=== PATIENT | female | born 1955 | race Caucasian/White ===

== ENCOUNTER → 2016-05-28 | Outpatient (CLI) | payer OTHER ==
--- NOTE | 2016-05-30 11:07 | MM ---
Reason for exam: screening (asymptomatic). Last mammogram was performed 7 years and 7 months ago. History: Patient is postmenopausal. Took hormonal contraceptives for 5 years. Took estrogen for 1 year beginning at age 42. Physical Findings: A clinical breast exam by your physician is recommended on an annual basis and results should be correlated with mammographic findings. MG Screening Mammo w CAD Bilateral CC and MLO view(s) were taken. Prior study comparison: May 20, 2011, mammogram, performed at [facility]. October 10, 2008, bilateral diagnostic digital mammog. There are scattered fibroglandular densities. Finding: There are typically benign round calcifications. There is no discrete abnormality. No significant changes in finding since May 20, 2011 and October 10, 2008. ASSESSMENT: Benign, BI-RAD 2 RECOMMENDATION: Routine screening mammogram of both breasts in 1 year.
== END | disposition home or self-care (01) ==
LOC: RADMAMWWP 13:00
PROVIDERS: ATTEND Internal Medicine
DX: Z12.31 Encounter for screening mammogram for malignant neoplasm of breast (principal)

== ENCOUNTER 2017-07-28 20:37 | Emergency (ER) | payer OTHER ==
[2017-07-28] MEDS ORDERED: ONDANSETRON 4 MG/2 ML VIAL IVP STA (22:43)
[2017-07-28] MEDS ORDERED: SODIUM CHLORIDE 0.9% 1,000 ML IV STA ×2 (22:43)
[2017-07-28] MEDS ORDERED: RX INFO: IV CONTRAST WAS GIVEN 1 EACH MISC MISCELLANE PRN (22:43)
[2017-07-28] MEDS ORDERED: MORPHINE SULFATE 4 MG/ML SYRINGE IVP STA (22:43)
[2017-07-28 23:14] LABS: Basophils % (A) 0 %; Eosinophils # (A) 0.2 k/uL (0-0.7); Eosinophils % (A) 2 %; HCT 36.7 % (34.0-46.0); HGB 12.1 gm/dL (11.4-16.0); Lymphocytes # (A) 2.2 k/uL (1.0-4.8); Lymphocytes % (A) 25 %; MCH 25.5 pg (25.0-35.0); MCHC 32.9 g/dL (31.0-37.0); MCV 77.7 fL (80.0-100.0); Mean Platelet Volume 7.6; Monocytes # (A) 0.4 k/uL (0-1.0); Monocytes % (A) 5 %; Neutrophils % (A) 67 %; Platelet Count 228 k/uL (150-450); RBC 4.73 m/uL (3.80-5.40); RDW 13.9 % (11.5-15.5); WBC 8.9 k/uL (3.8-10.6)
[2017-07-28 23:28] LABS: ALT 25 U/L (9-52); AST 17 U/L (14-36); Alkaline Phosphatase 139 U/L (38-126); Amylase 44 U/L (30-110); Anion Gap 13 mmol/L; Blood Urea Nitrogen 14 mg/dL (7-17); Calcium 10.6 mg/dL (8.4-10.2); Carbon Dioxide 29 mmol/L (22-30); Chloride 99 mmol/L (98-107); Glucose 289 mg/dL (74-99); Lipase 110 U/L (23-300); Potassium 4.2 mmol/L (3.5-5.1); Sodium 141 mmol/L (137-145); Total Bilirubin 0.3 mg/dL (0.2-1.3); Total Protein 6.6 g/dL (6.3-8.2)
[2017-07-28 23:46] VITALS: PULSE 99
[2017-07-29] LABS: Appearance,Urine Clear (Clear); Bilirubin,Urine Negative (Negative); Blood,Urine Negative (Negative); Color,Urine Light Yellow; Glucose,Urine (UA) 4+ (Negative); Ketones,Urine Negative (Negative); Leukocyte Esterase,Urine Negative (Negative); Nitrite,Urine Negative (Negative); PH, Urine 5.5 (5.0-8.0); Protein,Urine Negative (Negative); Specific Gravity,Urine 1.017 (1.001-1.035); Urobilinogen,Urine <2.0 mg/dL (<2.0)
[2017-07-29] MEDS ORDERED: INSULIN REGULAR 100 UNIT/ML VIAL SQ ONE (00:16)
--- NOTE | 2017-07-29 00:18 | ED ---
Abdominal Pain HPI - General Chief Complaint: Abdominal Pain Stated Complaint: hernia Time Seen by Provider: 07/28/17 22:26 Source: patient Mode of arrival: ambulatory Limitations: no limitations - History of Present Illness Initial Comments: 61 years old female has a history of hernia according to her minutes lower abdomen in the midline and she said it has been home uncomfortable when she touches the pain fall and she lays down she denies any nausea and vomiting in particular but she said she has been throwing up once a day for the last several weeks him a she said she hasn't moved her bowels for the last 2 days. - Related Data Home Medications Medication Instructions Recorded Confirmed RX: Aspirin [Adult Low Dose 81 mg PO DAILY 01/26/15 07/28/17 Aspirin EC] RX: Meclizine HCl 25 mg PO TID 01/26/15 07/28/17 RX: Nitroglycerin Sl Tabs 0.4 mg SUBLINGUAL Q5M PRN 01/26/15 07/28/17 [Nitrostat] RX: Atorvastatin [Lipitor] 80 mg PO HS 09/14/15 07/28/17 RX: glipiZIDE [Glucotrol] 10 mg PO TID 09/14/15 07/28/17 RX: metFORMIN HCL 1,000 mg PO BID 09/14/15 07/28/17 Amitriptyline HCl [Elavil] 100 mg PO HS 07/28/17 07/28/17 Ergocalciferol (Vitamin D2) 50,000 unit PO Q7D 07/28/17 07/28/17 [Vitamin D2] HYDROcodone/APAP 7.5-325MG [Varney 1 tab PO BID PRN 07/28/17 07/28/17 7.5-325] Insulin Glargine,Hum.rec.anlog 30 unit SQ BID 07/28/17 07/28/17 [Basaglar Kwikpen U-100] Latanoprost [Xalatan 0.005%] 1 drop BOTH EYES HS 07/28/17 07/28/17 Levothyroxine Sodium [Synthroid] 137 mcg PO DAILY 07/28/17 07/28/17 Mometasone/Formoterol [Dulera 200 2 puff INHALATION BID 07/28/17 07/28/17 Mcg/5 Mcg Inhaler] Montelukast [Singulair] 10 mg PO HS 07/28/17 07/28/17 Pantoprazole Sodium [Protonix] 40 mg PO DAILY 07/28/17 07/28/17 RX: ALPRAZolam [Xanax] 0.25 mg PO BID PRN 07/28/17 07/28/17 Previous Rx's Medication Instructions Recorded RX: Lisinopril [Zestril] 10 mg PO DAILY #30 tab 11/28/15 Allergies Allergy/AdvReac Type Severity Reaction Status Date / Time No Known Allergies Allergy Verified 07/28/17 22:29 Review of Systems ROS Statement: Those systems with pertinent positive or pertinent negative responses have been documented in the HPI. ROS Other: All systems not noted in ROS Statement are negative. Past Medical History Past Medical History: Chest Pain / Angina, COPD, CVA/TIA, Diabetes Mellitus, Eye Disorder, GERD/Reflux, Hyperlipidemia, Hypertension, Myocardial Infarction ( MS), Osteoarthritis (OA), Thyroid Disorder Additional Past Medical History / Comment(s): vertigo, CVA-x2- 2010, glaucoma, varicose veins, peptic ulcer, Last Myocardial Infarction Date:: 2008 History of Any Multi-Drug Resistant Organisms: None Reported Past Surgical History: Bladder Surgery, Cholecystectomy, Hernia Repair, Hysterectomy, Tonsillectomy Additional Past Surgical History / Comment(s): thyroidectomy, left foot ORIF- hardware later removed, rt oopherectomy, bladder suspension, laser eye surgery, Past Anesthesia/Blood Transfusion Reactions: No Reported Reaction Past Psychological History: Anxiety, Depression Smoking Status: Current every day smoker Past Alcohol Use History: None Reported Past Drug Use History: None Reported - Past Family History Father Family Medical History: Cancer Additional Family Medical History / Comment(s): prostate General Exam Limitations: no limitations Course Vital Signs 07/28/17 07/28/17 07/28/17 20:47 22:52 23:40 Temperature 98.2 F Pulse Rate 118 H 104 H 99 Respiratory 18 20 19 Rate Blood Pressure 148/86 138/89 139/87 O2 Sat by Pulse 97 99 97 Oximetry On reassessment noticed CBC, compressive metabolic panel, urinalysis, CT abdomen were unremarkable noticed Hemangioma glucose is bit high and is no ketoacidosis 20 for discussed with the patient and patient was advised to follow-up with the Dr. Pinedo she has appointment with the Dr. Sahu she was advised to continue that Medical Decision Making - Lab Data Result diagrams: 07/28/17 23:00 07/28/17 23:00 Lab Results 07/28/17 07/28/17 07/28/17 Range/Units 23:00 23:00 23:39 WBC 8.9 (3.8-10.6) k/uL RBC 4.73 (3.80-5.40) m/uL Hgb 12.1 (11.4-16.0) gm/dL Hct 36.7 (34.0-46.0) % MCV 77.7 L (80.0-100.0) fL MCH 25.5 (25.0-35.0) pg MCHC 32.9 (31.0-37.0) g/dL RDW 13.9 (11.5-15.5) % Plt Count 228 (150-450) k/uL Neutrophils % 67 % Lymphocytes % 25 % Monocytes % 5 % Eosinophils % 2 % Basophils % 0 % Neutrophils # 6.0 (1.3-7.7) k/uL Lymphocytes # 2.2 (1.0-4.8) k/uL Monocytes # 0.4 (0-1.0) k/uL Eosinophils # 0.2 (0-0.7) k/uL Basophils # 0.0 (0-0.2) k/uL Sodium 141 (137-145) mmol/L Potassium 4.2 (3.5-5.1) mmol/L Chloride 99 (98-107) mmol/L Carbon Dioxide 29 (22-30) mmol/L Anion Gap 13 mmol/L BUN 14 (7-17) mg/dL Creatinine 0.76 (0.52-1.04) mg/dL Est GFR (CKD-EPI)AfAm >90 (>60 ml/min/1.73 sqM) Est GFR (CKD-EPI)NonAf 85 (>60 ml/min/1.73 sqM) Glucose 289 H (74-99) mg/dL POC Glucose (mg/dL) (75-99) mg/dL POC Glu Wrapper Layer And Examiner Soft Work ID Calcium 10.6 H (8.4-10.2) mg/dL Total Bilirubin 0.3 (0.2-1.3) mg/dL AST 17 (14-36) U/L ALT 25 (9-52) U/L Alkaline Phosphatase 139 H (38-126) U/L Total Protein 6.6 (6.3-8.2) g/dL Albumin 4.0 (3.5-5.0) g/dL Amylase 44 (30-110) U/L Lipase 110 (23-300) U/L Urine Color Light Yellow Urine Appearance Clear (Clear) Urine pH 5.5 (5.0-8.0) Ur Specific [place] 1.017 (1.001-1.035) Urine Protein Negative (Negative) Urine Glucose (UA) 4+ H (Negative) Urine Ketones Negative (Negative) Urine Blood Negative (Negative) Urine Nitrite Negative (Negative) Urine Bilirubin Negative (Negative) Urine Urobilinogen <2.0 (<2.0) mg/dL Ur Leukocyte Esterase Negative (Negative) 07/29/17 Range/Units 00:25 WBC (3.8-10.6) k/uL RBC (3.80-5.40) m/uL Hgb (11.4-16.0) gm/dL Hct (34.0-46.0) % MCV (80.0-100.0) fL MCH (25.0-35.0) pg MCHC (31.0-37.0) g/dL RDW (11.5-15.5) % Plt Count (150-450) k/uL Neutrophils % % Lymphocytes % % Monocytes % % Eosinophils % % Basophils % % Neutrophils # (1.3-7.7) k/uL Lymphocytes # (1.0-4.8) k/uL Monocytes # (0-1.0) k/uL Eosinophils # (0-0.7) k/uL Basophils # (0-0.2) k/uL Sodium (137-145) mmol/L Potassium (3.5-5.1) mmol/L Chloride (98-107) mmol/L Carbon Dioxide (22-30) mmol/L Anion Gap mmol/L BUN (7-17) mg/dL Creatinine (0.52-1.04) mg/dL Est GFR (CKD-EPI)AfAm (>60 ml/min/1.73 sqM) Est GFR (CKD-EPI)NonAf (>60 ml/min/1.73 sqM) Glucose (74-99) mg/dL POC Glucose (mg/dL) 236 H (75-99) mg/dL POC Glu Wrapper Layer [employer] Examiner Soft Work ID Ruben Flores Calcium (8.4-10.2) mg/dL Total Bilirubin (0.2-1.3) mg/dL AST (14-36) U/L ALT (9-52) U/L Alkaline Phosphatase (38-126) U/L Total Protein (6.3-8.2) g/dL Albumin (3.5-5.0) g/dL Amylase (30-110) U/L Lipase (23-300) U/L Urine Color Urine Appearance (Clear) Urine pH (5.0-8.0) Ur Specific [place] (1.001-1.035) Urine Protein (Negative) Urine Glucose (UA) (Negative) Urine Ketones (Negative) Urine Blood (Negative) Urine Nitrite (Negative) Urine Bilirubin (Negative) Urine Urobilinogen (<2.0) mg/dL Ur Leukocyte Esterase (Negative) Disposition Clinical Impression: Abdominal pain Disposition: HOME SELF-CARE Condition: Good Instructions: Abdominal Pain (ED) Additional Instructions: Tylenol 1 g by mouth every 8 hours when necessary Is patient prescribed a controlled substance at d/c from ED?: No If prescribed controlled substance>3 days was MAPS reviewed?: No When asked, does pt state using other controlled substances?: No Referrals: Vicky Pinedo MD [Primary Care Provider] - 1-2 days
--- NOTE | 2017-07-29 00:24 | CT ---
EXAMINATION TYPE: CT abdomen pelvis w con DATE OF EXAM: 07/29/2017 COMPARISON: 08/19/2015 HISTORY: Abd pain CT DLP: 1705.60 mGycm Automated exposure control for dose reduction was used. TECHNIQUE: Helical acquisition of images was performed from the lung bases through the pelvis. CONTRAST: Performed without Oral Contrast and with IV Contrast, patient injected with 100 mL of Isovue 300. FINDINGS: The lung bases are clear. There is no pleural effusion. Heart size is normal. There is a 3.3 cm rounded enhancing mass in the posterior right lobe of the liver consistent with hem angioma. The bile ducts are not dilated. The remainder of the liver appears normal. Spleen and pancre as appear normal. There are clips from cholecystectomy. There is no adrenal mass. Kidneys show satisfactory contrast opacification. There is no hydronephrosi s. There is no retroperitoneal adenopathy. Abdominal aorta is atheromatous. I see no intestinal wall thickening. There are no dilated loops. There is no sign of free air. There is no evidence of a pelvi c mass. The bony structures appear intact. IMPRESSION: HEMANGIOMA IN THE RIGHT LOBE OF THE LIVER IS STABLE COMPARED TO OLD EXAM. MILD ATHEROSCLEROTIC VASCUL AR DISEASE. NO SIGN OF ACUTE ABDOMEN AND PELVIS. NO SIGN OF APPENDICITIS. APPENDIX IS MOSTLY FILLED W ITH AIR AND MEASURES UP TO 8 MM.
[2017-07-29 00:26] LABS: Glucose,Whole Blood 236 mg/dL (75-99)
[2017-07-29 02:35] VITALS: BP 117/68; RESP 16; TEMP 98.4
== END 2017-07-29 02:37 | disposition home or self-care (01) ==
LOC: EC 20:37
DX: R10.9 Unspecified abdominal pain (principal); J44.9 Chronic obstructive pulmonary disease, unspecified; E11.9 Type 2 diabetes mellitus without complications; K21.9 Gastro-esophageal reflux disease without esophagitis; E78.5 Hyperlipidemia, unspecified; I10 Essential (primary) hypertension; I25.2 Old myocardial infarction; E07.9 Disorder of thyroid, unspecified; F32.9 Major depressive disorder, single episode, unspecified; F41.9 Anxiety disorder, unspecified; F17.200 Nicotine dependence, unspecified, uncomplicated; Z79.4 Long term (current) use of insulin; Z79.51 Long term (current) use of inhaled steroids; Z79.82 Long term (current) use of aspirin; Z79.899 Other long term (current) drug therapy
CPT/HCPCS: 36415 ×2; 80053; 82150; 83690; 85025; 81003; 74177; 99284; 96374; 96375; 96361 ×3; J2270; J2405; Q9967

== ENCOUNTER → 2017-08-28 | Outpatient (CLI) | payer OTHER ==
--- NOTE | 2017-08-29 09:11 | MM ---
Reason for exam: screening (asymptomatic). Last mammogram was performed 1 year and 3 months ago. History: Patient is postmenopausal. Took hormonal contraceptives for 5 years. Took estrogen for 1 year beginning at age 42. Physical Findings: A clinical breast exam by your physician is recommended on an annual basis and results should be correlated with mammographic findings. MG Screening Mammo w CAD Bilateral CC and MLO view(s) were taken. Prior study comparison: May 28, 2016, bilateral MG screening mammo w CAD. May 20, 2011, mammogram, performed at [facility]. The breast tissue is heterogeneously dense. This may lower the sensitivity of mammography. Finding: There are typically benign round, diffuse/scattered and grouped calcifications in both breasts. There is a chronic nodularity bilaterally. There is no discrete abnormality. ASSESSMENT: Benign, BI-RAD 2 RECOMMENDATION: Routine screening mammogram of both breasts in 1 year.
== END | disposition home or self-care (01) ==
LOC: RADMAMWWP 14:48
PROVIDERS: ATTEND Internal Medicine
DX: Z12.31 Encounter for screening mammogram for malignant neoplasm of breast (principal)
CPT/HCPCS: 77067

== ENCOUNTER 2017-10-29 07:11 | Day surgery (SDC) | payer OTHER ==
[2017-10-23 11:00] VITALS: BMI 34.9
[~2017-10-29 07:11] MED LIST: LACTATED RINGERS 1,000 ML IV SCH; LIDOCAINE 1% 20 ML VIAL (10MG/ML) FOR IV START INTRADERMA PRN
[2017-10-29 07:56] LABS: Glucose,Whole Blood 206 mg/dL (75-99)
[2017-10-29 08:02] VITALS: TEMP 99.5
[2017-10-29] MEDS ORDERED: PROPOFOL 10 MG/ML 20 ML VIAL IV ONE (08:56)
--- NOTE | 2017-10-29 09:06 | P.PCN ---
Date of Procedure: 10/29/17 Procedure(s) Performed: Preoperative Dx: GI bleed Postoperative Dx: Gastritis, small hiatal hernia Procedure: EGD with Bx Anesthesia: Sedation Endoscopist: Dr. Sahu Specimens: Antrum Endoscopic Procedure: The patient was on the endoscopy table in the left decubitus position. The Olympus gastroscope was inserted into the oropharynx and passed under direct visualization to the region of the third portion of the duodenum. From that point the scope was slowly withdrawn inspecting all surfaces carefully. There were no neoplastic inflammatory or polypoid lesions throughout the duodenum. The pylorus was widely patent. The stomach was carefully inspected. There was gastritis present. A biopsy of the antrum took place to rule out H. pylori. Retroflexion revealed a small sliding hiatal hernia. The esophagus was then carefully examined. There were no neoplastic inflammatory or polypoid lesions throughout the visualized esophagus. The patient was then taken to the recovery room in stable condition per anesthesia guidelines. Recommendations: Await biopsy results. Continue antiacids.
[2017-10-29 09:15] VITALS: RESP 16
[2017-10-29 09:29] VITALS: PULSE 88
[2017-10-29 09:36] VITALS: BP 134/91
--- NOTE | 2017-10-31 11:23 | CDI ---
Outpatient Documentation Clarification Form Date: 10/31/17 CDS/Cigar Making Machine Operator Name: Sharon Crawford Phone: If any questions, call [place] Bridges Supervisor at [phone] Patient Name: Jennifer Rodriguez Admit Date: 10/29/17 Discharge Date: 10/29/17 ATTENTION: The [facility] Coding Staff appreciate your assistance in clarifying documentation. Please respond to the clarification below the line at the bottom and electronically sign. The [facility] Coding staff will review the response and follow-up if needed. Please note: Queries are made part of the Legal Health Record. If you have any questions, please contact the Bridges Supervisor. Dear Dr. Sahu, What is the source of the GI bleed? Multiple coding resources, that we are required to follow, state that the physician should identify a source and the packing room supervisor may not assume. ICD-9-CM [facility], Second 2006, Page 13: Question: In the 2004 issue of [facility]oding [facility], it was advised that "the combination codes describing hemorrhage should not be assigned unless the physician identifies a causal relationship." This information superseded previous advice provided in 1991. If, however, a patient presents with GI bleeding where only one possible source is found, can the packing room supervisor assume a causal relationship between the GI bleeding and the single finding (ulcer, gastritis, diverticulitis, etc.) or must the physician explicitly state that the GI bleeding is due to the single finding? Answer: The packing room supervisor should not assume a causal relationship between gastrointestinal bleeding and a single finding such as a gastric ulcer, gastritis, diverticulitis , etc. The physician must identify the source of the bleeding and link the clinical findings from the colonoscopy or upper endoscopy, since these findings may be unrelated to the bleeding. ICD-9-CM, 2004, Page: 17-18: Question: A patient presents with GI bleeding and undergoes both an EGD with biopsy and colonoscopy. Results reveal multiple findings including gastritis, duodenitis, esophagitis, diverticulosis (of colon), and colon polyp. The physician does not link the GI bleeding with these conditions nor does the physician state that the GI bleeding is not due to these conditions. What is the correct code assignment for these conditions? Answer: Query the physician to determine whether the GI bleeding was caused by any of the endoscopic findings (e.g., gastritis, duodentitis, esophagitis, diverticulosis, and/or polyp). Assign code 578.9, Hemorrhage of gastrointestinal tract, unspecified, as the principal diagnosis, if the physician does not establish a causal relationship between the gastrointestinal bleeding and the multiple findings. Codes 535.50, Unspecified gastritis and gastroduodenitis, without hemorrhage, 535.60, Duodenitis, without hemorrhage, 530.10, Esophagitis, unspecified, 562.10, Diverticulosis of colon (without mention of hemorrhage), and 211.3, Benign neoplasm of other parts of digestive system, Colon, should be assigned as additional diagnoses. The combination codes describing hemorrhage should not be assigned unless the physician identifies a causal relationship. If the documentation provides more specific information and the bleeding is linked to a specific condition, assign the appropriate combination code with bleeding. Assign code 45.16, Esophagogastroduodenoscopy [EGD] with closed biopsy, and code 45.23, Colonoscopy , for the procedures performed. This current information supersedes advice previously published in [facility], Second Quarter 1991, pages 8-9. Thank you for your kind consideration. patient's preoperative diagnosis with GI bleeding given the history of melanotic stools. No active bleeding was identified to explain the patient's GI source of bleeding. In the absence of visible bleeding it is impossible to state with certainty where the bleeding is coming from. [facility]
== END 2017-10-29 09:52 | disposition home or self-care (01) ==
LOC: ORWHC2ENDO 07:11
PROVIDERS: ATTEND Surgery
DX: K92.2 Gastrointestinal hemorrhage, unspecified (principal); K29.50 Unspecified chronic gastritis without bleeding; K44.9 Diaphragmatic hernia without obstruction or gangrene; E11.9 Type 2 diabetes mellitus without complications; E07.9 Disorder of thyroid, unspecified; K21.9 Gastro-esophageal reflux disease without esophagitis; I10 Essential (primary) hypertension; I25.2 Old myocardial infarction; I25.10 Atherosclerotic heart disease of native coronary artery without angina pectoris; F17.210 Nicotine dependence, cigarettes, uncomplicated; Z79.82 Long term (current) use of aspirin; Z79.890 Hormone replacement therapy; Z79.4 Long term (current) use of insulin; Z79.891 Long term (current) use of opiate analgesic; Z79.899 Other long term (current) drug therapy
CPT/HCPCS: 88305; 43239; J2704

== ENCOUNTER 2017-11-30 14:47 | Emergency (ER) | payer MEDICARE, OTHER ==
[2017-11-30 15:09] VITALS: RESP 18
--- NOTE | 2017-11-30 15:24 | ED ---
General Adult HPI - General Chief complaint: ENT Stated complaint: Ear pain Time Seen by Provider: 11/30/17 15:00 Source: patient Mode of arrival: ambulatory Limitations: no limitations - History of Present Illness Initial comments: Patient is a 61-year-old female presenting for abdominal pain and right ear pain. She states that the right ear pain is been present for one week and it is swollen. There is clear discharge and she admits to subjective fevers and chills. She states that she has been putting Q-tips as well as her fingertip in the ear to try to get some clear drainage out. Additionally, she admits to having green stools and she thinks that that is her body's way of releasing the poison. She states that she has epigastric discomfort and this feels similar to her GERD. This pain is been present for several weeks and she is no longer taking her antacid medicines. She denies any chest pain, shortness breath, urinary complaints - Related Data Home Medications Medication Instructions Recorded Confirmed Aspirin [Adult Low Dose Aspirin EC] 81 mg PO DAILY 01/26/15 10/29/17 Meclizine HCl 25 mg PO TID 01/26/15 10/29/17 Nitroglycerin Sl Tabs [Nitrostat] 0.4 mg SUBLINGUAL Q5M PRN 01/26/15 10/29/17 Atorvastatin [Lipitor] 80 mg PO HS 09/14/15 10/29/17 glipiZIDE [Glucotrol] 10 mg PO TID 09/14/15 10/29/17 metFORMIN HCL 1,000 mg PO BID 09/14/15 10/29/17 ALPRAZolam [Xanax] 0.25 mg PO BID PRN 07/28/17 10/29/17 Amitriptyline HCl [Elavil] 100 mg PO HS 07/28/17 10/29/17 Ergocalciferol (Vitamin D2) 50,000 unit PO SA 07/28/17 10/29/17 [Vitamin D2] HYDROcodone/APAP 7.5-325MG [[place] 1 tab PO BID PRN 07/28/17 10/29/17 7.5-325] Insulin Glargine,Hum.rec.anlog 40 unit SQ QAM 07/28/17 10/29/17 [Basaglar Kwikpen U-100] Latanoprost [Xalatan 0.005%] 1 drop BOTH EYES HS 07/28/17 10/29/17 Levothyroxine Sodium [Synthroid] 137 mcg PO DAILY 07/28/17 10/29/17 Mometasone/Formoterol [Dulera 200 2 puff INHALATION BID 07/28/17 10/29/17 Mcg/5 Mcg Inhaler] Montelukast [Singulair] 10 mg PO HS 07/28/17 10/29/17 Pantoprazole Sodium [Protonix] 40 mg PO DAILY 07/28/17 10/29/17 Acid Cider Vinegar 1 tab PO DAILY 10/23/17 10/29/17 Escitalopram [Lexapro] 20 mg PO DAILY 10/23/17 10/29/17 Insulin Glargine,Hum.rec.anlog 30 unit SQ AC-SUPPER 10/23/17 10/29/17 [Basaglar Kwikpen U-100] Previous Rx's Medication Instructions Recorded Lisinopril [Zestril] 10 mg PO DAILY #30 tab 11/28/15 Famotidine [Pepcid] 20 mg PO DAILY #30 tablet 11/30/17 Ofloxacin [Ofloxacin 0.3% Otic 10 drops RIGHT EAR DAILY 7 Days #1 11/30/17 Soln] bottle Allergies Allergy/AdvReac Type Severity Reaction Status Date / Time No Known Allergies Allergy Verified 10/29/17 07:32 Review of Systems ROS Statement: Those systems with pertinent positive or pertinent negative responses have been documented in the HPI. Constitutional: Negative for chills, fatigue and fever. HENT: Negative for congestion. Positive for right ear pain and discharge Respiratory: Negative for chest tightness, shortness of breath and wheezing. Negative for cough Cardiovascular: Negative for chest pain and palpitations. Gastrointestinal: Positive for abdominal pain and nausea. Negative for abdominal distention, diarrhea, and vomiting. Genitourinary: Negative for dysuria. Musculoskeletal: Negative for back pain, neck pain and neck stiffness. Skin: Negative for color change. Neurological: Negative for dizziness, speech difficulty, weakness and light- headedness. Psychiatric/Behavioral: Negative for agitation and confusion. Negative for anxiety ROS Other: All systems not noted in ROS Statement are negative. Past Medical History Past Medical History: Chest Pain / Angina, COPD, CVA/TIA, Diabetes Mellitus, Eye Disorder, GERD/Reflux, Hyperlipidemia, Hypertension, Myocardial Infarction ( [place]), Osteoarthritis (OA), Thyroid Disorder Additional Past Medical History / Comment(s): HAVING BLOOD STOOLS, vertigo, CVA- x2- 2010, glaucoma, varicose veins, peptic ulcer, HX POLYP Last Myocardial Infarction Date:: 2008 History of Any Multi-Drug Resistant Organisms: None Reported Past Surgical History: Bladder Surgery, Cholecystectomy, Hernia Repair, Hysterectomy, Tonsillectomy Additional Past Surgical History / Comment(s): thyroidectomy, left foot ORIF- hardware later removed, rt oopherectomy, bladder suspension, laser eye surgery, Past Anesthesia/Blood Transfusion Reactions: No Reported Reaction Past Psychological History: Anxiety, Depression Smoking Status: Current every day smoker Past Alcohol Use History: None Reported Past Drug Use History: None Reported - Past Family History Father Family Medical History: Cancer Additional Family Medical History / Comment(s): prostate General Exam - General Exam Comments Initial Comments: Constitutional: Pt is oriented to person, place, and time. Pt appears well- developed and well-nourished. No distress. HENT: Head: Normocephalic and atraumatic. Eyes: EOM are normal. Ears: Right external ear canal erythema with no purulent discharge. No mastoid tenderness Neck: Normal range of motion. Neck supple. Cardiovascular: Normal rate, regular rhythm, S1 normal, S2 normal and normal heart sounds. Exam reveals no gallop and no friction rub. No murmur heard. Pulmonary/Chest: Effort normal and breath sounds normal. No tachypnea and no bradypnea. No respiratory distress. No wheezes or rales noted. Abdominal: Soft. Bowel sounds are normal. Pt exhibits no shifting dullness, no distension, no pulsatile liver, no fluid wave, no abdominal bruit and no ascites. There is no tenderness. There is no rigidity, no rebound, no guarding, no tenderness at McBurney's point and negative Chacon's sign. Musculoskeletal: Normal range of motion. Neurological: Pt is alert and oriented to person, place, and time. No cranial nerve deficit. Skin: Skin is warm and dry. No rash noted. Pt is not diaphoretic. No erythema. No pallor. Psychiatric: Pt has a normal mood and affect. Pt behavior is normal. Thought content normal. Limitations: no limitations Course Vital Signs 11/30/17 11/30/17 11/30/17 14:54 15:08 16:17 Temperature 98.3 F Pulse Rate 97 93 83 Respiratory 16 18 18 Rate Blood Pressure 89/61 95/53 97/60 O2 Sat by Pulse 96 97 94 L Oximetry 11/30/17 16:42 Temperature 98.0 F Pulse Rate 85 Respiratory 18 Rate Blood Pressure 99/59 O2 Sat by Pulse 96 Oximetry EKG Findings - EKG Comments: EKG Findings:: EKG shows normal sinus rhythm a rate of 86 bpm, MI interval 150, QRS duration 84, QTC 423. There are no significant ST depressions or elevations. Medical Decision Making - Medical Decision Making Lavatory satiated there is no significant leukocytosis and renal function was preserved. Lipase is mildly elevated at 373. However, his on the patient's HPI , it is strongly felt that the patient's symptoms are secondary to GERD and/or peptic ulcer disease. Therefore she was given a prescription for Pepcid. Additionally, it appears that she has external otitis of the right ear for which she was given ofloxacin drops. There is no evidence of mastoid tenderness.Explained all labs and diagnostic test results and that we will discharge the patient home and patient is to follow up with PCP in 1-2 days and return to the ED if symptoms worsen. Pt is agreeable to plan. - Lab Data Result diagrams: 11/30/17 15:54 11/30/17 15:54 Lab Results 11/30/17 11/30/17 11/30/17 Range/Units 15:54 15:54 15:54 WBC 9.1 (3.8-10.6) k/uL RBC 4.57 (3.80-5.40) m/uL Hgb 11.9 (11.4-16.0) gm/dL Hct 36.8 (34.0-46.0) % MCV 80.5 (80.0-100.0) fL MCH 26.1 (25.0-35.0) pg MCHC 32.4 (31.0-37.0) g/dL RDW 14.2 (11.5-15.5) % Plt Count 265 (150-450) k/uL Neutrophils % 62 % Lymphocytes % 29 % Monocytes % 4 % Eosinophils % 3 % Basophils % 1 % Neutrophils # 5.7 (1.3-7.7) k/uL Lymphocytes # 2.6 (1.0-4.8) k/uL Monocytes # 0.4 (0-1.0) k/uL Eosinophils # 0.3 (0-0.7) k/uL Basophils # 0.1 (0-0.2) k/uL Hypochromasia Slight Sodium 137 (137-145) mmol/L Potassium 4.4 (3.5-5.1) mmol/L Chloride 101 (98-107) mmol/L Carbon Dioxide 26 (22-30) mmol/L Anion Gap 10 mmol/L BUN 14 (7-17) mg/dL Creatinine 0.81 (0.52-1.04) mg/dL Est GFR (CKD-EPI)AfAm >90 (>60 ml/min/1.73 sqM) Est GFR (CKD-EPI)NonAf 79 (>60 ml/min/1.73 sqM) Glucose 197 H (74-99) mg/dL Calcium 10.4 H (8.4-10.2) mg/dL Total Bilirubin 0.4 (0.2-1.3) mg/dL AST 25 (14-36) U/L ALT 26 (9-52) U/L Alkaline Phosphatase 111 (38-126) U/L Troponin I <0.012 (0.000-0.034) ng/mL Total Protein 7.1 (6.3-8.2) g/dL Albumin 3.9 (3.5-5.0) g/dL Lipase 373 H (23-300) U/L Disposition Clinical Impression: Otitis externa, Epigastric pain, GERD (gastroesophageal reflux disease), Elevated lipase Disposition: HOME SELF-CARE Condition: Good Instructions: Earache (ED), Abdominal Pain (ED) Prescriptions: Famotidine [Pepcid] 20 mg PO DAILY #30 tablet Ofloxacin [Ofloxacin 0.3% Otic Soln] 10 drops RIGHT EAR DAILY 7 Days #1 bottle Is patient prescribed a controlled substance at d/c from ED?: No Referrals: Vicky Pinedo MD [Primary Care Provider] - 1-2 days Time of Disposition: 16:31
[2017-11-30 16:00] LABS: Basophils # (A) 0.1 k/uL (0-0.2); Basophils % (A) 1 %; Eosinophils # (A) 0.3 k/uL (0-0.7); Eosinophils % (A) 3 %; HCT 36.8 % (34.0-46.0); HGB 11.9 gm/dL (11.4-16.0); Hypochromasia Slight; Lymphocytes # (A) 2.6 k/uL (1.0-4.8); Lymphocytes % (A) 29 %; MCH 26.1 pg (25.0-35.0); MCHC 32.4 g/dL (31.0-37.0); MCV 80.5 fL (80.0-100.0); Mean Platelet Volume 6.7; Monocytes # (A) 0.4 k/uL (0-1.0); Monocytes % (A) 4 %; Neutrophils # (A) 5.7 k/uL (1.3-7.7); Neutrophils % (A) 62 %; Platelet Count 265 k/uL (150-450); RBC 4.57 m/uL (3.80-5.40); RDW 14.2 % (11.5-15.5); WBC 9.1 k/uL (3.8-10.6)
[2017-11-30 16:13] LABS: ALT 26 U/L (9-52); AST 25 U/L (14-36); Albumin 3.9 g/dL (3.5-5.0); Alkaline Phosphatase 111 U/L (38-126); Anion Gap 10 mmol/L; Blood Urea Nitrogen 14 mg/dL (7-17); Calcium 10.4 mg/dL (8.4-10.2); Carbon Dioxide 26 mmol/L (22-30); Chloride 101 mmol/L (98-107); Glucose 197 mg/dL (74-99); Lipase 373 U/L (23-300); Sodium 137 mmol/L (137-145); Total Bilirubin 0.4 mg/dL (0.2-1.3); Total Protein 7.1 g/dL (6.3-8.2)
[2017-11-30 16:16] LABS: Potassium 4.4 mmol/L (3.5-5.1)
[2017-11-30 16:43] VITALS: BP 99/59; PULSE 85; TEMP 98
== END 2017-11-30 16:42 | disposition home or self-care (01) ==
LOC: EC 14:47
DX: H60.91 Unspecified otitis externa, right ear (principal); K21.9 Gastro-esophageal reflux disease without esophagitis; R74.8 Abnormal levels of other serum enzymes; J44.9 Chronic obstructive pulmonary disease, unspecified; I20.9 Angina pectoris, unspecified; E11.9 Type 2 diabetes mellitus without complications; E78.5 Hyperlipidemia, unspecified; I10 Essential (primary) hypertension; I25.2 Old myocardial infarction; E07.9 Disorder of thyroid, unspecified; F32.9 Major depressive disorder, single episode, unspecified; F41.9 Anxiety disorder, unspecified; F17.200 Nicotine dependence, unspecified, uncomplicated; Z87.11 Personal history of peptic ulcer disease; Z86.73 Personal history of transient ischemic attack (TIA), and cerebral infarction without residual deficits; Z86.010 Personal history of colon polyps; Z90.49 Acquired absence of other specified parts of digestive tract; Z90.710 Acquired absence of both cervix and uterus; Z90.721 Acquired absence of ovaries, unilateral; Z98.890 Other specified postprocedural states; Z79.4 Long term (current) use of insulin; Z79.51 Long term (current) use of inhaled steroids; Z79.82 Long term (current) use of aspirin; Z79.899 Other long term (current) drug therapy
CPT/HCPCS: 36415; 80053; 83690; 84484; 85025; 93005; 99283

== ENCOUNTER 2017-12-16 11:53 | Observation (INO) | payer MEDICARE, OTHER ==
--- NOTE | 2017-12-16 12:23 | ED ---
Chest Pain HPI - General Chief Complaint: Chest Pain Stated Complaint: CHEST PAIN, JULIANE Time Seen by Provider: 12/16/17 12:03 Source: patient, RN notes reviewed Mode of arrival: wheelchair Limitations: no limitations - History of Present Illness Initial Comments: Is a 60-year-old female who does have a History of heart disease who states she had chest pain today which required nitroglycerin. She states she uses it once or twice a month normally day she had midsternal chest pain was greater than 10/10 dull in nature she states that she took one nitro when away within a came back she'll take another nitroglycerin and came back currently she is pain-free she currently denies any fevers chills nausea vomiting sweats or other symptoms she is in process of being worked up for vocal cord issues. MD Complaint: chest pain - Related Data Home Medications Medication Instructions Recorded Confirmed Aspirin [Adult Low Dose Aspirin EC] 81 mg PO DAILY 01/26/15 12/16/17 Meclizine HCl 25 mg PO TID 01/26/15 12/16/17 Nitroglycerin Sl Tabs [Nitrostat] 0.4 mg SUBLINGUAL Q5M PRN 01/26/15 12/16/17 Atorvastatin [Lipitor] 80 mg PO HS 09/14/15 12/16/17 glipiZIDE [Glucotrol] 10 mg PO TID 09/14/15 12/16/17 metFORMIN HCL 1,000 mg PO BID 09/14/15 12/16/17 ALPRAZolam [Xanax] 0.25 mg PO BID PRN 07/28/17 12/16/17 Amitriptyline HCl [Elavil] 100 mg PO HS 07/28/17 12/16/17 Ergocalciferol (Vitamin D2) 50,000 unit PO SA 07/28/17 12/16/17 [Vitamin D2] HYDROcodone/APAP 7.5-325MG [[place] 1 tab PO BID PRN 07/28/17 12/16/17 7.5-325] Insulin Glargine,Hum.rec.anlog 40 unit SQ QAM 07/28/17 12/16/17 [Basaglar Kwikpen U-100] Latanoprost [Xalatan 0.005%] 1 drop BOTH EYES HS 07/28/17 12/16/17 Levothyroxine Sodium [Synthroid] 137 mcg PO DAILY 07/28/17 12/16/17 Montelukast [Singulair] 10 mg PO HS 07/28/17 12/16/17 Pantoprazole Sodium [Protonix] 40 mg PO DAILY 07/28/17 12/16/17 Escitalopram [Lexapro] 20 mg PO DAILY 10/23/17 12/16/17 Insulin Glargine,Hum.rec.anlog 30 unit SQ AC-SUPPER 10/23/17 12/16/17 [Basaglar Kwikpen U-100] Budesonide-Formot 160-4.5 Mcg 2 puff INHALATION RT-BID 12/16/17 12/16/17 [Symbicort 160-4.5 Mcg Inhaler] buPROPion HCL [Wellbutrin SR] 150 mg PO DAILY 12/16/17 12/16/17 Previous Rx's Medication Instructions Recorded Lisinopril [Zestril] 10 mg PO DAILY #30 tab 11/28/15 Allergies Allergy/AdvReac Type Severity Reaction Status Date / Time No Known Allergies Allergy Verified 12/16/17 12:28 Review of Systems ROS Statement: Those systems with pertinent positive or pertinent negative responses have been documented in the HPI. ROS Other: All systems not noted in ROS Statement are negative. EKG Findings - EKG Results: EKG: interpreted by ANAND, sinus rhythm (Sinus tachycardia rate of 11. We'll 142 QRS duration 88 QT since QTC 340/[address]-T wave changes) Past Medical History Past Medical History: Chest Pain / Angina, COPD, CVA/TIA, Diabetes Mellitus, Eye Disorder, GERD/Reflux, Hyperlipidemia, Hypertension, Myocardial Infarction ( [place]), Osteoarthritis (OA), Thyroid Disorder Additional Past Medical History / Comment(s): HAVING BLOOD STOOLS, vertigo, CVA- x2- 2010, glaucoma, varicose veins, peptic ulcer, HX POLYP Last Myocardial Infarction Date:: 2008 History of Any Multi-Drug Resistant Organisms: None Reported Past Surgical History: Bladder Surgery, Cholecystectomy, Hernia Repair, Hysterectomy, Tonsillectomy Additional Past Surgical History / Comment(s): thyroidectomy, left foot ORIF- hardware later removed, rt oopherectomy, bladder suspension, laser eye surgery, Past Anesthesia/Blood Transfusion Reactions: No Reported Reaction Past Psychological History: Anxiety, Depression Smoking Status: Current every day smoker Past Alcohol Use History: None Reported Past Drug Use History: None Reported - Past Family History Father Family Medical History: Cancer Additional Family Medical History / Comment(s): prostate General Exam - General Exam Comments Initial Comments: This is a well-developed well-nourished awake alert oriented 3 female Limitations: no limitations General appearance: alert, in no apparent distress Head exam: Present: atraumatic, normocephalic, normal inspection Eye exam: Present: normal appearance, PERRL, EOMI. Absent: scleral icterus, conjunctival injection, periorbital swelling ENT exam: Present: normal exam, mucous membranes moist Neck exam: Present: normal inspection. Absent: tenderness, meningismus, lymphadenopathy Respiratory exam: Present: normal lung sounds bilaterally. Absent: respiratory distress, wheezes, rales, rhonchi, stridor Cardiovascular Exam: Present: normal rhythm, tachycardia, normal heart sounds. Absent: systolic murmur, diastolic murmur, rubs, gallop, clicks GI/Abdominal exam: Present: soft, normal bowel sounds. Absent: distended, tenderness, guarding, rebound, rigid Extremities exam: Present: normal inspection, full ROM, normal capillary refill. Absent: tenderness, pedal edema, joint swelling, calf tenderness Back exam: Present: normal inspection Neurological exam: Present: alert, oriented X3, CN II-XII intact Psychiatric exam: Present: normal affect, normal mood Skin exam: Present: warm, dry, intact, normal color. Absent: rash Course Vital Signs 12/16/17 12/16/17 12/16/17 12:09 13:45 14:38 Temperature 98.1 F Pulse Rate 105 H 87 93 Respiratory 18 20 18 Rate Blood Pressure 159/80 158/88 139/80 O2 Sat by Pulse 98 95 97 Oximetry Chest Pain MDM - MDM I did review the imaging and report no acute findings. I did discuss findings with the patient and with Dr. Pinedo. Patient will be admitted with consultation by cardiology Critical Care Time Critical Care Time: Yes Critical Care Time: 31 minutes of critical care time which includes initial presentation with history physical labs x-rays reevaluation patient. Discussed with the main physician admission orders and documentation of the above. Disposition Clinical Impression: Unstable angina, Chest pain Disposition: ADMITTED IP TO THIS HOSP Condition: Stable Referrals: Vicky Pinedo MD [Primary Care Provider] - 1-2 days
[2017-12-16 12:39] LABS: Basophils # (A) 0.1 k/uL (0-0.2); Basophils % (A) 1 %; Eosinophils # (A) 0.1 k/uL (0-0.7); Eosinophils % (A) 2 %; HCT 35.8 % (34.0-46.0); HGB 11.7 gm/dL (11.4-16.0); Lymphocytes # (A) 2.3 k/uL (1.0-4.8); Lymphocytes % (A) 26 %; MCH 26.1 pg (25.0-35.0); MCHC 32.7 g/dL (31.0-37.0); MCV 79.8 fL (80.0-100.0); Monocytes # (A) 0.4 k/uL (0-1.0); Monocytes % (A) 4 %; Neutrophils # (A) 6.2 k/uL (1.3-7.7); Neutrophils % (A) 68 %; Platelet Count 254 k/uL (150-450); RBC 4.49 m/uL (3.80-5.40); RDW 14.4 % (11.5-15.5); WBC 9.2 k/uL (3.8-10.6)
[2017-12-16 12:47] LABS: ALT 24 U/L (9-52); AST 28 U/L (14-36); Albumin 4.2 g/dL (3.5-5.0); Alkaline Phosphatase 145 U/L (38-126); Anion Gap 10 mmol/L; Blood Urea Nitrogen 9 mg/dL (7-17); Calcium 10.2 mg/dL (8.4-10.2); Carbon Dioxide 26 mmol/L (22-30); Chloride 98 mmol/L (98-107); Glucose 231 mg/dL (74-99); Magnesium 1.4 mg/dL (1.6-2.3); Partial Thromboplastin Time 22.1 sec (22.0-30.0); Potassium 4.6 mmol/L (3.5-5.1); Prothrombin Time 9.9 sec (9.0-12.0); Sodium 134 mmol/L (137-145); Total Bilirubin 0.4 mg/dL (0.2-1.3); Total Protein 7.4 g/dL (6.3-8.2)
[2017-12-16 13:00] LABS: Creatine Kinase 81 U/L (30-135)
[2017-12-16 13:13] LABS: Creatine Kinase MB 0.5 ng/mL (0.0-2.4); Troponin I <0.012 ng/mL (0.000-0.034)
--- NOTE | 2017-12-16 13:13 | XR ---
EXAMINATION TYPE: XR chest 2V DATE OF EXAM: 12/16/2017 COMPARISON: 11/22/2015 HISTORY: 62-year-old female with chest pain and difficulty breathing TECHNIQUE: Frontal and lateral views FINDINGS: The cardiomediastinal silhouette, aorta, and pulmonary vasculature are within normal limits. Under pe netration due to AP portable technique and patient body habitus. No definite consolidation or pleural effusion. IMPRESSION: No acute cardiopulmonary process.
[2017-12-16] MEDS ORDERED: MAGNESIUM SULFATE-D5W PMX 1 GM in DEXTROSE/WATER 1 100ML.BAG IVPB ONE (13:37)
[2017-12-16] MEDS ORDERED: NITROGLYCERIN SL TABS 0.4 MG TAB SUBLINGUAL PRN (14:48)
[2017-12-16] MEDS ORDERED: HEPARIN SODIUM,PORCINE 5,000 UNIT/ML 1 ML VIAL IV ONE (14:48)
[2017-12-16] MEDS ORDERED: ALPRAZolam 0.25 MG TAB PO PRN (14:51)
[2017-12-16] MEDS ORDERED: HYDROcodone/APAP 7.5-325MG 1 EACH TAB PO PRN (14:51)
[2017-12-16] MEDS ORDERED: SODIUM CHLORIDE 0.9% 1,000 ML IV SCH (15:00)
[2017-12-16] MEDS ORDERED: HEPARIN SOD,PORK IN 0.45% NACL 25,000 UNIT in 0.45% NACL 1 500ML.BAG IV SCH (15:00)
--- NOTE | 2017-12-16 15:44 | P.HPIM ---
History of Present Illness H&P Date: 12/16/17 Chief Complaint: Chest pain This is a 62-year-old female with a known past medical history of myocardial infarction, CVA, diabetes mellitus, nicotine dependence, COPD, hyperlipidemia, hypertension, hypothyroidism and gastritis. Patient presents to emergency room with complaints of chest pain. She reports that chest pain started around 11: 00 today. She complained of mid sternal chest pain. The pain was associated with dizziness and diaphoresis. She took 1 nitro relieve symptoms in about 15 minutes later symptoms returned to another nitro with relief. She drove herself to the emergency room for further evaluation and treatment. Patient had nitro paste placed and was started on IV heparin. Cardiology has been consulted. First troponin is negative. EKG sinus tachycardia with a heart rate of 101 and chest x-ray showed no acute pulmonary process. Last stress test was 2015 which was negative. Patient does report that she still smoking about a pack a day. She is scheduled to have polyps removed from her vocal cords December 24 with ENT. Patient also reports that she is having an MRI of the pancreas scheduled for this Friday. She was told that her pancreatic enzymes were off. Lipase was 373. She does have some epigastric tenderness. At this time patient is chest pain-free. She denies any nausea or vomiting. Denies any bowel movement changes or urinary symptoms. She had an EGD in October [address] Sahu showing gastritis and small hiatal hernia. Review of Systems Please refer to HPI otherwise unremarkable Past Medical History Past Medical History: Chest Pain / Angina, COPD, CVA/TIA, Diabetes Mellitus, Eye Disorder, GERD/Reflux, Hyperlipidemia, Hypertension, Myocardial Infarction ( [place]), Osteoarthritis (OA), Thyroid Disorder Additional Past Medical History / Comment(s): vertigo, CVA-x2- 2010, glaucoma, varicose veins, peptic ulcer, HX POLYP Last Myocardial Infarction Date:: 2008 History of Any Multi-Drug Resistant Organisms: None Reported Past Surgical History: Bladder Surgery, Cholecystectomy, Hernia Repair, Hysterectomy, Tonsillectomy Additional Past Surgical History / Comment(s): thyroidectomy, left foot ORIF- hardware later removed, rt oopherectomy, bladder suspension, laser eye surgery, Past Anesthesia/Blood Transfusion Reactions: No Reported Reaction Past Psychological History: Anxiety, Depression Smoking Status: Current every day smoker Past Alcohol Use History: None Reported Past Drug Use History: None Reported - Past Family History Father Family Medical History: Cancer Additional Family Medical History / Comment(s): prostate Medications and Allergies Home Medications Medication Instructions Recorded Confirmed Type Aspirin [Adult Low Dose Aspirin EC] 81 mg PO DAILY 01/26/15 12/16/17 History Meclizine HCl 25 mg PO TID 01/26/15 12/16/17 History Nitroglycerin Sl Tabs [Nitrostat] 0.4 mg SUBLINGUAL Q5M PRN 01/26/15 12/16/17 History Atorvastatin [Lipitor] 80 mg PO HS 09/14/15 12/16/17 History glipiZIDE [Glucotrol] 10 mg PO TID 09/14/15 12/16/17 History metFORMIN HCL 1,000 mg PO BID 09/14/15 12/16/17 History Lisinopril [Zestril] 10 mg PO DAILY #30 tab 11/28/15 12/16/17 Rx ALPRAZolam [Xanax] 0.25 mg PO BID PRN 07/28/17 12/16/17 History Amitriptyline HCl [Elavil] 100 mg PO HS 07/28/17 12/16/17 History Ergocalciferol (Vitamin D2) 50,000 unit PO SA 07/28/17 12/16/17 History [Vitamin D2] HYDROcodone/APAP 7.5-325MG [[place] 1 tab PO BID PRN 07/28/17 12/16/17 History 7.5-325] Insulin Glargine,Hum.rec.anlog 40 unit SQ QAM 07/28/17 12/16/17 History [[place]lar [place] U-100] Latanoprost [Xalatan 0.005%] 1 drop BOTH EYES HS 07/28/17 12/16/17 History Levothyroxine Sodium [Synthroid] 137 mcg PO DAILY 07/28/17 12/16/17 History Montelukast [Singulair] 10 mg PO HS 07/28/17 12/16/17 History Pantoprazole Sodium [Protonix] 40 mg PO DAILY 07/28/17 12/16/17 History Escitalopram [Lexapro] 20 mg PO DAILY 10/23/17 12/16/17 History Insulin Glargine,Hum.rec.anlog 30 unit SQ AC-SUPPER 10/23/17 12/16/17 History [Basaglar Kwikpen U-100] Budesonide-Formot 160-4.5 Mcg 2 puff INHALATION RT-BID 12/16/17 12/16/17 History [Symbicort 160-4.5 Mcg Inhaler] buPROPion HCL [Wellbutrin SR] 150 mg PO DAILY 12/16/17 12/16/17 History Allergies Allergy/AdvReac Type Severity Reaction Status Date / Time No Known Allergies Allergy Verified 12/16/17 12:28 Physical Exam Vitals: Vital Signs Temp Pulse Resp BP Pulse Ox 12/16/17 15:31 98 F 90 18 156/60 98 12/16/17 14:38 93 18 139/80 97 12/16/17 13:45 87 20 158/88 95 12/16/17 12:09 98.1 F 105 H 18 159/80 98 Intake and Output 12/16/17 12/16/17 12/16/17 06:59 14:59 22:59 Other: Weight 107.955 kg Head normocephalic Neck supple Lungs clear to auscultation bilaterally no wheezing or crackles Heart regular rate and rhythm S1-S2, no rub or gallop Abdomen is soft epigastric tenderness nondistended positive bowel sounds no hepatosplenomegaly Extremities no edema Neuro alert and orientated to 3 Results CBC & Chem 7: 12/16/17 12:24 12/16/17 12:24 Labs: Abnormal Lab Results - Last 24 Hours (Table) 12/16/17 12/16/17 Range/Units 12:24 12:24 MCV 79.8 L (80.0-100.0) fL Sodium 134 L (137-145) mmol/L Glucose 231 H (74-99) mg/dL Magnesium 1.4 L (1.6-2.3) mg/dL Alkaline Phosphatase 145 H (38-126) U/L Assessment and Plan Assessment: 1. Chest pain: First troponin negative. EKG sent showing sinus tachycardia heart rate 101. Cardiology has been consulted. She started on IV heparin in the ER. 2. History of insulin-dependent diabetes mellitus: Resume home insulin and glipizide. Add sliding scale coverage. Hold metformin during hospitalization 3. Hypomagnesemia: Patient receiving magnesium supplement in the ER. Recheck magnesium level in a.m. 4. Nicotine dependence: Discussed smoking cessation for greater than 3 minutes. Add nicotine patch 5. 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 Epigastric abdominal discomfort with recent EGD October 2017 showing gastritis and small hiatal hernia. Patient also reporting history of elevated pancreatic enzymes and scheduled for MRI this Friday outpatient. Check amylase and lipase. Denies any alcohol use 7. History of CVAs 2 8. Essential hypertension 9. Hypothyroidism 10. COPD no evidence of exacerbation. Resume Symbicort and Singulair 11. Hyperlipidemia GI prophylaxis Protonix and DVT prophylaxis IV heparin Time with Patient: Greater than 30 (Greater than 60% of the total time spent in counseling and coordination of care.I performed an examination of the patient and discussed their management with the physician Communications Analyst. I have reviewed the Physician Communications Analyst's notes and agree with the documented findings and plan of care)
[2017-12-16 16:02] LABS: Amylase 44 U/L (30-110); Lipase 85 U/L (23-300)
[2017-12-16] MEDS ORDERED: metFORMIN 500 MG TAB PO SCH (17:30)
[2017-12-16] MEDS ORDERED: INSULIN DETEMIR 100 UNIT/ML 10 ML VIAL SQ SCH (17:30)
[2017-12-16 17:45] LABS: Glucose,Whole Blood 161 mg/dL (75-99)
[2017-12-16] MEDS: NICOTINE 21MG/24HR PATCH TRANSDERM SCH (18:23)
[2017-12-16] MEDS: NITROGLYCERIN OINT 1 INCH/GM PACKET TOPICAL SCH (18:24)
[2017-12-16] MEDS: MECLIZINE 25 MG TAB PO SCH ×2 (18:25→19:52)
[2017-12-16] MEDS: glipiZIDE 10 MG TAB PO SCH ×2 (18:25→19:52)
[2017-12-16] MEDS: INSULIN ASPART 100 UNIT/ML 1 ML 10 ML VIAL SQ SCH ×2 (18:30→21:56)
[2017-12-16 20:11] LABS: Glucose,Whole Blood 194 mg/dL (75-99)
[2017-12-16] MEDS: SYMBICORT 160-4.5 MCG INHALER INHALATION SCH (20:19)
[2017-12-16] MEDS ORDERED: LATANOPROST 0.005% OPHTH DROPS 2.5 ML BTL BOTH EYES SCH (21:00)
[2017-12-16] MEDS ORDERED: ATORVASTATIN 80 MG TAB PO SCH (21:00)
[2017-12-16] MEDS ORDERED: AMITRIPTYLINE HCL 50 MG TAB PO SCH (21:00)
[2017-12-16] MEDS ORDERED: MONTELUKAST 10 MG TAB PO SCH (21:00)
[2017-12-16 21:02] LABS: Creatine Kinase 73 U/L (30-135)
[2017-12-16 21:14] LABS: Creatine Kinase MB 0.6 ng/mL (0.0-2.4); Troponin I <0.012 ng/mL (0.000-0.034)
[2017-12-16] MEDS: HYDROmorphone 1 MG/ML 1 ML SYRINGE IVP PRN (21:45)
[2017-12-17] MEDS: NITROGLYCERIN OINT 1 INCH/GM PACKET TOPICAL SCH ×2 (00:09→04:31)
[2017-12-17 01:04] LABS: Creatine Kinase 79 U/L (30-135)
[2017-12-17 01:17] LABS: Creatine Kinase MB 0.5 ng/mL (0.0-2.4); Troponin I <0.012 ng/mL (0.000-0.034)
[2017-12-17] MEDS: HYDROmorphone 1 MG/ML 1 ML SYRINGE IVP PRN ×3 (03:01→14:05)
[2017-12-17 03:44] LABS: Basophils # (A) 0.1 k/uL (0-0.2); Basophils % (A) 1 %; Eosinophils # (A) 0.2 k/uL (0-0.7); Eosinophils % (A) 2 %; HCT 37.2 % (34.0-46.0); Hypochromasia Slight; Lymphocytes # (A) 2.6 k/uL (1.0-4.8); Lymphocytes % (A) 33 %; MCH 26.3 pg (25.0-35.0); MCHC 32.1 g/dL (31.0-37.0); Monocytes # (A) 0.4 k/uL (0-1.0); Monocytes % (A) 6 %; Neutrophils # (A) 4.6 k/uL (1.3-7.7); Neutrophils % (A) 57 %; Platelet Count 228 k/uL (150-450); RBC 4.54 m/uL (3.80-5.40); RDW 14.6 % (11.5-15.5)
[2017-12-17 04:13] LABS: ALT 30 U/L (9-52); AST 27 U/L (14-36); Alkaline Phosphatase 147 U/L (38-126); Anion Gap 10 mmol/L; Blood Urea Nitrogen 14 mg/dL (7-17); Calcium 10.4 mg/dL (8.4-10.2); Carbon Dioxide 29 mmol/L (22-30); Chloride 100 mmol/L (98-107); Cholesterol 230 mg/dL (<200); Glucose 157 mg/dL (74-99); HDL Cholesterol 40 mg/dL (40-60); Magnesium 1.8 mg/dL (1.6-2.3); Potassium 4.2 mmol/L (3.5-5.1); Sodium 139 mmol/L (137-145); Total Bilirubin 0.3 mg/dL (0.2-1.3); Total Protein 7.1 g/dL (6.3-8.2)
[2017-12-17 04:27] LABS: Triglycerides 660 mg/dL (<150)
[2017-12-17] MEDS ORDERED: LEVOTHYROXINE 137 MCG TAB PO SCH (06:30)
[2017-12-17 06:49] LABS: Glucose,Whole Blood 215 mg/dL (75-99)
[2017-12-17] MEDS: SYMBICORT 160-4.5 MCG INHALER INHALATION SCH (06:59)
[2017-12-17] MEDS ORDERED: PANTOPRAZOLE 40 MG TABLET PO SCH (07:30)
[2017-12-17 07:53] VITALS: RESP 16
[2017-12-17] MEDS ORDERED: INSULIN DETEMIR 100 UNIT/ML 10 ML VIAL SQ SCH (09:00)
[2017-12-17] MEDS ORDERED: LISINOPRIL 10 MG TAB PO SCH (09:00)
[2017-12-17] MEDS ORDERED: buPROPion SR 150 MG TABLET.ER PO SCH (09:00)
[2017-12-17] MEDS ORDERED: ASPIRIN 81 MG PO SCH (09:00)
[2017-12-17] MEDS ORDERED: ESCITALOPRAM 20 MG TAB PO SCH (09:00)
[2017-12-17] MEDS ORDERED: ASPIRIN 325 MG TAB PO SCH (09:00)
[2017-12-17] MEDS ORDERED: REGADENOSON 0.4 MG/5 ML SYRINGE IV ONE (11:30)
[2017-12-17] MEDS ORDERED: AMINOPHYLLINE 500 MG/20 ML VIAL IV PRN (11:30)
[2017-12-17] MEDS: INSULIN ASPART 100 UNIT/ML 1 ML 10 ML VIAL SQ SCH ×2 (11:51→13:58)
[2017-12-17 11:58] VITALS: TEMP 98.1
--- NOTE | 2017-12-17 12:13 | P.CRDCN ---
History of Present Illness History of present illness: This is a pleasant 62-year-old female past medical history significant for COPD, hypertension, dyslipidemia, hypothyroidism, gastroesophageal reflux disease, diabetes mellitus and chronic nicotine dependence. She denies history of coronary artery disease and is never seen a health information assistant for any reason. We have necessary consultation for symptoms of chest pain. She describes the pain in the midsternal region described as an achy sensation associated with shortness of breath. She took a SL nitro at home and the pain went away. Then again the pain came later in the day and had to take another nitroglycerin and the pain again went away. She says she has been having increased shortness of breath over the last few years and states it is hard to even walk up the stairs or do dishes without stopping to take a breath of air. She continues to smoke at least a pack per day but states she is currently trying to quit. EKG reveals sinus tachycardia heart rate [address] or T wave abnormalities noted. Chest x-ray negative for an acute cardiopulmonary process. Laboratory data reviewed, hemoglobin 12.0, platelets 228, sodium 139, potassium 4.2, creatinine 0.7 cm, magnesium 1.8, cardiac enzymes negative 3, triglycerides 660. Current cardiac medication includes aspirin 81 mg daily, atorvastatin 80 mg daily and lisinopril 10 mg daily. She also takes metformin, Glucotrol, Wellbutrin, Protonix, Singulair, meclizine, Synthroid, insulin, Lexapro, Symbicort, Elavil and Xanax. Most recent stress test performed January 2016 with a Lexiscan stress test which was negative for reversible cardiac ischemia. Most recent echocardiogram obtained October 2015 revealed preserved left ventricular systolic function with ejection fraction 55-60%. Review of Systems At the time of my exam: CONSTITUTIONAL: Denies fever. Denies chills. EYES: Denies blurred vision. Denies vision changes. Denies eye pain. EARS, NOSE, MOUTH & THROAT: Denies headache. Denies sore throat. Denies ear pain. CARDIOVASCULAR: Denies chest pain. Complains of shortness of breath with exertion and at rest. Denies orthopnea. Denies PND. Denies palpitations. RESPIRATORY: Denies cough. GASTROINTESTINAL: Denies abdominal pain. Denies diarrhea. Denies constipation. Denies nausea. Denies vomiting. MUSCULOSKELETAL: Denies myalgias. INTEGUMENTARY: Denies pruitis. Denies rash. NEUROLOGIC: Denies numbness. Denies tingling. Denies weakness. PSYCHIATRIC: Denies anxiety. Denies depression. ENDOCRINE: Denies fatigue. Denies weight change. Denies polydipsia. Denies polyurina. GENITOURINARY: Denies burning, hematuria or urgency with micturation. HEMATOLOGIC: Denies history of anemia. Denies bleeding. Past Medical History Past Medical History: Chest Pain / Angina, COPD, CVA/TIA, Diabetes Mellitus, Eye Disorder, GERD/Reflux, Hyperlipidemia, Hypertension, Myocardial Infarction ( [place]), Osteoarthritis (OA), Thyroid Disorder Additional Past Medical History / Comment(s): vertigo, CVA-x2- 2010, glaucoma, varicose veins, peptic ulcer, HX POLYP, stress incont of urine-depends worn.pt stated had a pne vaccine not sure of date but good till age 65. Last Myocardial Infarction Date:: 2008 History of Any Multi-Drug Resistant Organisms: None Reported Past Surgical History: Bladder Surgery, Cholecystectomy, Hernia Repair, Hysterectomy, Tonsillectomy Additional Past Surgical History / Comment(s): thyroidectomy, left foot ORIF- hardware later removed, ragini oopherectomy, bladder suspension, laser eye surgeryx2, Past Anesthesia/Blood Transfusion Reactions: No Reported Reaction Smoking Status: Current every day smoker - Past Family History Mother Additional Family Medical History / Comment(s): brain anuerysm Father Family Medical History: Cancer, Seizure Disorder Additional Family Medical History / Comment(s): prostate Medications and Allergies Home Medications Medication Instructions Recorded Confirmed Type Aspirin [Adult Low Dose Aspirin EC] 81 mg PO DAILY 01/26/15 12/16/17 History Meclizine HCl 25 mg PO TID 01/26/15 12/16/17 History Nitroglycerin Sl Tabs [Nitrostat] 0.4 mg SUBLINGUAL Q5M PRN 01/26/15 12/16/17 History Atorvastatin [Lipitor] 80 mg PO HS 09/14/15 12/16/17 History glipiZIDE [Glucotrol] 10 mg PO TID 09/14/15 12/16/17 History metFORMIN HCL 1,000 mg PO BID 09/14/15 12/16/17 History Lisinopril [Zestril] 10 mg PO DAILY #30 tab 11/28/15 12/16/17 Rx ALPRAZolam [Xanax] 0.25 mg PO BID PRN 07/28/17 12/16/17 History Amitriptyline HCl [Elavil] 100 mg PO HS 07/28/17 12/16/17 History Ergocalciferol (Vitamin D2) 50,000 unit PO SA 07/28/17 12/16/17 History [Vitamin D2] HYDROcodone/APAP 7.5-325MG [[place] 1 tab PO BID PRN 07/28/17 12/16/17 History 7.5-325] Insulin Glargine,Hum.rec.anlog 40 unit SQ QAM 07/28/17 12/16/17 History [[place] Giraldopen U-100] Latanoprost [Xalatan 0.005%] 1 drop BOTH EYES HS 07/28/17 12/16/17 History Levothyroxine Sodium [Synthroid] 137 mcg PO DAILY 07/28/17 12/16/17 History Montelukast [Singulair] 10 mg PO HS 07/28/17 12/16/17 History Pantoprazole Sodium [Protonix] 40 mg PO DAILY 07/28/17 12/16/17 History Escitalopram [Lexapro] 20 mg PO DAILY 10/23/17 12/16/17 History Insulin Glargine,Hum.rec.anlog 30 unit SQ AC-SUPPER 10/23/17 12/16/17 History [Basaglar Kwikpen U-100] Budesonide-Formot 160-4.5 Mcg 2 puff INHALATION RT-BID 12/16/17 12/16/17 History [Symbicort 160-4.5 Mcg Inhaler] buPROPion HCL [Wellbutrin SR] 150 mg PO DAILY 12/16/17 12/16/17 History Allergies Allergy/AdvReac Type Severity Reaction Status Date / Time No Known Allergies Allergy Verified 12/16/17 12:28 Physical Exam Vitals: Vital Signs Temp Pulse Pulse Resp BP BP Pulse Ox 12/17/17 07:52 98 F 81 16 122/86 94 L 12/17/17 03:42 97.8 F 101 H 20 108/58 95 12/17/17 03:39 18 12/17/17 00:00 98.5 F 95 18 117/77 92 L 12/16/17 20:19 95 12/16/17 20:00 16 12/16/17 19:30 98.0 F 90 16 117/76 93 L 12/16/17 16:11 98.7 F 89 16 144/90 93 L 12/16/17 15:31 98 F 90 18 156/60 98 12/16/17 14:38 93 18 139/80 97 12/16/17 13:45 87 20 158/88 95 12/16/17 12:09 98.1 F 105 H 18 159/80 98 Intake and Output 12/16/17 12/17/17 12/17/17 22:59 06:59 14:59 Intake Total 726.937 176.648 Balance 726.937 176.648 Intake: Intake, IV Titration 126.937 176.648 Amount Heparin Sod,Pork in 0.45% 126.937 176.648 NaCl 25,000 unit In 0.45 % NaCl 1 500ml.bag @ 9.26 UNITS/KG/HR 19.99 mls/hr IV .Q24H [facility] Rx#: [id number] Oral 600 Other: Voiding Method Toilet Toilet # Voids 2 3 Weight 105.8 kg Blood pressure 108/58 heart rate 101 afebrile maintaining oxygen saturation on room air GENERAL: This is a 62-year-old female in no apparent distress at the time of my examination. Obese. HEENT: Head is atraumatic, normocephalic. Pupils are equal, round. Sclerae anicteric. Conjunctivae are clear. Mucous membranes of the mouth are moist. Neck is supple. There is no jugular venous distention. No carotid bruit is heard. LUNGS: Rhonchi noted bilaterally. No wheezes or rales. No chest wall tenderness is noted on palpation or with deep breathing. Diminished bilaterally. HEART: Regular rate and rhythm without murmurs, rubs or gallops. S1 and S2 heard. ABDOMEN: Soft, nontender. Bowel sounds are heard. No organomegaly noted. EXTREMITIES: No evidence of peripheral edema and no calf tenderness noted. VASCULAR: Radial and dorsalis pedis pulses palpated, no evidence of clubbing. NEUROLOGIC: Patient is awake, alert and oriented x3. Results 12/17/17 03:26 12/17/17 03:26 Cardiac Enzymes 12/16/17 12/16/17 12/16/17 Range/Units 12:24 12:24 20:11 AST 28 (14-36) U/L CK-MB (CK-2) 0.5 0.6 (0.0-2.4) ng/mL Troponin I <0.012 <0.012 (0.000-0.034) ng/mL 12/17/17 12/17/17 Range/Units 00:20 03:26 AST 27 (14-36) U/L CK-MB (CK-2) 0.5 (0.0-2.4) ng/mL Troponin I <0.012 (0.000-0.034) ng/mL Coagulation 12/16/17 12/16/17 12/17/17 Range/Units 12:24 20:11 03:26 PT 9.9 (9.0-12.0) sec APTT 22.1 24.9 27.7 (22.0-30.0) sec Lipids 12/17/17 Range/Units 03:26 Triglycerides 660 H (<150) mg/dL Cholesterol 230 H (<200) mg/dL HDL Cholesterol 40 (40-60) mg/dL CBC 12/16/17 12/17/17 Range/Units 12:24 03:26 WBC 9.2 8.0 (3.8-10.6) k/uL RBC 4.49 4.54 (3.80-5.40) m/uL Hgb 11.7 12.0 (11.4-16.0) gm/dL Hct 35.8 37.2 (34.0-46.0) % Plt Count 254 228 (150-450) k/uL Comprehensive Metabolic Panel 12/16/17 12/17/17 Range/Units 12:24 03:26 Sodium 134 L 139 (137-145) mmol/L Potassium 4.6 4.2 (3.5-5.1) mmol/L Chloride 98 100 (98-107) mmol/L Carbon Dioxide 26 29 (22-30) mmol/L BUN 9 14 (7-17) mg/dL Creatinine 0.60 0.77 (0.52-1.04) mg/dL Glucose 231 H 157 H (74-99) mg/dL Calcium 10.2 10.4 H (8.4-10.2) mg/dL AST 28 27 (14-36) U/L ALT 24 30 (9-52) U/L Alkaline Phosphatase 145 H 147 H (38-126) U/L Total Protein 7.4 7.1 (6.3-8.2) g/dL Albumin 4.2 4.0 (3.5-5.0) g/dL Current Medications Generic Name Dose Route Start Last Admin Trade Name Freq PRN Reason Stop Dose Admin Hydrocodone Bitart/Acetaminophen 1 each 12/16/17 14:51 12/16/17 15:28 [place] 7.5-325 PO 1 each BID PRN Administration Moderate Pain Alprazolam 0.25 mg 12/16/17 14:51 Xanax PO BID PRN Anxiety Amitriptyline HCl 100 mg 12/16/17 21:00 12/16/17 19:52 Elavil PO 100 mg HS [place] Administration Aspirin 81 mg 12/17/17 09:00 Aspirin PO DAILY [facility] Atorvastatin Calcium 80 mg 12/16/17 21:00 12/16/17 19:53 Lipitor PO 80 mg HS [place] Administration Budesonide/Formoterol Fumarate 2 puff 12/16/17 20:00 12/17/17 06:59 Symbicort 160-4.5 Mcg Inhaler INHALATION 2 puff RT-BID [place] Administration Bupropion HCl 150 mg 12/17/17 09:00 Wellbutrin Sr PO DAILY [facility] Ergocalciferol 50,000 unit 12/20/17 09:00 Vitamin D2 PO SA [facility] Escitalopram Oxalate 20 mg 12/17/17 09:00 Lexapro PO DAILY [facility] Glipizide 10 mg 12/16/17 16:00 12/16/17 19:52 Glucotrol PO 10 mg TID [place] Administration Hydromorphone HCl 0.5 mg 12/16/17 21:17 12/17/17 08:13 Dilaudid IVP 0.5 mg Q4HR PRN Administration Moderate Pain Sodium Chloride 1,000 mls @ 20 mls/hr 12/16/17 15:00 12/16/17 15:24 Saline 0.9% IV 20 mls/hr .Q24H [place] Administration Insulin Aspart 0 unit 12/16/17 17:30 12/16/17 21:56 Novolog SQ Not Given ACHS [facility] Protocol Insulin Detemir 40 unit 12/17/17 09:00 Levemir SQ QAM [facility] Insulin Detemir 30 unit 12/16/17 17:30 12/16/17 18:25 Levemir SQ 30 unit AC-SUPPER [place] Administration Latanoprost 1 drops 12/16/17 21:00 12/16/17 19:59 Xalatan 0.005% BOTH EYES 1 drops HS [place] Administration Levothyroxine Sodium 137 mcg 12/17/17 06:30 12/17/17 05:14 Synthroid PO Not Given DAILY@0630 [facility] Lisinopril 10 mg 12/17/17 09:00 Zestril PO DAILY [facility] Meclizine HCl 25 mg 12/16/17 16:00 12/16/17 19:52 Antivert PO 25 mg TID [place] Administration Montelukast Sodium 10 mg 12/16/17 21:00 12/16/17 19:52 Singulair PO 10 mg HS [facility] Administration Nicotine 1 patch 12/16/17 15:45 12/16/17 18:23 Habitrol 21mg/24hr Patch TRANSDERM Not Given DAILY [facility] Nitroglycerin 0.4 mg 12/16/17 14:48 Nitrostat SUBLINGUAL Q5M PRN Chest Pain Pantoprazole Sodium 40 mg 12/17/17 07:30 Protonix PO AC-BRKFST [facility] Intake and Output 12/16/17 12/17/17 12/17/17 22:59 06:59 14:59 Intake Total 726.937 176.648 Balance 726.937 176.648 Intake: Intake, IV Titration 126.937 176.648 Amount Heparin Sod,Pork in 0.45% 126.937 176.648 NaCl 25,000 unit In 0.45 % NaCl 1 500ml.bag @ 9.26 UNITS/KG/HR 19.99 mls/hr IV .Q24H [facility] Rx#: [id number] Oral 600 Other: Voiding Method Toilet Toilet # Voids 2 3 Weight 105.8 kg 12/17/17 03:26 12/17/17 03:26 Assessment and Plan Assessment: ASSESSMENT Chest pain, atypical. An acute coronary event has been ruled out with no EKG evidence of ischemia and negative cardiac enzymes. COPD Hypertension Dyslipidemia Diabetes mellitus Hypothyroidism Chronic nicotine dependence Obesity, BMI 35.5 PLAN Obtain 2-D echocardiogram and Doppler study to assess cardiac structure and function. Perform Lexiscan stress test to assess for reversible cardiac ishcemia. Recommend she follow up with Pulmononlogist at some point regarding her COPD. Smoking cessation encouraged. If stress test is normal she is stable from a cardiac perspective. Thank you kindly for this consultation. Nurse Practitioner note has been reviewed, I agree with a documented findings and plan of care. Patient was seen and examined.
[2017-12-17] MEDS ORDERED: AMINOPHYLLINE 250 MG/10 ML VIAL IV ONE (12:45)
[2017-12-17] MEDS: MECLIZINE 25 MG TAB PO SCH ×2 (13:53→16:58)
[2017-12-17 13:55] LABS: Glucose,Whole Blood 155 mg/dL (75-99)
[2017-12-17] MEDS: NICOTINE 21MG/24HR PATCH TRANSDERM SCH (13:57)
[2017-12-17] MEDS: glipiZIDE 10 MG TAB PO SCH ×2 (13:57→15:57)
--- NOTE | 2017-12-17 14:18 | NM ---
EXAMINATION TYPE: NM stress lexiscan cardiolite DATE OF EXAM: 12/17/2017 COMPARISON: Prior nuclear medicine Lexiscan stress test liver 12/19/2015 HISTORY: Chest pain per order. History of tobacco use, prior heart attack 2008, hypertension, diabete s, stroke, hypercholesterolemia, COPD, and family history of heart attack presents with chest pain, p alpitations, difficulty in breathing all per patient. TECHNIQUE: After the intravenous administration of 10.31 mCi Tc 99m Sestamibi - Cardiolite resting S PECT images acquired 45 minutes post injection. The patient received 0.4mg Lexiscan, 24 mCi Tc 99m Sestamibi - Stress images obtained 30 minutes post injection FINDINGS: Review of stress and rest SPECT images demonstrates no distinct perfusion abnormality. Gated analysi s shows normal wall motion with an estimated left ventricular ejection fraction of 56 %. IMPRESSION: No scintigraphic evidence for reversible ischemia. No significant change from prior.
--- NOTE | 2017-12-17 14:27 | ECHOF ---
Referral Reason:cp MEASUREMENTS -------- HEIGHT: 172.7 cm WEIGHT: 105.7 kg BP: 122/86 RVIDd: 3.4 cm (< 3.3) IVSd: 1.5 cm (0.6 - 1.1) LVIDd: 3.9 cm (3.9 - 5.3) LVPWd: 1.3 cm (0.6 - 1.1) IVSs: 1.9 cm LVIDs: 2.8 cm LVPWs: 2.0 cm LA Diam: 3.9 cm (2.7 - 3.8) LAESV Index (A-L): 18.24 ml/m Ao Diam: 2.9 cm (2.0 - 3.7) AV Cusp: 2.1 cm (1.5 - 2.6) MV EXCURSION: 13.275 mm (> 18.000) MV EF SLOPE: 50 mm/s (70 - 150) EPSS: 0.5 cm MV E Rad: 0.86 m/s MV DecT: 232 ms MV A Rad: 0.86 m/s MV E/A Ratio: 1.00 FINDINGS -------- Sinus rhythm. This was a technically adequate study. The left ventricular size is normal. There is moderate concentric left ventricular hypertrophy. O verall left ventricular systolic function is normal with, an EF between 55 - 60 %. The right ventricle is normal in size. Normal LA size by volume 22+/-6 ml/m2. The right atrium was not well visualized. The aortic valve is trileaflet and appears structurally normal. Mild mitral annular calcification present. The tricuspid valve appears structurally normal. The pulmonic valve was not well visualized. The aortic root size is normal. Normal inferior vena cava with normal inspiratory collapse consistent with estimated right atrial pre ssure of 5 mmHg. There is no pericardial effusion. CONCLUSIONS -------- 1. Sinus rhythm. 2. This was a technically adequate study. 3. The left ventricular size is normal. 4. There is moderate concentric left ventricular hypertrophy. 5. Overall left ventricular systolic function is normal with, an EF between 55 - 60 %. 6. The right ventricle is normal in size. 7. Normal LA size by volume 22+/-6 ml/m2. 8. The right atrium was not well visualized. 9. The aortic valve is trileaflet and appears structurally normal. 10. Mild mitral annular calcification present. 11. The tricuspid valve appears structurally normal. 12. The pulmonic valve was not well visualized. 13. The aortic root size is normal. 14. Normal inferior vena cava with normal inspiratory collapse consistent with estimated right atrial pressure of 5 mmHg. 15. There is no pericardial effusion. COUPLES THERAPIST: Krystle Crandall RDCS
--- NOTE | 2017-12-17 15:23 | P.STRESS ---
- Stress Test Note Stress Test Results/Findings: Exam Performed: NM stress lexiscan cardiolite Exam Date: 12/17/17 Reason for Exam: Chest Pain Height: 5 ft 8 in Weight: 105.8 kg Protocol: Shelli Scan Stage: na Duration of Exercise: na Resting Heart Rate: 95 Resting Blood Pressure: 135/81 Maximum Achieved Heart Rate: 95 Maximum Achieved Blood Pressure: 135/81 85% PMHR: na 100% PMHR: na METS: na Technologist Comment: Stress Test Results/Findings: This is a 68-year-old female with history of hypertension, diabetes, being evaluated for symptoms of chest pain and. Patient also assist of hypercholesterolemia. Stress data: Baseline EKG showed sinus rhythm with a [place] interval and QRS duration. Blood pressure at rest is 135/81 with pulse rate of 84. A standard dose of Lexiscan was infused EKGs taken during and after infusion did not reveal any changes to sized ischemia. Final impression: #1. Negative Lexiscan stress test #2. Report on the nuclear images to be given by the radiologist
--- NOTE | 2017-12-17 16:08 | P.DS ---
Providers Date of admission: 12/16/17 14:49 Expected date of discharge: 12/17/17 Attending physician: Vicky Pinedo Consults: 12/16/17 14:49 Consult Physician Urgent Consulting Provider: Kaela Redding Consult Reason/Comments: Chest pain Do you want consulting provider notified?: Yes Primary care physician: Vicky Pinedo [facility] Course: Discharge diagnosis 1. Chest pain: First troponin negative. EKG sent showing sinus tachycardia heart rate 101. Cardiology has been consulted. She started on IV heparin in the ER. Troponins negative. Lexiscan stress test completed showing a negative Lexiscan stress test per cardiology patient is cleared for discharge 2. History of insulin-dependent diabetes mellitus: Resume home insulin and glipizide. Add sliding scale coverage. Resume all home medications upon discharge 3. Hypomagnesemia: Patient receiving magnesium supplement in the ER. Recheck magnesium level in a.m. 4. Nicotine dependence: Discussed smoking cessation for greater than 3 minutes. Add nicotine patch 5. 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 Epigastric abdominal discomfort with recent EGD October 2017 showing gastritis and small hiatal hernia. Patient also reporting history of elevated pancreatic enzymes and scheduled for MRI this Friday outpatient. Check amylase and lipase. Denies any alcohol use. Lipase 85 amylase 44. Alkaline phosphatase elevated at 147 which appears chronic for patient 7. History of CVAs 2 8. Essential hypertension 9. Hypothyroidism 10. COPD no evidence of exacerbation. Resume Symbicort and Singulair. 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 Osullivan who she has seen in the past 11. Hyperlipidemia triglycerides elevated at 660. Patient will be discharged home on Tricor And will follow-up closely with primary care provider and cardiology Hospital Course This is a 62-year-old female with a known past medical history of myocardial infarction, CVA, diabetes mellitus, nicotine dependence, COPD, hyperlipidemia, hypertension, hypothyroidism and gastritis. Patient presents to emergency room with complaints of chest pain. She reports that chest pain started around 11: 00 today. She complained of mid sternal chest pain. The pain was associated with dizziness and diaphoresis. She took 1 nitro relieve symptoms in about 15 minutes later symptoms returned to another nitro with relief. She drove herself to the emergency room for further evaluation and treatment. Patient had nitro paste placed and was started on IV heparin. Cardiology has been consulted. First troponin is negative. EKG sinus tachycardia with a heart rate of 101 and chest x-ray showed no acute pulmonary process. Last stress test was 2015 which was negative. Patient does report that she still smoking about a pack a day. She is scheduled to have polyps removed from her vocal cords December 24 with ENT. Patient also reports that she is having an MRI of the pancreas scheduled for this Friday. She was told that her pancreatic enzymes were off. Lipase was 373. She does have some epigastric tenderness. At this time patient is chest pain-free. She denies any nausea or vomiting. Denies any bowel movement changes or urinary symptoms. She had an EGD in October [address] Sahu showing gastritis and small hiatal hernia. On 12/17/2017 patient had stress test completed. Per cardiology negative Lexiscan stress test and no evidence for reversible ischemia. Troponins have been negative. Patient has been cleared for discharge from cardiology standpoint. Patient denies chest pain or shortness breath at this time. Patient will be discharged home on TriCor and nicotine patch. Patient to follow -up closely with primary care provider. Patient to follow-up with pulmonary services for her COPD. I performed an examination of the patient and discussed their management with the Nurse Practitioner. I have reviewed the Nurse Practitioner's notes and agree with the documented findings and plan of care Patient Condition at Discharge: Stable Plan - Discharge Summary Discharge Rx Participant: Yes New Discharge Prescriptions: New Fenofibrate Nanocrystallized [Tricor] 145 mg PO DAILY #30 tablet Nicotine 21Mg/24Hr Patch [Habitrol] 1 patch TRANSDERM DAILY #30 patch Continue Meclizine HCl 25 mg PO TID Nitroglycerin Sl Tabs [Nitrostat] 0.4 mg SUBLINGUAL Q5M PRN PRN Reason: Chest Pain Aspirin [Adult Low Dose Aspirin EC] 81 mg PO DAILY Atorvastatin [Lipitor] 80 mg PO HS metFORMIN HCL 1,000 mg PO BID glipiZIDE [Glucotrol] 10 mg PO TID Lisinopril [Zestril] 10 mg PO DAILY #30 tab Latanoprost [Xalatan 0.005%] 1 drop BOTH EYES HS Montelukast [Singulair] 10 mg PO HS Insulin Glargine,Hum.rec.anlog [Basaglar Kwikpen U-100] 40 unit SQ QAM Pantoprazole Sodium [Protonix] 40 mg PO DAILY HYDROcodone/APAP 7.5-325MG [[place] 7.5-325] 1 tab PO BID PRN PRN Reason: Pain Amitriptyline HCl [Elavil] 100 mg PO HS Levothyroxine Sodium [Synthroid] 137 mcg PO DAILY Ergocalciferol (Vitamin D2) [Vitamin D2] 50,000 unit PO SA ALPRAZolam [Xanax] 0.25 mg PO BID PRN PRN Reason: Anxiety Insulin Glargine,Hum.rec.anlog [Basaglar Kwikpen U-100] 30 unit SQ AC-SUPPER Escitalopram [Lexapro] 20 mg PO DAILY Budesonide-Formot 160-4.5 Mcg [Symbicort 160-4.5 Mcg Inhaler] 2 puff INHALATION RT-BID buPROPion HCL [Wellbutrin SR] 150 mg PO DAILY Discharge Medication List Aspirin [Adult Low Dose Aspirin EC] 81 mg PO DAILY 01/26/15 [History] Meclizine HCl 25 mg PO TID 01/26/15 [History] Nitroglycerin Sl Tabs [Nitrostat] 0.4 mg SUBLINGUAL Q5M PRN 01/26/15 [History] Atorvastatin [Lipitor] 80 mg PO HS 09/14/15 [History] glipiZIDE [Glucotrol] 10 mg PO TID 09/14/15 [History] metFORMIN HCL 1,000 mg PO BID 09/14/15 [History] Lisinopril [Zestril] 10 mg PO DAILY #30 tab 11/28/15 [Rx] ALPRAZolam [Xanax] 0.25 mg PO BID PRN 07/28/17 [History] Amitriptyline HCl [Elavil] 100 mg PO HS 07/28/17 [History] Ergocalciferol (Vitamin D2) [Vitamin D2] 50,000 unit PO SA 07/28/17 [History] HYDROcodone/APAP 7.5-325MG [[place] 7.5-325] 1 tab PO BID PRN 07/28/17 [History] Insulin Glargine,Hum.rec.anlog [Basaglar Kwikpen U-100] 40 unit SQ QAM 07/28/17 [History] Latanoprost [Xalatan 0.005%] 1 drop BOTH EYES HS 07/28/17 [History] Levothyroxine Sodium [Synthroid] 137 mcg PO DAILY 07/28/17 [History] Montelukast [Singulair] 10 mg PO HS 07/28/17 [History] Pantoprazole Sodium [Protonix] 40 mg PO DAILY 07/28/17 [History] Escitalopram [Lexapro] 20 mg PO DAILY 10/23/17 [History] Insulin Glargine,Hum.rec.anlog [Basaglar Kwikpen U-100] 30 unit SQ AC-SUPPER [History] Budesonide-Formot 160-4.5 Mcg [Symbicort 160-4.5 Mcg Inhaler] 2 puff INHALATION RT-BID 12/16/17 [History] buPROPion HCL [Wellbutrin SR] 150 mg PO DAILY 12/16/17 [History] Fenofibrate Nanocrystallized [Tricor] 145 mg PO DAILY #30 tablet 12/17/17 [Rx] Nicotine 21Mg/24Hr Patch [Habitrol] 1 patch TRANSDERM DAILY #30 patch 12/17/17 [ Rx] Follow up Appointment(s)/Referral(s): Vicky Pinedo MD [Primary Care Provider] - 1-2 days Joshua Osullivan MD [STAFF PHYSICIAN] - 2 Weeks Brian Harris MD [STAFF PHYSICIAN] - 1 Week Activity/Diet/Wound Care/Special Instructions: Diet heart healthy consistent carb Activity as tolerated Discharge Disposition: HOME SELF-CARE
[2017-12-17] MEDS ORDERED: HYDROmorphone 1 MG/ML 1 ML SYRINGE IVP PRN (16:24)
[2017-12-17 16:37] VITALS: BP 132/89; PULSE 85
--- NOTE | 2017-12-18 16:26 | EST ---
Stress Test Results/Findings: Exam Performed: NM stress lexiscan cardiolite Exam Date: 12/17/17 Reason for Exam: Chest Pain Height: 5 ft 8 in Weight: 105.8 kg Protocol: Shelli Scan Stage: na Duration of Exercise: na Resting Heart Rate: 95 Resting Blood Pressure: 135/81 Maximum Achieved Heart Rate: 95 Maximum Achieved Blood Pressure: 135/81 85% PMHR: na 100% PMHR: na METS: na Technologist Comment: Stress Test Results/Findings: This is a 68-year-old female with history of hypertension, diabetes, being evaluated for symptoms of chest pain and. Patient also assist of hypercholesterolemia. Stress data: Baseline EKG showed sinus rhythm with a VA interval and QRS duration. Blood pressure at rest is 135/81 with pulse rate of 84. A standard dose of Lexiscan was infused EKGs taken during and after infusion did not reveal any changes to sized ischemia. Final impression: #1. Negative Lexiscan stress test #2. Report on the nuclear images to be given by the radiologist MAGALYS
[2017-12-20] MEDS ORDERED: ERGOCALCIFEROL 50,000 UNIT CAP PO SCH (09:00)
== END 2017-12-17 17:12 | disposition home or self-care (01) ==
LOC: EC 11:53 → 3OBS 14:49
PROVIDERS: ADMIT Internal Medicine; ATTEND Internal Medicine
DX: R07.89 Other chest pain (principal); E83.42 Hypomagnesemia; R00.0 Tachycardia, unspecified; R74.8 Abnormal levels of other serum enzymes; R10.13 Epigastric pain; E11.9 Type 2 diabetes mellitus without complications; K21.9 Gastro-esophageal reflux disease without esophagitis; J44.9 Chronic obstructive pulmonary disease, unspecified; I10 Essential (primary) hypertension; E78.5 Hyperlipidemia, unspecified; J38.1 Polyp of vocal cord and larynx; K44.9 Diaphragmatic hernia without obstruction or gangrene; N39.3 Stress incontinence (female) (male); F17.210 Nicotine dependence, cigarettes, uncomplicated; M19.90 Unspecified osteoarthritis, unspecified site; H40.9 Unspecified glaucoma; E89.0 Postprocedural hypothyroidism; E66.9 Obesity, unspecified; Z68.35 Body mass index [BMI] 35.0-35.9, adult; E78.1 Pure hyperglyceridemia; F41.9 Anxiety disorder, unspecified; F32.9 Major depressive disorder, single episode, unspecified; Z79.82 Long term (current) use of aspirin; Z79.51 Long term (current) use of inhaled steroids; Z79.890 Hormone replacement therapy; Z79.4 Long term (current) use of insulin; Z79.899 Other long term (current) drug therapy; I25.2 Old myocardial infarction; Z87.11 Personal history of peptic ulcer disease; Z87.19 Personal history of other diseases of the digestive system; Z90.49 Acquired absence of other specified parts of digestive tract; Z86.73 Personal history of transient ischemic attack (TIA), and cerebral infarction without residual deficits; Z90.710 Acquired absence of both cervix and uterus; Z80.42 Family history of malignant neoplasm of prostate; Z82.0 Family history of epilepsy and other diseases of the nervous system
CPT/HCPCS: 99291 ×2; 96365 ×2; 96376 ×3; 96366 ×2; 96375; 36415; 94640 ×3; 93005; 93017; 93306; 85379; 80061; 80053 ×2; 82150; 82550 ×2; 82553 ×2; 83690; 83735 ×2; 84484 ×2; 85025 ×2; 85610; 85730 ×2; 71046; 78452; G0378 ×2; A9500; J1644 ×2; S0106; J1170 ×2; J3475; J2785; J0280

== ENCOUNTER → 2017-12-19 | Outpatient (CLI) | payer MEDICARE, OTHER | END | disposition home or self-care (01) | LOC: RADMRIMAIN 20:55 | PROVIDERS: ATTEND Internal Medicine | DX: Z53.9 Procedure and treatment not carried out, unspecified reason (principal) ==

== ENCOUNTER 2018-01-28 08:42 | Day surgery (SDC) | payer BC, MEDICARE, OTHER ==
[2018-01-21 15:54] VITALS: BMI 35.9
[~2018-01-28 08:42] MED LIST changes: +DEXAMETHASONE SOD PHOSPHATE 4 MG/ML 1 ML VIAL IV ONE; +FAMOTIDINE 20 MG/2 ML VIAL IV ONE; +HYDROmorphone 1 MG/ML 1 ML SYRINGE IVP PRN; -LIDOCAINE 1% 20 ML VIAL (10MG/ML) FOR IV START INTRADERMA PRN; +ONDANSETRON 4 MG/2 ML VIAL IVP ONE
[2018-01-28] MEDS ORDERED: LIDOCAINE 1% 20 ML VIAL (10MG/ML) FOR IV START INTRADERMA ONE (09:55)
[2018-01-28 09:59] LABS: Glucose,Whole Blood 227 mg/dL (75-99)
[2018-01-28] MEDS ORDERED: INSULIN ASPART 100 UNIT/ML 1 ML 10 ML VIAL SQ ONE (10:16)
[2018-01-28] MEDS ORDERED: PROPOFOL 10 MG/ML 20 ML VIAL IV ONE (10:52)
[2018-01-28] MEDS ORDERED: ROCURONIUM BROMIDE 10 MG/ML 10 ML VIAL IV ONE (10:52)
[2018-01-28] MEDS ORDERED: fentaNYL (PF) 50 MCG/ML 2 ML AMP ONE (10:52)
[2018-01-28] MEDS ORDERED: SUCCINYLCHOLINE CHLORIDE 100 MG/5 ML SYR IV ONE (10:52)
[2018-01-28] MEDS ORDERED: MIDAZOLAM 2 MG/2 ML VIAL ONE (10:52)
[2018-01-28] MEDS ORDERED: LIDOCAINE 1% INJ 10MG/ML (20 ML MDV) ONE (10:52)
--- NOTE | 2018-01-28 11:31 | P.OP ---
Date of Procedure: 01/28/18 Preoperative Diagnosis: Bilateral true vocal cord polyps Postoperative Diagnosis: Right true vocal cord polyp Procedure(s) Performed: Microlaryngoscopy with excision right true vocal cord polyp Anesthesia: ALLI Surgeon: Jonathan Minor Estimated Blood Loss (ml): 2 Pathology: other (Right true vocal cord polyp) Condition: stable Disposition: PACU Indications for Procedure: This 62-year-old white female with chronic hoarseness and bilateral true vocal cord polyps on flexible laryngoscopy also with a long history of smoking Operative Findings: There was a large sessile lesion of the right true vocal cord which appeared consistent with a polyp. The left true vocal cord had mild diffuse edema but no abnormalities otherwise and therefore no procedure was performed on the left vocal Description of Procedure: The patient was brought in the operative suite and placed in a supine position. Patient underwent induction of general anesthesia with oral endotracheal intubation without difficulty. Patient was prepped and draped in usual aseptic fashion. A gum guard was placed and direct laryngoscopy was performed with systematic evaluation of the base of tongue vallecula both piriform sinuses post cricoid area and endolarynx. With the larynx in good visualization the laryngoscope was placed in suspension and the Zeiss microscope was brought into position to evaluate the larynx. The left vocal cord did not have a lesions. The polyp was large enough on the right that this was actually touching the left true vocal cord. The polyp was then excised sharply with microdissection technique from the surrounding tissue leaving the lamina appropriate intact. The mucosa of the anterior commissure was left intact also. Good hemostasis was noted. The laryngoscope and gum guard were removed. The patient was allowed to emerge from general anesthesia having tolerated procedure well was extubated in the operating suite and transferred to postop recovery area in satisfactory
[2018-01-28 11:52] VITALS: TEMP 96.9
[2018-01-28 12:19] VITALS: RESP 16
[2018-01-28 12:20] LABS: Glucose,Whole Blood 168 mg/dL (75-99)
[2018-01-28 12:49] VITALS: BP 99/61; PULSE 90
== END 2018-01-28 12:55 | disposition home or self-care (01) ==
LOC: OR 08:42
PROVIDERS: ATTEND Otolaryngology
DX: J38.3 Other diseases of vocal cords (principal); K21.9 Gastro-esophageal reflux disease without esophagitis; F17.210 Nicotine dependence, cigarettes, uncomplicated; E11.9 Type 2 diabetes mellitus without complications; F32.9 Major depressive disorder, single episode, unspecified; J43.9 Emphysema, unspecified; H40.9 Unspecified glaucoma; I11.9 Hypertensive heart disease without heart failure; E78.00 Pure hypercholesterolemia, unspecified; Z86.73 Personal history of transient ischemic attack (TIA), and cerebral infarction without residual deficits; E07.9 Disorder of thyroid, unspecified; M81.0 Age-related osteoporosis without current pathological fracture; I25.2 Old myocardial infarction; E66.9 Obesity, unspecified; Z68.35 Body mass index [BMI] 35.0-35.9, adult; M10.9 Gout, unspecified; H91.90 Unspecified hearing loss, unspecified ear; Z79.84 Long term (current) use of oral hypoglycemic drugs; Z79.891 Long term (current) use of opiate analgesic; Z79.899 Other long term (current) drug therapy; Z79.890 Hormone replacement therapy
CPT/HCPCS: 88305; 31541; J2250; J2405; J2001; J3010; J0330; J2704

== ENCOUNTER 2019-08-31 12:59 | Observation (INO) | payer MEDICARE ==
[2019-08-31] MEDS ORDERED: ASPIRIN 81 MG PO STA (13:10)
[2019-08-31] MEDS ORDERED: HEPARIN SODIUM,PORCINE 5,000 UNIT/ML 1 ML VIAL IV ONE (13:14)
[2019-08-31] MEDS ORDERED: HEPARIN SODIUM,PORCINE 5,000 UNIT/ML 1 ML VIAL IV PRN (13:14)
[2019-08-31] MEDS ORDERED: HEPARIN SOD,PORK IN 0.45% NACL 25,000 UNIT in 0.45% NACL 1 250ML.BAG IV SCH ×2 (13:15→15:30)
[2019-08-31 13:34] LABS: Basophils # (A) 0.1 k/uL (0-0.2); Basophils % (A) 1 %; Eosinophils # (A) 0.1 k/uL (0-0.7); Eosinophils % (A) 1 %; HCT 45.5 % (34.0-46.0); HGB 14.4 gm/dL (11.4-16.0); Lymphocytes % (A) 22 %; MCH 25.8 pg (25.0-35.0); MCHC 31.6 g/dL (31.0-37.0); MCV 81.7 fL (80.0-100.0); Mean Platelet Volume 7.4; Monocytes # (A) 0.5 k/uL (0-1.0); Monocytes % (A) 4 %; Neutrophils # (A) 9.7 k/uL (1.3-7.7); Neutrophils % (A) 72 %; Platelet Count 380 k/uL (150-450); RBC 5.57 m/uL (3.80-5.40); RDW 14.1 % (11.5-15.5); WBC 13.6 k/uL (3.8-10.6)
[2019-08-31 13:50] LABS: Albumin 4.5 g/dL (3.5-5.0); Calcium 10.9 mg/dL (8.4-10.2); Partial Thromboplastin Time 23.6 sec (22.0-30.0); Potassium 4.4 mmol/L (3.5-5.1); Prothrombin Time 10.1 sec (9.0-12.0); Total Bilirubin 0.3 mg/dL (0.2-1.3); Total Protein 7.8 g/dL (6.3-8.2)
--- NOTE | 2019-08-31 13:54 | XR ---
EXAMINATION TYPE: XR chest 2V DATE OF EXAM: 08/31/2019 COMPARISON: 12/16/2017 INDICATION: Difficulty breathing TECHNIQUE: Frontal and lateral views of the chest are obtained. FINDINGS: The heart size is normal. The pulmonary vasculature is normal. The lungs are clear. IMPRESSION: 1. No acute pulmonary process.
[2019-08-31] MEDS ORDERED: SODIUM CHLORIDE 0.9% 500 ML 500 ML IV ONE (13:58)
[2019-08-31] MEDS: SODIUM CHLORIDE 0.9% 1,000 ML IV SCH (14:05)
[2019-08-31 14:11] LABS: D-Dimer 0.82 mg/L FEU (<0.60)
[2019-08-31] MEDS ORDERED: DILTIAZEM DRIP BOLUS FROM BAG 1 MG SOLN IV ONE (14:33)
[2019-08-31] MEDS ORDERED: DILTIAZEM 125 MG in SODIUM CHLORIDE 0.9% 100 ML IV SCH (14:45)
--- NOTE | 2019-08-31 15:02 | CT ---
CT CHEST FOR PULMONARY EMBOLISM. EXAMINATION TYPE: CT chest angio for PE DATE OF EXAM: 08/31/2019 INDICATION: SOB, chest pain, elevated d-dimer CT DLP: 708.7 mGycm, Automated exposure control for dose reduction was used. CONTRAST: Patient injected with 100 mL of Isovue 370. COMPARISON: None TECHNIQUE: CT of the chest is performed on a spiral scan at 2 mm thick sections. Study is performed with intravenous contrast timed for evaluation for pulmonary embolism. This will limit additional po rtions of the evaluation. 3-D MIP images reconstructed by the technologist are reviewed on the compu ter in the coronal and sagittal planes. Motion artifact causes some limitation as well. FINDINGS: No persistent filling defects are evident to suggest an acute pulmonary embolism. No mediastinal or hilar adenopathy enlarged by CT criteria is evident. The ascending aorta diameter at the level of the main pulmonary artery is 3.9 cm. The main pulmonary artery diameter at the bifur cation is 2.6 cm. Lung windows are clear. Limited CT section through the upper abdomen are unremarkable. IMPRESSIONS: 1. No acute pulmonary embolism.
[2019-08-31] MEDS ORDERED: SODIUM CHLORIDE 0.9% 1,000 ML IV ONE (15:04)
--- NOTE | 2019-08-31 15:27 | ED ---
SOB HPI - General Chief Complaint: Shortness of Breath Stated Complaint: SOB/chest pain Time Seen by Provider: 08/31/19 13:04 Source: EMS Mode of arrival: EMS Limitations: no limitations - History of Present Illness Initial Comments: 63-year-old female of HTN, HLD, DM, presenting today for cc of palpatation, chest pressure x3 weeks, presyncope x 1 day. Patient states that she has had palpitation shortness of breath especially when ambulating for the past 3 weeks. Patient states today she felt lightheaded as though she was going to pass out, she states the pressure has not changed over the last three weeks and states it feels the same across the upper back. Patient denies vomiting, admits to some nausea. Denies abdominal pain, syncopal episode. Denies leg swelling, hemoptysis, pain with deep inspiration, history of afib/PE/DVT. Patient denies h eadaches, sensation room is spinning. Patient denies diarrhea, fevers. States she had chronic cough. Denies additional complaints. Upon arrival patient HR significantly elevated as well as blood pressure. - Related Data Home Medications Medication Instructions Recorded Confirmed glipiZIDE [Glucotrol] 10 mg PO BID 09/14/15 08/31/19 metFORMIN HCL 1,000 mg PO BID 09/14/15 08/31/19 ALPRAZolam [Xanax] 0.25 mg PO BID PRN 07/28/17 08/31/19 Amitriptyline HCl [Elavil] 100 mg PO HS 07/28/17 08/31/19 HYDROcodone/APAP 7.5-325MG [[place] 1 tab PO TID 07/28/17 08/31/19 7.5-325] Escitalopram [Lexapro] 20 mg PO DAILY 10/23/17 08/31/19 Atorvastatin Calcium [Lipitor] 40 mg PO HS 08/31/19 08/31/19 Insulin Glargine [Lantus] 35 unit SQ DAILY@1700 08/31/19 08/31/19 Insulin Glargine [Lantus] 45 unit SQ DAILY@0900 08/31/19 08/31/19 Levothyroxine Sodium [Synthroid] 150 mcg PO DAILY 08/31/19 08/31/19 Nitroglycerin Sl Tabs [Nitrostat] 0.4 mg SUBLINGUAL Q5M PRN 08/31/19 08/31/19 Previous Rx's Medication Instructions Recorded Lisinopril [Zestril] 10 mg PO DAILY #30 tab 11/28/15 Allergies Allergy/AdvReac Type Severity Reaction Status Date / Time No Known Allergies Allergy Verified 08/31/19 14:59 Review of Systems ROS Statement: Those systems with pertinent positive or pertinent negative responses have been documented in the HPI. ROS Other: All systems not noted in ROS Statement are negative. Past Medical History Past Medical History: Chest Pain / Angina, COPD, CVA/TIA, Diabetes Mellitus, Eye Disorder, GERD/Reflux, Hyperlipidemia, Hypertension, Myocardial Infarction ([place]), Osteoarthritis (OA), Thyroid Disorder Additional Past Medical History / Comment(s): vertigo, CVA-x2- 2010, glaucoma, varicose veins, peptic ulcer, HX POLYP, stress incont of urine-depends worn.pt stated had a pne vaccine not sure of date but good till age 65. Last Myocardial Infarction Date:: 2008 History of Any Multi-Drug Resistant Organisms: None Reported Past Surgical History: Bladder Surgery, Cholecystectomy, Hernia Repair, Hysterectomy, Tonsillectomy Additional Past Surgical History / Comment(s): thyroidectomy, left foot ORIF- hardware later removed, ragini oopherectomy, bladder suspension, laser eye surgeryx2, Past Anesthesia/Blood Transfusion Reactions: No Reported Reaction Past Psychological History: Anxiety, Depression Smoking Status: Current every day smoker - Past Family History Mother Additional Family Medical History / Comment(s): brain anuerysm Father Family Medical History: Cancer Additional Family Medical History / Comment(s): prostate General Exam - General Exam Comments Initial Comments: General: The patient is awake and alert, in no distress Eye: +3 mm pupils are equal, round and reactive to light, extra-ocular movements are intact. No nystagmus. There is normal conjunctiva bilaterally. No signs of icterus. Ears, nose, mouth and throat: There are moist mucous membranes and no oral lesions. Neck: The neck is supple, there is no tenderness or JVD. Cardiovascular: There is a regular rate and rhythm. No murmur, rub or gallop is appreciated. Respiratory: Lungs are clear to auscultation, respirations are non-labored, breath sounds are equal. No wheezes, stridor, rales, or rhonchi. Gastrointestinal: Soft, non-distended, non-tender abdomen without masses or organomegaly noted. There is no rebound or guarding present. Musculoskeletal: Normal ROM, no tenderness. Strength 5/5. Sensation intact. Radial pulses equal bilaterally 2+. Neurological: A&O x 3. CN II-XII intact grossly, There are no obvious motor or sensory deficits. Coordination appears grossly intact. Speech is normal. Skin: Skin is warm and dry and no rashes or lesions are noted. Psychiatric: Cooperative, appropriate mood & affect, normal judgment. Limitations: no limitations Course Vital Signs 08/31/19 08/31/19 08/31/19 13:01 13:06 13:30 Temperature 98.6 F Pulse Rate 146 H 90 Pulse Rate [ 145 H [employer] ] Respiratory 18 24 24 Rate Blood Pressure 122/109 122/109 O2 Sat by Pulse 97 99 Oximetry 08/31/19 08/31/19 08/31/19 14:00 14:30 15:00 Temperature Pulse Rate 146 H 133 H 105 H Pulse Rate [ [employer] ] Respiratory 24 17 17 Rate Blood Pressure 107/64 109/92 O2 Sat by Pulse 99 98 99 Oximetry 08/31/19 08/31/19 08/31/19 15:23 15:57 16:04 Temperature Pulse Rate 123 H 98 112 H Pulse Rate [ [employer] ] Respiratory 18 18 17 Rate Blood Pressure 116/90 127/78 110/78 O2 Sat by Pulse 98 98 99 Oximetry Medical Decision Making - Medical Decision Making 63yo presenting for chest pressure, palpations x 3weeks. Atrial fibrillation RVR. Heparin initiated given ST changes. CTA (-) for PE. Patient BP improved. Patient initial troponin (-) BNP WNL. No effusion on CXR. Pt placed on cardizem drip. Will be admitted for monitoring/cardiology evaluation. Pt agreeable to admission and care plan. Accepting admitting provider to provider further care. Dr. Schroeder is agreeable to care plan and discharge. Critical care time: 45 minutes - Lab Data Result diagrams: 08/31/19 13:15 08/31/19 13:15 Lab Results 08/31/19 08/31/19 08/31/19 Range/Units 13:15 13:15 13:15 WBC 13.6 H (3.8-10.6) k/uL RBC 5.57 H (3.80-5.40) m/uL Hgb 14.4 (11.4-16.0) gm/dL Hct 45.5 (34.0-46.0) % MCV 81.7 (80.0-100.0) fL MCH 25.8 (25.0-35.0) pg MCHC 31.6 (31.0-37.0) g/dL RDW 14.1 (11.5-15.5) % Plt Count 380 (150-450) k/uL Neutrophils % 72 % Lymphocytes % 22 % Monocytes % 4 % Eosinophils % 1 % Basophils % 1 % Neutrophils # 9.7 H (1.3-7.7) k/uL Lymphocytes # 3.0 (1.0-4.8) k/uL Monocytes # 0.5 (0-1.0) k/uL Eosinophils # 0.1 (0-0.7) k/uL Basophils # 0.1 (0-0.2) k/uL PT 10.1 (9.0-12.0) sec INR 1.0 (<1.2) APTT 23.6 (22.0-30.0) sec D-Dimer 0.82 H (<0.60) mg/L FEU Sodium 138 (137-145) mmol/L Potassium 4.4 (3.5-5.1) mmol/L Chloride 101 (98-107) mmol/L Carbon Dioxide 23 (22-30) mmol/L Anion Gap 14 mmol/L BUN 15 (7-17) mg/dL Creatinine 0.87 (0.52-1.04) mg/dL Est GFR (CKD-EPI)AfAm 82 (>60 ml/min/1.73 sqM) Est GFR (CKD-EPI)NonAf 71 (>60 ml/min/1.73 sqM) Glucose 117 H (74-99) mg/dL Plasma Lactic Acid Serjio (0.7-2.0) mmol/L Calcium 10.9 H (8.4-10.2) mg/dL Total Bilirubin 0.3 (0.2-1.3) mg/dL AST 24 (14-36) U/L ALT 24 (4-34) U/L Alkaline Phosphatase 159 H (38-126) U/L Troponin I (0.000-0.034) ng/mL NT-Pro-B Natriuret Pep pg/mL Total Protein 7.8 (6.3-8.2) g/dL Albumin 4.5 (3.5-5.0) g/dL 08/31/19 08/31/19 08/31/19 Range/Units 13:15 13:15 13:15 WBC (3.8-10.6) k/uL RBC (3.80-5.40) m/uL Hgb (11.4-16.0) gm/dL Hct (34.0-46.0) % MCV (80.0-100.0) fL MCH (25.0-35.0) pg MCHC (31.0-37.0) g/dL RDW (11.5-15.5) % Plt Count (150-450) k/uL Neutrophils % % Lymphocytes % % Monocytes % % Eosinophils % % Basophils % % Neutrophils # (1.3-7.7) k/uL Lymphocytes # (1.0-4.8) k/uL Monocytes # (0-1.0) k/uL Eosinophils # (0-0.7) k/uL Basophils # (0-0.2) k/uL PT (9.0-12.0) sec INR (<1.2) APTT (22.0-30.0) sec D-Dimer (<0.60) mg/L FEU Sodium (137-145) mmol/L Potassium (3.5-5.1) mmol/L Chloride (98-107) mmol/L Carbon Dioxide (22-30) mmol/L Anion Gap mmol/L BUN (7-17) mg/dL Creatinine (0.52-1.04) mg/dL Est GFR (CKD-EPI)AfAm (>60 ml/min/1.73 sqM) Est GFR (CKD-EPI)NonAf (>60 ml/min/1.73 sqM) Glucose (74-99) mg/dL Plasma Lactic Acid Serjio 4.1 H* (0.7-2.0) mmol/L Calcium (8.4-10.2) mg/dL Total Bilirubin (0.2-1.3) mg/dL AST (14-36) U/L ALT (4-34) U/L Alkaline Phosphatase (38-126) U/L Troponin I <0.012 (0.000-0.034) ng/mL NT-Pro-B Natriuret Pep 568 pg/mL Total Protein (6.3-8.2) g/dL Albumin (3.5-5.0) g/dL - EKG Data EKG Comments: Ventricular rate 141 bpm, QRS confucianist 90 ms, QT/QTC 306/468. This is A. fib with a rapid ventricular response. There is a nonspecific ST abnormality-- interpreted by Dr. Schroeder. Disposition Clinical Impression: Atrial fibrillation with RVR, Dyspnea, Chest pressure, Pre-syncope, Lactic acidosis Disposition: ADMITTED IP TO THIS HOSP Condition: Serious Is patient prescribed a controlled substance at d/c from ED?: No Referrals: Vicky Pinedo MD [Primary Care Provider] - 1-2 days Time of Disposition: 15:57
[2019-08-31] MEDS ORDERED: NITROGLYCERIN SL TABS 0.4 MG TAB SUBLINGUAL PRN ×2 (15:34→18:38)
[2019-08-31 18:22] LABS: Glucose,Whole Blood 66 mg/dL (75-99)
[2019-08-31] MEDS ORDERED: ALPRAZolam 0.25 MG TAB PO PRN (18:38)
--- NOTE | 2019-08-31 18:46 | P.HPIM ---
History of Present Illness H&P Date: 08/31/19 Jennifer Rodriguez, he is a 63-year-old female who presented to [facility] emergency room with a chief complaint of palpitation, shortness of breath, dizziness and presyncope for the last 2-3 weeks, today patient started having some chest pressure and she decided to call EMS and come to the emergency room, she was evaluated in emergency room and had evidence of atrial fibrillation with rapid ventricular response she was started on IV Cardizem and IV heparin and was admitted to telemetry floor, cardiology consultation was requested. Patient has a known history of hypertension, hyperlipidemia, insulin requiring diabetes Jorge L's, hypothyroidism maintained on Synthroid, and history of depression she follows with Dr. Mathur as her facility rehab director. Patient was seen and examined on the telemetry floor she is alert and oriented 3 in no apparent distress she is complaining of back pain at this time she has occasional palpitation there is no shortness of breath at rest, she denies any fever or chills no headache or dizziness no chest pain at this time no cough no nausea or vomiting no abdominal pain no diarrhea no burning was urination no frequency or urgency and no hematuria Past Medical History Past Medical History: Chest Pain / Angina, COPD, CVA/TIA, Diabetes Mellitus, Eye Disorder, GERD/Reflux, Hyperlipidemia, Hypertension, Myocardial Infarction ([place]), Osteoarthritis (OA), Thyroid Disorder Additional Past Medical History / Comment(s): vertigo, CVA-x2- 2010, glaucoma, varicose veins, peptic ulcer, HX POLYP, stress incont of urine-depends worn.pt stated had a pne vaccine not sure of date but good till age 65. Last Myocardial Infarction Date:: 2008 History of Any Multi-Drug Resistant Organisms: None Reported Past Surgical History: Bladder Surgery, Cholecystectomy, Hernia Repair, Hysterectomy, Tonsillectomy Additional Past Surgical History / Comment(s): thyroidectomy, left foot ORIF- hardware later removed, ragini oopherectomy, bladder suspension, laser eye surgeryx2, Past Anesthesia/Blood Transfusion Reactions: No Reported Reaction Past Psychological History: Anxiety, Depression Smoking Status: Current every day smoker Past Alcohol Use History: None Reported Additional Past Alcohol Use History / Comment(s): started smoking at ge 17- has cut down from 3ppd to 2PPD Past Drug Use History: Marijuana - Past Family History Mother Family Medical History: Hypertension Additional Family Medical History / Comment(s): brain aneurysm Father Family Medical History: Cancer Additional Family Medical History / Comment(s): prostate Medications and Allergies Home Medications Medication Instructions Recorded Confirmed Type glipiZIDE [Glucotrol] 10 mg PO BID 09/14/15 08/31/19 History metFORMIN HCL 1,000 mg PO BID 09/14/15 08/31/19 History Lisinopril [Zestril] 10 mg PO DAILY #30 tab 11/28/15 08/31/19 Rx ALPRAZolam [Xanax] 0.25 mg PO BID PRN 07/28/17 08/31/19 History Amitriptyline HCl [Elavil] 100 mg PO HS 07/28/17 08/31/19 History HYDROcodone/APAP 7.5-325MG [[place] 1 tab PO TID 07/28/17 08/31/19 History 7.5-325] Escitalopram [Lexapro] 20 mg PO DAILY 10/23/17 08/31/19 History Atorvastatin Calcium [Lipitor] 40 mg PO HS 08/31/19 08/31/19 History Insulin Glargine [Lantus] 35 unit SQ DAILY@1700 08/31/19 08/31/19 History Insulin Glargine [Lantus] 45 unit SQ DAILY@0900 08/31/19 08/31/19 History Levothyroxine Sodium [Synthroid] 150 mcg PO DAILY 08/31/19 08/31/19 History Nitroglycerin Sl Tabs [Nitrostat] 0.4 mg SUBLINGUAL Q5M PRN 08/31/19 08/31/19 History Allergies Allergy/AdvReac Type Severity Reaction Status Date / Time No Known Allergies Allergy Verified 08/31/19 14:59 Physical Exam Vitals: Vital Signs Temp Pulse Pulse Resp BP BP Pulse Ox 08/31/19 18:11 83 16 08/31/19 17:32 98.2 F 83 16 138/78 96 08/31/19 17:08 98.4 F 08/31/19 16:49 86 18 133/82 98 08/31/19 16:28 85 18 110/78 98 08/31/19 16:04 112 H 17 110/78 99 08/31/19 15:57 98 18 127/78 98 08/31/19 15:23 123 H 18 116/90 98 08/31/19 15:00 105 H 17 99 08/31/19 14:30 133 H 17 109/92 98 08/31/19 14:00 146 H 24 107/64 99 08/31/19 13:30 90 24 122/109 99 08/31/19 13:06 145 H 24 08/31/19 13:01 98.6 F 146 H 18 122/109 97 Intake and Output 08/31/19 08/31/19 08/31/19 06:59 14:59 22:59 Other: Weight 104.326 kg 104.326 kg In general patient is alert and oriented 3 in no apparent distress HEENT head normocephalic and atraumatic Neck is supple no JVD no goiter no lymphadenopathy Chest exam reveals a few scattered rhonchi no wheezing Cardiac exam reveals irregular heart sounds S1 and S2 no gallops no murmurs Abdomen is soft nontender no organomegaly with normal bowel sounds Extremity exam reveals no edema no cyanosis or clubbing Neurological examination reveals no gross focal deficit Results CBC & Chem 7: 08/31/19 13:15 08/31/19 13:15 Labs: Abnormal Lab Results - Last 24 Hours (Table) 08/31/19 08/31/19 08/31/19 Range/Units 13:15 13:15 13:15 WBC 13.6 H (3.8-10.6) k/uL RBC 5.57 H (3.80-5.40) m/uL Neutrophils # 9.7 H (1.3-7.7) k/uL D-Dimer 0.82 H (<0.60) mg/L FEU Glucose 117 H (74-99) mg/dL POC Glucose (mg/dL) (75-99) mg/dL Plasma Lactic Acid Serjio (0.7-2.0) mmol/L Calcium 10.9 H (8.4-10.2) mg/dL Alkaline Phosphatase 159 H (38-126) U/L 08/31/19 08/31/19 Range/Units 13:15 18:20 WBC (3.8-10.6) k/uL RBC (3.80-5.40) m/uL Neutrophils # (1.3-7.7) k/uL D-Dimer (<0.60) mg/L FEU Glucose (74-99) mg/dL POC Glucose (mg/dL) 66 L (75-99) mg/dL Plasma Lactic Acid Serjio 4.1 H* (0.7-2.0) mmol/L Calcium (8.4-10.2) mg/dL Alkaline Phosphatase (38-126) U/L Thrombosis Risk Factor Assmnt - Choose All That Apply Each Factor Represents 1 point: Abnormal pulmonary function (COPD) Each Risk Factor Represents 2 Points: Age 61-74 years Thrombosis Risk Factor Assessment Total Risk Factor Score: 3 Thrombosis Risk Factor Assessment Level: Moderate Risk Assessment and Plan Plan: 1. Atrial fibrillation with rapid ventricular response, patient was started on IV Cardizem and IV heparin and admitted to telemetry floor cardiology consultation was requested 2. Shortness of breath could be related to atrial fibrillation with check echocardiogram 3. Underlying history of hypertension will resume home medication and monitor blood pressure 4. Underlying history of diabetes mellitus will resume home medications and insulin except for metformin 5. Underlying history of depression Will resume Celebrex and elevated 6. Underlying history of hypothyroidism Will resume levothyroxine 150 g and check TSH 7. Chronic back pain Will resume [place] patient is requesting more pain medication during her stay Medication and labs were reviewed home medications reconciled Check echocardiogram recheck labs in a.m. Awaiting cardiology input will follow closely
[2019-08-31 20:26] LABS: Glucose,Whole Blood 171 mg/dL (75-99)
[2019-08-31] MEDS: ATORVASTATIN 40 MG TAB PO SCH (21:46)
[2019-08-31] MEDS: glipiZIDE 10 MG TAB PO SCH (21:47)
[2019-08-31] MEDS: AMITRIPTYLINE HCL 50 MG TAB PO SCH (21:47)
[2019-08-31] MEDS: HYDROcodone/APAP 7.5-325MG 1 EACH TAB PO SCH (21:47)
[2019-09-01] MEDS: HYDROmorphone 0.5 MG/0.5 ML SYRINGE IVP PRN ×3 (00:33→21:30)
[2019-09-01 04:15] LABS: Hemoglobin A1C 6.9 % (4.0-6.0)
[2019-09-01 06:26] LABS: Glucose,Whole Blood 74 mg/dL (75-99)
[2019-09-01] MEDS ORDERED: LEVOTHYROXINE 75 MCG TAB PO SCH (06:30)
[2019-09-01 06:36] LABS: Basophils % (A) 0 %; Eosinophils # (A) 0.2 k/uL (0-0.7); Eosinophils % (A) 2 %; HCT 37.5 % (34.0-46.0); HGB 11.8 gm/dL (11.4-16.0); Hypochromasia Moderate; Lymphocytes # (A) 1.9 k/uL (1.0-4.8); Lymphocytes % (A) 29 %; MCH 26.8 pg (25.0-35.0); MCHC 31.4 g/dL (31.0-37.0); MCV 85.5 fL (80.0-100.0); Mean Platelet Volume 7.4; Monocytes # (A) 0.3 k/uL (0-1.0); Monocytes % (A) 5 %; Neutrophils % (A) 62 %; Platelet Count 221 k/uL (150-450); RBC 4.39 m/uL (3.80-5.40); WBC 6.4 k/uL (3.8-10.6)
[2019-09-01] MEDS: SODIUM CHLORIDE 0.9% 1,000 ML IV SCH ×2 (06:40→21:15)
[2019-09-01 06:51] LABS: ALT 54 U/L (4-34); AST 100 U/L (14-36); African American GFR (CKD) >90 (>60 ml/min/1.73 sqM); Albumin 3.4 g/dL (3.5-5.0); Alkaline Phosphatase 146 U/L (38-126); Anion Gap 6 mmol/L; Blood Urea Nitrogen 14 mg/dL (7-17); Calcium 9.2 mg/dL (8.4-10.2); Carbon Dioxide 27 mmol/L (22-30); Chloride 106 mmol/L (98-107); Cholesterol 157 mg/dL (<200); Glucose 69 mg/dL (74-99); HDL Cholesterol 41 mg/dL (40-60); LDL Cholesterol,Calculated 57 mg/dL (0-99); Non-African American GFR(CKD) >90 (>60 ml/min/1.73 sqM); Potassium 3.8 mmol/L (3.5-5.1); Sodium 139 mmol/L (137-145); Total Bilirubin 0.2 mg/dL (0.2-1.3); Total Protein 6.2 g/dL (6.3-8.2); Triglycerides 297 mg/dL (<150)
[2019-09-01] MEDS ORDERED: INSULIN DETEMIR (LEVEMIR) 100 UNIT/ML SYR SQ SCH ×3 (07:00→17:00)
[2019-09-01] MEDS: glipiZIDE 10 MG TAB PO SCH ×2 (08:03→21:29)
[2019-09-01] MEDS: LISINOPRIL 10 MG TAB PO SCH (08:03)
[2019-09-01] MEDS: ESCITALOPRAM 20 MG TAB PO SCH (08:03)
[2019-09-01] MEDS: HYDROcodone/APAP 7.5-325MG 1 EACH TAB PO SCH ×2 (08:04→15:11)
[2019-09-01] MEDS ORDERED: HEPARIN SODIUM,PORCINE 5,000 UNIT/ML 1 ML VIAL IV STA (08:07)
[2019-09-01] MEDS ORDERED: ASPIRIN 325 MG TAB PO SCH (09:00)
--- NOTE | 2019-09-01 09:31 | P.CRDCN ---
History of Present Illness Consult date: 09/01/19 Requesting physician: Vicky Pinedo Chief complaint: palpitations and sob History of present illness: this is a pleasant 63-year-old female who follows regularly with Dr. Shipley in the office. She has history of COPD, emphysema, she continues to smoke, she was smoking up to 3 packs of cigarettes per day, currently smokes 2 packs of cigarettes per day, history of hyperlipidemia, hypothyroidism, GERD, diabetes, a nd hyperlipidemia. She presents to the hospital on this occasion with symptoms of feeling her heart racing fast, and becoming extremely short of breath.according to the patient, she has noticed these palpitations and racing heart off-and-on for the past 2-3 weeks. She states that time she becomes quite dizzy and feels as though she may pass out. She has never been told in the past to have any atrial fibrillation, she does have a history of prior CVA, hypothyroidism.chest x-ray did not reveal any acute process.CTA of the chest did not reveal any acute pulmonary embolism.EKG on presentation here showed atrial fibrillation with a rapid ventricular response.blood pressure 122/70 with a heart rate in the morning.AST on admission 24, ALT 24, alk phos 159, this morning the ACS 100, ALT 54, BNP level was 568 and troponins were negative 3.TSH 8.32.at the time of my examination this morning, patient appears to be still quite short of breath. She has converted to normal sinus rhythm and remai ns in a normal sinus rhythm this. Continues at this time to be on IV Cardizem IV heparin. I did have a long discussion with the patient regarding the importance of anticoagulation for stroke prevention. Past Medical History Past Medical History: Chest Pain / Angina, COPD, CVA/TIA, Diabetes Mellitus, Eye Disorder, GERD/Reflux, Hyperlipidemia, Hypertension, Myocardial Infarction ([place]), Osteoarthritis (OA), Thyroid Disorder Additional Past Medical History / Comment(s): vertigo, CVA-x2- 2010, glaucoma, varicose veins, peptic ulcer, HX POLYP, stress incont of urine-depends worn.pt stated had a pne vaccine not sure of date but good till age 65. Last Myocardial Infarction Date:: 2008 History of Any Multi-Drug Resistant Organisms: None Reported Past Surgical History: Bladder Surgery, Cholecystectomy, Hernia Repair, Hysterectomy, Tonsillectomy Additional Past Surgical History / Comment(s): thyroidectomy, left foot ORIF- hardware later removed, ragini oopherectomy, bladder suspension, laser eye surgeryx2, Past Anesthesia/Blood Transfusion Reactions: No Reported Reaction Past Psychological History: Anxiety, Depression Smoking Status: Current every day smoker Past Alcohol Use History: None Reported Additional Past Alcohol Use History / Comment(s): started smoking at ge 17- has cut down from 3ppd to 2PPD Past Drug Use History: Marijuana - Past Family History Mother Family Medical History: Hypertension Additional Family Medical History / Comment(s): brain aneurysm Father Family Medical History: Cancer Additional Family Medical History / Comment(s): prostate Medications and Allergies Home Medications Medication Instructions Recorded Confirmed Type glipiZIDE [Glucotrol] 10 mg PO BID 09/14/15 08/31/19 History metFORMIN HCL 1,000 mg PO BID 09/14/15 08/31/19 History Lisinopril [Zestril] 10 mg PO DAILY #30 tab 11/28/15 08/31/19 Rx ALPRAZolam [Xanax] 0.25 mg PO BID PRN 07/28/17 08/31/19 History Amitriptyline HCl [Elavil] 100 mg PO HS 07/28/17 08/31/19 History HYDROcodone/APAP 7.5-325MG [[place] 1 tab PO TID 07/28/17 08/31/19 History 7.5-325] Escitalopram [Lexapro] 20 mg PO DAILY 10/23/17 08/31/19 History Atorvastatin Calcium [Lipitor] 40 mg PO HS 08/31/19 08/31/19 History Insulin Glargine [Lantus] 35 unit SQ DAILY@1700 08/31/19 08/31/19 History Insulin Glargine [Lantus] 45 unit SQ DAILY@0900 08/31/19 08/31/19 History Levothyroxine Sodium [Synthroid] 150 mcg PO DAILY 08/31/19 08/31/19 History Nitroglycerin Sl Tabs [Nitrostat] 0.4 mg SUBLINGUAL Q5M PRN 08/31/19 08/31/19 History Allergies Allergy/AdvReac Type Severity Reaction Status Date / Time No Known Allergies Allergy Verified 08/31/19 14:59 Physical Exam Vitals: Vital Signs Temp Pulse Pulse Resp BP BP Pulse Ox 09/01/19 08:00 97.6 F 82 18 122/76 96 09/01/19 03:59 97.4 F L 71 18 82/54 95 09/01/19 00:28 98.1 F 67 20 110/62 96 08/31/19 21:30 98.0 F 85 18 99/73 97 08/31/19 18:11 83 16 08/31/19 17:32 98.2 F 83 16 138/78 96 08/31/19 17:08 98.4 F 08/31/19 16:49 86 18 133/82 98 08/31/19 16:28 85 18 110/78 98 08/31/19 16:04 112 H 17 110/78 99 08/31/19 15:57 98 18 127/78 98 08/31/19 15:23 123 H 18 116/90 98 08/31/19 15:00 105 H 17 99 08/31/19 14:30 133 H 17 109/92 98 08/31/19 14:00 146 H 24 107/64 99 08/31/19 13:30 90 24 122/109 99 08/31/19 13:06 145 H 24 08/31/19 13:01 98.6 F 146 H 18 122/109 97 Intake and Output 08/31/19 09/01/19 09/01/19 22:59 06:59 14:59 Intake Total 90.712 211.945 Balance 90.712 211.945 Intake: Intake, IV Titration 90.712 91.945 Amount Heparin Sod,Pork in 0.45% 90.712 91.945 NaCl 25,000 unit In 0.45 % NaCl 1 250ml.bag @ 9.59 UNITS/KG/HR 10.005 mls/ hr IV .Q24H [facility] Rx#: [id number] Oral 120 Other: Voiding Method Toilet Toilet Toilet # Voids 3 Weight 104.326 kg 106.4 kg PHYSICAL EXAMINATION: GENERAL:63-year-old female, in mild respiratory distress at the time of my examination HEENT: Head is atraumatic, normocephalic. Pupils equal, round. Sclera anict jey. Conjunctiva are clear. Mucous membranes of the mouth are moist. Neck is supple. There is no elevated jugular venous pressure.no carotid bruit is heard. HEART EXAMINATION: [Heart S1, S2 normal. No murmur or gallop heard.] CHEST EXAMINATION:[ Lungs reveal scattered coarse rhonchi and wheezing throughout, decreased air exchange.] ABDOMEN: [ Soft, nontender. Bowel sounds are heard. No organomegaly noted]. EXTREMITIES:[ 2+ peripheral pulses with no evidence of peripheral edema and no calf tenderness noted]. NEUROLOGIC [patient is awake, alert and oriented 3] . Results 09/01/19 06:13 09/01/19 06:13 Cardiac Enzymes 08/31/19 08/31/19 08/31/19 Range/Units 13:15 13:15 18:54 AST 24 (14-36) U/L Troponin I <0.012 <0.012 (0.000-0.034) ng/mL 09/01/19 09/01/19 Range/Units 00:18 06:13 AST 100 H (14-36) U/L Troponin I <0.012 (0.000-0.034) ng/mL Coagulation 08/31/19 08/31/19 09/01/19 Range/Units 13:15 22:39 06:13 PT 10.1 (9.0-12.0) sec APTT 23.6 27.2 31.1 H (22.0-30.0) sec Lipids 09/01/19 Range/Units 06:13 Triglycerides 297 H (<150) mg/dL Cholesterol 157 (<200) mg/dL HDL Cholesterol 41 (40-60) mg/dL CBC 08/31/19 09/01/19 Range/Units 13:15 06:13 WBC 13.6 H 6.4 (3.8-10.6) k/uL RBC 5.57 H 4.39 (3.80-5.40) m/uL Hgb 14.4 11.8 (11.4-16.0) gm/dL Hct 45.5 37.5 (34.0-46.0) % Plt Count 380 221 (150-450) k/uL Comprehensive Metabolic Panel 08/31/19 09/01/19 Range/Units 13:15 06:13 Sodium 138 139 (137-145) mmol/L Potassium 4.4 3.8 (3.5-5.1) mmol/L Chloride 101 106 (98-107) mmol/L Carbon Dioxide 23 27 (22-30) mmol/L BUN 15 14 (7-17) mg/dL Creatinine 0.87 0.71 (0.52-1.04) mg/dL Glucose 117 H 69 L (74-99) mg/dL Calcium 10.9 H 9.2 (8.4-10.2) mg/dL AST 24 100 H (14-36) U/L ALT 24 54 H (4-34) U/L Alkaline Phosphatase 159 H 146 H (38-126) U/L Total Protein 7.8 6.2 L (6.3-8.2) g/dL Albumin 4.5 3.4 L (3.5-5.0) g/dL Current Medications Generic Name Dose Route Start Last Admin Trade Name Freq PRN Reason Stop Dose Admin Hydrocodone Bitart/Acetaminophen 1 each 08/31/19 22:00 09/01/19 08:04 [place] 7.5-325 PO 1 each TID [place] Administration Alprazolam 0.25 mg 08/31/19 18:38 Xanax PO BID PRN Anxiety Amitriptyline HCl 100 mg 08/31/19 21:00 08/31/19 21:47 Elavil PO 100 mg HS [place] Administration Aspirin 325 mg 09/01/19 09:00 09/01/19 08:03 Aspirin PO 325 mg DAILY [place] Administration Atorvastatin Calcium 40 mg 08/31/19 21:00 08/31/19 21:46 Lipitor PO 40 mg HS [place] Administration Escitalopram Oxalate 20 mg 09/01/19 09:00 09/01/19 08:03 Lexapro PO 20 mg DAILY [place] Administration Glipizide 10 mg 08/31/19 21:00 09/01/19 08:03 Glucotrol PO 10 mg BID [place] Administration Hydromorphone HCl 0.5 mg 08/31/19 19:03 09/01/19 00:33 Dilaudid IVP 0.5 mg Q6HR PRN Administration Pain Sodium Chloride 1,000 mls @ 75 mls/hr 08/31/19 14:00 09/01/19 06:40 Saline 0.9% IV 75 mls/hr .[id number] [place] Administration Diltiazem HCl 125 mg/ Sodium 125 mls @ 5 mls/hr 08/31/19 14:45 08/31/19 14:55 Chloride IV 5 mg/hr .Q24H [place] 5 mls/hr Administration 5 MG/HR Heparin Sodium/Sodium Chloride 250 mls @ 10.005 mls/hr 08/31/19 15:30 09/01/19 08:00 25,000 unit/ Sodium Chloride IV 15.59 units/kg/hr .Q24H [facility] 16.264 mls/hr Titration Protocol 9.59 UNITS/KG/HR Insulin Detemir 45 unit 09/01/19 07:00 Levemir SQ DAILY@0700 [facility] Insulin Detemir 35 unit 09/01/19 17:00 Levemir SQ DAILY@1700 [facility] Levothyroxine Sodium 150 mcg 09/01/19 06:30 09/01/19 06:39 Synthroid PO 150 mcg 0630 [place] Administration Lisinopril 10 mg 09/01/19 09:00 09/01/19 08:03 Zestril PO 10 mg DAILY [place] Administration Nitroglycerin 0.4 mg 08/31/19 15:34 Nitrostat SUBLINGUAL Q5M PRN Chest Pain Nitroglycerin 0.4 mg 08/31/19 18:38 Nitrostat SUBLINGUAL Q5M PRN Chest Pain Intake and Output 08/31/19 09/01/19 09/01/19 22:59 06:59 14:59 Intake Total 90.712 211.945 Balance 90.712 211.945 Intake: Intake, IV Titration 90.712 91.945 Amount Heparin Sod,Pork in 0.45% 90.712 91.945 NaCl 25,000 unit In 0.45 % NaCl 1 250ml.bag @ 9.59 UNITS/KG/HR 10.005 mls/ hr IV .Q24H [facility] Rx#: [id number] Oral 120 Other: Voiding Method Toilet Toilet Toilet # Voids 3 Weight 104.326 kg 106.4 kg 09/01/19 06:13 09/01/19 06:13 EKG Interpretations (text) EKG on presentation here showed atrial fibrillation with a rapid ventricular response Assessment and Plan Plan: assessment and plan #1 atrial fibrillation with rapid ventricular response, paroxysmal, currently in normal sinus rhythm #2 progressively worsening shortness of breath, possible COPD exacerbation with an element of tracheobronchitis #3 hypertension #4 diabetes #5 hyperlipidemia #6 hypothyroidism 7 depression #8 chronic nicotine dependence, patient has smoked up to 3 packs of cigarettes per day, continues at this time to smoke approximately 2 packs of cigarettes per day #9 history of moderate to severe COPD/emphysema Plan We will discontinue the IV Cardizem, start the patient on oral Cardizem. Obtain an echocardiogram with Doppler study. We will also start the patient on Eliquis and check for coverage regarding this. Discontinue the IV heparin. Further recommendations to follow. DNP note has been reviewed, I agree with a documented findings and plan of care. Patient was seen and examined.
[2019-09-01] MEDS: APIXABAN 5 MG TAB PO SCH ×2 (11:01→21:29)
[2019-09-01] MEDS: DILTIAZEM ORAL 30 MG TAB PO SCH ×3 (11:01→21:33)
[2019-09-01 11:42] LABS: Glucose,Whole Blood 161 mg/dL (75-99)
[2019-09-01] MEDS: INSULIN ASPART (NovoLOG) 100 UNIT/ML VIAL SQ SCH ×3 (12:53→21:24)
[2019-09-01 16:55] LABS: Glucose,Whole Blood 110 mg/dL (75-99)
--- NOTE | 2019-09-01 17:04 | P.PN ---
Subjective Progress Note Date: 09/01/19 Jennifer Rodriguez, he is a 63-year-old female who presented to [facility] emergency room with a chief complaint of palpitation, shortness of breath, dizziness and presyncope for the last 2-3 weeks, today patient started having some chest pressure and she decided to call EMS and come to the emergency room, she was evaluated in emergency room and had evidence of atrial fibrillation with rapid ventricular response she was started on IV Cardizem and IV heparin and was admitted to telemetry floor, cardiology consultation was requested. 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 Patient was seen and examined on the telemetry floor she is alert and oriented 3 in no apparent distress she is complaining of back pain at this time she has occasional palpitation there is no shortness of breath at rest, she denies any fever or chills no headache or dizziness no chest pain at this time no cough no nausea or vomiting no abdominal pain no diarrhea no burning was urination no frequency or urgency and no hematuria On 09/01/2019 patient was seen and examined on the medical floor she is alert and oriented 3 in no apparent distress there is no fever or chills no headache or dizziness no chest pain no shortness of breath no cough no nausea or vomiting no abdominal pain no diarrhea and no urinary symptoms heart rate is well- controlled at this time Objective - Vital Signs Vital signs: Vital Signs Temp 98.5 F 09/01/19 15:16 Pulse 76 09/01/19 15:16 Resp 20 09/01/19 15:16 BP 113/74 09/01/19 15:16 Pulse Ox 95 09/01/19 15:16 Intake & Output 08/31/19 09/01/19 09/01/19 18:59 06:59 18:59 Intake Total 90.712 811.945 Balance 90.712 811.945 Weight 104.326 kg 106.4 kg Intake: Intake, IV Titration 90.712 91.945 Amount Heparin Sod,Pork in 0.45% 90.712 91.945 NaCl 25,000 unit In 0.45 % NaCl 1 250ml.bag @ 9.59 UNITS/KG/HR 10.005 mls/ hr IV .Q24H [facility] Rx#: [id number] Oral 720 Other: Voiding Method Toilet Toilet # Voids 3 - Exam In general patient is alert and oriented 3 in no apparent distress HEENT head normocephalic and atraumatic Neck is supple no JVD no goiter no lymphadenopathy Chest exam reveals a few scattered rhonchi no wheezing Cardiac exam reveals irregular heart sounds S1 and S2 no gallops no murmurs Abdomen is soft nontender no organomegaly with normal bowel sounds Extremity exam reveals no edema no cyanosis or clubbing Neurological examination reveals no gross focal deficit - Labs CBC & Chem 7: 09/01/19 06:13 09/01/19 06:13 Labs: Abnormal Lab Results - Last 24 Hours (Table) 08/31/19 08/31/19 08/31/19 Range/Units 18:20 18:54 18:54 APTT (22.0-30.0) sec Glucose (74-99) mg/dL POC Glucose (mg/dL) 66 L (75-99) mg/dL Hemoglobin A1c 6.9 H (4.0-6.0) % AST (14-36) U/L ALT (4-34) U/L Alkaline Phosphatase (38-126) U/L Total Protein (6.3-8.2) g/dL Albumin (3.5-5.0) g/dL Triglycerides (<150) mg/dL TSH 8.320 H (0.465-4.680) mIU/L 08/31/19 09/01/19 09/01/19 Range/Units 20:24 06:13 06:13 APTT 31.1 H (22.0-30.0) sec Glucose 69 L (74-99) mg/dL POC Glucose (mg/dL) 171 H (75-99) mg/dL Hemoglobin A1c (4.0-6.0) % AST 100 H (14-36) U/L ALT 54 H (4-34) U/L Alkaline Phosphatase 146 H (38-126) U/L Total Protein 6.2 L (6.3-8.2) g/dL Albumin 3.4 L (3.5-5.0) g/dL Triglycerides 297 H (<150) mg/dL TSH (0.465-4.680) mIU/L 09/01/19 09/01/19 Range/Units 06:24 11:36 APTT (22.0-30.0) sec Glucose (74-99) mg/dL POC Glucose (mg/dL) 74 L 161 H (75-99) mg/dL Hemoglobin A1c (4.0-6.0) % AST (14-36) U/L ALT (4-34) U/L Alkaline Phosphatase (38-126) U/L Total Protein (6.3-8.2) g/dL Albumin (3.5-5.0) g/dL Triglycerides (<150) mg/dL TSH (0.465-4.680) mIU/L Assessment and Plan Plan: 1. Atrial fibrillation with rapid ventricular response, patient was started on IV Cardizem and IV heparin and admitted to telemetry floor cardiology consu ltation was requested 2. Shortness of breath could be related to atrial fibrillation with check ec hocardiogram 3. Underlying history of hypertension will resume home medication and monitor blood pressure 4. Underlying history of diabetes mellitus will resume home medications and insulin except for metformin 5. Underlying history of depression Will resume Celebrex and elevated 6. Underlying history of hypothyroidism Will resume levothyroxine 150 g and check TSH 7. Chronic back pain Will resume [place] patient is requesting more pain medication during her stay Medication and labs were reviewed home medications reconciled Check echocardiogram recheck labs in a.m. Awaiting cardiology input will follow closely
[2019-09-01] MEDS ORDERED: INSULIN ASPART (NovoLOG) 100 UNIT/ML VIAL SQ SCH (17:30)
[2019-09-01 20:19] LABS: Glucose,Whole Blood 125 mg/dL (75-99)
[2019-09-01] MEDS: AMITRIPTYLINE HCL 50 MG TAB PO SCH (21:29)
[2019-09-01] MEDS: ATORVASTATIN 40 MG TAB PO SCH (21:29)
[2019-09-02] MEDS: HYDROcodone/APAP 7.5-325MG 1 EACH TAB PO SCH ×2 (01:59→09:00)
[2019-09-02] MEDS: HYDROmorphone 0.5 MG/0.5 ML SYRINGE IVP PRN (03:41)
[2019-09-02 06:01] LABS: Glucose,Whole Blood 132 mg/dL (75-99)
[2019-09-02] MEDS ORDERED: LEVOTHYROXINE 75 MCG TAB PO SCH (06:30)
[2019-09-02] MEDS: INSULIN ASPART (NovoLOG) 100 UNIT/ML VIAL SQ SCH ×2 (06:33→13:02)
[2019-09-02 06:56] LABS: Basophils % (A) 0 %; Eosinophils # (A) 0.2 k/uL (0-0.7); Eosinophils % (A) 3 %; HCT 35.7 % (34.0-46.0); HGB 11.6 gm/dL (11.4-16.0); Hypochromasia Slight; Lymphocytes # (A) 1.5 k/uL (1.0-4.8); Lymphocytes % (A) 24 %; MCH 26.8 pg (25.0-35.0); MCHC 32.6 g/dL (31.0-37.0); MCV 82.1 fL (80.0-100.0); Mean Platelet Volume 7.4; Monocytes # (A) 0.3 k/uL (0-1.0); Monocytes % (A) 4 %; Neutrophils # (A) 4.2 k/uL (1.3-7.7); Neutrophils % (A) 68 %; Platelet Count 212 k/uL (150-450); RBC 4.34 m/uL (3.80-5.40); WBC 6.2 k/uL (3.8-10.6)
[2019-09-02] MEDS: ESCITALOPRAM 20 MG TAB PO SCH (08:58)
[2019-09-02] MEDS: glipiZIDE 10 MG TAB PO SCH (08:59)
[2019-09-02] MEDS: DILTIAZEM ORAL 30 MG TAB PO SCH (08:59)
[2019-09-02] MEDS: APIXABAN 5 MG TAB PO SCH (08:59)
[2019-09-02] MEDS ORDERED: ASPIRIN 81 MG PO SCH (09:00)
[2019-09-02] MEDS: LISINOPRIL 10 MG TAB PO SCH (09:06)
[2019-09-02 09:09] VITALS: BP 130/69; PULSE 84; RESP 20; TEMP 98.2
[2019-09-02 12:05] LABS: Glucose,Whole Blood 117 mg/dL (75-99)
--- NOTE | 2019-09-02 12:21 | P.PN ---
Subjective Progress Note Date: 09/02/19 This is a pleasant 63-year-old female who follows regularly with Dr. Shipley in the office. She has history of COPD, emphysema, she continues to smoke, she was smoking up to 3 packs of cigarettes per day, currently smokes 2 packs of cigarettes per day, history of hyperlipidemia, hypothyroidism, GERD, diabetes, and hyperlipidemia. She presents to the hospital on this occasion with symptoms of feeling her heart racing fast, and becoming extremely short of breath.according to the patient, she has noticed these palpitations and racing heart off-and-on for the past 2-3 weeks. She states that time she becomes quite dizzy and feels as though she may pass out. She has never been told in the past to have any atrial fibrillation, she does have a history of prior CVA, hypothyroidism.chest x-ray did not reveal any acute process.CTA of the chest did not reveal any acute pulmonary embolism.EKG on presentation here showed atrial fibrillation with a rapid ventricular response.blood pressure 122/70 with a heart rate in the morning.AST on admission 24, ALT 24, alk phos 159, this morning the ACS 100, ALT 54, BNP level was 568 and troponins were negative 3.TSH 8.32.at the time of my examination this morning, patient appears to be still quite short of breath. She has converted to normal sinus rhythm and remains in a normal sinus rhythm this. Continues at this time to be on IV Cardizem IV heparin. I did have a long discussion with the patient regarding the importance of anticoagulation for stroke prevention. 09/02/2019 Patient seen and examined this morning, blood pressure 130/68, heart rate in the 80s, 94% on room air. White blood cell count 6.2, hemoglobin 11.6, platelet count 212. Objective - Vital Signs Vital signs: Vital Signs Temp 98.2 F 09/02/19 08:00 Pulse 84 09/02/19 08:00 Resp 20 09/02/19 08:00 BP 130/69 09/02/19 08:00 Pulse Ox 94 L 09/02/19 08:00 Intake & Output 09/01/19 09/02/19 09/02/19 18:59 06:59 18:59 Intake Total 931.945 240 Output Total 100 Balance 931.945 -100 240 Weight 106.6 kg Intake: Intake, IV Titration 91.945 Amount Heparin Sod,Pork in 0.45% 91.945 NaCl 25,000 unit In 0.45 % NaCl 1 250ml.bag @ 9.59 UNITS/KG/HR 10.005 mls/ hr IV .Q24H [facility] Rx#: [id number] Oral 840 240 Output: Urine 100 Other: Voiding Method Toilet # Voids 0 1 1 - Exam PHYSICAL EXAMINATION: GENERAL:63-year-old female, in mild respiratory distress at the time of my examination HEENT: Head is atraumatic, normocephalic. Pupils equal, round. Sclera anicteric. Conjunctiva are clear. Mucous membranes of the mouth are moist. N graciela is supple. There is no elevated jugular venous pressure.no carotid bruit is heard. HEART EXAMINATION: [Heart S1, S2 normal. No murmur or gallop heard.] CHEST EXAMINATION:[ Lungs reveal scattered coarse rhonchi and wheezing throughout, decreased air exchange.] ABDOMEN: [ Soft, nontender. Bowel sounds are heard. No organomegaly noted]. EXTREMITIES:[ 2+ peripheral pulses with no evidence of peripheral edema and no calf tenderness noted]. NEUROLOGIC [patient is awake, alert and oriented 3] . - Labs CBC & Chem 7: 09/02/19 06:25 09/01/19 06:13 Labs: Abnormal Lab Results - Last 24 Hours (Table) 09/01/19 09/01/19 09/02/19 Range/Units 16:40 20:17 05:59 POC Glucose (mg/dL) 110 H 125 H 132 H (75-99) mg/dL 09/02/19 Range/Units 11:51 POC Glucose (mg/dL) 117 H (75-99) mg/dL Microbiology - Last 24 Hours (Table) 08/31/19 14:30 Blood Culture - Preliminary Blood No Growth after 24 hours Assessment and Plan Plan: assessment and plan #1 atrial fibrillation with rapid ventricular response, paroxysmal, currently in normal sinus rhythm #2 progressively worsening shortness of breath, possible COPD exacerbation with an element of tracheobronchitis #3 hypertension #4 diabetes #5 hyperlipidemia #6 hypothyroidism 7 depression #8 chronic nicotine dependence, patient has smoked up to 3 packs of cigarettes per day, continues at this time to smoke approximately 2 packs of cigarettes per day #9 history of moderate to severe COPD/emphysema Plan Echocardiogram with Doppler study was performed but is yet pending. Maintaining normal sinus rhythm. We will continue with current medications. DNP note has been reviewed, I agree with a documented findings and plan of care. Patient was seen and examined.
--- NOTE | 2019-09-02 13:16 | P.DS ---
Providers Date of admission: 08/31/19 15:17 Expected date of discharge: 09/02/19 Attending physician: Vicky Pinedo Consults: 08/31/19 15:34 Consult Physician Urgent Consulting Provider: Carl Shearer Consult Reason/Comments: Atrial fibrillation RVR Do you want consulting provider notified?: Yes Primary care physician: Vicky [facility] Course: Diagnosis on discharge: 1. Atrial fibrillation with rapid ventricular response, patient was started on IV Cardizem and IV heparin and admitted to telemetry floor cardiology consultation was requested 2. Shortness of breath could be related to atrial fibrillation with check echocardiogram 3. Underlying history of hypertension will resume home medication and monitor blood pressure 4. Underlying history of diabetes mellitus will resume home medications and insulin except for metformin 5. Underlying history of depression Will resume Celebrex and elevated 6. Underlying history of hypothyroidism Will resume levothyroxine 150 g and check TSH 7. Chronic back pain Will resume [place] patient is requesting more pain medication during her stay Hospital course: Jennifer Rodriguez, he is a 63-year-old female who presented to [facility] emergency room with a chief complaint of palpitation, shortness of breath, dizziness and presyncope for the last 2-3 weeks, today patient started having some chest pressure and she decided to call EMS and come to the emergency room, she was evaluated in emergency room and had evidence of atrial fibrillati on with rapid ventricular response she was started on IV Cardizem and IV heparin and was admitted to telemetry floor, cardiology consultation was requested. 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 Patient was seen and examined on the telemetry floor she is alert and oriented 3 in no apparent distress she is complaining of back pain at this time she has occasional palpitation there is no shortness of breath at rest, she denies any fever or chills no headache or dizziness no chest pain at this time no cough no nausea or vomiting no abdominal pain no diarrhea no burning was urination no frequency or urgency and no hematuria On 09/01/2019 patient was seen and examined on the medical floor she is alert and oriented 3 in no apparent distress there is no fever or chills no headache or dizziness no chest pain no shortness of breath no cough no nausea or vomiting no abdominal pain no diarrhea and no urinary symptoms heart rate is well- controlled at this time On 09/02/2019 patient was seen and examined on the telemetry floor she is alert and oriented 3 in no apparent distress there is no fever or chills no headache or dizziness no chest pain no shortness of breath no cough no nausea or vomiting no abdominal pain no diarrhea no burning with urination no frequency or urgency and no hematuria she was evaluated by cardiology and was cleared for discharge, new medications include Elliquis 5 mg twice daily, aspirin 81 mg daily, and Cardizem 30 mg 3 times daily, patient will be seen in our office within 1 week will arrange for follow-up with cardiology, echocardiogram results are still pending. Patient Condition at Discharge: Serious Plan - Discharge Summary Discharge Rx Participant: No New Discharge Prescriptions: New Aspirin 81 mg PO DAILY chew Diltiazem Oral [Cardizem*] 30 mg PO TID tab Apixaban [Eliquis] 5 mg PO BID tab Continue metFORMIN HCL 1,000 mg PO BID glipiZIDE [Glucotrol] 10 mg PO BID Lisinopril [Zestril] 10 mg PO DAILY #30 tab HYDROcodone/APAP 7.5-325MG [[place] 7.5-325] 1 tab PO TID Amitriptyline HCl [Elavil] 100 mg PO HS ALPRAZolam [Xanax] 0.25 mg PO BID PRN PRN Reason: Anxiety Escitalopram [Lexapro] 20 mg PO DAILY Nitroglycerin Sl Tabs [Nitrostat] 0.4 mg SUBLINGUAL Q5M PRN PRN Reason: Chest Pain Insulin Glargine [Lantus] 35 unit SQ DAILY@1700 Insulin Glargine [Lantus] 45 unit SQ DAILY@0900 Atorvastatin Calcium [Lipitor] 40 mg PO HS Levothyroxine Sodium [Synthroid] 150 mcg PO DAILY Discharge Medication List glipiZIDE [Glucotrol] 10 mg PO BID 09/14/15 [History] metFORMIN HCL 1,000 mg PO BID 09/14/15 [History] Lisinopril [Zestril] 10 mg PO DAILY #30 tab 11/28/15 [Rx] ALPRAZolam [Xanax] 0.25 mg PO BID PRN 07/28/17 [History] Amitriptyline HCl [Elavil] 100 mg PO HS 07/28/17 [History] HYDROcodone/APAP 7.5-325MG [[place] 7.5-325] 1 tab PO TID 07/28/17 [History] Escitalopram [Lexapro] 20 mg PO DAILY 10/23/17 [History] Atorvastatin Calcium [Lipitor] 40 mg PO HS 08/31/19 [History] Insulin Glargine [Lantus] 35 unit SQ DAILY@1700 08/31/19 [History] Insulin Glargine [Lantus] 45 unit SQ DAILY@0900 08/31/19 [History] Levothyroxine Sodium [Synthroid] 150 mcg PO DAILY 08/31/19 [History] Nitroglycerin Sl Tabs [Nitrostat] 0.4 mg SUBLINGUAL Q5M PRN 08/31/19 [History] Apixaban [Eliquis] 5 mg PO BID tab 09/02/19 [Rx] Aspirin 81 mg PO DAILY chew 09/02/19 [Rx] Diltiazem Oral [Cardizem*] 30 mg PO TID tab 09/02/19 [Rx] Follow up Appointment(s)/Referral(s): Vicky Pinedo MD [Primary Care Provider] - 1-2 days
--- NOTE | 2019-09-02 16:00 | ECHOF ---
Referral Reason:afib MEASUREMENTS -------- HEIGHT: 172.7 cm WEIGHT: 106.1 kg BP: 122/76 IVSd: 1.3 cm (0.6 - 1.1) LVIDd: 4.4 cm (3.9 - 5.3) LVPWd: 1.5 cm (0.6 - 1.1) IVSs: 2.2 cm LVIDs: 3.1 cm LVPWs: 1.6 cm RVIDd: 3.7 cm (< 3.3) LAESV Index (A-L): 16.47 ml/m Ao Diam: 2.7 cm (2.0 - 3.7) AV Cusp: 1.3 cm (1.5 - 2.6) MV E Rad: 1.10 m/s MV DecT: 180 ms MV A Rad: 0.86 m/s MV E/A Ratio: 1.28 RAP: 5.00 mmHg RVSP: 30.68 mmHg FINDINGS -------- Sinus rhythm. This was a technically difficult study with suboptimal views. The left ventricular size is normal. There is moderate concentric left ventricular hypertrophy. O verall left ventricular systolic function is low-normal with, an EF between 50 - 55 %. The diastoli c filling pattern is normal for the age of the patient 18.61. The right ventricle is mild to moderately enlarged. Normal LA size by volume 22+/-6 ml/m2. The right atrial size is normal. 5.0mg of Lumason was utilized for enhancement of images Interatrial and interventricular septum intact. The aortic valve was not well visualized. There is no evidence of aortic regurgitation. There is no evidence of aortic stenosis. No mitral regurgitation. Mild tricuspid regurgitation present. There is no evidence of pulmonary hypertension. The right v entricular systolic pressure, as measured by Doppler, is 30.68mmHg. There is no pulmonic regurgitation present. The aortic root size is normal. Normal inferior vena cava with normal inspiratory collapse consistent with estimated right atrial pre ssure of 5 mmHg. There is no pericardial effusion. CONCLUSIONS -------- 1. Sinus rhythm. 2. This was a technically difficult study with suboptimal views. 3. The left ventricular size is normal. 4. There is moderate concentric left ventricular hypertrophy. 5. Overall left ventricular systolic function is low-normal with, an EF between 50 - 55 %. 6. The diastolic filling pattern is normal for the age of the patient 18.61 7. The right ventricle is mild to moderately enlarged. 8. Normal LA size by volume 22+/-6 ml/m2. 9. The right atrial size is normal. 10. 5.0mg of Lumason was utilized for enhancement of images 11. Interatrial and interventricular septum intact. 12. The aortic valve was not well visualized. 13. There is no evidence of aortic regurgitation. 14. There is no evidence of aortic stenosis. 15. No mitral regurgitation. 16. Mild tricuspid regurgitation present. 17. There is no evidence of pulmonary hypertension. 18. The right ventricular systolic pressure, as measured by Doppler, is 30.68mmHg. 19. There is no pulmonic regurgitation present. 20. The aortic root size is normal. 21. Normal inferior vena cava with normal inspiratory collapse consistent with estimated right atrial pressure of 5 mmHg. 22. There is no pericardial effusion. TECHNOLOGY INFUSION SPECIALIST: Eneida Bronson RDCS
== END 2019-09-02 14:11 | disposition home or self-care (01) ==
LOC: EC 12:59 → INTOOBSV 15:17 → 3SCARD 15:17 → UNDODISIN 09-02 14:11
PROVIDERS: ADMIT Internal Medicine; ATTEND Internal Medicine
DX: I48.0 Paroxysmal atrial fibrillation (principal); R06.02 Shortness of breath; I10 Essential (primary) hypertension; E11.9 Type 2 diabetes mellitus without complications; F32.9 Major depressive disorder, single episode, unspecified; E89.0 Postprocedural hypothyroidism; G89.29 Other chronic pain; M54.9 Dorsalgia, unspecified; E78.5 Hyperlipidemia, unspecified; E87.2 Acidosis; H40.9 Unspecified glaucoma; K21.9 Gastro-esophageal reflux disease without esophagitis; I25.2 Old myocardial infarction; M19.90 Unspecified osteoarthritis, unspecified site; I83.90 Asymptomatic varicose veins of unspecified lower extremity; N39.3 Stress incontinence (female) (male); F41.9 Anxiety disorder, unspecified; F17.210 Nicotine dependence, cigarettes, uncomplicated; J43.9 Emphysema, unspecified; R94.31 Abnormal electrocardiogram [ECG] [EKG]; I07.1 Rheumatic tricuspid insufficiency; Z79.899 Other long term (current) drug therapy; Z79.891 Long term (current) use of opiate analgesic; Z79.4 Long term (current) use of insulin; Z79.890 Hormone replacement therapy; Z86.73 Personal history of transient ischemic attack (TIA), and cerebral infarction without residual deficits; Z87.11 Personal history of peptic ulcer disease; Z86.010 Personal history of colon polyps; Z98.890 Other specified postprocedural states; Z90.49 Acquired absence of other specified parts of digestive tract; Z90.710 Acquired absence of both cervix and uterus; Z90.89 Acquired absence of other organs; Z87.81 Personal history of (healed) traumatic fracture; Z90.722 Acquired absence of ovaries, bilateral; Z87.448 Personal history of other diseases of urinary system; Z86.69 Personal history of other diseases of the nervous system and sense organs; Z82.49 Family history of ischemic heart disease and other diseases of the circulatory system; Z80.42 Family history of malignant neoplasm of prostate
CPT/HCPCS: 96376 ×3; 96361; 96366 ×3; 96375; 96368 ×2; 93005 ×2; 96365; 99291; 36415; 85379; 83880; 80061; 80053 ×2; 83605; 84443; 84484 ×2; 85025 ×3; 85610; 85730 ×2; 87040; 83036; 71046; 71275; G0378 ×3; C8929; J1644 ×3; J1170 ×2; Q9950; Q9967; 93306

== ENCOUNTER 2020-09-28 11:07 | Emergency (ER) | payer MEDICARE ==
[2020-09-28] MEDS ORDERED: SODIUM CHLORIDE 0.9% 1,000 ML IV STA (11:41)
[2020-09-28 12:05] LABS: Basophils # (A) 0.1 k/uL (0-0.2); Basophils % (A) 1 %; Eosinophils # (A) 0.1 k/uL (0-0.7); Eosinophils % (A) 1 %; HCT 39.2 % (34.0-46.0); HGB 12.8 gm/dL (11.4-16.0); Lymphocytes % (A) 25 %; MCH 26.4 pg (25.0-35.0); MCHC 32.6 g/dL (31.0-37.0); MCV 80.9 fL (80.0-100.0); Mean Platelet Volume 7.5; Monocytes # (A) 0.5 k/uL (0-1.0); Monocytes % (A) 6 %; Neutrophils # (A) 5.5 k/uL (1.3-7.7); Neutrophils % (A) 67 %; Platelet Count 219 k/uL (150-450); RBC 4.84 m/uL (3.80-5.40); RDW 14.4 % (11.5-15.5); WBC 8.3 k/uL (3.8-10.6)
[2020-09-28 12:16] LABS: ALT 24 U/L (4-34); AST 29 U/L (14-36); African American GFR (CKD) >90 (>60 ml/min/1.73 sqM); Albumin 4.5 g/dL (3.5-5.0); Alkaline Phosphatase 139 U/L (38-126); Anion Gap 9 mmol/L; Blood Urea Nitrogen 15 mg/dL (7-17); Carbon Dioxide 26 mmol/L (22-30); Chloride 102 mmol/L (98-107); Glucose 200 mg/dL (74-99); Non-African American GFR(CKD) >90 (>60 ml/min/1.73 sqM); Potassium 4.1 mmol/L (3.5-5.1); Sodium 137 mmol/L (137-145); Total Bilirubin 0.5 mg/dL (0.2-1.3); Total Protein 7.1 g/dL (6.3-8.2)
[2020-09-28 13:24] LABS: Appearance,Urine Clear (Clear); Bilirubin,Urine Negative (Negative); Blood,Urine Negative (Negative); Color,Urine Yellow; Glucose,Urine (UA) 2+ (Negative); Ketones,Urine Negative (Negative); Leukocyte Esterase,Urine Negative (Negative); Nitrite,Urine Negative (Negative); PH, Urine 5.5 (5.0-8.0); Protein,Urine Trace (Negative); Specific Gravity,Urine 1.023 (1.001-1.035); Urobilinogen,Urine <2.0 mg/dL (<2.0)
--- NOTE | 2020-09-28 13:41 | ED ---
General Adult HPI - General Chief complaint: Urogenital Stated complaint: unable to urinate Time Seen by Provider: 09/28/20 11:22 Source: patient, RN notes reviewed Mode of arrival: ambulatory Limitations: no limitations - History of Present Illness Initial comments: 64-year-old female with a compensated past medical history presents the room for a chief complaint of not urinating. Patient reports she hasn't urinated since last night. Patient denies any pain area states she notices it was concerned. States she has not been drinking much water. Denies fevers.Patient has no other complaints at this time including shortness of breath, chest pain, abdominal pain, nausea or vomiting, headache, or visual changes. - Related Data Home Medications Medication Instructions Recorded Confirmed glipiZIDE [Glucotrol] 10 mg PO BID 09/14/15 09/28/20 metFORMIN HCL 1,000 mg PO BID 09/14/15 09/28/20 ALPRAZolam [Xanax] 0.25 mg PO BID PRN 07/28/17 09/28/20 Amitriptyline HCl [Elavil] 100 mg PO HS 07/28/17 09/28/20 HYDROcodone/APAP 7.5-325MG [[place] 1 tab PO TID 07/28/17 09/28/20 7.5-325] Escitalopram [Lexapro] 20 mg PO DAILY 10/23/17 09/28/20 Insulin Glargine [Lantus] 90 unit SQ DAILY@0900 08/31/19 09/28/20 Levothyroxine Sodium [Synthroid] 150 mcg PO DAILY 08/31/19 09/28/20 Nitroglycerin Sl Tabs [Nitrostat] 0.4 mg SUBLINGUAL Q5M PRN 08/31/19 09/28/20 Ergocalciferol [Vitamin D2 (1250 1,250 mcg PO TH 09/28/20 09/28/20 Mcg = 39141 Iu)] Latanoprost Ophth [Xalatan 0.005%] 1 drops BOTH EYES HS 09/28/20 09/28/20 Multivitamins, Thera [Multivitamin 1 tab PO DAILY 09/28/20 09/28/20 (formulary)] Rosuvastatin Calcium [Crestor] 5 mg PO DAILY 09/28/20 09/28/20 predniSONE 10 mg PO DAILY PRN 09/28/20 09/28/20 Previous Rx's Medication Instructions Recorded lisinopriL [Zestril] 10 mg PO DAILY #30 tab 11/28/15 Apixaban [Eliquis] 5 mg PO BID tab 09/02/19 Allergies Allergy/AdvReac Type Severity Reaction Status Date / Time No Known Allergies Allergy Verified 09/28/20 12:58 Review of Systems ROS Statement: Those systems with pertinent positive or pertinent negative responses have been documented in the HPI. ROS Other: All systems not noted in ROS Statement are negative. Past Medical History Past Medical History: Chest Pain / Angina, COPD, CVA/TIA, Diabetes Mellitus, Eye Disorder, GERD/Reflux, Hyperlipidemia, Hypertension, Myocardial Infarction ([place]), Osteoarthritis (OA), Thyroid Disorder Additional Past Medical History / Comment(s): vertigo, CVA-x2- 2010, glaucoma, varicose veins, peptic ulcer, HX POLYP, stress incont of urine-depends worn.pt stated had a pne vaccine not sure of date but good till age 65. Last Myocardial Infarction Date:: 2008 History of Any Multi-Drug Resistant Organisms: None Reported Past Surgical History: Bladder Surgery, Cholecystectomy, Hernia Repair, Hysterectomy, Tonsillectomy Additional Past Surgical History / Comment(s): thyroidectomy, left foot ORIF- hardware later removed, ragini oopherectomy, bladder suspension, laser eye surgeryx2, Past Anesthesia/Blood Transfusion Reactions: No Reported Reaction Past Psychological History: Anxiety, Depression Smoking Status: Current every day smoker Past Alcohol Use History: None Reported Past Drug Use History: Marijuana - Past Family History Mother Family Medical History: Hypertension Additional Family Medical History / Comment(s): brain aneurysm Father Family Medical History: Cancer Additional Family Medical History / Comment(s): prostate General Exam Limitations: no limitations General appearance: alert, in no apparent distress Head exam: Present: atraumatic, normocephalic, normal inspection Eye exam: Present: normal appearance, PERRL, EOMI. Absent: scleral icterus, conjunctival injection, periorbital swelling ENT exam: Present: normal exam, mucous membranes moist Neck exam: Present: normal inspection, full ROM. Absent: tenderness, meningismus, lymphadenopathy Respiratory exam: Present: normal lung sounds bilaterally. Absent: respiratory distress, wheezes, rales, rhonchi, stridor Cardiovascular Exam: Present: regular rate, normal rhythm, normal heart sounds. Absent: systolic murmur, diastolic murmur, rubs, gallop, clicks GI/Abdominal exam: Present: soft, normal bowel sounds. Absent: distended, tenderness, guarding, rebound, rigid Back exam: Absent: CVA tenderness (R), CVA tenderness (L) Neurological exam: Present: alert Course Vital Signs 09/28/20 11:08 Temperature 97.7 F Pulse Rate 108 H Respiratory 24 Rate Blood Pressure 155/74 O2 Sat by Pulse 97 Oximetry Medical Decision Making - Medical Decision Making Vitals are stable. Patient is well-appearing. CBC unremarkable. CMP unremarkable. Patient has a normal creatinine and GFR. Glucose is 200 with 2+ glucose in the urine. Patient does have a history of diabetes. Patient urinated twice while in the emergency room. Post void is 21 mL. At this time patient is stable for discharge home. She was given a liter of fluids and rehydrated. She will return here for any worsening symptoms. - Lab Data Result diagrams: 09/28/20 11:44 09/28/20 11:44 Lab Results 09/28/20 09/28/20 09/28/20 Range/Units 11:44 11:44 13:13 WBC 8.3 (3.8-10.6) k/uL RBC 4.84 (3.80-5.40) m/uL Hgb 12.8 (11.4-16.0) gm/dL Hct 39.2 (34.0-46.0) % MCV 80.9 (80.0-100.0) fL MCH 26.4 (25.0-35.0) pg MCHC 32.6 (31.0-37.0) g/dL RDW 14.4 (11.5-15.5) % Plt Count 219 (150-450) k/uL MPV 7.5 Neutrophils % 67 % Lymphocytes % 25 % Monocytes % 6 % Eosinophils % 1 % Basophils % 1 % Neutrophils # 5.5 (1.3-7.7) k/uL Lymphocytes # 2.0 (1.0-4.8) k/uL Monocytes # 0.5 (0-1.0) k/uL Eosinophils # 0.1 (0-0.7) k/uL Basophils # 0.1 (0-0.2) k/uL Sodium 137 (137-145) mmol/L Potassium 4.1 (3.5-5.1) mmol/L Chloride 102 (98-107) mmol/L Carbon Dioxide 26 (22-30) mmol/L Anion Gap 9 mmol/L BUN 15 (7-17) mg/dL Creatinine 0.55 (0.52-1.04) mg/dL Est GFR (CKD-EPI)AfAm >90 (>60 ml/min/1.73 sqM) Est GFR (CKD-EPI)NonAf >90 (>60 ml/min/1.73 sqM) Glucose 200 H (74-99) mg/dL Calcium 11.0 H (8.4-10.2) mg/dL Total Bilirubin 0.5 (0.2-1.3) mg/dL AST 29 (14-36) U/L ALT 24 (4-34) U/L Alkaline Phosphatase 139 H (38-126) U/L Total Protein 7.1 (6.3-8.2) g/dL Albumin 4.5 (3.5-5.0) g/dL Urine Color Yellow Urine Appearance Clear (Clear) Urine pH 5.5 (5.0-8.0) Ur Specific [place] 1.023 (1.001-1.035) Urine Protein Trace H (Negative) Urine Glucose (UA) 2+ H (Negative) Urine Ketones Negative (Negative) Urine Blood Negative (Negative) Urine Nitrite Negative (Negative) Urine Bilirubin Negative (Negative) Urine Urobilinogen <2.0 (<2.0) mg/dL Ur Leukocyte Esterase Negative (Negative) Disposition Clinical Impression: Decreased urine output, Hyperglycemia Disposition: HOME SELF-CARE Condition: Good Instructions (If sedation given, give patient instructions): Acute Urinary Retention in Women (ED) Additional Instructions: Please follow up with primary care. Return to the emergency room for any worsening symptoms. Is patient prescribed a controlled substance at d/c from ED?: No Referrals: Vicky Pinedo MD [Primary Care Provider] - 1-2 days Time of Disposition: 13:40
[2020-09-28 14:12] VITALS: BP 103/69; PULSE 89; RESP 22; TEMP 98.3
== END 2020-09-28 14:18 | disposition home or self-care (01) ==
LOC: EC 11:07
DX: R39.12 Poor urinary stream (principal); J44.9 Chronic obstructive pulmonary disease, unspecified; I10 Essential (primary) hypertension; I25.2 Old myocardial infarction; E07.9 Disorder of thyroid, unspecified; E78.5 Hyperlipidemia, unspecified; E11.65 Type 2 diabetes mellitus with hyperglycemia; Z79.4 Long term (current) use of insulin; F17.200 Nicotine dependence, unspecified, uncomplicated; Z79.84 Long term (current) use of oral hypoglycemic drugs; Z79.890 Hormone replacement therapy; Z79.899 Other long term (current) drug therapy
CPT/HCPCS: 36415; 51798; 80053; 81003; 85025; 96360; 99283

== ENCOUNTER 2020-10-05 14:24 | Inpatient (IN) | payer MEDICARE ==
[2020-10-05 16:32] LABS: Basophils # (A) 0.1 k/uL (0-0.2); Basophils % (A) 1 %; Eosinophils # (A) 0.1 k/uL (0-0.7); Eosinophils % (A) 2 %; HCT 38.5 % (34.0-46.0); HGB 12.9 gm/dL (11.4-16.0); Lymphocytes # (A) 2.4 k/uL (1.0-4.8); Lymphocytes % (A) 24 %; MCH 27.4 pg (25.0-35.0); MCHC 33.7 g/dL (31.0-37.0); MCV 81.4 fL (80.0-100.0); Mean Platelet Volume 7.3; Monocytes # (A) 0.6 k/uL (0-1.0); Monocytes % (A) 6 %; Neutrophils # (A) 6.4 k/uL (1.3-7.7); Neutrophils % (A) 66 %; Platelet Count 261 k/uL (150-450); RBC 4.73 m/uL (3.80-5.40); RDW 14.2 % (11.5-15.5); WBC 9.6 k/uL (3.8-10.6)
--- NOTE | 2020-10-05 16:41 | XR ---
EXAMINATION TYPE: XR chest 1V portable DATE OF EXAM: 10/05/2020 Comparison: 08/31/2019 Clinical History: 64 year-old female shortness of breath, DYSPNEA Findings: Heart normal size. Mild interstitial prominence has a chronic appearance. No consolidation or pleural effusion. Some strandy atelectasis in the lower lungs. Impression: Some strandy basilar areas of atelectasis. Otherwise, no acute process seen..
[2020-10-05 16:47] LABS: ALT 16 U/L (4-34); AST 21 U/L (14-36); African American GFR (CKD) >90 (>60 ml/min/1.73 sqM); Alkaline Phosphatase 117 U/L (38-126); Anion Gap 7 mmol/L; Blood Urea Nitrogen 15 mg/dL (7-17); Calcium 10.3 mg/dL (8.4-10.2); Carbon Dioxide 28 mmol/L (22-30); Chloride 102 mmol/L (98-107); Glucose 203 mg/dL (74-99); Non-African American GFR(CKD) >90 (>60 ml/min/1.73 sqM); Potassium 3.9 mmol/L (3.5-5.1); Sodium 137 mmol/L (137-145); Total Bilirubin 0.2 mg/dL (0.2-1.3); Total Protein 6.5 g/dL (6.3-8.2)
[2020-10-05 16:56] LABS: Glucose,Whole Blood 175 mg/dL (75-99)
[2020-10-05 17:34] LABS: Appearance,Urine Clear (Clear); Bacteria,Urine Occasional /hpf; Bilirubin,Urine Negative (Negative); Blood,Urine Negative (Negative); Color,Urine Yellow; Glucose,Urine (UA) 4+ (Negative); Hyaline Casts,Urine 12 /lpf (0-2); Ketones,Urine Negative (Negative); Leukocyte Esterase,Urine Small (Negative); Mucus,Urine Rare /hpf; Nitrite,Urine Negative (Negative); PH, Urine 5.5 (5.0-8.0); Protein,Urine Trace (Negative); RBC,Urine 2 /hpf (0-5); Specific Gravity,Urine 1.018 (1.001-1.035); Squamous Epithelial Cell,Urine 3 /hpf (0-4); Urobilinogen,Urine <2.0 mg/dL (<2.0); WBC,Urine 14 /hpf (0-5)
[2020-10-05] MEDS ORDERED: NITROGLYCERIN SL TABS 0.4 MG TAB SUBLINGUAL PRN (18:02)
[2020-10-05] MEDS ORDERED: predniSONE 10 MG TAB PO PRN (18:02)
[2020-10-05] MEDS ORDERED: ALPRAZolam 0.25 MG TAB PO PRN (18:02)
[2020-10-05] MEDS: IPRATROPIUM-ALBUTEROL 3 ML NEB INHALATION PRN (19:09)
[2020-10-05 19:44] LABS: Glucose,Whole Blood 200 mg/dL (75-99)
[2020-10-05] MEDS: NICOTINE 14MG/24HR PATCH TRANSDERM SCH (19:48)
[2020-10-05] MEDS: methylPREDNISolone SOD SUCCI 40 MG/ML 1 ML VIAL IV SCH ×2 (19:48→23:19)
[2020-10-05] MEDS: HYDROcodone/APAP 7.5-325MG 1 EACH TAB PO SCH (20:50)
[2020-10-05] MEDS: APIXABAN 5 MG TAB PO SCH (20:51)
[2020-10-05] MEDS: AMITRIPTYLINE HCL 50 MG TAB PO SCH (20:51)
[2020-10-05] MEDS: glipiZIDE 10 MG TAB PO SCH (20:56)
[2020-10-05] MEDS: metFORMIN 500 MG TAB PO SCH (20:56)
[2020-10-06] MEDS: LATANOPROST 0.005% OPHTH DROPS 2.5 ML BTL BOTH EYES SCH ×2 (02:35→21:13)
[2020-10-06 06:07] LABS: Glucose,Whole Blood 331 mg/dL (75-99)
[2020-10-06] MEDS: methylPREDNISolone SOD SUCCI 40 MG/ML 1 ML VIAL IV SCH ×4 (06:30→23:22)
[2020-10-06] MEDS: glipiZIDE 10 MG TAB PO SCH ×2 (06:32→17:39)
[2020-10-06] MEDS: metFORMIN 500 MG TAB PO SCH ×2 (06:32→17:39)
[2020-10-06] MEDS: INSULIN ASPART (NovoLOG) 100 UNIT/ML VIAL SQ SCH ×4 (06:32→21:14)
[2020-10-06] MEDS: LEVOTHYROXINE 75 MCG TAB PO SCH (06:32)
[2020-10-06] MEDS ORDERED: DILTIAZEM DRIP BOLUS FROM BAG 1 MG SOLN IV ONE (08:38)
[2020-10-06] MEDS: ESCITALOPRAM 20 MG TAB PO SCH (08:47)
[2020-10-06] MEDS: lisinopriL 10 MG TAB PO SCH (08:47)
[2020-10-06] MEDS: ATORVASTATIN 10 MG TAB PO SCH (08:47)
[2020-10-06] MEDS: APIXABAN 5 MG TAB PO SCH ×2 (08:47→21:14)
[2020-10-06] MEDS: NICOTINE 14MG/24HR PATCH TRANSDERM SCH (08:48)
[2020-10-06] MEDS: MULTIVITAMINS, THERA 1 EACH TAB PO SCH (08:48)
[2020-10-06] MEDS: DILTIAZEM 125 MG in SODIUM CHLORIDE 0.9% 100 ML IV SCH (08:48)
[2020-10-06] MEDS: HYDROcodone/APAP 7.5-325MG 1 EACH TAB PO SCH ×3 (08:48→21:14)
[2020-10-06] MEDS: METOPROLOL TARTRATE 25 MG TAB PO SCH ×2 (08:57→21:13)
[2020-10-06] MEDS ORDERED: INSULIN DETEMIR (LEVEMIR) 100 UNIT/ML SYR SQ SCH (09:00)
[2020-10-06 09:15] LABS: Basophils % (A) 0 %; Eosinophils % (A) 0 %; HCT 46.1 % (34.0-46.0); HGB 14.4 gm/dL (11.4-16.0); Hypochromasia Slight; Lymphocytes # (A) 0.8 k/uL (1.0-4.8); Lymphocytes % (A) 6 %; MCHC 31.2 g/dL (31.0-37.0); MCV 83.2 fL (80.0-100.0); Mean Platelet Volume 7.1; Monocytes # (A) 0.2 k/uL (0-1.0); Monocytes % (A) 2 %; Neutrophils % (A) 92 %; Platelet Count 334 k/uL (150-450); RBC 5.55 m/uL (3.80-5.40); RDW 14.3 % (11.5-15.5); WBC 14.1 k/uL (3.8-10.6)
[2020-10-06 09:44] LABS: ALT 21 U/L (4-34); AST 23 U/L (14-36); African American GFR (CKD) >90 (>60 ml/min/1.73 sqM); Albumin 4.3 g/dL (3.5-5.0); Alkaline Phosphatase 142 U/L (38-126); Anion Gap 11 mmol/L; Blood Urea Nitrogen 21 mg/dL (7-17); Calcium 10.9 mg/dL (8.4-10.2); Carbon Dioxide 26 mmol/L (22-30); Chloride 99 mmol/L (98-107); Glucose 422 mg/dL (74-99); Non-African American GFR(CKD) >90 (>60 ml/min/1.73 sqM); Potassium 4.7 mmol/L (3.5-5.1); Sodium 136 mmol/L (137-145); Total Bilirubin 0.5 mg/dL (0.2-1.3); Total Protein 6.7 g/dL (6.3-8.2)
--- NOTE | 2020-10-06 09:49 | P.HPIM ---
History of Present Illness H&P Date: 10/06/20 Chief Complaint: Shortness of breath, chest pain This is a 64-year-old female patient who is a direct admit from her PCP for increased episode of shortness of breath and intermittent chest pain. Patient reports that this issue has been occurring over extended period of time but has become increasingly more frequent over the past few days. Patient reports that the pain is on her left side that relieves when she turns to her right side. Patient does have past medical history of nicotine dependence in which she currently smokes 1 pack of cigarettes per day, atrial fibrillation, COPD and CVA. Chest x-ray was performed showing some strandy basilar areas of atelectasis otherwise no acute process seen. D-dimer 0.43. Troponin negative. Heart rate was elevated. Patient was started on Cardizem drip. Patient reports that she did receive 2 doses of COVID-19 vaccine. At this time pulmonary and cardiology services have been consulted. Patient has been started on Rocephin for urinary tract infection. Urine culture ordered. Started on Solu-Medrol and updraft breathing treatment. 2-D echo has been ordered. Urine sputum cultures ordered. At this time patient denies any chest pain. Patient is still complaining of intermittent episodes of shortness breath. Patient denies nausea vomiting or diarrhea. Patient denies any urinary burning or frequency. Review of Systems please refer to HPI otherwise unremarkable Past Medical History Past Medical History: Atrial Fibrillation, Chest Pain / Angina, COPD, CVA/TIA, Diabetes Mellitus, Eye Disorder, GERD/Reflux, Hyperlipidemia, Hypertension, Myocardial Infarction ([place]), Osteoarthritis ([place]), Thyroid Disorder Additional Past Medical History / Comment(s): vertigo, CVA-x2- 2010, glaucoma, varicose veins, peptic ulcer, HX POLYP, stress incont of urine Last Myocardial Infarction Date:: 2008 History of Any Multi-Drug Resistant Organisms: None Reported Past Surgical History: Bladder Surgery, Cholecystectomy, Hernia Repair, Hysterectomy, Tonsillectomy Additional Past Surgical History / Comment(s): thyroidectomy, left foot ORIF- hardware later removed, ragini oopherectomy, bladder suspension, laser eye surgeryx2, Past Anesthesia/Blood Transfusion Reactions: No Reported Reaction Past Psychological History: Anxiety, Depression Smoking Status: Current every day smoker Past Alcohol Use History: None Reported Past Drug Use History: Marijuana - Past Family History Mother Family Medical History: Hypertension Additional Family Medical History / Comment(s): brain aneurysm Father Family Medical History: Cancer Additional Family Medical History / Comment(s): prostate Medications and Allergies Home Medications Medication Instructions Recorded Confirmed Type glipiZIDE [Glucotrol] 10 mg PO BID 09/14/15 10/05/20 History metFORMIN HCL 1,000 mg PO BID 09/14/15 10/05/20 History lisinopriL [Zestril] 10 mg PO DAILY #30 tab 11/28/15 10/05/20 Rx ALPRAZolam [Xanax] 0.25 mg PO BID PRN 07/28/17 10/05/20 History Amitriptyline HCl [Elavil] 100 mg PO HS 07/28/17 10/05/20 History HYDROcodone/APAP 7.5-325MG [[place] 1 tab PO TID 07/28/17 10/05/20 History 7.5-325] Escitalopram [Lexapro] 20 mg PO DAILY 10/23/17 10/05/20 History Insulin Glargine [Lantus] 90 unit SQ DAILY@0900 08/31/19 10/05/20 History Levothyroxine Sodium [Synthroid] 150 mcg PO DAILY 08/31/19 10/05/20 History Nitroglycerin Sl Tabs [Nitrostat] 0.4 mg SUBLINGUAL Q5M PRN 08/31/19 10/05/20 History Apixaban [Eliquis] 5 mg PO BID tab 09/02/19 10/05/20 Rx Ergocalciferol [Vitamin D2 (1250 1,250 mcg PO TH 09/28/20 10/05/20 History Mcg = 11553 Iu)] Latanoprost Ophth [Xalatan 0.005%] 1 drops BOTH EYES HS 09/28/20 10/05/20 History Multivitamins, Thera [Multivitamin 1 tab PO DAILY 09/28/20 10/05/20 History (formulary)] Rosuvastatin Calcium [Crestor] 5 mg PO DAILY 09/28/20 10/05/20 History predniSONE 10 mg PO DAILY PRN 09/28/20 10/05/20 History Allergies Allergy/AdvReac Type Severity Reaction Status Date / Time No Known Allergies Allergy Verified 10/05/20 16:17 Physical Exam Vitals: Vital Signs Temp Pulse Pulse Resp BP Pulse Ox 10/06/20 08:00 97.7 F 143 H 22 124/82 96 10/06/20 04:00 98.2 F 107 H 17 125/75 96 10/06/20 02:00 60 16 10/06/20 00:00 99.2 F 64 18 103/64 97 10/05/20 20:00 97.7 F 76 18 136/65 97 10/05/20 19:23 120 H 10/05/20 19:12 112 H 10/05/20 16:00 98.5 F 77 19 113/62 96 Intake and Output 10/05/20 10/06/20 10/06/20 22:59 06:59 14:59 Intake Total 360 50 240 Balance 360 50 240 Intake: Intake, IV Titration 50 Amount cefTRIAXone 1 gm In 50 Sodium Chloride 0.9% 50 ml @ 100 mls/hr IVPB Q24H [facility] Rx#:[id number] Oral 360 240 Other: Voiding Method Diaper Diaper # Voids 1 Weight 111.584 kg Head normocephalic Neck supple Lungs diminished bilaterally with expiratory wheezing Heart irregular rate known atrial fibrillation Abdomen is soft nontender nondistended positive bowel sounds no hepatosplenomegaly Extremities no edema Neuro alert and orientated to 3 Results CBC & Chem 7: 10/06/20 08:54 10/05/20 16:14 Labs: Abnormal Lab Results - Last 24 Hours (Table) 10/05/20 10/05/20 10/05/20 Range/Units 16:14 16:47 16:50 WBC (3.8-10.6) k/uL RBC (3.80-5.40) m/uL Hct (34.0-46.0) % Neutrophils # (1.3-7.7) k/uL Lymphocytes # (1.0-4.8) k/uL Glucose 203 H (74-99) mg/dL POC Glucose (mg/dL) 175 H (75-99) mg/dL Calcium 10.3 H (8.4-10.2) mg/dL Urine Protein Trace H (Negative) Urine Glucose (UA) 4+ H (Negative) Ur Leukocyte Esterase Small H (Negative) Urine WBC 14 H (0-5) /hpf Urine Bacteria Occasional H (None) /hpf Hyaline Casts 12 H (0-2) /lpf Urine Mucus Rare H (None) /hpf 10/05/20 10/06/20 10/06/20 Range/Units 19:43 06:05 08:54 WBC 14.1 H (3.8-10.6) k/uL RBC 5.55 H (3.80-5.40) m/uL Hct 46.1 H (34.0-46.0) % Neutrophils # 13.0 H (1.3-7.7) k/uL Lymphocytes # 0.8 L (1.0-4.8) k/uL Glucose (74-99) mg/dL POC Glucose (mg/dL) 200 H 331 H (75-99) mg/dL Calcium (8.4-10.2) mg/dL Urine Protein (Negative) Urine Glucose (UA) (Negative) Ur Leukocyte Esterase (Negative) Urine WBC (0-5) /hpf Urine Bacteria (None) /hpf Hyaline Casts (0-2) /lpf Urine Mucus (None) /hpf Thrombosis Risk Factor Assmnt - Choose All That Apply Any of the Below Risk Factors Present?: Yes Each Factor Represents 1 point: Abnormal pulmonary function (COPD), Obesity (BMI >25) Other Risk Factors: Yes Each Risk Factor Represents 2 Points: Age 61-74 years Thrombosis Risk Factor Assessment Total Risk Factor Score: 4 Thrombosis Risk Factor Assessment Level: Moderate Risk Assessment and Plan Assessment: 1. Dyspnea secondary to COPD exacerbation. Patient started on IV Solu-Medrol. Pulmonary services have been consulted 2. Chest pain. Initial troponin negative. D-dimer negative. 2-D echo ordered and cardiology services consulted 3. Urinary tract infection. Patient started on Rocephin urinary culture o rdered 4. Atrial fibrillation with rapid ventricular response. Patient started on Cardizem drip. Cardiology services have been consulted 5. History of essential hypertension 6. History of ongoing nicotine dependence. Patient reports she smokes one pack of cigarettes per day. Patient educated on importance of complete smoking sensation greater than 3 minutes. Nicotine patch has been ordered 7. Hypothyroidism 8. Chronic back pain 9. Hyperlipidemia 10. History of paroxysmal atrial fibrillation. Patient is maintained on eliquis 11. Diabetes mellitus type 2 12. History of depression DVT prophylaxis eliquis. GI prophylaxis Protonix Cardiology and pulmonary service is consulted Continue IV Solu-Medrol Continue IV Rocephin Maintained on IV Cardizem 2-D echo ordered Time with Patient: Greater than 30 (Greater than 60% of the total time spent in counseling and coordination of care)
[2020-10-06] MEDS: IPRATROPIUM-ALBUTEROL 3 ML NEB INHALATION PRN (11:30)
--- NOTE | 2020-10-06 11:37 | P.CRDCN ---
History of Present Illness Consult date: 10/06/20 History of present illness: HISTORY OF PRESENT ILLNESS: This is a 64-year-old female with a past medical history significant for COPD, nicotine dependence, hypertension, hyperlipidemia, and paroxysmal atrial fibrillation on anticoagulation with Eliquis. Patient follows in the office with Dr. Simon. We have been asked to see the patient in consultation for chest pain. Patient examined at the bedside. Patient states she has been feeling short of breath for the past 2-3 days. She went to see her primary care physician yesterday, Dr. Pinedo. She states she had her walk around in the office and they checked her oxygen saturations and found it was low. She was directly admitted to the hospital from his office. Patient also reports having some intermittent chest discomfort. Patient states this is chronic for her and she has chest pain usually on a daily basis. She states her revenue investigator recommended that she have a stress test performed at her last office visit but she has not yet scheduled this due to financial reasons. Patient is currently in atrial fibrillation with RVR. Heart rate is in the 150s. Cardizem drip has been ordered but is not yet infusing. Patient reports feeling mild palpitations this morning. At the time of examination, she denies chest pain or pressure. She reports shortness of breath. Patient states she continues to smoke and is smoking about 1 pack per day. EKG reveals atrial fibrillation with RVR Chest xray some strandy basilar areas of atelectasis. Otherwise no acute process seen. Laboratory data: WBC 9.6. Hemoglobin 12.9. Platelet count 261. D-dimer 0.43. Sodium 137. Potassium 3.9. BUN 15. Creatinine 0.62. Troponin negative 1. BNP 62. Current home cardiac medications include lisinopril 10 mg daily, Crestor 5 mg daily, Eliquis 5 mg twice a day Most recent echocardiogram obtained in August 2019 revealed ejection fraction 50- 55%. mild mitral regurgitation Patient had a Lexiscan stress test in November 2017 which was negative for reversible ischemia REVIEW OF SYSTEMS: At the time of my exam: CONSTITUTIONAL: Denies fever or chills. HEENT: Denies blurred vision, vision changes, or eye pain. Denies hemoptysis CARDIOVASCULAR: Denies chest pain. Denies orthopnea. Denies PND. Denies palpitations RESPIRATORY: Denies shortness of breath. GASTROINTESTINAL: Denies abdominal pain. Denies nausea or vomiting. HEMATOLOGIC: Denies bleeding disorders. GENITOURINARY: Denies any blood in urine. SKIN: Denies pruitis. Denies rash. PHYSICAL EXAM: VITAL SIGNS: Reviewed. GENERAL: Well-developed in no acute distress. HEENT: Head is normocephalic. Pupils are equal, round. Sclerae anicteric. Mucous membranes of the mouth are moist. Neck supple. No JVD or thyromegaly LUNGS: Respirations even and unlabored. Lungs with diminished air exchange bilaterally HEART: Tachycardic. Irregular rate and rhythm. S1 and S2 heard. ABDOMEN: Soft. Nondistended. Nontender. EXTREMITIES: Normal range of motion. No clubbing or cyanosis. Peripheral pulses intact. No lower extremity edema NEUROLOGIC: Awake and alert. Oriented x 3. ASSESSMENT: Shortness of breath Acute exacerbation of COPD Chest pain Paroxysmal atrial fibrillation with RVR, on anticoagulation with Eliquis Hypertension Hyperlipidemia Nicotine dependence PLAN: Obtain 2-D echo to assess cardiac structure and function Obtain 2 additional troponin levels Begin Cardizem drip at 5 mg an hour with a 5 mg IV bolus Begin metoprolol 25 mg BID Continue telemetry monitoring Continue anticoagulation with Eliquis Patient will require stress test when she is medically stable. To be performed on an outpatient basis Further recommendations pending patient's course Nurse practitioner note has been reviewed by physician. Signing provider agrees with the documented findings, assessment, and plan of care. Past Medical History Past Medical History: Atrial Fibrillation, Chest Pain / Angina, COPD, CVA/TIA, Diabetes Mellitus, Eye Disorder, GERD/Reflux, Hyperlipidemia, Hypertension, Myocardial Infarction ([place]), Osteoarthritis (OA), Thyroid Disorder Additional Past Medical History / Comment(s): vertigo, CVA-x2- 2010, glaucoma, varicose veins, peptic ulcer, HX POLYP, stress incont of urine Last Myocardial Infarction Date:: 2008 History of Any Multi-Drug Resistant Organisms: None Reported Past Surgical History: Bladder Surgery, Cholecystectomy, Hernia Repair, Hy sterectomy, Tonsillectomy Additional Past Surgical History / Comment(s): thyroidectomy, left foot ORIF- hardware later removed, ragini oopherectomy, bladder suspension, laser eye surgeryx2, Past Anesthesia/Blood Transfusion Reactions: No Reported Reaction Past Psychological History: Anxiety, Depression Smoking Status: Current every day smoker Past Alcohol Use History: None Reported Past Drug Use History: Marijuana - Past Family History Mother Family Medical History: Hypertension Additional Family Medical History / Comment(s): brain aneurysm Father Family Medical History: Cancer Additional Family Medical History / Comment(s): prostate Medications and Allergies Home Medications Medication Instructions Recorded Confirmed Type glipiZIDE [Glucotrol] 10 mg PO BID 09/14/15 10/05/20 History metFORMIN HCL 1,000 mg PO BID 09/14/15 10/05/20 History lisinopriL [Zestril] 10 mg PO DAILY #30 tab 11/28/15 10/05/20 Rx ALPRAZolam [Xanax] 0.25 mg PO BID PRN 07/28/17 10/05/20 History Amitriptyline HCl [Elavil] 100 mg PO HS 07/28/17 10/05/20 History HYDROcodone/APAP 7.5-325MG [[place] 1 tab PO TID 07/28/17 10/05/20 History 7.5-325] Escitalopram [Lexapro] 20 mg PO DAILY 10/23/17 10/05/20 History Insulin Glargine [Lantus] 90 unit SQ DAILY@0900 08/31/19 10/05/20 History Levothyroxine Sodium [Synthroid] 150 mcg PO DAILY 08/31/19 10/05/20 History Nitroglycerin Sl Tabs [Nitrostat] 0.4 mg SUBLINGUAL Q5M PRN 08/31/19 10/05/20 History Apixaban [Eliquis] 5 mg PO BID tab 09/02/19 10/05/20 Rx Ergocalciferol [Vitamin D2 (1250 1,250 mcg PO TH 09/28/20 10/05/20 History Mcg = 77805 Iu)] Latanoprost Ophth [Xalatan 0.005%] 1 drops BOTH EYES HS 09/28/20 10/05/20 History Multivitamins, Thera [Multivitamin 1 tab PO DAILY 09/28/20 10/05/20 History (formulary)] Rosuvastatin Calcium [Crestor] 5 mg PO DAILY 09/28/20 10/05/20 History predniSONE 10 mg PO DAILY PRN 09/28/20 10/05/20 History Allergies Allergy/AdvReac Type Severity Reaction Status Date / Time No Known Allergies Allergy Verified 10/05/20 16:17 Physical Exam Vitals: Vital Signs Temp Pulse Pulse Resp BP Pulse Ox 10/06/20 04:00 98.2 F 107 H 17 125/75 96 10/06/20 02:00 60 16 10/06/20 00:00 99.2 F 64 18 103/64 97 10/05/20 20:00 97.7 F 76 18 136/65 97 10/05/20 19:23 120 H 10/05/20 19:12 112 H 10/05/20 16:00 98.5 F 77 19 113/62 96 Intake and Output 10/05/20 10/06/20 10/06/20 22:59 06:59 14:59 Intake Total 360 50 Balance 360 50 Intake: Intake, IV Titration 50 Amount cefTRIAXone 1 gm In 50 Sodium Chloride 0.9% 50 ml @ 100 mls/hr IVPB Q24H [facility] Rx#:[id number] Oral 360 Other: Voiding Method Diaper Diaper # Voids 1 Weight 111.584 kg Results 10/06/20 08:54 10/06/20 08:54 Cardiac Enzymes 10/05/20 10/05/20 Range/Units 16:14 16:14 AST 21 (14-36) U/L Troponin I <0.012 (0.000-0.034) ng/mL CBC 10/05/20 Range/Units 16:14 WBC 9.6 (3.8-10.6) k/uL RBC 4.73 (3.80-5.40) m/uL Hgb 12.9 (11.4-16.0) gm/dL Hct 38.5 (34.0-46.0) % Plt Count 261 (150-450) k/uL Comprehensive Metabolic Panel 10/05/20 Range/Units 16:14 Sodium 137 (137-145) mmol/L Potassium 3.9 (3.5-5.1) mmol/L Chloride 102 (98-107) mmol/L Carbon Dioxide 28 (22-30) mmol/L BUN 15 (7-17) mg/dL Creatinine 0.62 (0.52-1.04) mg/dL Glucose 203 H (74-99) mg/dL Calcium 10.3 H (8.4-10.2) mg/dL AST 21 (14-36) U/L ALT 16 (4-34) U/L Alkaline Phosphatase 117 (38-126) U/L Total Protein 6.5 (6.3-8.2) g/dL Albumin 4.0 (3.5-5.0) g/dL Current Medications Generic Name Dose Route Start Last Admin Trade Name Freq PRN Reason Stop Dose Admin Hydrocodone Bitart/Acetaminophen 1 each 10/05/20 22:00 10/05/20 20:50 Hydrocodone/Apap 7.5-325mg 1 Each Tab PO 1 each TID [place] Administration Albuterol/Ipratropium 3 ml 10/05/20 16:01 10/05/20 19:09 Ipratropium-Albuterol 3 Ml Neb INHALATION 3 ml RT-QID PRN Administration Shortness Of Breath Or Wheezing Alprazolam 0.25 mg 10/05/20 18:02 10/05/20 20:50 Alprazolam 0.25 Mg Tab PO 0.25 mg BID PRN Administration Anxiety Amitriptyline HCl 100 mg 10/05/20 21:00 10/05/20 20:51 Amitriptyline Hcl 50 Mg Tab PO 100 mg HS [place] Administration Apixaban 5 mg 10/05/20 21:00 10/05/20 20:51 Apixaban 5 Mg Tab PO 5 mg BID [place] Administration Protocol Atorvastatin Calcium 10 mg 10/06/20 09:00 Atorvastatin 10 Mg Tab PO DAILY [facility] Ergocalciferol 1,250 mcg 10/12/20 09:00 Ergocalciferol 1,250 Mcg (50,000 Iu) Capsule PO TH [facility] Escitalopram Oxalate 20 mg 10/06/20 09:00 Escitalopram 20 Mg Tab PO DAILY [place] Glipizide 10 mg 10/05/20 21:00 10/06/20 06:32 Glipizide 10 Mg Tab PO 10 mg AC-BID [place] Administration Ceftriaxone Sodium 1 gm/ 50 mls @ 100 mls/hr 10/05/20 18:30 10/05/20 19:49 Sodium Chloride IVPB 100 mls/hr Q24H [place] Administration Diltiazem HCl 125 mg/ Sodium 125 mls @ 5 mls/hr 10/06/20 07:30 Chloride IV .Q24H [place] 5 MG/HR Insulin Aspart 0 unit 10/06/20 07:30 10/06/20 06:32 Insulin Aspart (Novolog) 100 Unit/Ml Vial SQ 8 unit ACHS [place] Administration Protocol Insulin Detemir 90 unit 10/06/20 09:00 Insulin Detemir (Levemir) 100 Unit/Ml Syr SQ DAILY@0900 [facility] Latanoprost 1 drops 10/05/20 21:00 10/06/20 02:35 Latanoprost 0.005% Ophth Drops 2.5 Ml Btl BOTH EYES Not Given HS [facility] Levothyroxine Sodium 150 mcg 10/06/20 06:30 10/06/20 06:32 Levothyroxine 75 Mcg Tab PO 150 mcg DAILY@0630 [place] Administration Lisinopril 10 mg 10/06/20 09:00 Lisinopril 10 Mg Tab PO DAILY [place] Metformin HCl 1,000 mg 10/05/20 21:00 10/06/20 06:32 Metformin 500 Mg Tab PO 1,000 mg AC-BID [place] Administration Methylprednisolone Sodium Succinate 40 mg 10/05/20 18:15 10/06/20 06:30 Methylprednisolone Sod Succi 40 Mg/Ml 1 Ml Vial IV 40 mg Q6HR [place] Administration Multivitamins 1 each 10/06/20 09:00 Multivitamins, Thera 1 Each Tab PO DAILY [facility] Nicotine 1 patch 10/05/20 16:15 10/05/20 19:48 Nicotine 14mg/24hr Patch TRANSDERM Not Given DAILY [facility] Nitroglycerin 0.4 mg 10/05/20 18:02 Nitroglycerin Sl Tabs 0.4 Mg Tab SUBLINGUAL Q5M PRN Chest Pain Intake and Output 10/05/20 10/06/20 10/06/20 22:59 06:59 14:59 Intake Total 360 50 Balance 360 50 Intake: Intake, IV Titration 50 Amount cefTRIAXone 1 gm In 50 Sodium Chloride 0.9% 50 ml @ 100 mls/hr IVPB Q24H [facility] Rx#:[id number] Oral 360 Other: Voiding Method Diaper Diaper # Voids 1 Weight 111.584 kg 10/05/20 16:14 10/05/20 16:14
[2020-10-06 11:45] LABS: Glucose,Whole Blood 404 mg/dL (75-99)
[2020-10-06] MEDS ORDERED: INSULIN ASPART (NovoLOG) 100 UNIT/ML VIAL SQ ONE ×2 (12:30→17:18)
--- NOTE | 2020-10-06 12:52 | ECHOF ---
Referral Reason:DYSPNEA MEASUREMENTS -------- HEIGHT: 172.7 cm WEIGHT: 111.1 kg BP: 125/75 IVSd: 1.6 cm (0.6 - 1.1) LVIDd: 2.9 cm (3.9 - 5.3) LVPWd: 1.4 cm (0.6 - 1.1) IVSs: 1.7 cm LVIDs: 1.4 cm LVPWs: 1.8 cm Ao Diam: 2.8 cm (2.0 - 3.7) AV Cusp: 2.0 cm (1.5 - 2.6) LA Diam: 3.2 cm (2.7 - 3.8) MV E Rad: 0.81 m/s MV DecT: 86 ms MV A Rad: 0.44 m/s MV E/A Ratio: 1.83 RAP: 5.00 mmHg RVSP: 13.89 mmHg FINDINGS -------- This was a technically difficult study with suboptimal views. The left ventricular size is normal. There is moderate concentric left ventricular hypertrophy. O verall left ventricular systolic function is normal with, an EF between 60 - 65 %. The right ventricle is normal in size. The left atrial size is normal. The right atrial size is normal. Lumason used Unable to visualize the septum. The aortic valve was not well visualized. The mitral valve is normal. Mild mitral regurgitation is present. The tricuspid valve appears structurally normal. Mild tricuspid regurgitation present. Right vent ricular systolic pressure is normal at < 35 mmHg. The pulmonic valve was not well visualized. The aortic root size is normal. IVC Not well visulized. There is no pericardial effusion. CONCLUSIONS -------- 1. The left ventricular size is normal. 2. There is moderate concentric left ventricular hypertrophy. 3. Overall left ventricular systolic function is normal with, an EF between 60 - 65 %. 4. Mild mitral regurgitation is present. 5. Mild tricuspid regurgitation present. 6. There is no pericardial effusion. BRICK PAVER: Emily Bishop RDCS
--- NOTE | 2020-10-06 15:39 | P.CNPUL ---
History of Present Illness Consult date: 10/06/20 Reason for consult: dyspnea, COPD History of present illness: A 40-year-old female patient, known history of COPD, known history of other medical problems including previous history of hypertension and hyperlipidemia CVA diabetes mellitus and atrial fibrillation. The patient came into the hospital because of worsening shortness of breath. She is having chronic chest pain which is somewhat atypical mainly on the left side of the chest. Her right worse with cough and and movement. However, she denies having any real exacerbating or relieving factors. The pain is chronic. She has been investigated in the past with cardiac stress test and she checked negative for coronary artery disease. She follows up with cardiology. For now, chest x-ray showing some atelectatic changes in lung bases bilaterally. Her d-dimer was at 0.43. Her cardiac rhythm with atrial fibrillation. Troponins were negative. The patient was suspected to have obstructive bronchitis/pneumonia. She was started on antibiotics. She is also started on bronchodilators and steroids. She is on IV Solu-Medrol for now. She is less short of breath. Her white cell count is 14.1. Hemoglobin is 14.4, electrolytes are all within normal limits, troponin times is been negative. Echo of the heart showed a preserved LV function with an ejection fraction of 665%, no valvular abnormalities, no pericardial effusion, no pulmonary hypertension. Noted the patient is also obese. She has been seeing an outside network account manager and she's been suspected obstructive sleep apnea although the testing has not been performed. Review of Systems Constitutional: Reports daytime sleepiness, Reports fatigue, Reports weight gain Eyes: denies as per HPI, denies blurred vision, denies bulging eye, denies decreased vision, denies diplopia, denies discharge, denies dry eye, denies irritation, denies itching, denies pain, denies photophobia, denies loss of peripheral vision, denies loss of vision, denies tunnel vision/blind spots Ears: deny: decreased hearing, ear discharge, earache, tinnitus Ears, nose, mouth and throat: Reports as per HPI Breasts: absent: as per HPI, change in shape, gynecomastia, masses, nipple discharge, pain, skin changes, swelling Breasts: Reports as per HPI Cardiovascular: Reports decreased exercise tolerance, Reports dyspnea on exertion, Reports irregular heart beat, Reports paroxysmal nocturnal dyspnea, Reports shortness of breath Respiratory: Reports cough, Reports dyspnea Gastrointestinal: Reports as per HPI Genitourinary: Reports as per HPI Menstruation: Reports as per HPI Musculoskeletal: Reports as per HPI Musculoskeletal: absent: ankle pain, ankle stiffness, ankle swelling, as per HPI, elbow pain, elbow stiffness, elbow swelling, foot pain, foot stiffness, foot swelling, hand pain, hand stiffness, hand swelling, hip pain, hip stiffness, hip swelling, knee pain, knee stiffness, knee swelling, shoulder pain, shoulder stiffness, shoulder swelling, wrist pain, wrist stiffness, wrist swelling Integumentary: Reports as per HPI Neurological: Reports as per HPI, Reports weakness Psychiatric: Reports as per HPI Endocrine: Reports as per HPI Hematologic/Lymphatic: Reports as per HPI Allergic/Immunologic: Reports as per HPI Past Medical History Past Medical History: Atrial Fibrillation, Chest Pain / Angina, COPD, CVA/TIA, Diabetes Mellitus, Eye Disorder, GERD/Reflux, Hyperlipidemia, Hypertension, Myocardial Infarction ([place]), Osteoarthritis ([place]), Thyroid Disorder Additional Past Medical History / Comment(s): vertigo, CVA-x2- 2010, glaucoma, varicose veins, peptic ulcer, HX POLYP, stress incont of urine Last Myocardial Infarction Date:: 2008 History of Any Multi-Drug Resistant Organisms: None Reported Past Surgical History: Bladder Surgery, Cholecystectomy, Hernia Repair, Hysterectomy, Tonsillectomy Additional Past Surgical History / Comment(s): thyroidectomy, left foot ORIF- hardware later removed, ragini oopherectomy, bladder suspension, laser eye surgeryx2, Past Anesthesia/Blood Transfusion Reactions: No Reported Reaction Past Psychological History: Anxiety, Depression Smoking Status: Current every day smoker Past Alcohol Use History: None Reported Past Drug Use History: Marijuana - Past Family History Mother Family Medical History: Hypertension Additional Family Medical History / Comment(s): brain aneurysm Father Family Medical History: Cancer Additional Family Medical History / Comment(s): prostate Medications and Allergies Home Medications Medication Instructions Recorded Confirmed Type glipiZIDE [Glucotrol] 10 mg PO BID 09/14/15 10/05/20 History metFORMIN HCL 1,000 mg PO BID 09/14/15 10/05/20 History lisinopriL [Zestril] 10 mg PO DAILY #30 tab 11/28/15 10/05/20 Rx ALPRAZolam [Xanax] 0.25 mg PO BID PRN 07/28/17 10/05/20 History Amitriptyline HCl [Elavil] 100 mg PO HS 07/28/17 10/05/20 History HYDROcodone/APAP 7.5-325MG [[place] 1 tab PO TID 07/28/17 10/05/20 History 7.5-325] Escitalopram [Lexapro] 20 mg PO DAILY 10/23/17 10/05/20 History Insulin Glargine [Lantus] 90 unit SQ DAILY@0900 08/31/19 10/05/20 History Levothyroxine Sodium [Synthroid] 150 mcg PO DAILY 08/31/19 10/05/20 History Nitroglycerin Sl Tabs [Nitrostat] 0.4 mg SUBLINGUAL Q5M PRN 08/31/19 10/05/20 History Apixaban [Eliquis] 5 mg PO BID tab 09/02/19 10/05/20 Rx Ergocalciferol [Vitamin D2 (1250 1,250 mcg PO TH 09/28/20 10/05/20 History Mcg = 27040 Iu)] Latanoprost Ophth [Xalatan 0.005%] 1 drops BOTH EYES HS 09/28/20 10/05/20 History Multivitamins, Thera [Multivitamin 1 tab PO DAILY 09/28/20 10/05/20 History (formulary)] Rosuvastatin Calcium [Crestor] 5 mg PO DAILY 09/28/20 10/05/20 History predniSONE 10 mg PO DAILY PRN 09/28/20 10/05/20 History Allergies Allergy/AdvReac Type Severity Reaction Status Date / Time No Known Allergies Allergy Verified 10/05/20 16:17 Physical Exam Vitals: Vital Signs Temp Pulse Pulse Resp BP Pulse Ox 10/06/20 15:10 98.4 F 90 19 129/76 96 10/06/20 14:00 73 18 10/06/20 12:00 98.6 F 73 18 97/60 95 10/06/20 11:41 110 H 10/06/20 11:30 108 H 10/06/20 08:00 97.7 F 143 H 22 124/82 96 10/06/20 04:00 98.2 F 107 H 17 125/75 96 10/06/20 02:00 60 16 10/06/20 00:00 99.2 F 64 18 103/64 97 10/05/20 20:00 97.7 F 76 18 136/65 97 10/05/20 19:23 120 H 10/05/20 19:12 112 H 10/05/20 16:00 98.5 F 77 19 113/62 96 Intake and Output 10/06/20 10/06/20 10/06/20 06:59 14:59 22:59 Intake Total 50 240 Balance 50 240 Intake: Intake, IV Titration 50 Amount cefTRIAXone 1 gm In 50 Sodium Chloride 0.9% 50 ml @ 100 mls/hr IVPB Q24H [facility] Rx#:[id number] Oral 240 Other: Voiding Method Diaper Diaper # Voids 1 0 # Bowel Movements 0 Obese, comfortable not in acute distress, BMI 37.4 Head exam was generally normal. There was no scleral icterus or corneal arcus. Mucous membranes were moist. Neck was supple and without jugular venous distension, thyromegaly, or carotid bruits. Carotids were easily palpable bilaterally. There was no adenopathy. The patient has a Mallampati class IV and significant crowding of the posterior oropharynx. Neck is short and supple. The patient is edentulous Lungs sounds are diminished and the patient has scattered expiratory wheezes throughout the lung mcintosh bilaterally Cardiac exam revealed the PMI to be normally situated and sized. The rhythm was irregular and no extrasystoles were noted during several minutes of auscultation. The first and second heart sounds irregular consistent with atrial fibrillation. and physiologic splitting of the second heart sound was noted. There were no murmurs, rubs, clicks, or gallops. Abdominal exam revealed normal bowel sounds. The abdomen was soft, non-tender, and without masses, organomegaly, or appreciable enlargement of the abdominal aorta. Examination of the extremities revealed easily palpable radial, femoral and pedal pulses. There was no cyanosis, clubbing or edema. Examination of the skin revealed no evidence of significant rashes, suspicious appearing nevi or other concerning lesions. Results - Laboratory Findings CBC and BMP: 10/06/20 08:54 10/06/20 08:54 PT/INR, D-dimer D-Dimer 0.43 mg/L FEU (<0.60) 10/05/20 16:14 Abnormal lab findings: Abnormal Labs 10/05/20 10/05/20 10/05/20 16:14 16:47 16:50 WBC RBC Hct Neutrophils # Lymphocytes # Sodium BUN Glucose 203 H POC Glucose (mg/dL) 175 H Calcium 10.3 H Alkaline Phosphatase Urine Protein Trace H Urine Glucose (UA) 4+ H Ur Leukocyte Esterase Small H Urine WBC 14 H Urine Bacteria Occasional H Hyaline Casts 12 H Urine Mucus Rare H 10/05/20 10/06/20 10/06/20 19:43 06:05 08:54 WBC 14.1 H RBC 5.55 H Hct 46.1 H Neutrophils # 13.0 H Lymphocytes # 0.8 L Sodium BUN Glucose POC Glucose (mg/dL) 200 H 331 H Calcium Alkaline Phosphatase Urine Protein Urine Glucose (UA) Ur Leukocyte Esterase Urine WBC Urine Bacteria Hyaline Casts Urine Mucus 10/06/20 10/06/20 08:54 11:43 WBC RBC Hct Neutrophils # Lymphocytes # Sodium 136 L BUN 21 H Glucose 422 H POC Glucose (mg/dL) 404 H Calcium 10.9 H Alkaline Phosphatase 142 H Urine Protein Urine Glucose (UA) Ur Leukocyte Esterase Urine WBC Urine Bacteria Hyaline Casts Urine Mucus - Diagnostic Findings Chest x-ray: image reviewed Assessment and Plan Plan: 1 acute COPD exacerbation with secondary shortness of breath 2 chest pain, atypical, as are negative, awaiting cardiology evaluation 3 chronic atrial fibrillation with rapid ventricular response at a time of admission, recovered and the patient on long-term anticoagulation 4 hypertension 5 obesity with a BMI of 37.4 and suspected obstructive sleep apnea 6 hypothyroidism 7 hyperlipidemia 8 diabetes mellitus type 2 9 depression 10 suspected UTI 11 hypercalcemia, chronic Plan Agree on the current treatment Continue bronchodilators and steroids Continue IV Rocephin Investigate hypercalcemia by ordering intact PTH, vitamin D and phosphorus Review of previous CAT scan of the chest that was done on this patient. Previous CAT scan findings are consistent with COPD Smoking cessation counseling Blood sugar management per medicine Continue anticoagulation with Eliquis We'll continue to follow
[2020-10-06] MEDS: HYDROmorphone 0.5 MG/0.5 ML SYRINGE IVP PRN ×2 (16:53→23:22)
[2020-10-06 17:13] LABS: Glucose,Whole Blood 398 mg/dL (75-99)
[2020-10-06 20:54] LABS: Glucose,Whole Blood 410 mg/dL (75-99)
[2020-10-06] MEDS: AMITRIPTYLINE HCL 50 MG TAB PO SCH (21:13)
[2020-10-07 06:08] LABS: Glucose,Whole Blood 286 mg/dL (75-99)
[2020-10-07] MEDS: PANTOPRAZOLE 40 MG TABLET PO SCH (06:26)
[2020-10-07] MEDS: metFORMIN 500 MG TAB PO SCH ×2 (06:26→16:40)
[2020-10-07] MEDS: glipiZIDE 10 MG TAB PO SCH ×2 (06:27→16:40)
[2020-10-07] MEDS: LEVOTHYROXINE 75 MCG TAB PO SCH (06:27)
[2020-10-07] MEDS: methylPREDNISolone SOD SUCCI 40 MG/ML 1 ML VIAL IV SCH ×4 (06:27→23:56)
[2020-10-07] MEDS: INSULIN ASPART (NovoLOG) 100 UNIT/ML VIAL SQ SCH ×4 (06:49→21:45)
[2020-10-07] MEDS: DILTIAZEM 125 MG in SODIUM CHLORIDE 0.9% 100 ML IV SCH (08:03)
[2020-10-07] MEDS: ATORVASTATIN 10 MG TAB PO SCH (08:30)
[2020-10-07] MEDS: APIXABAN 5 MG TAB PO SCH ×2 (08:30→21:45)
[2020-10-07] MEDS: NICOTINE 14MG/24HR PATCH TRANSDERM SCH (08:31)
[2020-10-07] MEDS: ESCITALOPRAM 20 MG TAB PO SCH (08:31)
[2020-10-07] MEDS: METOPROLOL TARTRATE 25 MG TAB PO SCH ×2 (08:31→21:45)
[2020-10-07] MEDS: HYDROcodone/APAP 7.5-325MG 1 EACH TAB PO SCH ×3 (08:31→21:45)
[2020-10-07] MEDS: lisinopriL 10 MG TAB PO SCH (08:31)
[2020-10-07] MEDS: MULTIVITAMINS, THERA 1 EACH TAB PO SCH (08:31)
[2020-10-07] MEDS: INSULIN DETEMIR (LEVEMIR) 100 UNIT/ML SYR SQ SCH (08:31)
[2020-10-07] MEDS: HYDROmorphone 0.5 MG/0.5 ML SYRINGE IVP PRN ×4 (10:21→23:56)
--- NOTE | 2020-10-07 11:01 | P.PN ---
Subjective Progress Note Date: 10/07/20 A 64-year-old female patient, known history of COPD, known history of other medical problems including previous history of hypertension and hyperlipidemia CVA diabetes mellitus and atrial fibrillation. The patient came into the hospital because of worsening shortness of breath. She is having chronic chest pain which is somewhat atypical mainly on the left side of the chest. Her right worse with cough and and movement. However, she denies having any real exacerbating or relieving factors. The pain is chronic. She has been investigated in the past with cardiac stress test and she checked negative for coronary artery disease. She follows up with cardiology. For now, chest x-ray showing some atelectatic changes in lung bases bilaterally. Her d-dimer was at 0.43. Her cardiac rhythm with atrial fibrillation. Troponins were negative. The patient was suspected to have obstructive bronchitis/pneumonia. She was started on antibiotics. She is also started on bronchodilators and steroids. She is on IV Solu-Medrol for now. She is less short of breath. Her white cell count is 14.1. Hemoglobin is 14.4, electrolytes are all within normal limits, troponin times is been negative. Echo of the heart showed a preserved LV function with an ejection fraction of 665%, no valvular abnormalities, no pericardial effusion, no pulmonary hypertension. Noted the patient is also obese. 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 10/07/2020, this 64-year-old here patient is doing better. She is less short of breath last bronchus spastic and wheezy. Chest pain is subsided. She has developed some limited hyperglycemia related to systemic steroids and the patient is currently on 40 mg of IV Solu Medrol every 8 hours. No other complaints. She is resting comfortably in bed. No other significant events over the past 24 hours. Objective - Vital Signs Vital signs: Vital Signs Temp 97.9 F 10/07/20 07:50 Pulse 76 10/07/20 07:52 Resp 16 10/07/20 07:52 BP 115/67 10/07/20 07:50 Pulse Ox 96 10/07/20 08:37 Intake & Output 10/06/20 10/07/20 10/07/20 18:59 06:59 18:59 Intake Total 974 Output Total 500 2500 650 Balance 474 -2500 -650 Weight 109.5 kg Intake: Intake, IV Titration 50 Amount cefTRIAXone 1 gm In 50 Sodium Chloride 0.9% 50 ml @ 100 mls/hr IVPB Q24H [facility] Rx#:[id number] Oral 924 Output: Urine 500 2500 650 Other: Voiding Method Diaper Diaper Diaper # Voids 1 1 # Bowel Movements 0 - Exam Obese, comfortable not in acute distress, BMI 37.4 Head exam was generally normal. There was no scleral icterus or corneal arcus. Mucous membranes were moist. Neck was supple and without jugular venous distension, thyromegaly, or carotid bruits. Carotids were easily palpable bilaterally. There was no adenopathy. The patient has a Mallampati class IV and significant crowding of the posterior oropharynx. Neck is short and supple. The patient is edentulous Lungs sounds are diminished and the patient has scattered expiratory wheezes throughout the lung mcintosh bilaterally Cardiac exam revealed the PMI to be normally situated and sized. The rhythm was irregular and no extrasystoles were noted during several minutes of auscultation. The first and second heart sounds irregular consistent with atrial fibrillation. and physiologic splitting of the second heart sound was noted. There were no murmurs, rubs, clicks, or gallops. Abdominal exam revealed normal bowel sounds. The abdomen was soft, non-tender, and without masses, organomegaly, or appreciable enlargement of the abdominal aorta. Examination of the extremities revealed easily palpable radial, femoral and pedal pulses. There was no cyanosis, clubbing or edema. Examination of the skin revealed no evidence of significant rashes, suspicious appearing nevi or other concerning lesions. - Labs CBC & Chem 7: 10/06/20 08:54 10/06/20 08:54 Labs: Abnormal Lab Results - Last 24 Hours (Table) 10/06/20 10/06/20 10/06/20 Range/Units 11:43 12:03 17:08 POC Glucose (mg/dL) 404 H 398 H (75-99) mg/dL PTH Intact 75.4 H (14.0-72.0) pg/mL 10/06/20 10/07/20 Range/Units 20:43 05:55 POC Glucose (mg/dL) 410 H 286 H (75-99) mg/dL PTH Intact (14.0-72.0) pg/mL Microbiology - Last 24 Hours (Table) 10/06/20 20:46 Urine Culture - Preliminary Urine,Clean Catch Assessment and Plan Plan: 1 acute COPD exacerbation with secondary shortness of breath, clinically improving 2 chest pain, atypical, as are negative, awaiting cardiology evaluation, currently inactive in stable 3 chronic atrial fibrillation with rapid ventricular response at a time of admission, recovered and the patient on long-term anticoagulation 4 hypertension 5 obesity with a BMI of 37.4 and suspected obstructive sleep apnea 6 hypothyroidism 7 hyperlipidemia 8 diabetes mellitus type 2 9 depression 10 suspected UTI 11 hypercalcemia, chronic Plan Agree on the current treatment Continue bronchodilators and steroids Continue IV Rocephin Investigate hypercalcemia by ordering intact PTH, vitamin D and phosphorus Review of previous CAT scan of the chest that was done on this patient. Previous CAT scan findings are consistent with COPD Smoking cessation counseling Continue anticoagulation with Eliquis We'll discontinue IV Solu Medrol and move the patient a prednisone burst taper as of tomorrow.
[2020-10-07 11:07] LABS: Basophils % (A) 0 %; Eosinophils % (A) 0 %; HCT 39.7 % (34.0-46.0); HGB 12.7 gm/dL (11.4-16.0); Hypochromasia Slight; Lymphocytes # (A) 0.9 k/uL (1.0-4.8); Lymphocytes % (A) 6 %; MCH 26.8 pg (25.0-35.0); MCV 83.7 fL (80.0-100.0); Mean Platelet Volume 7.3; Monocytes # (A) 0.6 k/uL (0-1.0); Monocytes % (A) 4 %; Neutrophils % (A) 90 %; Platelet Count 286 k/uL (150-450); RBC 4.75 m/uL (3.80-5.40); RDW 14.4 % (11.5-15.5); WBC 15.5 k/uL (3.8-10.6)
[2020-10-07 11:07] LABS: Glucose,Whole Blood 335 mg/dL (75-99)
[2020-10-07] MEDS ORDERED: INSULIN ASPART (NovoLOG) 100 UNIT/ML VIAL SQ ONE ×3 (11:14→21:39)
[2020-10-07 11:23] LABS: ALT 18 U/L (4-34); AST 19 U/L (14-36); African American GFR (CKD) >90 (>60 ml/min/1.73 sqM); Albumin 4.4 g/dL (3.5-5.0); Alkaline Phosphatase 104 U/L (38-126); Anion Gap 8 mmol/L; Blood Urea Nitrogen 25 mg/dL (7-17); Calcium 11.7 mg/dL (8.4-10.2); Carbon Dioxide 31 mmol/L (22-30); Chloride 99 mmol/L (98-107); Glucose 309 mg/dL (74-99); Non-African American GFR(CKD) >90 (>60 ml/min/1.73 sqM); Potassium 4.7 mmol/L (3.5-5.1); Sodium 138 mmol/L (137-145); Total Bilirubin 0.2 mg/dL (0.2-1.3); Total Protein 6.8 g/dL (6.3-8.2)
--- NOTE | 2020-10-07 11:24 | P.PN ---
Subjective Progress Note Date: 10/07/20 HISTORY OF PRESENT ILLNESS: This is a 64-year-old female with a past medical history significant for COPD, nicotine dependence, hypertension, hyperlipidemia, and paroxysmal atrial fi brillation on anticoagulation with Eliquis. Patient follows in the office with Dr. Simon. We have been asked to see the patient in consultation for chest pain. Patient examined at the bedside. Patient states she has been feeling short of breath for the past 2-3 days. She went to see her primary care physician yesterday, Dr. Pinedo. She states she had her walk around in the office and they checked her oxygen saturations and found it was low. She was directly admitted to the hospital from his office. Patient also reports having some intermittent chest discomfort. Patient states this is chronic for her and she has chest pain usually on a daily basis. She states her fisheries technical officer recommend ed that she have a stress test performed at her last office visit but she has not yet scheduled this due to financial reasons. Patient is currently in atrial fibrillation with RVR. Heart rate is in the 150s. Cardizem drip has been ordered but is not yet infusing. Patient reports feeling mild palpitations this morning. At the time of examination, she denies chest pain or pressure. She reports shortness of breath. Patient states she continues to smoke and is smoking about 1 pack per day. EKG reveals atrial fibrillation with RVR Chest xray some strandy basilar areas of atelectasis. Otherwise no acute process seen. Laboratory data: WBC 9.6. Hemoglobin 12.9. Platelet count 261. D-dimer 0.43. Sodium 137. Potassium 3.9. BUN 15. Creatinine 0.62. Troponin negative 1. BNP 62. Current home cardiac medications include lisinopril 10 mg daily, Crestor 5 mg daily, Eliquis 5 mg twice a day Most recent echocardiogram obtained in August 2019 revealed ejection fraction 50- 55%. mild mitral regurgitation Patient had a Lexiscan stress test in November 2017 which was negative for reversible ischemia 10/07/2020 Patient examined this morning at the bedside. Patient has converted to sinus mechanism. She remains on Eliquis and metoprolol. Echocardiogram completed r evealed ejection fraction 60-65%, mild mitral regurgitation and mild tricuspid regurgitation PHYSICAL EXAM: VITAL SIGNS: Reviewed. GENERAL: Well-developed in no acute distress. HEENT: Head is normocephalic. Pupils are equal, round. Sclerae anicteric. Mucous membranes of the mouth are moist. Neck supple. No JVD or thyromegaly LUNGS: Respirations even and unlabored. Lungs with diminished air exchange bilaterally HEART: Regular rate and rhythm. S1 and S2 heard. ABDOMEN: Soft. Nondistended. Nontender. EXTREMITIES: Normal range of motion. No clubbing or cyanosis. Peripheral pulses intact. No lower extremity edema NEUROLOGIC: Awake and alert. Oriented x 3. ASSESSMENT: Shortness of breath Acute exacerbation of COPD Chest pain Paroxysmal atrial fibrillation with RVR, on anticoagulation with Eliquis Hypertension Hyperlipidemia Nicotine dependence PLAN: Continue current cardiac medications Continue telemetry monitoring Continue anticoagulation with Eliquis Patient will require stress test when she is medically stable. To be performed on an outpatient basis We will sign off. Please reconsult if needed. Nurse practitioner note has been reviewed by physician. Signing provider agrees with the documented findings, assessment, and plan of care. Objective - Vital Signs Vital signs: Vital Signs Temp 97.9 F 10/07/20 07:50 Pulse 76 10/07/20 07:52 Resp 16 10/07/20 07:52 BP 115/67 10/07/20 07:50 Pulse Ox 96 10/07/20 08:37 Intake & Output 10/06/20 10/07/20 10/07/20 18:59 06:59 18:59 Intake Total 974 Output Total 500 2500 650 Balance 474 -2500 -650 Weight 109.5 kg Intake: Intake, IV Titration 50 Amount cefTRIAXone 1 gm In 50 Sodium Chloride 0.9% 50 ml @ 100 mls/hr IVPB Q24H [facility] Rx#:[id number] Oral 924 Output: Urine 500 2500 650 Other: Voiding Method Diaper Diaper Diaper # Voids 1 1 # Bowel Movements 0 - Labs CBC & Chem 7: 10/07/20 10:10 10/06/20 08:54 Labs: Abnormal Lab Results - Last 24 Hours (Table) 10/06/20 10/06/20 10/06/20 Range/Units 11:43 12:03 17:08 WBC (3.8-10.6) k/uL Neutrophils # (1.3-7.7) k/uL Lymphocytes # (1.0-4.8) k/uL POC Glucose (mg/dL) 404 H 398 H (75-99) mg/dL PTH Intact 75.4 H (14.0-72.0) pg/mL 10/06/20 10/07/20 10/07/20 Range/Units 20:43 05:55 10:10 WBC 15.5 H (3.8-10.6) k/uL Neutrophils # 14.0 H (1.3-7.7) k/uL Lymphocytes # 0.9 L (1.0-4.8) k/uL POC Glucose (mg/dL) 410 H 286 H (75-99) mg/dL PTH Intact (14.0-72.0) pg/mL 10/07/20 Range/Units 11:06 WBC (3.8-10.6) k/uL Neutrophils # (1.3-7.7) k/uL Lymphocytes # (1.0-4.8) k/uL POC Glucose (mg/dL) 335 H (75-99) mg/dL PTH Intact (14.0-72.0) pg/mL Microbiology - Last 24 Hours (Table) 10/06/20 20:46 Urine Culture - Preliminary Urine,Clean Catch
[2020-10-07] MEDS: IPRATROPIUM-ALBUTEROL 3 ML NEB INHALATION PRN ×2 (11:57→16:37)
--- NOTE | 2020-10-07 15:30 | P.PN ---
Subjective Progress Note Date: 10/07/20 This is a 64-year-old female patient who is a direct admit from her PCP for increased episode of shortness of breath and intermittent chest pain. Patient reports that this issue has been occurring over extended period of time but has become increasingly more frequent over the past few days. Patient reports that the pain is on her left side that relieves when she turns to her right side. Patient does have past medical history of nicotine dependence in which she currently smokes 1 pack of cigarettes per day, atrial fibrillation, COPD and CVA. Chest x-ray was performed showing some strandy basilar areas of atelectasis otherwise no acute process seen. D-dimer 0.43. Troponin negative. Heart rate was elevated. Patient was started on Cardizem drip. Patient reports that she did receive 2 doses of COVID-19 vaccine. At this time pulmonary and cardiology services have been consulted. Patient has been started on Rocephin for urinary tract infection. Urine culture ordered. Started on Solu-Medrol and updraft breathing treatment. 2-D echo has been ordered. Urine sputum cultures ordered. At this time patient denies any chest pain. Patient is still complaining of intermittent episodes of shortness breath. Patient denies nausea vomiting or diarrhea. Patient denies any urinary burning or frequency. On 10/07/2020 Patient was seen and examined on the medical floor, she is alert and oriented x 3 in no distress, she is still complaining of shortness of breath with any activity otherwise she denies any complaints there is no fever or chills no headache or dizziness no chest pain no palpitation no cough no nausea or vomiting no abdominal pain no diarrhea no blood in the stools no burning with urination no frequency or urgency and no hematuria, there is no weakness or numbness in any of the extremities no change in vision speech or gait. Objective - Vital Signs Vital signs: Vital Signs Temp 97.6 F 10/07/20 11:44 Pulse 74 10/07/20 12:09 Resp 19 10/07/20 11:44 BP 117/74 10/07/20 11:44 Pulse Ox 97 10/07/20 11:44 Intake & Output 10/06/20 10/07/20 10/07/20 18:59 06:59 18:59 Intake Total 974 240 Output Total 500 2500 650 Balance 474 -2500 -410 Weight 109.5 kg Intake: Intake, IV Titration 50 Amount cefTRIAXone 1 gm In 50 Sodium Chloride 0.9% 50 ml @ 100 mls/hr IVPB Q24H [facility] Rx#:[id number] Oral 924 240 Output: Urine 500 2500 650 Other: Voiding Method Diaper Diaper Diaper # Voids 1 1 # Bowel Movements 0 - Exam In general patient is alert and oriented x 3 in no distress HEENT head normocephalic and atraumatic Neck is supple no JVD no goiter no lymphadenopathy no carotid bruit Chest examination reveals a scattered crackles in both lung mcintosh with mild wheezing Cardiac exam reveals regular heart sounds S1 and S2 no gallops no murmurs Abdomen is soft nontender no organomegaly with normal bowel sounds Extremity exam reveals no edema no cyanosis or clubbing Neurological examination reveals no gross focal deficits - Labs CBC & Chem 7: 10/07/20 10:10 10/07/20 10:10 Labs: Abnormal Lab Results - Last 24 Hours (Table) 10/06/20 10/06/20 10/06/20 Range/Units 12:03 17:08 20:43 WBC (3.8-10.6) k/uL Neutrophils # (1.3-7.7) k/uL Lymphocytes # (1.0-4.8) k/uL Carbon Dioxide (22-30) mmol/L BUN (7-17) mg/dL Glucose (74-99) mg/dL POC Glucose (mg/dL) 398 H 410 H (75-99) mg/dL Calcium (8.4-10.2) mg/dL PTH Intact 75.4 H (14.0-72.0) pg/mL 10/07/20 10/07/20 10/07/20 Range/Units 05:55 10:10 10:10 WBC 15.5 H (3.8-10.6) k/uL Neutrophils # 14.0 H (1.3-7.7) k/uL Lymphocytes # 0.9 L (1.0-4.8) k/uL Carbon Dioxide 31 H (22-30) mmol/L BUN 25 H (7-17) mg/dL Glucose 309 H (74-99) mg/dL POC Glucose (mg/dL) 286 H (75-99) mg/dL Calcium 11.7 H (8.4-10.2) mg/dL PTH Intact (14.0-72.0) pg/mL 10/07/20 Range/Units 11:06 WBC (3.8-10.6) k/uL Neutrophils # (1.3-7.7) k/uL Lymphocytes # (1.0-4.8) k/uL Carbon Dioxide (22-30) mmol/L BUN (7-17) mg/dL Glucose (74-99) mg/dL POC Glucose (mg/dL) 335 H (75-99) mg/dL Calcium (8.4-10.2) mg/dL PTH Intact (14.0-72.0) pg/mL Microbiology - Last 24 Hours (Table) 10/06/20 20:46 Urine Culture - Preliminary Urine,Clean Catch Assessment and Plan Assessment: 1. Dyspnea secondary to COPD exacerbation. Patient started on IV Solu-Medrol. Pulmonary services have been consulted 2. Chest pain. Initial troponin negative. D-dimer negative. 2-D echo ordered and cardiology services consulted 3. Urinary tract infection. Patient started on Rocephin urinary culture ordered 4. Atrial fibrillation with rapid ventricular response. Patient started on Cardizem drip. Cardiology services have been consulted 5. History of essential hypertension 6. History of ongoing nicotine dependence. Patient reports she smokes one pack of cigarettes per day. Patient educated on importance of complete smoking sensation greater than 3 minutes. Nicotine patch has been ordered 7. Hypothyroidism 8. Chronic back pain 9. Hyperlipidemia 10. History of paroxysmal atrial fibrillation. Patient is maintained on eliquis 11. Diabetes mellitus type 2 12. History of depression DVT prophylaxis eliquis. GI prophylaxis Protonix Cardiology and pulmonary service is consulted Continue IV Solu-Medrol Continue IV Rocephin Maintained on IV Cardizem 2-D echo ordered
[2020-10-07 16:02] LABS: Glucose,Whole Blood 330 mg/dL (75-99)
[2020-10-07 20:54] LABS: Glucose,Whole Blood 305 mg/dL (75-99)
[2020-10-07] MEDS: AMITRIPTYLINE HCL 50 MG TAB PO SCH (21:45)
[2020-10-07] MEDS: LATANOPROST 0.005% OPHTH DROPS 2.5 ML BTL BOTH EYES SCH (21:46)
[2020-10-08 06:24] LABS: Glucose,Whole Blood 266 mg/dL (75-99)
[2020-10-08] MEDS: PANTOPRAZOLE 40 MG TABLET PO SCH (06:34)
[2020-10-08] MEDS: metFORMIN 500 MG TAB PO SCH ×2 (06:34→17:12)
[2020-10-08] MEDS: glipiZIDE 10 MG TAB PO SCH ×2 (06:34→17:12)
[2020-10-08] MEDS: INSULIN ASPART (NovoLOG) 100 UNIT/ML VIAL SQ SCH ×4 (06:35→21:18)
[2020-10-08] MEDS: LEVOTHYROXINE 75 MCG TAB PO SCH (06:35)
[2020-10-08] MEDS: methylPREDNISolone SOD SUCCI 40 MG/ML 1 ML VIAL IV SCH ×4 (06:35→23:09)
[2020-10-08] MEDS: HYDROmorphone 0.5 MG/0.5 ML SYRINGE IVP PRN ×4 (06:44→23:09)
[2020-10-08 07:39] LABS: Basophils % (A) 0 %; Eosinophils % (A) 0 %; HCT 34.5 % (34.0-46.0); HGB 11.6 gm/dL (11.4-16.0); Lymphocytes # (A) 0.9 k/uL (1.0-4.8); Lymphocytes % (A) 6 %; MCH 27.7 pg (25.0-35.0); MCHC 33.6 g/dL (31.0-37.0); MCV 82.6 fL (80.0-100.0); Mean Platelet Volume 7.4; Monocytes # (A) 0.4 k/uL (0-1.0); Monocytes % (A) 3 %; Neutrophils # (A) 12.8 k/uL (1.3-7.7); Neutrophils % (A) 91 %; Platelet Count 237 k/uL (150-450); RBC 4.18 m/uL (3.80-5.40); RDW 14.3 % (11.5-15.5); WBC 14.1 k/uL (3.8-10.6)
[2020-10-08 08:00] LABS: ALT 19 U/L (4-34); AST 21 U/L (14-36); African American GFR (CKD) >90 (>60 ml/min/1.73 sqM); Albumin 3.9 g/dL (3.5-5.0); Alkaline Phosphatase 95 U/L (38-126); Anion Gap 6 mmol/L; Blood Urea Nitrogen 26 mg/dL (7-17); Calcium 11.4 mg/dL (8.4-10.2); Carbon Dioxide 31 mmol/L (22-30); Chloride 100 mmol/L (98-107); Glucose 268 mg/dL (74-99); Non-African American GFR(CKD) >90 (>60 ml/min/1.73 sqM); Potassium 5.1 mmol/L (3.5-5.1); Sodium 137 mmol/L (137-145); Total Bilirubin 0.2 mg/dL (0.2-1.3); Total Protein 6.3 g/dL (6.3-8.2)
[2020-10-08] MEDS: NICOTINE 14MG/24HR PATCH TRANSDERM SCH (08:22)
[2020-10-08] MEDS: HYDROcodone/APAP 7.5-325MG 1 EACH TAB PO SCH ×3 (08:22→21:19)
[2020-10-08] MEDS: ESCITALOPRAM 20 MG TAB PO SCH (08:23)
[2020-10-08] MEDS: METOPROLOL TARTRATE 25 MG TAB PO SCH ×2 (08:23→21:18)
[2020-10-08] MEDS: lisinopriL 10 MG TAB PO SCH (08:23)
[2020-10-08] MEDS: APIXABAN 5 MG TAB PO SCH ×2 (08:23→21:18)
[2020-10-08] MEDS: INSULIN DETEMIR (LEVEMIR) 100 UNIT/ML SYR SQ SCH (08:23)
[2020-10-08] MEDS: ATORVASTATIN 10 MG TAB PO SCH (08:23)
[2020-10-08] MEDS: MULTIVITAMINS, THERA 1 EACH TAB PO SCH (08:23)
--- NOTE | 2020-10-08 10:13 | P.PN ---
Subjective Progress Note Date: 10/08/20 A 64-year-old female patient, known history of COPD, known history of other medical problems including previous history of hypertension and hyperlipidemia CVA diabetes mellitus and atrial fibrillation. The patient came into the hospital because of worsening shortness of breath. She is having chronic chest pain which is somewhat atypical mainly on the left side of the chest. Her right worse with cough and and movement. However, she denies having any real exacerbating or relieving factors. The pain is chronic. She has been investigated in the past with cardiac stress test and she checked negative for coronary artery disease. She follows up with cardiology. For now, chest x-ray showing some atelectatic changes in lung bases bilaterally. Her d-dimer was at 0.43. Her cardiac rhythm with atrial fibrillation. Troponins were negative. The patient was suspected to have obstructive bronchitis/pneumonia. She was started on antibiotics. She is also started on bronchodilators and steroids. She is on IV Solu-Medrol for now. She is less short of breath. Her white cell count is 14.1. Hemoglobin is 14.4, electrolytes are all within normal limits, troponin times is been negative. Echo of the heart showed a preserved LV function with an ejection fraction of 665%, no valvular abnormalities, no pericardial effusion, no pulmonary hypertension. Noted the patient is also obese. 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 10/07/2020, this 64-year-old here patient is doing better. She is less short of breath last bronchus spastic and wheezy. Chest pain is subsided. She has developed some limited hyperglycemia related to systemic steroids and the patient is currently on 40 mg of IV Solu Medrol every 8 hours. No other complaints. She is resting comfortably in bed. No other significant events over the past 24 hours. On 2020, the patient is feeling better. Less short of breath less bronchospastic and wheezy. She was having some insomnia because of the steroids. No chest pain. No angina. No palpitation. No swelling lower extremities. she is feeling less short of breath and she is clinically improving. She does have obvious features of obstructive sleep apnea that needs to be addressed at a later stage. Objective - Vital Signs Vital signs: Vital Signs Temp 98 F 10/08/20 08:00 Pulse 70 10/08/20 08:00 Resp 16 10/08/20 08:00 BP 131/60 10/08/20 08:00 Pulse Ox 99 10/08/20 08:00 Intake & Output 10/07/20 10/08/20 10/08/20 18:59 06:59 18:59 Intake Total 822 200 440 Output Total 1050 Balance -228 200 440 Weight 110.5 kg Intake: Oral 822 200 440 Output: Urine 1050 Other: Voiding Method Diaper Diaper Diaper # Voids 1 - Exam Obese, comfortable not in acute distress, BMI 37.4 Head exam was generally normal. There was no scleral icterus or corneal arcus. Mucous membranes were moist. Neck was supple and without jugular venous distension, thyromegaly, or carotid bruits. Carotids were easily palpable bilaterally. There was no adenopathy. The patient has a Mallampati class IV and significant crowding of the posterior oropharynx. Neck is short and supple. The patient is edentulous Lungs sounds are diminished and the patient has scattered expiratory wheezes throughout the lung mcintosh bilaterally Cardiac exam revealed the PMI to be normally situated and sized. The rhythm was irregular and no extrasystoles were noted during several minutes of auscultation. The first and second heart sounds irregular consistent with atrial fibrillation. and physiologic splitting of the second heart sound was noted. There were no murmurs, rubs, clicks, or gallops. Abdominal exam revealed normal bowel sounds. The abdomen was soft, non-tender, and without masses, organomegaly, or appreciable enlargement of the abdominal aorta. Examination of the extremities revealed easily palpable radial, femoral and pedal pulses. There was no cyanosis, clubbing or edema. Examination of the skin revealed no evidence of significant rashes, suspicious appearing nevi or other concerning lesions. - Labs CBC & Chem 7: 10/08/20 06:58 10/08/20 06:58 Labs: Abnormal Lab Results - Last 24 Hours (Table) 10/07/20 10/07/20 10/07/20 Range/Units 10:10 10:10 11:06 WBC 15.5 H (3.8-10.6) k/uL Neutrophils # 14.0 H (1.3-7.7) k/uL Lymphocytes # 0.9 L (1.0-4.8) k/uL Carbon Dioxide 31 H (22-30) mmol/L BUN 25 H (7-17) mg/dL Glucose 309 H (74-99) mg/dL POC Glucose (mg/dL) 335 H (75-99) mg/dL Calcium 11.7 H (8.4-10.2) mg/dL 10/07/20 10/07/20 10/08/20 Range/Units 16:00 20:43 06:23 WBC (3.8-10.6) k/uL Neutrophils # (1.3-7.7) k/uL Lymphocytes # (1.0-4.8) k/uL Carbon Dioxide (22-30) mmol/L BUN (7-17) mg/dL Glucose (74-99) mg/dL POC Glucose (mg/dL) 330 H 305 H 266 H (75-99) mg/dL Calcium (8.4-10.2) mg/dL 10/08/20 10/08/20 Range/Units 06:58 06:58 WBC 14.1 H (3.8-10.6) k/uL Neutrophils # 12.8 H (1.3-7.7) k/uL Lymphocytes # 0.9 L (1.0-4.8) k/uL Carbon Dioxide 31 H (22-30) mmol/L BUN 26 H (7-17) mg/dL Glucose 268 H (74-99) mg/dL POC Glucose (mg/dL) (75-99) mg/dL Calcium 11.4 H (8.4-10.2) mg/dL Assessment and Plan Plan: 1 acute COPD exacerbation with secondary shortness of breath, clinically improving 2 chest pain, atypical, as are negative, awaiting cardiology evaluation, currently inactive in stable 3 chronic atrial fibrillation with rapid ventricular response at a time of admission, recovered and the patient on long-term anticoagulation 4 hypertension 5 obesity with a BMI of 37.4 and suspected obstructive sleep apnea 6 hypothyroidism 7 hyperlipidemia 8 diabetes mellitus type 2 9 depression 10 suspected UTI 11 hypercalcemia, chronic Plan Agree on the current treatment Continue bronchodilators and steroids Continue IV Rocephin Clinically improving. She can be switched to oral prednisone with the next 24 hours. We'll be glad to follow-up this patient on outpatient basis regarding her COPD and possible obstructive sleep apnea. In terms of hypercalcemia, intact PTH is slightly elevated, consider primary hyperparathyroidism. We'll leave it up to the primary care physician to manage her hypercalcemia.
--- NOTE | 2020-10-08 10:21 | P.PN ---
Subjective Progress Note Date: 10/08/20 This is a 64-year-old female patient who is a direct admit from her PCP for increased episode of shortness of breath and intermittent chest pain. Patient reports that this issue has been occurring over extended period of time but has become increasingly more frequent over the past few days. Patient reports that the pain is on her left side that relieves when she turns to her right side. Patient does have past medical history of nicotine dependence in which she currently smokes 1 pack of cigarettes per day, atrial fibrillation, COPD and CVA. Chest x-ray was performed showing some strandy basilar areas of atelectasis otherwise no acute process seen. D-dimer 0.43. Troponin negative. Heart rate was elevated. Patient was started on Cardizem drip. Patient reports that she did receive 2 doses of COVID-19 vaccine. At this time pulmonary and cardiology services have been consulted. Patient has been started on Rocephin for urinary tract infection. Urine culture ordered. Started on Solu-Medrol and updraft breathing treatment. 2-D echo has been ordered. Urine sputum cultures ordered. At this time patient denies any chest pain. Patient is still complaining of intermittent episodes of shortness breath. Patient denies nausea vomiting or diarrhea. Patient denies any urinary burning or frequency. On 10/07/2020 Patient was seen and examined on the medical floor, she is alert and oriented x 3 in no distress, she is still complaining of shortness of breath with any activity otherwise she denies any complaints there is no fever or chills no headache or dizziness no chest pain no palpitation no cough no nausea or vomiting no abdominal pain no diarrhea no blood in the stools no burning with urination no frequency or urgency and no hematuria, there is no weakness or numbness in any of the extremities no change in vision speech or gait. On 10/08/2020 patient is alert and oriented 3. Patient still having some significant wheezing. Patient remains on Solu-Medrol per pulmonary services. Cardiology has cleared patient recommend outpatient stress test. At this time patient denies chest pain. Patient denies nausea vomiting or diarrhea. Patient denies any urinary burning or frequency Objective - Vital Signs Vital signs: Vital Signs Temp 98 F 10/08/20 08:00 Pulse 70 10/08/20 08:00 Resp 16 10/08/20 08:00 BP 131/60 10/08/20 08:00 Pulse Ox 99 10/08/20 08:00 Intake & Output 10/07/20 10/08/20 10/08/20 18:59 06:59 18:59 Intake Total 822 200 440 Output Total 1050 Balance -228 200 440 Weight 110.5 kg Intake: Oral 822 200 440 Output: Urine 1050 Other: Voiding Method Diaper Diaper Diaper # Voids 1 - Exam In general patient is alert and oriented x 3 in no distress HEENT head normocephalic and atraumatic Neck is supple no JVD no goiter no lymphadenopathy no carotid bruit Chest examination reveals a scattered crackles in both lung mcintosh with mild wheezing Cardiac exam reveals regular heart sounds S1 and S2 no gallops no murmurs Abdomen is soft nontender no organomegaly with normal bowel sounds Extremity exam reveals no edema no cyanosis or clubbing Neurological examination reveals no gross focal deficits - Labs CBC & Chem 7: 10/08/20 06:58 10/08/20 06:58 Labs: Abnormal Lab Results - Last 24 Hours (Table) 10/07/20 10/07/20 10/07/20 Range/Units 10:10 10:10 11:06 WBC 15.5 H (3.8-10.6) k/uL Neutrophils # 14.0 H (1.3-7.7) k/uL Lymphocytes # 0.9 L (1.0-4.8) k/uL Carbon Dioxide 31 H (22-30) mmol/L BUN 25 H (7-17) mg/dL Glucose 309 H (74-99) mg/dL POC Glucose (mg/dL) 335 H (75-99) mg/dL Calcium 11.7 H (8.4-10.2) mg/dL 10/07/20 10/07/20 10/08/20 Range/Units 16:00 20:43 06:23 WBC (3.8-10.6) k/uL Neutrophils # (1.3-7.7) k/uL Lymphocytes # (1.0-4.8) k/uL Carbon Dioxide (22-30) mmol/L BUN (7-17) mg/dL Glucose (74-99) mg/dL POC Glucose (mg/dL) 330 H 305 H 266 H (75-99) mg/dL Calcium (8.4-10.2) mg/dL 10/08/20 10/08/20 Range/Units 06:58 06:58 WBC 14.1 H (3.8-10.6) k/uL Neutrophils # 12.8 H (1.3-7.7) k/uL Lymphocytes # 0.9 L (1.0-4.8) k/uL Carbon Dioxide 31 H (22-30) mmol/L BUN 26 H (7-17) mg/dL Glucose 268 H (74-99) mg/dL POC Glucose (mg/dL) (75-99) mg/dL Calcium 11.4 H (8.4-10.2) mg/dL Assessment and Plan Assessment: 1. Dyspnea secondary to COPD exacerbation. Patient started on IV Solu-Medrol. Pulmonary services have been consulted 2. Chest pain. Initial troponin negative. D-dimer negative. 2-D echo ordered and cardiology services consulted 3. Urinary tract infection. Patient started on Rocephin urinary culture ordered 4. Atrial fibrillation with rapid ventricular response. Patient started on Cardizem drip. Cardiology services have been consulted. Patient has been cleared by cardiology services 5. History of essential hypertension 6. History of ongoing nicotine dependence. Patient reports she smokes one pack of cigarettes per day. Patient educated on importance of complete smoking sensation greater than 3 minutes. Nicotine patch has been ordered 7. Hypothyroidism 8. Chronic back pain 9. Hyperlipidemia 10. History of paroxysmal atrial fibrillation. Patient is maintained on eliquis 11. Diabetes mellitus type 2 12. History of depression DVT prophylaxis eliquis. GI prophylaxis Protonix Cardiology and pulmonary service is consulted Continue IV Solu-Medrol Continue IV Rocephin Anticipate discharge in the possible next 24-48 hours patient will need home O2 test prior to discharge
[2020-10-08] MEDS: IPRATROPIUM-ALBUTEROL 3 ML NEB INHALATION PRN ×3 (11:55→20:54)
[2020-10-08 11:58] LABS: Glucose,Whole Blood 329 mg/dL (75-99)
[2020-10-08] MEDS ORDERED: INSULIN ASPART (NovoLOG) 100 UNIT/ML VIAL SQ ONE ×3 (12:33→20:16)
[2020-10-08 16:58] LABS: Glucose,Whole Blood 297 mg/dL (75-99)
[2020-10-08 20:29] LABS: Glucose,Whole Blood 318 mg/dL (75-99)
[2020-10-08] MEDS: AMITRIPTYLINE HCL 50 MG TAB PO SCH (21:18)
[2020-10-08] MEDS: LATANOPROST 0.005% OPHTH DROPS 2.5 ML BTL BOTH EYES SCH (21:20)
[2020-10-09] MEDS: HYDROmorphone 0.5 MG/0.5 ML SYRINGE IVP PRN ×2 (03:27→10:05)
[2020-10-09 06:04] LABS: Basophils % (A) 0 %; Eosinophils % (A) 0 %; HCT 35.5 % (34.0-46.0); HGB 11.4 gm/dL (11.4-16.0); Hypochromasia Slight; Lymphocytes # (A) 0.7 k/uL (1.0-4.8); Lymphocytes % (A) 8 %; MCHC 32.1 g/dL (31.0-37.0); MCV 84.2 fL (80.0-100.0); Mean Platelet Volume 7.2; Monocytes # (A) 0.4 k/uL (0-1.0); Monocytes % (A) 4 %; Neutrophils # (A) 8.2 k/uL (1.3-7.7); Neutrophils % (A) 88 %; Platelet Count 200 k/uL (150-450); RBC 4.21 m/uL (3.80-5.40); RDW 14.3 % (11.5-15.5); WBC 9.3 k/uL (3.8-10.6)
[2020-10-09 06:19] LABS: ALT 20 U/L (4-34); AST 21 U/L (14-36); African American GFR (CKD) >90 (>60 ml/min/1.73 sqM); Albumin 3.9 g/dL (3.5-5.0); Alkaline Phosphatase 92 U/L (38-126); Anion Gap 4 mmol/L; Blood Urea Nitrogen 28 mg/dL (7-17); Calcium 11.3 mg/dL (8.4-10.2); Carbon Dioxide 34 mmol/L (22-30); Chloride 98 mmol/L (98-107); Glucose 336 mg/dL (74-99); Non-African American GFR(CKD) >90 (>60 ml/min/1.73 sqM); Potassium 5.1 mmol/L (3.5-5.1); Sodium 136 mmol/L (137-145); Total Bilirubin 0.1 mg/dL (0.2-1.3); Total Protein 6.2 g/dL (6.3-8.2)
[2020-10-09 06:34] LABS: Glucose,Whole Blood 363 mg/dL (75-99)
[2020-10-09] MEDS: LEVOTHYROXINE 75 MCG TAB PO SCH (06:41)
[2020-10-09] MEDS: glipiZIDE 10 MG TAB PO SCH (06:41)
[2020-10-09] MEDS: PANTOPRAZOLE 40 MG TABLET PO SCH (06:41)
[2020-10-09] MEDS: metFORMIN 500 MG TAB PO SCH (06:41)
[2020-10-09] MEDS: INSULIN ASPART (NovoLOG) 100 UNIT/ML VIAL SQ SCH ×2 (06:42→12:54)
[2020-10-09] MEDS: methylPREDNISolone SOD SUCCI 40 MG/ML 1 ML VIAL IV SCH (06:42)
[2020-10-09] MEDS ORDERED: INSULIN ASPART (NovoLOG) 100 UNIT/ML VIAL SQ ONE ×2 (07:00→12:25)
[2020-10-09] MEDS: IPRATROPIUM-ALBUTEROL 3 ML NEB INHALATION PRN ×2 (08:30→11:38)
[2020-10-09 09:28] VITALS: TEMP 98
[2020-10-09] MEDS: HYDROcodone/APAP 7.5-325MG 1 EACH TAB PO SCH (09:29)
[2020-10-09] MEDS: INSULIN DETEMIR (LEVEMIR) 100 UNIT/ML SYR SQ SCH (09:29)
[2020-10-09] MEDS: MULTIVITAMINS, THERA 1 EACH TAB PO SCH (09:29)
[2020-10-09] MEDS: ATORVASTATIN 10 MG TAB PO SCH (09:30)
[2020-10-09] MEDS: lisinopriL 10 MG TAB PO SCH (09:30)
[2020-10-09] MEDS: ESCITALOPRAM 20 MG TAB PO SCH (09:30)
[2020-10-09] MEDS: METOPROLOL TARTRATE 25 MG TAB PO SCH (09:30)
[2020-10-09] MEDS: APIXABAN 5 MG TAB PO SCH (09:30)
[2020-10-09] MEDS: NICOTINE 14MG/24HR PATCH TRANSDERM SCH (09:31)
[2020-10-09] MEDS ORDERED: predniSONE 20 MG TAB PO SCH (10:45)
--- NOTE | 2020-10-09 11:12 | P.DS ---
Providers Date of admission: 10/05/20 15:02 Expected date of discharge: 10/09/20 Attending physician: Vicky Pinedo Consults: 10/05/20 16:03 Consult Physician Routine Consulting Provider: Omari Pulido Consult Reason/Comments: COPD Do you want consulting provider notified?: Yes Primary care physician: Vicky Pinedo [facility] Course: Diagnoses on discharge: 1. Dyspnea secondary to COPD exacerbation. Patient started on IV Solu-Medrol. Pulmonary services have been consulted 2. Chest pain. Initial troponin negative. D-dimer negative. 2-D echo ordered and cardiology services consulted 3. Urinary tract infection. Patient started on Rocephin urinary culture ordered 4. Atrial fibrillation with rapid ventricular response. Patient started on Cardizem drip. Cardiology services have been consulted. Patient has been cleared by cardiology services 5. History of essential hypertension 6. History of ongoing nicotine dependence. Patient reports she smokes one pack of cigarettes per day. Patient educated on importance of complete smoking sensation greater than 3 minutes. Nicotine patch has been ordered 7. Hypothyroidism 8. Chronic back pain 9. Hyperlipidemia 10. History of paroxysmal atrial fibrillation. Patient is maintained on eliquis 11. Diabetes mellitus type 2 12. History of depression 13. Hypercalcemia, with elevated intact PTH at 75.4, which indicates primary hyperparathyroidism, will follow as outpatient for neck ultrasound and surgical referral. Hospital course: This is a 64-year-old female patient who is a direct admit from her PCP for increased episode of shortness of breath and intermittent chest pain. Patient reports that this issue has been occurring over extended period of time but has become increasingly more frequent over the past few days. Patient reports that the pain is on her left side that relieves when she turns to her right side. Patient does have past medical history of nicotine dependence in which she currently smokes 1 pack of cigarettes per day, atrial fibrillation, COPD and CVA. Chest x-ray was performed showing some strandy basilar areas of atelectasis otherwise no acute process seen. D-dimer 0.43. Troponin negative. Heart rate was elevated. Patient was started on Cardizem drip. Patient reports that she did receive 2 doses of COVID-19 vaccine. At this time pulmonary and cardiology services have been consulted. Patient has been started on Rocephin for urinary tract infection. Urine culture ordered. Started on Solu-Medrol and updraft breathing treatment. 2-D echo has been ordered. Urine sputum cultures ordered. At this time patient denies any chest pain. Patient is still complaining of intermittent episodes of shortness breath. Patient denies nausea vomiting or diarrhea. Patient denies any urinary burning or frequency. On 10/07/2020 Patient was seen and examined on the medical floor, she is alert and oriented x 3 in no distress, she is still complaining of shortness of breath with any activity otherwise she denies any complaints there is no fever or chills no headache or dizziness no chest pain no palpitation no cough no nausea or vomiting no abdominal pain no diarrhea no blood in the stools no burning with urination no frequency or urgency and no hematuria, there is no weakness or numbness in any of the extremities no change in vision speech or gait. On 10/08/2020 patient is alert and oriented 3. Patient still having some significant wheezing. Patient remains on Solu-Medrol per pulmonary services. Cardiology has cleared patient recommend outpatient stress test. At this time patient denies chest pain. Patient denies nausea vomiting or diarrhea. Patient denies any urinary burning or frequency Plan - Discharge Summary Discharge Rx Participant: No New Discharge Prescriptions: No Action metFORMIN HCL 1,000 mg PO BID glipiZIDE [Glucotrol] 10 mg PO BID lisinopriL [Zestril] 10 mg PO DAILY #30 tab HYDROcodone/APAP 7.5-325MG [Reno 7.5-325] 1 tab PO TID Amitriptyline HCl [Elavil] 100 mg PO HS ALPRAZolam [Xanax] 0.25 mg PO BID PRN PRN Reason: Anxiety Escitalopram [Lexapro] 20 mg PO DAILY Nitroglycerin Sl Tabs [Nitrostat] 0.4 mg SUBLINGUAL Q5M PRN PRN Reason: Chest Pain Insulin Glargine [Lantus] 90 unit SQ DAILY@0900 Levothyroxine Sodium [Synthroid] 150 mcg PO DAILY Apixaban [Eliquis] 5 mg PO BID tab predniSONE 10 mg PO DAILY PRN PRN Reason: Shortness Of Breath Rosuvastatin Calcium [Crestor] 5 mg PO DAILY Multivitamins, Thera [Multivitamin (formulary)] 1 tab PO DAILY Latanoprost Ophth [Xalatan 0.005%] 1 drops BOTH EYES HS Ergocalciferol [Vitamin D2 (1250 Mcg = 88062 Iu)] 1,250 mcg PO TH Discharge Medication List glipiZIDE [Glucotrol] 10 mg PO BID 09/14/15 [History] metFORMIN HCL 1,000 mg PO BID 09/14/15 [History] lisinopriL [Zestril] 10 mg PO DAILY #30 tab 11/28/15 [Rx] ALPRAZolam [Xanax] 0.25 mg PO BID PRN 07/28/17 [History] Amitriptyline HCl [Elavil] 100 mg PO HS 07/28/17 [History] HYDROcodone/APAP 7.5-325MG [Reno 7.5-325] 1 tab PO TID 07/28/17 [History] Escitalopram [Lexapro] 20 mg PO DAILY 10/23/17 [History] Insulin Glargine [Lantus] 90 unit SQ DAILY@0900 08/31/19 [History] Levothyroxine Sodium [Synthroid] 150 mcg PO DAILY 08/31/19 [History] Nitroglycerin Sl Tabs [Nitrostat] 0.4 mg SUBLINGUAL Q5M PRN 08/31/19 [History] Apixaban [Eliquis] 5 mg PO BID tab 09/02/19 [Rx] Ergocalciferol [Vitamin D2 (1250 Mcg = 55658 Iu)] 1,250 mcg PO TH 09/28/20 [History] Latanoprost Ophth [Xalatan 0.005%] 1 drops BOTH EYES HS 09/28/20 [History] Multivitamins, Thera [Multivitamin (formulary)] 1 tab PO DAILY 09/28/20 [History] Rosuvastatin Calcium [Crestor] 5 mg PO DAILY 09/28/20 [History] predniSONE 10 mg PO DAILY PRN 09/28/20 [History] Activity/Diet/Wound Care/Special Instructions: Patient will require home oxygen at discharge secondary to COPD
[2020-10-09 11:40] VITALS: RESP 18
[2020-10-09 12:12] LABS: Glucose,Whole Blood 282 mg/dL (75-99)
[2020-10-09 13:48] VITALS: BP 148/90; PULSE 62
--- NOTE | 2020-10-09 14:15 | P.PN ---
Subjective Progress Note Date: 10/09/20 Principal diagnosis: Acute exacerbation of COPD A 64-year-old female patient, known history of COPD, known history of other medical problems including previous history of hypertension and hyperlipidemia CVA diabetes mellitus and atrial fibrillation. The patient came into the [facility] because of worsening shortness of breath. She is having chronic chest pain which is somewhat atypical mainly on the left side of the chest. Her right worse with cough and and movement. However, she denies having any real exacerbating or relieving factors. The pain is chronic. She has been investigated in the past with cardiac stress test and she checked negative for coronary artery disease. She follows up with cardiology. For now, chest x-ray showing some atelectatic changes in lung bases bilaterally. Her d-dimer was at 0.43. Her cardiac rhythm with atrial fibrillation. Troponins were negative. The patient was suspected to have obstructive bronchitis/pneumonia. She was sta rted on antibiotics. She is also started on bronchodilators and steroids. She is on IV Solu-Medrol for now. She is less short of breath. Her white cell count is 14.1. Hemoglobin is 14.4, electrolytes are all within normal limits, troponin times is been negative. Echo of the heart showed a preserved LV function with an ejection fraction of 665%, no valvular abnormalities, no pericardial effusion, no pulmonary hypertension. Noted the patient is also obese. She has been seeing an outside hydraulics teacher and she's been suspected obstructive sleep apnea although the testing has not been performed. 10/07/2020, this 64-year-old here patient is doing better. She is less short of breath last bronchus spastic and wheezy. Chest pain is subsided. She has developed some limited hyperglycemia related to systemic steroids and the patient is currently on 40 mg of IV Solu Medrol every 8 hours. No other complaints. She is resting comfortably in bed. No other significant events over the past 24 hours. On 2020, the patient is feeling better. Less short of breath less bronchospastic and wheezy. She was having some insomnia because of the steroids. No chest pain. No angina. No palpitation. No swelling lower extremities. she is feeling less short of breath and she is clinically improving. She does have obvious features of obstructive sleep apnea that needs to be addressed at a later stage. On 10/09/2020 patient seen in follow-up on selective care unit, she states she is breathing much easier, she continues to improve, room air pulse ox is 98%, she did desat with ambulation to 87% and as such patient does qualify for home oxygen, artifact and vital stable overnight, she's had no fever or chills, she is breathing quite comfortably, no increased cough or congestion or phlegm production. No hemoptysis, no chest discomfort. Patient remains on Rocephin, she has been transitioned to oral prednisone, she is on nebulized bronchodilators. Anticipated to be discharged home today Objective - Vital Signs Vital signs: Vital Signs Temp 98.0 F 10/09/20 08:00 Pulse 62 10/09/20 13:50 Resp 18 10/09/20 13:50 BP 148/90 10/09/20 12:00 Pulse Ox 98 10/09/20 12:00 Intake & Output 10/08/20 10/09/20 10/09/20 18:59 06:59 18:59 Intake Total 680 10 472 Output Total 400 Balance 680 10 72 Weight 110.6 kg Intake: IV 10 Invasive Line 1 10 Oral 680 472 Output: Urine 400 Other: Voiding Method Diaper Toilet Toilet Diaper Diaper # Voids 1 1 1 - Exam GENERAL EXAM: Alert, very pleasant, 64-year-old white female, on room air, with pulse ox of 98% comfortable in no apparent distress. HEAD: Normocephalic/atraumatic. EYES: Normal reaction of pupils, equal size. Conjunctiva pink, sclera white. NOSE: Clear with pink turbinates. THROAT: No erythema or exudates. NECK: No masses, no JVD, no thyroid enlargement, no adenopathy. CHEST: No chest wall deformity. Symmetrical expansion. LUNGS: Equal air entry with no crackles, wheeze, rhonchi or dullness. CVS: Regular rate and rhythm, normal S1 and S2, no gallops, no murmurs, no rubs ABDOMEN: Soft, nontender. No hepatosplenomegaly, normal bowel sounds, no guarding or rigidity. EXTREMITIES: No clubbing, no edema, no cyanosis, 2+ pulses and upper and lower extremities. MUSCULOSKELETAL: Muscle strength and tone normal. SPINE: No scoliosis or deformity SKIN: No rashes CENTRAL NERVOUS SYSTEM: Alert and oriented -3. No focal deficits, tone is normal in all 4 extremities. PSYCHIATRIC: Alert and oriented -3. Appropriate affect. Intact judgment and insight. - Labs CBC & Chem 7: 10/09/20 05:26 10/09/20 05:26 Labs: Abnormal Lab Results - Last 24 Hours (Table) 10/08/20 10/08/20 10/09/20 Range/Units 16:53 20:02 05:26 Neutrophils # 8.2 H (1.3-7.7) k/uL Lymphocytes # 0.7 L (1.0-4.8) k/uL Sodium (137-145) mmol/L Carbon Dioxide (22-30) mmol/L BUN (7-17) mg/dL Glucose (74-99) mg/dL POC Glucose (mg/dL) 297 H 318 H (75-99) mg/dL Calcium (8.4-10.2) mg/dL Total Bilirubin (0.2-1.3) mg/dL Total Protein (6.3-8.2) g/dL 10/09/20 10/09/20 10/09/20 Range/Units 05:26 06:07 12:10 Neutrophils # (1.3-7.7) k/uL Lymphocytes # (1.0-4.8) k/uL Sodium 136 L (137-145) mmol/L Carbon Dioxide 34 H (22-30) mmol/L BUN 28 H (7-17) mg/dL Glucose 336 H (74-99) mg/dL POC Glucose (mg/dL) 363 H 282 H (75-99) mg/dL Calcium 11.3 H (8.4-10.2) mg/dL Total Bilirubin 0.1 L (0.2-1.3) mg/dL Total Protein 6.2 L (6.3-8.2) g/dL Microbiology - Last 24 Hours (Table) 10/06/20 20:46 Urine Culture - Final Urine,Clean Catch Assessment and Plan Plan: 1 acute COPD exacerbation with secondary shortness of breath, clinically improving 2 chest pain, atypical, as are negative, awaiting cardiology evaluation, currently inactive in stable 3 chronic atrial fibrillation with rapid ventricular response at a time of admission, recovered and the patient on long-term anticoagulation 4 hypertension 5 obesity with a BMI of 37.4 and suspected obstructive sleep apnea 6 hypothyroidism 7 hyperlipidemia 8 diabetes mellitus type 2 9 depression 10 suspected UTI 11 hypercalcemia, chronic Plan: Patient continues to improve She has had no acute events overnight Vital signs have been stable Patient did desat with ambulation and will likely require home oxygen She will need outpatient follow-up with Dr. Pulido in the office in 7-10 days Stable for discharge from pulmonary perspective on nebulized bronchodilators, and she can complete outpatient course of antibiotics I performed a history & physical examination of the patient and discussed their management with my nurse practitioner, Sadia Rao. I reviewed the nurse practitioner's note and agree with the documented findings and plan of care. Lung sounds are positive for diminished breath sounds. The findings and the impression was discussed with the patient. I attest to the documentation by the nurse practitioner. Time with Patient: Less than 30
[2020-10-12] MEDS ORDERED: ERGOCALCIFEROL 1,250 MCG (50,000 IU) CAPSULE PO SCH (09:00)
== END 2020-10-09 15:50 | disposition home or self-care (01) | DRG 191 ==
LOC: 3SCARD 15:02
PROVIDERS: ADMIT Internal Medicine; ATTEND Internal Medicine
DX: J44.1 Chronic obstructive pulmonary disease with (acute) exacerbation (principal); N39.0 Urinary tract infection, site not specified; J98.11 Atelectasis; E11.65 Type 2 diabetes mellitus with hyperglycemia; E21.0 Primary hyperparathyroidism; E66.9 Obesity, unspecified; I48.0 Paroxysmal atrial fibrillation; E78.5 Hyperlipidemia, unspecified; R07.89 Other chest pain; I08.1 Rheumatic disorders of both mitral and tricuspid valves; G89.29 Other chronic pain; T38.0X5A Adverse effect of glucocorticoids and synthetic analogues, initial encounter; E89.0 Postprocedural hypothyroidism; Z68.37 Body mass index [BMI] 37.0-37.9, adult; F17.210 Nicotine dependence, cigarettes, uncomplicated; G47.00 Insomnia, unspecified; F32.9 Major depressive disorder, single episode, unspecified; F41.9 Anxiety disorder, unspecified; G47.33 Obstructive sleep apnea (adult) (pediatric); I10 Essential (primary) hypertension; I25.2 Old myocardial infarction; Z79.01 Long term (current) use of anticoagulants; Z79.4 Long term (current) use of insulin; Z79.890 Hormone replacement therapy; Z79.899 Other long term (current) drug therapy; Z86.73 Personal history of transient ischemic attack (TIA), and cerebral infarction without residual deficits; Z87.11 Personal history of peptic ulcer disease; Z90.710 Acquired absence of both cervix and uterus; Z71.6 Tobacco abuse counseling; X58.XXXA Exposure to other specified factors, initial encounter; Z90.49 Acquired absence of other specified parts of digestive tract; Z86.010 Personal history of colon polyps
CPT/HCPCS: 71045; 80053; 81001; 82652; 83880; 83970; 84484; 85025; 85379; 87086; 93306; 94640; 94760

== ENCOUNTER 2021-06-20 12:04 | Observation (INO) | payer MEDICARE ==
[2021-06-20] MEDS ORDERED: NITROGLYCERIN OINT 1 INCH/GM PACKET TOPICAL STA (12:22)
[2021-06-20] MEDS ORDERED: ASPIRIN 81 MG PO STA (12:22)
--- NOTE | 2021-06-20 12:24 | ED ---
General Adult HPI - General Stated complaint: Abd Pain Time Seen by Provider: 06/20/21 12:05 Source: patient, RN notes reviewed, old records reviewed - History of Present Illness Initial comments: This is a 65-year-old female with past medical history significant for high blood pressure diabetes high cholesterol. Patient states she continues to smoke. Patient told me the reason she came to the emergency department having intermittent chest pain for 4 days. Patient states that sharp and sometimes pressure sensation. Patient states it occasionally radiates on her left arm and she has been sweating when it occurs. Patient states she's also mildly short of breath with it. Patient states he gets worse when she is up and walking around. Patient states she is also having back pain but it is her chronic back pain. Patient states occasionally she's had some abdominal pain in the epigastric area over the last 4 days as well per patient denies any vomiting or diarrhea but states she is mildly nauseated. Patient denies any fever chills with states she has a little bit of a cough. Patient denies any swelling to her legs or calf tenderness. - Related Data Home Medications Medication Instructions Recorded Confirmed glipiZIDE [Glucotrol] 10 mg PO BID 09/14/15 10/05/20 metFORMIN HCL [Glucophage] 1,000 mg PO BID 09/14/15 10/05/20 ALPRAZolam [Xanax] 0.25 mg PO BID PRN 07/28/17 10/05/20 Amitriptyline HCl [Elavil] 100 mg PO HS 07/28/17 10/05/20 HYDROcodone/APAP 7.5-325MG [[place] 1 tab PO TID 07/28/17 10/05/20 7.5-325] Escitalopram [Lexapro] 20 mg PO DAILY 10/23/17 10/05/20 Levothyroxine Sodium [Synthroid] 150 mcg PO DAILY 08/31/19 10/05/20 Nitroglycerin Sl Tabs [Nitrostat] 0.4 mg SUBLINGUAL Q5M PRN 08/31/19 10/05/20 Ergocalciferol [Vitamin D2 (1250 1,250 mcg PO TH 09/28/20 10/05/20 Mcg = 15330 Iu)] Latanoprost Ophth [Xalatan 0.005%] 1 drops BOTH EYES HS 09/28/20 10/05/20 Multivitamins, Thera [Multivitamin 1 tab PO DAILY 09/28/20 10/05/20 (formulary)] Rosuvastatin Calcium [Crestor] 5 mg PO DAILY 09/28/20 10/05/20 Previous Rx's Medication Instructions Recorded lisinopriL [Zestril] 10 mg PO DAILY #30 tab 11/28/15 Apixaban [Eliquis] 5 mg PO BID tab 09/02/19 Cefdinir 300 mg PO Q12HR 10 Days #20 cap 10/09/20 Insulin Detemir (Levemir) [Levemir] 100 unit SQ DAILY@0900 syr 10/09/20 Ipratropium-Albuterol Nebulize 3 ml INHALATION RT-QID PRN ml 10/09/20 [Duoneb 0.5 mg-3 mg/3 ml Soln] Metoprolol Tartrate [Lopressor] 25 mg PO BID tab 10/09/20 Nicotine 14Mg/24Hr Patch [Habitrol] 1 patch TRANSDERM DAILY patch 10/09/20 predniSONE 10 mg PO DAILY PRN #0 10/09/20 Allergies Allergy/AdvReac Type Severity Reaction Status Date / Time No Known Allergies Allergy Verified 06/20/21 13:20 Review of Systems ROS Statement: Those systems with pertinent positive or pertinent negative responses have been documented in the HPI. ROS Other: All systems not noted in ROS Statement are negative. Past Medical History Past Medical History: Atrial Fibrillation, Chest Pain / Angina, COPD, CVA/TIA, Diabetes Mellitus, Eye Disorder, GERD/Reflux, Hyperlipidemia, Hypertension, Myocardial Infarction ([place]), Osteoarthritis (OA), Thyroid Disorder Additional Past Medical History / Comment(s): vertigo, CVA-x2- 2010, glaucoma, varicose veins, peptic ulcer, HX POLYP, stress incont of urine Last Myocardial Infarction Date:: 2008 History of Any Multi-Drug Resistant Organisms: None Reported Past Surgical History: Bladder Surgery, Cholecystectomy, Hernia Repair, Hys terectomy, Tonsillectomy Additional Past Surgical History / Comment(s): thyroidectomy, left foot ORIF- hardware later removed, ragini oopherectomy, bladder suspension, laser eye s urgeryx2, Past Anesthesia/Blood Transfusion Reactions: No Reported Reaction Past Psychological History: Anxiety, Depression Smoking Status: Current every day smoker Past Alcohol Use History: None Reported Past Drug Use History: Marijuana - Past Family History Mother Family Medical History: Hypertension Additional Family Medical History / Comment(s): brain aneurysm Father Family Medical History: Cancer Additional Family Medical History / Comment(s): prostate General Exam - General Exam Comments Initial Comments: GENERAL: Patient is well-developed and well-nourished. Patient is nontoxic and well- hydrated and is in mild distress. ENT: Neck is soft and supple. No significant lymphadenopathy is noted. Oropharynx is clear. Moist mucous membranes. Neck has full range of motion without eliciting any pain. EYES: The sclera were anicteric and conjunctiva were pink and moist. Extraocular movements were intact and pupils were equal round and reactive to light. Eyelids were unremarkable. PULMONARY: Unlabored respirations. Good breath sounds bilaterally. No audible rales rhonchi or wheezing was noted. CARDIOVASCULAR: There is a regular rate and rhythm without any murmurs gallops or rubs. ABDOMEN: Soft and nontender with normal bowel sounds. SKIN: Skin is clear with no lesions or rashes and otherwise unremarkable. NEUROLOGIC: Patient is alert and oriented x3. Cranial nerves II through XII are grossly intact. Motor and sensory are also intact. Normal speech, volume and content. Symmetrical smile. MUSCULOSKELETAL: Normal extremities with adequate strength and full range of motion. No lower extremity swelling or edema. No calf tenderness. LYMPHATICS: No significant lymphadenopathy is noted PSYCHIATRIC: Normal psychiatric evaluation. Course Vital Signs 06/20/21 12:29 Temperature 98.6 F Pulse Rate 84 Respiratory 18 Rate Blood Pressure 117/79 O2 Sat by Pulse 94 L Oximetry Medical Decision Making - Medical Decision Making EKG shows sinus rhythm at 85 bpm DE interval 290 QRS is 94 QT interval 363 QTC is 45. Patient's EKG shows no ST segment elevation or depression. Chest x-ray shows no acute abnormality. Patient continues to have intermittent chest pain throughout her ED course. I spoke with Dr. Pinedo he wanted the patient admitted admitted the patient one breathing or is consult cardiology I also will repeat lipase in the morning because of his mildly elevated emergency department. Patient had no epigastric abdominal pain on palpation - Lab Data Result diagrams: 06/20/21 12:30 06/20/21 12:30 Lab Results 06/20/21 06/20/21 06/20/21 Range/Units 12:30 12:30 12:30 WBC 10.3 (3.8-10.6) k/uL RBC 4.85 (3.80-5.40) m/uL Hgb 12.6 (11.4-16.0) gm/dL Hct 40.2 (34.0-46.0) % MCV 83.0 (80.0-100.0) fL MCH 26.0 (25.0-35.0) pg MCHC 31.3 (31.0-37.0) g/dL RDW 14.5 (11.5-15.5) % Plt Count 269 (150-450) k/uL MPV 7.4 Neutrophils % 69 % Lymphocytes % 22 % Monocytes % 5 % Eosinophils % 2 % Basophils % 1 % Neutrophils # 7.1 (1.3-7.7) k/uL Lymphocytes # 2.2 (1.0-4.8) k/uL Monocytes # 0.5 (0-1.0) k/uL Eosinophils # 0.2 (0-0.7) k/uL Basophils # 0.1 (0-0.2) k/uL Hypochromasia Slight PT 11.0 (9.0-12.0) sec INR 1.0 (<1.2) APTT 24.8 (22.0-30.0) sec Sodium 137 (137-145) mmol/L Potassium 4.5 (3.5-5.1) mmol/L Chloride 104 (98-107) mmol/L Carbon Dioxide 26 (22-30) mmol/L Anion Gap 7 mmol/L BUN 15 (7-17) mg/dL Creatinine 0.84 (0.52-1.04) mg/dL Est GFR (CKD-EPI)AfAm 84 (>60 ml/min/1.73 sqM) Est GFR (CKD-EPI)NonAf 73 (>60 ml/min/1.73 sqM) Glucose 67 L (74-99) mg/dL Calcium 9.7 (8.4-10.2) mg/dL Magnesium 1.6 (1.6-2.3) mg/dL Total Bilirubin 0.4 (0.2-1.3) mg/dL AST 25 (14-36) U/L ALT 19 (4-34) U/L Alkaline Phosphatase 129 H (38-126) U/L Troponin I (0.000-0.034) ng/mL Total Protein 6.8 (6.3-8.2) g/dL Albumin 3.9 (3.5-5.0) g/dL Lipase 706 H (23-300) U/L 06/20/21 Range/Units 12:30 WBC (3.8-10.6) k/uL RBC (3.80-5.40) m/uL Hgb (11.4-16.0) gm/dL Hct (34.0-46.0) % MCV (80.0-100.0) fL MCH (25.0-35.0) pg MCHC (31.0-37.0) g/dL RDW (11.5-15.5) % Plt Count (150-450) k/uL MPV Neutrophils % % Lymphocytes % % Monocytes % % Eosinophils % % Basophils % % Neutrophils # (1.3-7.7) k/uL Lymphocytes # (1.0-4.8) k/uL Monocytes # (0-1.0) k/uL Eosinophils # (0-0.7) k/uL Basophils # (0-0.2) k/uL Hypochromasia PT (9.0-12.0) sec INR (<1.2) APTT (22.0-30.0) sec Sodium (137-145) mmol/L Potassium (3.5-5.1) mmol/L Chloride (98-107) mmol/L Carbon Dioxide (22-30) mmol/L Anion Gap mmol/L BUN (7-17) mg/dL Creatinine (0.52-1.04) mg/dL Est GFR (CKD-EPI)AfAm (>60 ml/min/1.73 sqM) Est GFR (CKD-EPI)NonAf (>60 ml/min/1.73 sqM) Glucose (74-99) mg/dL Calcium (8.4-10.2) mg/dL Magnesium (1.6-2.3) mg/dL Total Bilirubin (0.2-1.3) mg/dL AST (14-36) U/L ALT (4-34) U/L Alkaline Phosphatase (38-126) U/L Troponin I <0.012 (0.000-0.034) ng/mL Total Protein (6.3-8.2) g/dL Albumin (3.5-5.0) g/dL Lipase (23-300) U/L Disposition Clinical Impression: Chest pain Disposition: ADMITTED IP TO THIS HOSP Referrals: Vicky Pinedo MD [Primary Care Provider] - 1-2 days Time of Disposition: 13:31
[2021-06-20 12:49] LABS: Basophils # (A) 0.1 k/uL (0-0.2); Basophils % (A) 1 %; Eosinophils # (A) 0.2 k/uL (0-0.7); Eosinophils % (A) 2 %; HCT 40.2 % (34.0-46.0); HGB 12.6 gm/dL (11.4-16.0); Hypochromasia Slight; Lymphocytes # (A) 2.2 k/uL (1.0-4.8); Lymphocytes % (A) 22 %; MCHC 31.3 g/dL (31.0-37.0); Mean Platelet Volume 7.4; Monocytes # (A) 0.5 k/uL (0-1.0); Monocytes % (A) 5 %; Neutrophils # (A) 7.1 k/uL (1.3-7.7); Neutrophils % (A) 69 %; Platelet Count 269 k/uL (150-450); RBC 4.85 m/uL (3.80-5.40); RDW 14.5 % (11.5-15.5); WBC 10.3 k/uL (3.8-10.6)
[2021-06-20 12:58] LABS: Partial Thromboplastin Time 24.8 sec (22.0-30.0)
[2021-06-20 13:00] LABS: Albumin 3.9 g/dL (3.5-5.0); Calcium 9.7 mg/dL (8.4-10.2); Magnesium 1.6 mg/dL (1.6-2.3); Potassium 4.5 mmol/L (3.5-5.1); Total Bilirubin 0.4 mg/dL (0.2-1.3); Total Protein 6.8 g/dL (6.3-8.2)
[2021-06-20] MEDS ORDERED: NITROGLYCERIN SL TABS 0.4 MG TAB SUBLINGUAL PRN ×2 (13:33→15:58)
--- NOTE | 2021-06-20 13:47 | XR ---
EXAMINATION TYPE: XR chest 2V DATE OF EXAM: 06/20/2021 COMPARISON: NONE TECHNIQUE: PA and lateral views submitted. HISTORY: Chest pain FINDINGS: The lungs are clear and there is no pneumothorax, pleural effusion, or focal pneumonia. Heart size normal. No overt failure. Arthropathy of the shoulders. Hypertrophic and degenerative change of the s pine. Prominent anterior margin of the left first rib stable. IMPRESSION: 1. No acute process.
--- NOTE | 2021-06-20 15:35 | US ---
EXAMINATION TYPE: US abdomen complete DATE OF EXAM: 06/20/2021 COMPARISON: NONE CLINICAL HISTORY: elevated lipase. Abnormal Lipase , nausea, HTN, DM EXAM MEASUREMENTS: Liver Length: 19.3 cm. Gallbladder Wall: Surgically absent cm CBD: 0.8 cm Spleen: 9.1 x 4.3 cm Right Kidney: 11.1 x 6.1 x 5.3 cm Left Kidney: 11.4 x 5.5 x 5.5 cm Pancreas: Echogenic, duct measuring 0.6 Liver: Increased attenuation, decreased visualization of vessels suggestive of fatty infiltrate Gallbladder: Surgically absent Evidence for sonographic Chacon's sign: No CBD: Prominent Spleen: wnl Right Kidney: No hydronephrosis or masses seen Left Kidney: No hydronephrosis or masses seen Upper IVC: wnl Abd Aorta: wnl Limited exam due to patient body habitus, Hepatomegaly, prominent pancreas duct and prominent CBD. IMPRESSION: 1. Hepatomegaly with fatty infiltration.
[2021-06-20] MEDS ORDERED: ALPRAZolam 0.25 MG TAB PO PRN (15:58)
[2021-06-20] MEDS: HYDROcodone/APAP 7.5-325MG 1 EACH TAB PO SCH ×2 (18:19→22:06)
[2021-06-20] MEDS: metFORMIN 500 MG TAB PO SCH (18:19)
[2021-06-20 18:24] LABS: Glucose,Whole Blood 112 mg/dL (75-99)
[2021-06-20] MEDS: METOPROLOL TARTRATE 25 MG TAB PO SCH (20:31)
[2021-06-20] MEDS: APIXABAN 5 MG TAB PO SCH (20:31)
[2021-06-20] MEDS: LATANOPROST 0.005% OPHTH DROPS 2.5 ML BTL BOTH EYES SCH (20:31)
[2021-06-20 20:35] LABS: Glucose,Whole Blood 141 mg/dL (75-99)
[2021-06-20] MEDS: AMITRIPTYLINE HCL 50 MG TAB PO SCH (21:57)
[2021-06-20] MEDS: glipiZIDE 10 MG TAB PO SCH (21:57)
[2021-06-21] MEDS: LEVOTHYROXINE 75 MCG TAB PO SCH (05:40)
--- NOTE | 2021-06-21 07:15 | ECHOF ---
Referral Reason:chest pain MEASUREMENTS -------- HEIGHT: 172.7 cm WEIGHT: 104.3 kg BP: 117/709 RVIDd: 3.5 cm (< 3.3) IVSd: 1.4 cm (0.6 - 1.1) LVIDd: 4.7 cm (3.9 - 5.3) LVPWd: 1.4 cm (0.6 - 1.1) IVSs: 1.9 cm LVIDs: 3.1 cm LVPWs: 1.9 cm LA Diam: 3.8 cm (2.7 - 3.8) Ao Diam: 3.4 cm (2.0 - 3.7) MV E Rad: 0.66 m/s MV DecT: 351 ms MV A Rad: 1.07 m/s MV E/A Ratio: 0.62 RAP: 5.00 mmHg RVSP: 32.66 mmHg FINDINGS -------- Sinus rhythm. This was a technically difficult study with suboptimal views. The left ventricular size is normal. There is moderate concentric left ventricular hypertrophy. O verall left ventricular systolic function is normal with, an EF between 60 - 65 %. The right ventricle is mildly enlarged. The left atrium is normal in size. 3 ml of Lumason was utilized for enhancement of images. The aortic valve is trileaflet, and appears structurally normal. No aortic stenosis or regurgitation. The aortic root size is normal. IVC Not well visulized. There is no pericardial effusion. CONCLUSIONS -------- 1. This was a technically difficult study with suboptimal views. 2. The left ventricular size is normal. 3. There is moderate concentric left ventricular hypertrophy. 4. Overall left ventricular systolic function is normal with, an EF between 60 - 65 %. 5. The right ventricle is mildly enlarged. 6. 3 ml of Lumason was utilized for enhancement of images. 7. There is no pericardial effusion. GENERAL OPERATIONS AGENT: Krystle Crandall RDCS
[2021-06-21 07:25] LABS: Amylase 114 U/L (30-110); Lipase 502 U/L (23-300)
[2021-06-21 07:33] LABS: Glucose,Whole Blood 90 mg/dL (75-99)
[2021-06-21] MEDS: Empagliflozin [Jardiance] PO SCH (08:42)
[2021-06-21] MEDS: APIXABAN 5 MG TAB PO SCH ×2 (08:53→20:26)
[2021-06-21] MEDS: ATORVASTATIN 10 MG TAB PO SCH (08:53)
[2021-06-21] MEDS: ESCITALOPRAM 20 MG TAB PO SCH (08:53)
[2021-06-21] MEDS: HYDROcodone/APAP 7.5-325MG 1 EACH TAB PO SCH ×3 (08:54→22:32)
[2021-06-21] MEDS: MULTIVITAMINS, THERA 1 EACH TAB PO SCH (08:54)
[2021-06-21] MEDS: METOPROLOL TARTRATE 25 MG TAB PO SCH ×2 (08:54→20:26)
[2021-06-21] MEDS: metFORMIN 500 MG TAB PO SCH ×2 (08:54→17:04)
[2021-06-21] MEDS: ASPIRIN 325 MG TAB PO SCH (08:54)
[2021-06-21] MEDS: INSULIN DETEMIR (LEVEMIR) 100 UNIT/ML SYR SQ SCH (08:55)
[2021-06-21] MEDS: glipiZIDE 10 MG TAB PO SCH (08:55)
[2021-06-21] MEDS ORDERED: lisinopriL 10 MG TAB PO SCH (09:00)
[2021-06-21 10:16] LABS: Chol/HDL Ratio 3.77 Ratio; LDL Cholesterol,Calculated 87.1 mg/dL (0.0-131.0)
--- NOTE | 2021-06-21 11:39 | CONS ---
REHAN Rodriguez is a 65-year-old lady with multiple medical problems, including hypertension, hypothyroidism, diabetes and anxiety disorder who is admitted to hospital with symptoms of chest pain. She has been having intermittent episodes of chest discomfort for the last 4 days. It is sharp, mild intensity that at times radiated to her back. She also has mild shortness of breath, and her chest discomfort gets worse when she moves one way or the other. She also complains of epigastric pain but did not have any other GI symptoms. She has had an EKG that did not reveal any ischemic changes. She had an echocardiogram that showed normal LV function without any wall motion abnormalities. She has had troponins that are negative. Patient's chest discomfort is atypical. Her lipase and amylase are elevated, raising the possibility of pancreatitis. She does not require any further cardiac workup at this time. On discharge I am going to obtain a Lexiscan on her. PAST MEDICAL HISTORY: Significant for diabetes, hypertension, dyslipidemia, hypothyroidism, atrial fibrillation. CURRENT MEDICATIONS: Current medications include Jardiance, insulin, Trulicity, Glucophage, Zestril, Crestor, Lopressor, Synthroid, Xalatan, [place], Glucotrol, Elavil and Zantac. ALLERGIES: There are NO KNOWN DRUG ALLERGIES. FAMILY HISTORY: Negative for premature coronary artery disease. SOCIAL HISTORY: Significant for smoking. There is no history of EtOH abuse or drug abuse. REVIEW OF SYSTEMS: Fourteen out of 14 review of systems has been performed. Pertinents are as documented in history of present illness. PHYSICAL EXAMINATION: Patient is afebrile. Heart rate is 80 beats per minute. Blood pressure is 95/50. Respiratory rate is 18. Chest exam reveals good air entry bilaterally. Heart exam reveals first and second heart sounds. No gallop. No murmur. No rub. Abdomen is soft, nontender. Examination of extremities did not reveal any edema. Peripheral pulses are felt. BUSINESS OBJECTS REPORT DEVELOPER exam did not reveal focal neurological deficits. ASSESSMENT: 1. Precordial chest pain, sharp, atypical, probably non-cardiac. 2. Epigastric discomfort with elevated amylase and lipase, probably secondary to pancreatitis. 3. Hypertension. 4. Diabetes. 5. Dyslipidemia. 6. History of atrial fibrillation. Patient is on Eliquis. Thank you for giving me the privilege of participating in the care of this pleasant lady. We will follow the patient with you with interest. MMODL / IJN: [id number] /
[2021-06-21 11:52] LABS: Glucose,Whole Blood 132 mg/dL (75-99)
[2021-06-21] MEDS ORDERED: SODIUM CHLORIDE 0.9% 1,000 ML IV SCH (14:15)
[2021-06-21] MEDS: HYDROmorphone 0.5 MG/0.5 ML SYRINGE IVP PRN ×3 (14:54→23:32)
--- NOTE | 2021-06-21 16:10 | P.CNPUL ---
History of Present Illness Consult date: 06/21/21 Requesting physician: Vicky Pinedo Reason for consult: dyspnea, chest pain, COPD Chief complaint: Shortness of breath, chest pain, weakness History of present illness: This is a very pleasant 65-year-old female patient who follows with Dr. Neal as her primary care provider. She has a history of oxygen dependent chronic obstructive pulmonary disease and is maintained on albuterol nebulized t reatments. No maintenance inhalers. She also has history of chronic and ongoing tobacco dependence, chronic atrial fibrillation, hypertension, obesity, hypothyroidism, hyperlipidemia, diabetes mellitus, depression. She presented to the emergency room yesterday with a 4 day history of shortness of breath, generalized weakness and midsternal chest discomfort. EKG revealed nonspecific ST and T wave abnormalities currently in sinus rhythm and echocardiogram revealed preserved left ventricular systolic function with ejection fraction of 60-65%. Ultrasound of the abdomen revealed hepatomegaly with fatty infiltration. Chest x-ray revealed no acute pulmonary process. White count 10.3. Hemoglobin 12.6. Sodium 137. Potassium 4.5. Creatinine 0.84. Glucose 141. He is to 25. ALT 19. Lipase 706 initially, trending down currently FiO2. Amylase 115. She is seen today in consultation on the regular medical floor. She is currently lying comfortably in bed. Awake and alert in no acute distress. Maintaining O2 saturations in the mid 90s on room air. She's afebrile. Hemodynamically stable. Review of Systems REVIEW OF SYSTEMS: CONSTITUTIONAL: Generalized weakness. Denies any recent significant weight loss or weight gain. EYES: Denies change in vision. EARS, NOSE, MOUTH, THROAT: Denies headaches, denies sore throat. CARDIOVASCULAR: Positive for chest pain, palpitations or syncopal episodes. RESPIRATORY: Positive for shortness of breath, no cough, congestion or hemoptysis. GASTROINTESTINAL: Denies change in appetite, denies abdominal pain GENITOURINARY: Denies hematuria, denies infections. MUSKULOSKELETAL: Denies pain, denies swelling. INTEGUMENTARY: Denies rash, denies eczema. NEUROLOGICAL: Denies recent memory loss, no recent seizure activity. PSYCHIATRIC: Denies anxiety, denies depression. HEMATOLOGIC/LYMPHATIC: Denies anemia, denies enlarged lymph nodes. Past Medical History Past Medical History: Atrial Fibrillation, Chest Pain / Angina, COPD, CVA/TIA, Diabetes Mellitus, Eye Disorder, GERD/Reflux, Hyperlipidemia, Hypertension, Myocardial Infarction ([place]), Osteoarthritis (OA), Thyroid Disorder Additional Past Medical History / Comment(s): vertigo, CVA-x2- 2010, glaucoma, varicose veins, peptic ulcer, HX POLYP, stress incont of urine, graves Last Myocardial Infarction Date:: 2008 History of Any Multi-Drug Resistant Organisms: None Reported Past Surgical History: Bladder Surgery, Cholecystectomy, Hernia Repair, Hysterectomy, Tonsillectomy Additional Past Surgical History / Comment(s): thyroidectomy, left foot ORIF- hardware later removed, ragini oopherectomy, bladder suspension, laser eye surgeryx2, Past Anesthesia/Blood Transfusion Reactions: No Reported Reaction Past Psychological History: Anxiety, Depression Smoking Status: Current some day smoker Past Alcohol Use History: None Reported Past Drug Use History: Marijuana - Past Family History Mother Family Medical History: Hypertension Additional Family Medical History / Comment(s): brain aneurysm Father Family Medical History: Cancer Additional Family Medical History / Comment(s): prostate Medications and Allergies Home Medications Medication Instructions Recorded Confirmed Type glipiZIDE [Glucotrol] 10 mg PO BID 09/14/15 06/20/21 History metFORMIN HCL [Glucophage] 1,000 mg PO BID 09/14/15 06/20/21 History lisinopriL [Zestril] 10 mg PO DAILY #30 tab 11/28/15 06/20/21 Rx ALPRAZolam [Xanax] 0.25 mg PO BID PRN 07/28/17 06/20/21 History Amitriptyline HCl [Elavil] 100 mg PO HS 07/28/17 06/20/21 History HYDROcodone/APAP 7.5-325MG [[place] 1 tab PO TID 07/28/17 06/20/21 History 7.5-325] Escitalopram [Lexapro] 20 mg PO DAILY 10/23/17 06/20/21 History Levothyroxine Sodium [Synthroid] 150 mcg PO DAILY 08/31/19 06/20/21 History Nitroglycerin Sl Tabs [Nitrostat] 0.4 mg SUBLINGUAL Q5M PRN 08/31/19 06/20/21 History Apixaban [Eliquis] 5 mg PO BID tab 09/02/19 06/20/21 Rx Ergocalciferol [Vitamin D2 (1250 1,250 mcg PO TU 09/28/20 06/20/21 History Mcg = 76965 Iu)] Latanoprost Ophth [Xalatan 0.005%] 1 drop BOTH EYES HS 09/28/20 06/20/21 History Multivitamins, Thera [Multivitamin 1 tab PO DAILY 09/28/20 06/20/21 History (formulary)] Rosuvastatin Calcium [Crestor] 5 mg PO DAILY 09/28/20 06/20/21 History Metoprolol Tartrate [Lopressor] 25 mg PO BID tab 10/09/20 06/20/21 Rx Dulaglutide [Trulicity] 1.5 mg SQ TU 06/20/21 06/20/21 History Empagliflozin [Jardiance] 25 mg PO DAILY 06/20/21 06/20/21 History Insulin Glargine [Lantus Vial] 100 unit SQ DAILY 06/20/21 06/20/21 History Allergies Allergy/AdvReac Type Severity Reaction Status Date / Time No Known Allergies Allergy Verified 06/20/21 13:20 Physical Exam Vitals: Vital Signs Temp Pulse Resp BP Pulse Ox 06/21/21 14:56 98.8 F 73 20 120/77 96 06/21/21 14:49 125/84 06/21/21 13:45 82 22 06/21/21 11:43 94/53 06/21/21 08:58 124/81 06/21/21 08:00 82 22 06/21/21 07:00 97.7 F 82 22 94/58 97 06/21/21 01:35 80 18 06/21/21 00:45 97.6 F 60 20 95/52 92 L 06/20/21 19:49 80 18 06/20/21 19:12 98.3 F 88 18 128/79 95 Intake and Output 06/21/21 06/21/21 06/21/21 06:59 14:59 22:59 Intake Total 236 Balance 236 Intake: Oral 236 Other: Voiding Method Toilet Toilet # Voids 1 3 GENERAL EXAM: Alert, pleasant, obese 65-year-old female patient, on room air, comfortable in no apparent distress. HEAD: Normocephalic. EYES: Normal reaction of pupils, equal size. NOSE: Clear with pink turbinates. THROAT: Edentulous. No erythema or exudates. NECK: No masses, no JVD. CHEST: No chest wall deformity. LUNGS: Equal air entry with no crackles, wheeze, rhonchi or dullness. Diminished. CVS: S1 and S2 normal with no audible murmur, regular rhythm. ABDOMEN: No hepatosplenomegaly, normal bowel sounds, no guarding or rigidity. SPINE: No scoliosis or deformity SKIN: No rashes CENTRAL NERVOUS SYSTEM: No focal deficits, tone is normal in all 4 extremities. EXTREMITIES: There is no peripheral edema. No clubbing, no cyanosis. Peripheral pulses are intact. Results - Laboratory Findings CBC and BMP: 06/20/21 12:30 06/20/21 12:30 PT/INR, D-dimer PT 11.0 sec (9.0-12.0) 06/20/21 12:30 INR 1.0 (<1.2) 06/20/21 12:30 Abnormal lab findings: Abnormal Labs 06/20/21 06/20/21 06/20/21 12:30 18:15 20:34 Glucose 67 L POC Glucose (mg/dL) 112 H 141 H Alkaline Phosphatase 129 H Amylase Lipase 706 H 06/21/21 06/21/21 06:17 11:50 Glucose POC Glucose (mg/dL) 132 H Alkaline Phosphatase Amylase 114 H Lipase 502 H - Diagnostic Findings Chest x-ray: image reviewed (No acute cardiopulmonary process) Assessment and Plan Assessment: 1 Shortness of breath secondary to mild exacerbation of chronic obstructive pulmonary disease. Chest x-ray reveals no acute pulmonary process 2 Atypical chest pain 3 Epigastric discomfort with mildly elevated amylase and lipase, ultrasound of the abdomen revealed fatty liver 4 Chronic and ongoing tobacco dependence 5 History of atrial fibrillation maintained on Eliquis 6 Diabetes mellitus 7 Hypertension 8 Hyperlipidemia 9 History of previous myocardial infarction 11 History of CVA 12 Hypothyroidism 13 history of marijuana use Plan: The patient was seen and evaluated Chest x-ray and labs reviewed Would recommend maintenance medication in the form of Symbicort Continue DuoNeb inhalations 4 times a day when necessary Medrol dosepak Could be discharged in the a.m. from the pulmonary standpoint We will continue to follow and make further recommendations based on her clinical status I have personally seen and examined the patient, performed the documentation and the assessment and plan as written. Number of minutes spent on the visit: 20.
[2021-06-21] MEDS ORDERED: IPRATROPIUM-ALBUTEROL 3 ML NEB INHALATION PRN (16:11)
[2021-06-21 17:00] LABS: Glucose,Whole Blood 89 mg/dL (75-99)
[2021-06-21] MEDS: methylPREDNISolone 4 MG TAB TAPER PO SCH (17:04)
--- NOTE | 2021-06-21 18:05 | P.HPIM ---
History of Present Illness H&P Date: 06/21/21 Jennifer Rodriguez, is a 65-year-old female who presented to [facility] emergency room with a chief complaint of chest pain She was evaluated in the emergency room vital examination on presentation revealed a temperature of 98.6 pulse 84 respiration 18 blood pressure 117/79 pulse ox 94% on room air Laboratory data revealed a white blood count of 10.3 hemoglobin 12.6 platelet count 269 troponin was negative at 0.012 lipase level was elevated at 706 Testing in the emergency room revealed EKG reveals nonspecific T-wave abnormalities normal sinus rhythm, chest x-ray revealed no acute process Patient was admitted to medical floor for further evaluation and treatment. Past medical history is significant for history of diabetes mellitus history of hypertension history of hyperlipidemia history of atrial fibrillation maintained on Eliquis, history of stroke, history of hypothyroidism, history of marijuana use, history of COPD, previous history of alcohol use, and current history of tobacco use. Past Medical History Past Medical History: Atrial Fibrillation, Chest Pain / Angina, COPD, CVA/TIA, Diabetes Mellitus, Eye Disorder, GERD/Reflux, Hyperlipidemia, Hypertension, Myocardial Infarction ([place]), Osteoarthritis (OA), Thyroid Disorder Additional Past Medical History / Comment(s): vertigo, CVA-x2- 2010, glaucoma, varicose veins, peptic ulcer, HX POLYP, stress incont of urine, graves Last Myocardial Infarction Date:: 2008 History of Any Multi-Drug Resistant Organisms: None Reported Past Surgical History: Bladder Surgery, Cholecystectomy, Hernia Repair, Hysterectomy, Tonsillectomy Additional Past Surgical History / Comment(s): thyroidectomy, left foot ORIF- hardware later removed, ragini oopherectomy, bladder suspension, laser eye surgeryx2, Past Anesthesia/Blood Transfusion Reactions: No Reported Reaction Past Psychological History: Anxiety, Depression Smoking Status: Current some day smoker Past Alcohol Use History: None Reported Past Drug Use History: Marijuana - Past Family History Mother Family Medical History: Hypertension Additional Family Medical History / Comment(s): brain aneurysm Father Family Medical History: Cancer Additional Family Medical History / Comment(s): prostate Medications and Allergies Home Medications Medication Instructions Recorded Confirmed Type RX: glipiZIDE [Glucotrol] 10 mg PO BID 09/14/15 06/20/21 History RX: metFORMIN HCL [Glucophage] 1,000 mg PO BID 09/14/15 06/20/21 History RX: lisinopriL [Zestril] 10 mg PO DAILY #30 tab 11/28/15 06/20/21 Rx RX: ALPRAZolam [Xanax] 0.25 mg PO BID PRN 07/28/17 06/20/21 History RX: Amitriptyline HCl [Elavil] 100 mg PO HS 07/28/17 06/20/21 History RX: HYDROcodone/APAP 7.5-325MG 1 tab PO TID 07/28/17 06/20/21 History [[place] 7.5-325] RX: Escitalopram [Lexapro] 20 mg PO DAILY 10/23/17 06/20/21 History RX: Levothyroxine Sodium 150 mcg PO DAILY 08/31/19 06/20/21 History [Synthroid] RX: Nitroglycerin Sl Tabs 0.4 mg SUBLINGUAL Q5M PRN 08/31/19 06/20/21 History [Nitrostat] RX: Apixaban [Eliquis] 5 mg PO BID tab 09/02/19 06/20/21 Rx RX: Ergocalciferol [Vitamin D2 1,250 mcg PO TU 09/28/20 06/20/21 History (1250 Mcg = 89038 Iu)] RX: Latanoprost Ophth [Xalatan 1 drop BOTH EYES HS 09/28/20 06/20/21 History 0.005%] RX: Multivitamins, Thera 1 tab PO DAILY 09/28/20 06/20/21 History [Multivitamin (formulary)] RX: Rosuvastatin Calcium [Crestor] 5 mg PO DAILY 09/28/20 06/20/21 History RX: Metoprolol Tartrate [Lopressor] 25 mg PO BID tab 10/09/20 06/20/21 Rx Dulaglutide [Trulicity] 1.5 mg SQ TU 06/20/21 06/20/21 History Empagliflozin [Jardiance] 25 mg PO DAILY 06/20/21 06/20/21 History Insulin Glargine [Lantus Vial] 100 unit SQ DAILY 06/20/21 06/20/21 History Allergies Allergy/AdvReac Type Severity Reaction Status Date / Time No Known Allergies Allergy Verified 06/20/21 13:20 Physical Exam Vitals: Vital Signs Temp Pulse Pulse Resp BP BP Pulse Ox 06/21/21 11:43 94/53 06/21/21 08:58 124/81 06/21/21 08:00 82 22 06/21/21 07:00 97.7 F 82 22 94/58 97 06/21/21 01:35 80 18 06/21/21 00:45 97.6 F 60 20 95/52 92 L 06/20/21 19:49 80 18 06/20/21 19:12 98.3 F 88 18 128/79 95 06/20/21 15:00 98.1 F 80 18 123/88 98 06/20/21 14:31 76 16 117/79 96 Intake and Output 06/20/21 06/21/21 06/21/21 22:59 06:59 14:59 Intake Total 640 118 Balance 640 118 Intake: Oral 640 118 Other: Voiding Method Toilet Toilet Toilet # Voids 1 # Bowel Movements 1 Weight 104.326 kg In general patient is alert and oriented x 3 in no distress HEENT head normocephalic and atraumatic Neck is supple no JVD no goiter no lymphadenopathy no carotid bruit Chest examination is clear to auscultation no crackles no wheezing Cardiac exam reveals regular heart sounds S1 and S2 no gallops no murmurs Abdomen is soft nontender no organomegaly with normal bowel sounds Extremity exam reveals no edema no cyanosis or clubbing Neurological examination reveals no gross focal deficits Results CBC & Chem 7: 06/20/21 12:30 06/20/21 12:30 Labs: Abnormal Lab Results - Last 24 Hours (Table) 06/20/21 06/20/21 06/20/21 Range/Units 12:30 18:15 20:34 Glucose 67 L (74-99) mg/dL POC Glucose (mg/dL) 112 H 141 H (75-99) mg/dL Alkaline Phosphatase 129 H (38-126) U/L Amylase (30-110) U/L Lipase 706 H (23-300) U/L 06/21/21 06/21/21 Range/Units 06:17 11:50 Glucose (74-99) mg/dL POC Glucose (mg/dL) 132 H (75-99) mg/dL Alkaline Phosphatase (38-126) U/L Amylase 114 H (30-110) U/L Lipase 502 H (23-300) U/L Thrombosis Risk Factor Assmnt - Choose All That Apply Each Factor Represents 1 point: Abnormal pulmonary function (COPD), Obesity (BMI >25) Each Risk Factor Represents 2 Points: Age 61-74 years Thrombosis Risk Factor Assessment Total Risk Factor Score: 4 Thrombosis Risk Factor Assessment Level: Moderate Risk Assessment and Plan Plan: Episode of chest pain, patient is admitted to telemetry floor cardiology consultation was requested serial troponin level requested Epigastric pain with mildly elevated amylase and lipase, abdominal ultrasound ordered and revealed evidence of hepatomegaly with fatty infiltration of the liver, gallbladder surgically absent, and bile duct prominent at 0.8 cm Shortness of breath with underlying history of COPD, pulmonary consultation was requested Underlying history of diabetes mellitus Underlying history of atrial fibrillation Underlying history of hypertension Underlying history of hyperlipidemia Underlying history of coronary artery disease with history of [place] in the past At this time patient is admitted to telemetry floor pulmonary consultation and cardiology consultation requested Gastroenterology consultation not available at the hospital at this time Will monitor amylase and lipase and arrange for follow-up with gastroenterology as outpatient
[2021-06-21] MEDS: AMITRIPTYLINE HCL 50 MG TAB PO SCH (20:26)
[2021-06-21] MEDS: LATANOPROST 0.005% OPHTH DROPS 2.5 ML BTL BOTH EYES SCH (20:27)
[2021-06-21 20:28] LABS: Glucose,Whole Blood 133 mg/dL (75-99)
[2021-06-22] MEDS: HYDROmorphone 0.5 MG/0.5 ML SYRINGE IVP PRN ×3 (04:33→13:32)
[2021-06-22] MEDS: LEVOTHYROXINE 75 MCG TAB PO SCH (06:04)
[2021-06-22 07:16] LABS: Glucose,Whole Blood 182 mg/dL (75-99)
[2021-06-22 08:09] VITALS: BP 101/69; PULSE 94; RESP 18; TEMP 98.1
[2021-06-22] MEDS: ATORVASTATIN 10 MG TAB PO SCH (08:13)
[2021-06-22] MEDS: INSULIN DETEMIR (LEVEMIR) 100 UNIT/ML SYR SQ SCH (08:13)
[2021-06-22] MEDS: METOPROLOL TARTRATE 25 MG TAB PO SCH (08:13)
[2021-06-22] MEDS: APIXABAN 5 MG TAB PO SCH (08:13)
[2021-06-22] MEDS: ASPIRIN 325 MG TAB PO SCH (08:14)
[2021-06-22] MEDS: methylPREDNISolone 4 MG TAB TAPER PO SCH (08:14)
[2021-06-22] MEDS: ESCITALOPRAM 20 MG TAB PO SCH (08:14)
[2021-06-22] MEDS: Empagliflozin [Jardiance] PO SCH (08:14)
[2021-06-22] MEDS: MULTIVITAMINS, THERA 1 EACH TAB PO SCH (08:14)
[2021-06-22] MEDS: metFORMIN 500 MG TAB PO SCH (08:14)
[2021-06-22] MEDS: glipiZIDE 10 MG TAB PO SCH (08:14)
[2021-06-22] MEDS: HYDROcodone/APAP 7.5-325MG 1 EACH TAB PO SCH (08:20)
[2021-06-22] MEDS ORDERED: lisinopriL 5 MG TAB PO SCH (09:00)
--- NOTE | 2021-06-22 10:38 | P.PN ---
Subjective Progress Note Date: 06/22/21 Principal diagnosis: Acute exacerbation of COPD This is a very pleasant 65-year-old female patient who follows with Dr. Neal as her primary care provider. She has a history of oxygen dependent chronic obstructive pulmonary disease and is maintained on albuterol nebulized jaclyn tments. No maintenance inhalers. She also has history of chronic and ongoing tobacco dependence, chronic atrial fibrillation, hypertension, obesity, hypothyroidism, hyperlipidemia, diabetes mellitus, depression. She presented to the emergency room yesterday with a 4 day history of shortness of breath, generalized weakness and midsternal chest discomfort. EKG revealed nonspecific ST and T wave abnormalities currently in sinus rhythm and echocardiogram revealed preserved left ventricular systolic function with ejection fraction of 60-65%. Ultrasound of the abdomen revealed hepatomegaly with fatty infiltration. Chest x-ray revealed no acute pulmonary process. White count 10.3. Hemoglobin 12.6. Sodium 137. Potassium 4.5. Creatinine 0.84. Glucose 141. He is to 25. ALT 19. Lipase 706 initially, trending down currently FiO2. Amylase 115. She is seen today in consultation on the regular medical floor. She is currently lying comfortably in bed. Awake and alert in no acute dis tress. Maintaining O2 saturations in the mid 90s on room air. She's afebrile. Hemodynamically stable. The patient is seen today 06/22/2021 in follow-up on the regular medical floor. She is currently sitting up in bed. Awake and alert in no acute distress. Breathing easier today compared to yesterday. Maintaining O2 saturations in the mid to upper 90s on 3 L/m per nasal cannula. Afebrile. Blood sugar 182. She is continued on DuoNeb inhalations, Medrol Dosepak. Anticoagulated with Ama shahbaz. She remains on Levemir, Glucophage, Jardiance and Trulicity for blood glucose control. Objective - Vital Signs Vital signs: Vital Signs Temp 98.1 F 06/22/21 07:00 Pulse 94 06/22/21 07:00 Resp 18 06/22/21 07:00 BP 101/69 06/22/21 07:00 Pulse Ox 97 06/22/21 07:00 Intake & Output 06/21/21 06/22/21 06/22/21 18:59 06:59 18:59 Intake Total 354 118 Balance 354 118 Intake: Oral 354 118 Other: Voiding Method Toilet Toilet # Voids 3 3 - Exam GENERAL EXAM: Alert, obese 65-year-old female patient, on oxygen at 3 liters per nasal cannula, comfortable in no apparent distress. HEAD: Normocephalic. EYES: Normal reaction of pupils, equal size. NOSE: Clear with pink turbinates. THROAT: Edentulous. No erythema or exudates. NECK: No masses, no JVD. CHEST: No chest wall deformity. LUNGS: Equal air entry with no crackles, wheeze, rhonchi or dullness. Diminished. CVS: S1 and S2 normal with no audible murmur, regular rhythm. ABDOMEN: No hepatosplenomegaly, normal bowel sounds, no guarding or rigidity. SPINE: No scoliosis or deformity SKIN: No rashes CENTRAL NERVOUS SYSTEM: No focal deficits, tone is normal in all 4 extremities. EXTREMITIES: There is no peripheral edema. No clubbing, no cyanosis. Peripheral pulses are intact. - Labs CBC & Chem 7: 06/20/21 12:30 06/20/21 12:30 Labs: Abnormal Lab Results - Last 24 Hours (Table) 06/21/21 06/21/21 06/22/21 Range/Units 11:50 20:24 07:14 POC Glucose (mg/dL) 132 H 133 H 182 H (75-99) mg/dL Assessment and Plan Assessment: 1 Acute exacerbation of chronic obstructive pulmonary disease. Chest x-ray reveals no acute pulmonary process 2 Atypical chest pain plan is for outpatient follow-up with cardiology 3 Epigastric discomfort with mildly elevated amylase and lipase, ultrasound of the abdomen revealed fatty liver 4 Chronic and ongoing tobacco dependence 5 History of atrial fibrillation maintained on Eliquis 6 Diabetes mellitus 7 Hypertension 8 Hyperlipidemia 9 History of previous myocardial infarction 10 History of CVA 11 Hypothyroidism 12 History of marijuana use Plan: The patient was seen and evaluated Would recommend a maintenance inhaler in the form of Symbicort Continue DuoNeb inhalations 4 times day when necessary Complete a Medrol dosepak Educated regarding the importance of complete smoking cessation Could be discharged today from the pulmonary standpoint Would recommend follow-up in our office regarding her COPD I have personally seen and examined the patient, performed the documentation and the assessment and plan as written. Number of minutes spent on the visit: 10.
[2021-06-22 10:47] LABS: Basophils # (A) 0.03 X 10*3/uL (0.00-0.10); Basophils % (A) 0.3 %; Eosinophils # (A) 0.01 X 10*3/uL (0.04-0.35); Eosinophils % (A) 0.1 %; HCT 37.2 % (37.2-46.3); HGB 11.3 g/dL (12.0-15.0); Immature Grans, Automated 0.6 %; Lymphocytes # (A) 1.37 X 10*3/uL (0.90-5.00); Lymphocytes % (A) 12.4 %; MCH 25.2 pg (27.0-32.0); MCHC 30.4 g/dL (32.0-37.0); Mean Platelet Volume 10.2 fL (9.5-12.2); Monocytes % (A) 2.7 %; NRBC Per 100 WBC 0 /100 WBCS (0.0-0.0); Neutrophils # (A) 9.27 X 10*3/uL (1.80-7.70); Neutrophils % (A) 83.9 %; Platelet Count 227 X 10*3/uL (140-440); RBC 4.48 X 10*6/uL (4.10-5.20); RDW 13.9 % (11.5-14.5); WBC 11.05 X 10*3/uL (4.50-10.00)
[2021-06-22 10:57] LABS: ALT 22 U/L (8-44); AST 18 U/L (13-35); African American GFR (CKD) 89.7 (60.0-200.0); Albumin 4.2 g/dL (3.8-4.9); Albumin/Globulin Ratio 1.83 (1.60-3.17); Alkaline Phosphatase 146 U/L (41-126); Amylase 43 U/L (23-121); Blood Urea Nitrogen 17.2 mg/dL (9.0-27.0); Calcium 10.4 mg/dL (8.7-10.3); Chloride 100 mmol/L (96-109); Globulin 2.3 g/dL (1.6-3.3); Glucose 186 mg/dL (70-110); Lipase 48 U/L (14-63); Non-African American GFR(CKD) 77.4 (60.0-200.0); Potassium 4.9 mmol/L (3.5-5.5); Sodium 135 mmol/L (135-145); Total Bilirubin <0.15 mg/dL (0.30-1.20); Total Protein 6.5 g/dL (6.2-8.2)
[2021-06-22 11:53] LABS: Glucose,Whole Blood 149 mg/dL (75-99)
--- NOTE | 2021-06-22 14:23 | PN ---
PROGRESS NOTE FOLLOW-UP NOTE: Jennifer is a 65-year-old lady who is admitted to hospital with epigastric discomfort. I was consulted because of episodes of chest discomfort that seemed musculoskeletal. She has history of atrial fibrillation, is currently on Eliquis, has hypertension and diabetes. This morning she is feeling much better. The epigastric pain has improved and she does not have any chest pain. An echocardiogram showed normal LV function with a mildly enlarged right ventricle. On exam, comfortable at rest. Vital signs are stable. Chest exam reveals good air entry bilaterally. Heart exam reveals first and second heart sounds. No gallop. Abdomen is soft. Examination of extremities did not reveal any edema. Peripheral pulses are felt. ASSESSMENT: 1. Atypical chest pain. 2. Abdominal pain. PLAN: Patient will continue current medications. She will follow up with us on discharge and we will investigate further as needed. KATHI / CHIN: [id number] /
[2021-06-22] MEDS ORDERED: SYMBICORT 160-4.5 MCG INHALER INHALATION SCH (20:00)
--- NOTE | 2021-06-23 11:52 | P.DS ---
Providers Date of admission: 06/20/21 13:33 Expected date of discharge: 06/22/21 Attending physician: Vicky Pinedo Consults: 06/20/21 13:33 Consult Physician Urgent Consulting Provider: [facility] Consult Reason/Comments: Chest pain, elevated lipase Do you want consulting provider notified?: Yes 06/21/21 13:24 Consult Physician Routine Consulting Provider: Shi Neal Reason/Comments: shortness of breath Do you want consulting provider notified?: Yes Primary care physician: Vicky Pinedo [place] [facility] Course: Discharge diagnosis Episode of chest pain, patient is admitted to telemetry floor cardiology consultation was requested serial troponin level requested Epigastric pain with mildly elevated amylase and lipase, abdominal ultrasound ordered and revealed evidence of hepatomegaly with fatty infiltration of the liver, gallbladder surgically absent, and bile duct prominent at 0.8 cm Shortness of breath with underlying history of COPD, pulmonary consultation was requested Underlying history of diabetes mellitus Underlying history of atrial fibrillation Underlying history of hypertension Underlying history of hyperlipidemia Underlying history of coronary artery disease with history of [place] in the past Hospital course Jennifer Rodriguez, is a 65-year-old female who presented to [facility] emergency room with a chief complaint of chest pain She was evaluated in the emergency room vital examination on presentation revealed a temperature of 98.6 pulse 84 respiration 18 blood pressure 117/79 pulse ox 94% on room air Laboratory data revealed a white blood count of 10.3 hemoglobin 12.6 platelet count 269 troponin was negative at 0.012 lipase level was elevated at 706 Testing in the emergency room revealed EKG reveals nonspecific T-wave abnormalities normal sinus rhythm, chest x-ray revealed no acute process Patient was admitted to medical floor for further evaluation and treatment. Past medical history is significant for history of diabetes mellitus history of hypertension history of hyperlipidemia history of atrial fibrillation maintained on Eliquis, history of stroke, history of hypothyroidism, history of marijuana use, history of COPD, previous history of alcohol use, and current history of tobacco use. On 06/23/2021 patient's alert and oriented 3. Repeat amylase and lipase within normal limits. Patient has been cleared for discharge from cardiology and pulmonary services. Medications for Medrol Dosepak per pulmonary upon discharge. Patient to follow-up with PCP and consulting providers for further management. At this time patient denies chest pain or shortness breath. Patient denies nausea vomiting or diarrhea. Patient denies any urinary burning or frequency Patient Condition at Discharge: Stable Plan - Discharge Summary New Discharge Prescriptions: New methylPREDNISolone Dose Pack [Medrol Dose Pack] 4 mg PO DIRECTED #21 tab lisinopriL [Zestril] 5 mg PO DAILY 30 Days #30 tab Continue metFORMIN HCL [Glucophage] 1,000 mg PO BID glipiZIDE [Glucotrol] 10 mg PO BID HYDROcodone/APAP 7.5-325MG [[place] 7.5-325] 1 tab PO TID Amitriptyline HCl [Elavil] 100 mg PO HS ALPRAZolam [Xanax] 0.25 mg PO BID PRN PRN Reason: Anxiety Escitalopram [Lexapro] 20 mg PO DAILY Nitroglycerin Sl Tabs [Nitrostat] 0.4 mg SUBLINGUAL Q5M PRN PRN Reason: Chest Pain Levothyroxine Sodium [Synthroid] 150 mcg PO DAILY Apixaban [Eliquis] 5 mg PO BID tab Rosuvastatin Calcium [Crestor] 5 mg PO DAILY Multivitamins, Thera [Multivitamin (formulary)] 1 tab PO DAILY Metoprolol Tartrate [Lopressor] 25 mg PO BID tab Insulin Glargine [Lantus Vial] 100 unit SQ DAILY Latanoprost Ophth [Xalatan 0.005%] 1 drop BOTH EYES HS Ergocalciferol [Vitamin D2 (1250 Mcg = 34327 Iu)] 1,250 mcg PO TU Dulaglutide [Trulicity] 1.5 mg SQ TU Empagliflozin [Jardiance] 25 mg PO DAILY Discontinued lisinopriL [Zestril] 10 mg PO DAILY #30 tab Discharge Medication List glipiZIDE [Glucotrol] 10 mg PO BID 09/14/15 [History] metFORMIN HCL [Glucophage] 1,000 mg PO BID 09/14/15 [History] ALPRAZolam [Xanax] 0.25 mg PO BID PRN 07/28/17 [History] Amitriptyline HCl [Elavil] 100 mg PO HS 07/28/17 [History] HYDROcodone/APAP 7.5-325MG [[place] 7.5-325] 1 tab PO TID 07/28/17 [History] Escitalopram [Lexapro] 20 mg PO DAILY 10/23/17 [History] Levothyroxine Sodium [Synthroid] 150 mcg PO DAILY 08/31/19 [History] Nitroglycerin Sl Tabs [Nitrostat] 0.4 mg SUBLINGUAL Q5M PRN 08/31/19 [History] Apixaban [Eliquis] 5 mg PO BID tab 09/02/19 [Rx] Ergocalciferol [Vitamin D2 (1250 Mcg = 70931 Iu)] 1,250 mcg PO TU 09/28/20 [History] Latanoprost Ophth [Xalatan 0.005%] 1 drop BOTH EYES HS 09/28/20 [History] Multivitamins, Thera [Multivitamin (formulary)] 1 tab PO DAILY 09/28/20 [History] Rosuvastatin Calcium [Crestor] 5 mg PO DAILY 09/28/20 [History] Metoprolol Tartrate [Lopressor] 25 mg PO BID tab 10/09/20 [Rx] Dulaglutide [Trulicity] 1.5 mg SQ TU 06/20/21 [History] Empagliflozin [Jardiance] 25 mg PO DAILY 06/20/21 [History] Insulin Glargine [Lantus Vial] 100 unit SQ DAILY 06/20/21 [History] lisinopriL [Zestril] 5 mg PO DAILY 30 Days #30 tab 06/22/21 [Rx] methylPREDNISolone Dose Pack [Medrol Dose Pack] 4 mg PO DIRECTED #21 tab 06/22/21 [Rx] Follow up Appointment(s)/Referral(s): Shi Neal MD [STAFF PHYSICIAN] - 1 Week Sonia Simon MD [STAFF PHYSICIAN] - 1 Week Vicky Pinedo MD [Primary Care Provider] - 06/26/21 2:45 pm Luca Simon MD [STAFF PHYSICIAN] - 06/29/21 9:15 am Patient Instructions/Handouts: Chest Pain (DC) Activity/Diet/Wound Care/Special Instructions: activity as tolerated diet heart healthy Discharge Disposition: HOME SELF-CARE
[2021-06-26] MEDS ORDERED: ERGOCALCIFEROL 1,250 MCG (50,000 IU) CAPSULE PO SCH (09:00)
[2021-06-26] MEDS ORDERED: Dulaglutide [Trulicity] 1.5 MG/0.5 ML Each SQ SCH (09:00)
== END 2021-06-22 14:56 | disposition home or self-care (01) ==
LOC: EC 12:04 → 6NMEDSUR 13:33
PROVIDERS: ADMIT Internal Medicine; ATTEND Internal Medicine
DX: R07.89 Other chest pain (principal); J44.1 Chronic obstructive pulmonary disease with (acute) exacerbation; R10.13 Epigastric pain; I11.9 Hypertensive heart disease without heart failure; K76.0 Fatty (change of) liver, not elsewhere classified; I25.10 Atherosclerotic heart disease of native coronary artery without angina pectoris; E11.9 Type 2 diabetes mellitus without complications; E78.00 Pure hypercholesterolemia, unspecified; G89.29 Other chronic pain; I10 Essential (primary) hypertension; E78.5 Hyperlipidemia, unspecified; I48.20 Chronic atrial fibrillation, unspecified; I25.2 Old myocardial infarction; H40.9 Unspecified glaucoma; K21.9 Gastro-esophageal reflux disease without esophagitis; M19.90 Unspecified osteoarthritis, unspecified site; I83.90 Asymptomatic varicose veins of unspecified lower extremity; R74.8 Abnormal levels of other serum enzymes; N39.3 Stress incontinence (female) (male); M54.9 Dorsalgia, unspecified; F32.A Depression, unspecified; F41.9 Anxiety disorder, unspecified; E66.9 Obesity, unspecified; Z68.35 Body mass index [BMI] 35.0-35.9, adult; Z99.81 Dependence on supplemental oxygen; F17.200 Nicotine dependence, unspecified, uncomplicated; Z79.84 Long term (current) use of oral hypoglycemic drugs; Z79.890 Hormone replacement therapy; Z79.01 Long term (current) use of anticoagulants; Z79.4 Long term (current) use of insulin; Z79.899 Other long term (current) drug therapy; Z86.73 Personal history of transient ischemic attack (TIA), and cerebral infarction without residual deficits; Z87.11 Personal history of peptic ulcer disease; Z90.49 Acquired absence of other specified parts of digestive tract; E89.0 Postprocedural hypothyroidism; Z90.710 Acquired absence of both cervix and uterus; Z90.722 Acquired absence of ovaries, bilateral; Z98.890 Other specified postprocedural states; Z82.49 Family history of ischemic heart disease and other diseases of the circulatory system; Z80.42 Family history of malignant neoplasm of prostate
CPT/HCPCS: 96376 ×2; 96374; 99285; 36415; 94640; 93005; 80061; 80053 ×2; 82150 ×2; 83690 ×3; 83735; 84484; 85025 ×2; 85610; 85730; 71046; 76700; G0378 ×3; C8929; J7509 ×2; J1170 ×2; 93306

== ENCOUNTER 2021-12-15 06:13 | Inpatient (IN) | payer MEDICARE ==
[2021-12-15 06:37] LABS: Basophils # (A) 0.1 k/uL (0-0.2); Basophils % (A) 1 %; Eosinophils # (A) 1.2 k/uL (0-0.7); Eosinophils % (A) 12 %; HCT 43.4 % (34.0-46.0); HGB 13.6 gm/dL (11.4-16.0); Hypochromasia Marked; Lymphocytes # (A) 1.4 k/uL (1.0-4.8); Lymphocytes % (A) 14 %; MCH 25.9 pg (25.0-35.0); MCHC 31.3 g/dL (31.0-37.0); MCV 82.6 fL (80.0-100.0); Mean Platelet Volume 7.3; Monocytes # (A) 0.4 k/uL (0-1.0); Monocytes % (A) 4 %; Neutrophils # (A) 6.9 k/uL (1.3-7.7); Neutrophils % (A) 69 %; Platelet Count 214 k/uL (150-450); RBC 5.25 m/uL (3.80-5.40); RDW 14.4 % (11.5-15.5)
[2021-12-15] MEDS ORDERED: DEXAMETHASONE SOD PHOSPHATE 10 MG/ML 1 ML VIAL IVP STA (06:39)
--- NOTE | 2021-12-15 06:42 | ED ---
SOB HPI - General Chief Complaint: Shortness of Breath Stated Complaint: SOB Time Seen by Provider: 12/15/21 06:37 Source: patient, EMS, RN notes reviewed Mode of arrival: EMS Limitations: no limitations - History of Present Illness Initial Comments: This is a 66-year-old female who presents to the emergency department for difficulty breathing. States that this is been present for the last 4-5 days. States that the breathing is worse when laying down. Also reports an associated productive cough. The breathing is causing associated discomfort in the chest and back. She is on 2 L of oxygen via nasal cannula at home, however she has had to increase it to 3 L over the last couple of days. Additionally, she feels short of breath just when talking or going from one room to the other in her house, which is very unusual for her. EMS gave her a DuoNeb treatment and 50mg of prednisone on route, which she states was beneficial. Denies any fevers, chills, sore throat, palpitations, abdominal pain, nausea, vomiting, diarrhea, or headaches. MD Complaint: shortness of breath, cough Onset/Timin -: days(s) Worsens With: lying flat, exertion Known History Of: COPD, diabetes Associated Symptoms: sputum production Treatments Prior to Arrival: oxygen, bronchodilator - Related Data Home Oxygen Therapy: Yes Home Oxygen Amount: 2 Liters Home Medications Medication Instructions Recorded Confirmed glipiZIDE [Glucotrol] 10 mg PO BID 09/14/15 06/20/21 metFORMIN HCL [Glucophage] 1,000 mg PO BID 09/14/15 06/20/21 ALPRAZolam [Xanax] 0.25 mg PO BID PRN 07/28/17 06/20/21 Amitriptyline HCl [Elavil] 100 mg PO HS 07/28/17 06/20/21 HYDROcodone/APAP 7.5-325MG [[place] 1 tab PO TID 07/28/17 06/20/21 7.5-325] Escitalopram [Lexapro] 20 mg PO DAILY 10/23/17 06/20/21 Levothyroxine Sodium [Synthroid] 150 mcg PO DAILY 08/31/19 06/20/21 Nitroglycerin Sl Tabs [Nitrostat] 0.4 mg SUBLINGUAL Q5M PRN 08/31/19 06/20/21 Ergocalciferol [Vitamin D2 (1250 1,250 mcg PO TU 09/28/20 06/20/21 Mcg = 83669 Iu)] Latanoprost Ophth [Xalatan 0.005%] 1 drop BOTH EYES HS 09/28/20 06/20/21 Multivitamins, Thera [Multivitamin 1 tab PO DAILY 09/28/20 06/20/21 (formulary)] Rosuvastatin Calcium [Crestor] 5 mg PO DAILY 09/28/20 06/20/21 Dulaglutide [Trulicity] 1.5 mg SQ TU 06/20/21 06/20/21 Empagliflozin [Jardiance] 25 mg PO DAILY 06/20/21 06/20/21 Insulin Glargine [Lantus Vial] 100 unit SQ DAILY 06/20/21 06/20/21 Previous Rx's Medication Instructions Recorded Apixaban [Eliquis] 5 mg PO BID tab 09/02/19 Metoprolol Tartrate [Lopressor] 25 mg PO BID tab 10/09/20 lisinopriL [Zestril] 5 mg PO DAILY 30 Days #30 tab 06/22/21 methylPREDNISolone Dose Pack 4 mg PO DIRECTED #21 tab 06/22/21 [Medrol Dose Pack] Allergies Allergy/AdvReac Type Severity Reaction Status Date / Time No Known Allergies Allergy Verified 06/20/21 13:20 Review of Systems ROS Statement: Those systems with pertinent positive or pertinent negative responses have been documented in the HPI. ROS Other: All systems not noted in ROS Statement are negative. Past Medical History Past Medical History: Atrial Fibrillation, Chest Pain / Angina, COPD, CVA/TIA, Diabetes Mellitus, Eye Disorder, GERD/Reflux, Hyperlipidemia, Hypertension, Myocardial Infarction ([place]), Osteoarthritis (OA), Thyroid Disorder Additional Past Medical History / Comment(s): vertigo, CVA-x2- 2010, glaucoma, varicose veins, peptic ulcer, HX POLYP, stress incont of urine, graves Last Myocardial Infarction Date:: 2008 History of Any Multi-Drug Resistant Organisms: None Reported Past Surgical History: Bladder Surgery, Cholecystectomy, Hernia Repair, Hysterectomy, Tonsillectomy Additional Past Surgical History / Comment(s): thyroidectomy, left foot ORIF- hardware later removed, ragini oopherectomy, bladder suspension, laser eye surgeryx2, Past Anesthesia/Blood Transfusion Reactions: No Reported Reaction Past Psychological History: Anxiety, Depression Smoking Status: Current some day smoker Past Alcohol Use History: None Reported Past Drug Use History: Marijuana - Past Family History Mother Family Medical History: Hypertension Additional Family Medical History / Comment(s): brain aneurysm Father Family Medical History: Cancer Additional Family Medical History / Comment(s): prostate General Exam Limitations: no limitations General appearance: alert, in no apparent distress Head exam: Present: atraumatic, normocephalic, normal inspection Respiratory exam: Present: wheezes (Inspiratory and expiratory in all lung mcintosh), decreased breath sounds, prolonged expiratory Cardiovascular Exam: Present: normal rhythm, tachycardia, normal heart sounds. Absent: systolic murmur, diastolic murmur, rubs, gallop, clicks Neurological exam: Present: alert, oriented X3, CN II-XII intact Psychiatric exam: Present: normal affect, normal mood Skin exam: Present: warm, dry, intact, normal color. Absent: rash Course Vital Signs 12/15/21 12/15/21 12/15/21 06:25 07:48 10:13 Temperature 98.2 F Pulse Rate 104 H 100 100 Respiratory 20 20 22 Rate Blood Pressure 158/85 118/105 187/89 O2 Sat by Pulse 95 94 L 90 L Oximetry 12/15/21 10:51 Temperature Pulse Rate 102 H Respiratory Rate Blood Pressure O2 Sat by Pulse Oximetry Medical Decision Making - Medical Decision Making This is a 66-year-old female who presents to the emergency department for difficulty breathing. Chest x-ray obtained revealing interstitial prominence. Patient did have a mildly elevated d-dimer. CTA was obtained, revealing no evidence of a pulmonary embolus, however this was a suboptimal study. BNP was negative for any signs of congestive heart failure and her first troponin was negative as well. Patient is likely experiencing a COPD exacerbation. Due to her higher oxygen demand of 5 L via NC, patient will be admitted for management of COPD exacerbation. Scheduled Solu-Medrol 40 mg twice a day and QID DuoNeb treatments ordered. This case was discussed in detail with the attending ED physician. Presentation, findings, and treatment plan discussed in detail as well. - Lab Data Result diagrams: 12/15/21 06:13 12/15/21 06:13 Lab Results 12/15/21 12/15/21 12/15/21 Range/Units 06:13 06:13 06:13 WBC 10.0 (3.8-10.6) k/uL RBC 5.25 (3.80-5.40) m/uL Hgb 13.6 (11.4-16.0) gm/dL Hct 43.4 (34.0-46.0) % MCV 82.6 (80.0-100.0) fL MCH 25.9 (25.0-35.0) pg MCHC 31.3 (31.0-37.0) g/dL RDW 14.4 (11.5-15.5) % Plt Count 214 (150-450) k/uL MPV 7.3 Neutrophils % 69 % Lymphocytes % 14 % Monocytes % 4 % Eosinophils % 12 % Basophils % 1 % Neutrophils # 6.9 (1.3-7.7) k/uL Lymphocytes # 1.4 (1.0-4.8) k/uL Monocytes # 0.4 (0-1.0) k/uL Eosinophils # 1.2 H (0-0.7) k/uL Basophils # 0.1 (0-0.2) k/uL Hypochromasia Marked PT 10.2 (9.0-12.0) sec INR 0.9 (<1.2) APTT 21.6 L (22.0-30.0) sec D-Dimer (<0.60) mg/L FEU Sodium 142 (137-145) mmol/L Potassium 4.1 (3.5-5.1) mmol/L Chloride 101 (98-107) mmol/L Carbon Dioxide 31 H (22-30) mmol/L Anion Gap 10 mmol/L BUN 6 L (7-17) mg/dL Creatinine 0.61 (0.52-1.04) mg/dL Est GFR (CKD-EPI)AfAm >90 (>60 ml/min/1.73 sqM) Est GFR (CKD-EPI)NonAf >90 (>60 ml/min/1.73 sqM) Glucose 135 H (74-99) mg/dL Plasma Lactic Acid Serjio (0.7-2.0) mmol/L Calcium 10.0 (8.4-10.2) mg/dL Total Bilirubin 0.5 (0.2-1.3) mg/dL AST 26 (14-36) U/L ALT 16 (4-34) U/L Alkaline Phosphatase 170 H (38-126) U/L Troponin I (0.000-0.034) ng/mL NT-Pro-B Natriuret Pep pg/mL Total Protein 7.2 (6.3-8.2) g/dL Albumin 4.4 (3.5-5.0) g/dL Coronavirus (PCR) (Not Detectd) 12/15/21 12/15/21 12/15/21 Range/Units 06:13 06:13 06:13 WBC (3.8-10.6) k/uL RBC (3.80-5.40) m/uL Hgb (11.4-16.0) gm/dL Hct (34.0-46.0) % MCV (80.0-100.0) fL MCH (25.0-35.0) pg MCHC (31.0-37.0) g/dL RDW (11.5-15.5) % Plt Count (150-450) k/uL MPV Neutrophils % % Lymphocytes % % Monocytes % % Eosinophils % % Basophils % % Neutrophils # (1.3-7.7) k/uL Lymphocytes # (1.0-4.8) k/uL Monocytes # (0-1.0) k/uL Eosinophils # (0-0.7) k/uL Basophils # (0-0.2) k/uL Hypochromasia PT (9.0-12.0) sec INR (<1.2) APTT (22.0-30.0) sec D-Dimer (<0.60) mg/L FEU Sodium (137-145) mmol/L Potassium (3.5-5.1) mmol/L Chloride (98-107) mmol/L Carbon Dioxide (22-30) mmol/L Anion Gap mmol/L BUN (7-17) mg/dL Creatinine (0.52-1.04) mg/dL Est GFR (CKD-EPI)AfAm (>60 ml/min/1.73 sqM) Est GFR (CKD-EPI)NonAf (>60 ml/min/1.73 sqM) Glucose (74-99) mg/dL Plasma Lactic Acid Serjio 1.0 (0.7-2.0) mmol/L Calcium (8.4-10.2) mg/dL Total Bilirubin (0.2-1.3) mg/dL AST (14-36) U/L ALT (4-34) U/L Alkaline Phosphatase (38-126) U/L Troponin I <0.012 (0.000-0.034) ng/mL NT-Pro-B Natriuret Pep 51 pg/mL Total Protein (6.3-8.2) g/dL Albumin (3.5-5.0) g/dL Coronavirus (PCR) (Not Detectd) 12/15/21 12/15/21 Range/Units 06:13 06:24 WBC (3.8-10.6) k/uL RBC (3.80-5.40) m/uL Hgb (11.4-16.0) gm/dL Hct (34.0-46.0) % MCV (80.0-100.0) fL MCH (25.0-35.0) pg MCHC (31.0-37.0) g/dL RDW (11.5-15.5) % Plt Count (150-450) k/uL MPV Neutrophils % % Lymphocytes % % Monocytes % % Eosinophils % % Basophils % % Neutrophils # (1.3-7.7) k/uL Lymphocytes # (1.0-4.8) k/uL Monocytes # (0-1.0) k/uL Eosinophils # (0-0.7) k/uL Basophils # (0-0.2) k/uL Hypochromasia PT (9.0-12.0) sec INR (<1.2) APTT (22.0-30.0) sec D-Dimer 0.77 H (<0.60) mg/L FEU Sodium (137-145) mmol/L Potassium (3.5-5.1) mmol/L Chloride (98-107) mmol/L Carbon Dioxide (22-30) mmol/L Anion Gap mmol/L BUN (7-17) mg/dL Creatinine (0.52-1.04) mg/dL Est GFR (CKD-EPI)AfAm (>60 ml/min/1.73 sqM) Est GFR (CKD-EPI)NonAf (>60 ml/min/1.73 sqM) Glucose (74-99) mg/dL Plasma Lactic Acid Serjio (0.7-2.0) mmol/L Calcium (8.4-10.2) mg/dL Total Bilirubin (0.2-1.3) mg/dL AST (14-36) U/L ALT (4-34) U/L Alkaline Phosphatase (38-126) U/L Troponin I (0.000-0.034) ng/mL NT-Pro-B Natriuret Pep pg/mL Total Protein (6.3-8.2) g/dL Albumin (3.5-5.0) g/dL Coronavirus (PCR) Not Detected (Not Detectd) - EKG Data EKG Comments: Sinus tachycardia. Ventricular rate 107 bpm, WA interval 128 ms, QRS duration 94 ms, QTC 386 ms. - Radiology Data Radiology results: report reviewed, image reviewed Disposition Clinical Impression: COPD exacerbation Disposition: ADMITTED IP TO THIS HOSP
[2021-12-15 06:48] LABS: ALT 16 U/L (4-34); AST 26 U/L (14-36); African American GFR (CKD) >90 (>60 ml/min/1.73 sqM); Albumin 4.4 g/dL (3.5-5.0); Alkaline Phosphatase 170 U/L (38-126); Anion Gap 10 mmol/L; Blood Urea Nitrogen 6 mg/dL (7-17); Carbon Dioxide 31 mmol/L (22-30); Chloride 101 mmol/L (98-107); Glucose 135 mg/dL (74-99); Non-African American GFR(CKD) >90 (>60 ml/min/1.73 sqM); Potassium 4.1 mmol/L (3.5-5.1); Sodium 142 mmol/L (137-145); Total Bilirubin 0.5 mg/dL (0.2-1.3); Total Protein 7.2 g/dL (6.3-8.2)
[2021-12-15] MEDS ORDERED: KETOROLAC 15 MG/ML 1 ML VIAL IVP STA (06:55)
[2021-12-15 07:04] LABS: INR 0.9 (<1.2); Prothrombin Time 10.2 sec (9.0-12.0)
[2021-12-15 07:08] LABS: Partial Thromboplastin Time 21.6 sec (22.0-30.0)
--- NOTE | 2021-12-15 07:13 | XR ---
EXAMINATION TYPE: XR chest 2V DATE OF EXAM: 12/15/2021 COMPARISON: 06/21/2019 HISTORY: 66-year-old female with CHF, shortness of breath. TECHNIQUE: AP and lateral views FINDINGS: Heart upper limits of normal in size. Aorta and pulmonary vasculature within normal limits. Mild inte rstitial prominence is present. Some streaky atelectasis at the left base. Otherwise, no consolidatio n or pleural effusion. IMPRESSION: Borderline heart size. Some interstitial prominence. Correlate to exclude mild pulmonary vascular con gestion. No charito pulmonary edema or airspace disease.
[2021-12-15] MEDS ORDERED: guaiFENesin-DM 100-10MG/5ML 10 ML CUP PO ONE (07:27)
--- NOTE | 2021-12-15 08:28 | CT ---
EXAMINATION TYPE: CT chest angio for PE DATE OF EXAM: 12/15/2021 COMPARISON: 08/31/2019 HISTORY: 66-year-old female Shortness of breath, Elevated D-dimer TECHNIQUE: Contiguous axial scanning of the chest performed without and with IV Contrast, patient inj ected with 100 ml mL of Isovue 370. Coronal parasagittal MIP reconstructions performed. CT DLP: 567.8 mGycm Automated exposure control for dose reduction was used. FINDINGS: Possible 2.7 cm nodule lower pole right thyroid gland. Thyroid ultrasound follow-up when patient able . Heart normal size without pericardial effusion. No flattening of the interventricular septum or reflu x of contrast into the hepatic veins. Mildly ectatic ascending aorta 3.8 cm. Bovine configuration to the aortic arch.. There is suboptimal opacification of the pulmonary general system. No large central pulmonary embolus is seen. No definite lobar branch pulmonary embolus. Segmental and more distal arterial branches are essentially nondiagnostic especially given the breathing motion artifact. Biapical pleural parenchymal scarring with mild emphysematous change. Mild diffuse bronchial wall thi ckening. No consolidation or pleural effusion. No thoracic lymphadenopathy. Within the visualized upper abdomen, cholecystectomy clips. Possible enlarging lesion posterior right lower lobe measuring at least 5.9 cm now versus 3.3 cm on 07/28/2017. This shows patchy areas of christine pheral arterial segment which very suggestive of a hemangioma. Small hiatal hernia. Mild circumferent ial wall thickening distal esophagus. Prominent breathing motion in the upper abdomen. Bones: Mild anterior spondylosis lower thoracic spine. IMPRESSION: 1. SUBOPTIMAL CONTRAST BOLUS. ADDITIONAL LIMITATION DUE TO DIFFUSE BREATHING MOTION ARTIFACT. NO LARG E CENTRAL PULMONARY EMBOLUS. LIMITED ASSESSMENT OF THE LOBAR BRANCHES WITHOUT DEFINITE EMBOLUS HERE. MOST OF THE SEGMENTAL AND MORE DISTAL ARTERIAL BRANCHES ARE NONDIAGNOSTIC AND EMBOLI IN THESE LOCATIO NS CANNOT BE EXCLUDED ON THE BASIS OF THIS EXAM. 2. COPD WITH MILD EMPHYSEMA. SCATTERED BRONCHIAL WALL THICKENING SUGGESTS A PROMINENT COMPONENT OF CH RONIC BRONCHITIS VERSUS SUPERIMPOSED ACUTE BRONCHITIS. 3. POSSIBLE 2.7 CM RIGHT THYROID LOBE NODULE. NONEMERGENT FOLLOW-UP THYROID ULTRASOUND TO FURTHER ASS ESS. 4. POSSIBLE ENLARGING POSTERIOR RIGHT LIVER LOBE MASS MEASURING 5.9 CM VERSUS 3.7 CM, PREVIOUSLY. WE NOTE PERIPHERAL ARTERIAL ENHANCEMENT RAISING POSSIBILITY OF A HEMANGIOMA. RECOMMEND CONTRAST ENHANCED LIVER MRI TO BETTER CHARACTERIZE. 5. SMALL HIATAL HERNIA. MILD WALL THICKENING DISTAL ESOPHAGUS. CORRELATE FOR ANY SYMPTOMS OF MILD ESO PHAGITIS.
[2021-12-15] MEDS ORDERED: IBUPROFEN 400 MG TAB PO PRN (09:21)
[2021-12-15] MEDS ORDERED: NALOXONE 0.4 MG/ML 1 ML VIAL IV PRN (09:21)
[2021-12-15] MEDS ORDERED: ONDANSETRON 4 MG/2 ML VIAL IVP PRN (09:21)
[2021-12-15] MEDS ORDERED: KETOROLAC 15 MG/ML 1 ML VIAL IVP PRN (09:21)
[2021-12-15] MEDS ORDERED: ACETAMINOPHEN TAB 325 MG TAB PO PRN (09:21)
[2021-12-15] MEDS: methylPREDNISolone SOD SUCCI 40 MG/ML 1 ML VIAL IV SCH ×2 (10:10→19:36)
--- NOTE | 2021-12-15 10:17 | P.HPIM ---
History of Present Illness H&P Date: 12/15/21 Chief Complaint: Shortness of breath This is a 66-year-old female patient who presented to the ER with concerns of ongoing shortness of breath. Patient reports this has been ongoing for the last 4-5 days. Patient also reports she has increased swelling to lower extremities. Patient was seen in the office and concerns of possible CHF but patient was unable to get into cardiology services at this time. Patient reports reports that shortness of breath is worse when laying down. Patient is maintained on 2 L nasal cannula at home patient reports increased sputum production. Patient does have past medical history of COPD, diabetes mellitus, atrial fibrillation, CAD [place], hyperlipidemia, hypertension and myocardial infarction. Chest CTA completed showing no large central pulmonary embolism. Chest x-ray completed showing borderline heart size. Some interstitial prominence. Correlate to exclude mild pulmonary vascular congestion no charito pulmonary edema or airspace disease. BNP 51. This time patient is resting comfortably in bed. Temperature of 98.2, heart rate of 100, respiratory rate 20, blood pressure 158/85 with oxygen saturation of 95% on 5 L. At this time patient has been started on IV steroids. Pulmonary cardiology service is consulted. 2-D echo ordered. Repeat labs ordered Review of Systems Please refer to HPI otherwise unremarkable Past Medical History Past Medical History: Atrial Fibrillation, Chest Pain / Angina, COPD, CVA/TIA, Diabetes Mellitus, Eye Disorder, GERD/Reflux, Hyperlipidemia, Hypertension, Myocardial Infarction ([place]), Osteoarthritis (OA), Thyroid Disorder Additional Past Medical History / Comment(s): vertigo, CVA-x2- 2010, glaucoma, varicose veins, peptic ulcer, HX POLYP, stress incont of urine, graves Last Myocardial Infarction Date:: 2008 History of Any Multi-Drug Resistant Organisms: None Reported Past Surgical History: Bladder Surgery, Cholecystectomy, Hernia Repair, Hysterectomy, Tonsillectomy Additional Past Surgical History / Comment(s): thyroidectomy, left foot ORIF- hardware later removed, ragini oopherectomy, bladder suspension, laser eye surgeryx2, Past Anesthesia/Blood Transfusion Reactions: No Reported Reaction Past Psychological History: Anxiety, Depression Smoking Status: Current some day smoker Past Alcohol Use History: None Reported Past Drug Use History: Marijuana - Past Family History Mother Family Medical History: Hypertension Additional Family Medical History / Comment(s): brain aneurysm Father Family Medical History: Cancer Additional Family Medical History / Comment(s): prostate Medications and Allergies Home Medications Medication Instructions Recorded Confirmed Type glipiZIDE [Glucotrol] 10 mg PO BID 09/14/15 06/20/21 History metFORMIN HCL [Glucophage] 1,000 mg PO BID 09/14/15 06/20/21 History ALPRAZolam [Xanax] 0.25 mg PO BID PRN 07/28/17 06/20/21 History Amitriptyline HCl [Elavil] 100 mg PO HS 07/28/17 06/20/21 History HYDROcodone/APAP 7.5-325MG [[place] 1 tab PO TID 07/28/17 06/20/21 History 7.5-325] Escitalopram [Lexapro] 20 mg PO DAILY 10/23/17 06/20/21 History Levothyroxine Sodium [Synthroid] 150 mcg PO DAILY 08/31/19 06/20/21 History Nitroglycerin Sl Tabs [Nitrostat] 0.4 mg SUBLINGUAL Q5M PRN 08/31/19 06/20/21 History Apixaban [Eliquis] 5 mg PO BID tab 09/02/19 06/20/21 Rx Ergocalciferol [Vitamin D2 (1250 1,250 mcg PO TU 09/28/20 06/20/21 History Mcg = 44652 Iu)] Latanoprost Ophth [Xalatan 0.005%] 1 drop BOTH EYES HS 09/28/20 06/20/21 History Multivitamins, Thera [Multivitamin 1 tab PO DAILY 09/28/20 06/20/21 History (formulary)] Rosuvastatin Calcium [Crestor] 5 mg PO DAILY 09/28/20 06/20/21 History Metoprolol Tartrate [Lopressor] 25 mg PO BID tab 10/09/20 06/20/21 Rx Dulaglutide [Trulicity] 1.5 mg SQ TU 06/20/21 06/20/21 History Empagliflozin [Jardiance] 25 mg PO DAILY 06/20/21 06/20/21 History Insulin Glargine [Lantus Vial] 100 unit SQ DAILY 06/20/21 06/20/21 History lisinopriL [Zestril] 5 mg PO DAILY 30 Days #30 tab 06/22/21 Rx methylPREDNISolone Dose Pack 4 mg PO DIRECTED #21 tab 06/22/21 Rx [Medrol Dose Pack] Allergies Allergy/AdvReac Type Severity Reaction Status Date / Time No Known Allergies Allergy Verified 06/20/21 13:20 Physical Exam Vitals: Vital Signs Temp Pulse Resp BP Pulse Ox 12/15/21 07:48 100 20 118/105 94 L 12/15/21 06:25 98.2 F 104 H 20 158/85 95 Intake and Output 12/14/21 12/15/21 12/15/21 22:59 06:59 14:59 Other: Weight 108.409 kg Results CBC & Chem 7: 12/15/21 06:13 12/15/21 06:13 Labs: Abnormal Lab Results - Last 24 Hours (Table) 12/15/21 12/15/21 12/15/21 Range/Units 06:13 06:13 06:13 Eosinophils # 1.2 H (0-0.7) k/uL APTT 21.6 L (22.0-30.0) sec D-Dimer (<0.60) mg/L FEU Carbon Dioxide 31 H (22-30) mmol/L BUN 6 L (7-17) mg/dL Glucose 135 H (74-99) mg/dL Alkaline Phosphatase 170 H (38-126) U/L 12/15/21 Range/Units 06:13 Eosinophils # (0-0.7) k/uL APTT (22.0-30.0) sec D-Dimer 0.77 H (<0.60) mg/L FEU Carbon Dioxide (22-30) mmol/L BUN (7-17) mg/dL Glucose (74-99) mg/dL Alkaline Phosphatase (38-126) U/L Assessment and Plan Assessment: 1. Increased shortness of breath secondary to COPD. 2. History of COPD maintained on home CO2 3. History of diabetes mellitus type 2 4. History of atrial fibrillation 5. History of essential hypertension 6. History of hyperlipidemia 7. History of coronary artery disease 8. Incidental finding of right thyroid lobe nodule on CTA nonemergent follow-up thyroid ultrasound recommended 9. Incidental finding of enlarging posterior right liver lobe mass possibility of hemangioma recommend contrast enhanced liver MRI to better characterize At this time pulmonary and cardiology service is consulted 2-D echo ordered Repeat labs ordered Time with Patient: Greater than 30 (Greater than 60% of the total time spent in counseling and coordination of care)
[2021-12-15] MEDS: IPRATROPIUM-ALBUTEROL 3 ML NEB INHALATION SCH ×5 (10:48→18:57)
[2021-12-15] MEDS ORDERED: IPRATROPIUM-ALBUTEROL 3 ML NEB INHALATION PRN (10:56)
[2021-12-15] MEDS: HYDROcodone/APAP 5-325MG 1 EACH TAB PO PRN ×2 (11:34→17:44)
[2021-12-15 12:26] LABS: Glucose,Whole Blood 166 mg/dL (70-110)
[2021-12-15] MEDS: INSULIN DETEMIR (LEVEMIR) 100 UNIT/ML SYR SQ SCH (12:44)
[2021-12-15] MEDS: METOPROLOL TARTRATE 25 MG TAB PO SCH ×2 (13:14→19:36)
[2021-12-15 16:15] LABS: Glucose,Whole Blood 267 mg/dL (70-110)
[2021-12-15] MEDS ORDERED: DEXTROSE 50% SYRINGE 50 ML IVP PRN ×2 (16:21)
[2021-12-15] MEDS ORDERED: NITROGLYCERIN SL TABS 0.4 MG TAB SUBLINGUAL PRN (16:39)
[2021-12-15] MEDS ORDERED: ALBUTEROL NEBULIZED 2.5 MG/3 ML INHALATION PRN (16:39)
[2021-12-15] MEDS ORDERED: SODIUM CHLORIDE 0.9% 1,000 ML IV STA (16:57)
[2021-12-15] MEDS ORDERED: AZITHROMYCIN 500 MG in SODIUM CHLORIDE 0.9% 250 ML IVPB STA (16:59)
[2021-12-15] MEDS: metFORMIN 500 MG TAB PO SCH (17:38)
[2021-12-15] MEDS: INSULIN ASPART (NovoLOG) 100 UNIT/ML VIAL SQ SCH ×2 (17:38→19:37)
[2021-12-15] MEDS: ALPRAZolam 0.25 MG TAB PO PRN (17:44)
[2021-12-15 19:25] LABS: Glucose,Whole Blood 299 mg/dL (70-110)
[2021-12-15] MEDS: LATANOPROST 0.005% OPHTH DROPS 2.5 ML BTL BOTH EYES SCH (19:32)
[2021-12-15] MEDS: APIXABAN 5 MG TAB PO SCH (19:35)
[2021-12-15] MEDS: glipiZIDE 10 MG TAB PO SCH (19:35)
[2021-12-15] MEDS: AMITRIPTYLINE HCL 50 MG TAB PO SCH (19:36)
[2021-12-15] MEDS ORDERED: METOPROLOL TARTRATE 25 MG TAB PO SCH (21:00)
[2021-12-15] MEDS: HYDROcodone/APAP 7.5-325MG 1 EACH TAB PO SCH (21:10)
[2021-12-16 06:48] LABS: Glucose,Whole Blood 153 mg/dL (70-110)
[2021-12-16] MEDS: IPRATROPIUM-ALBUTEROL 3 ML NEB INHALATION SCH ×4 (07:48→19:32)
[2021-12-16] MEDS ORDERED: FORMOTEROL FUMARATE 20 MCG/2 ML NEBU INHALATION ONE (07:48)
[2021-12-16] MEDS ORDERED: BUDESONIDE 1 MG/2 ML NEBU INHALATION SCH (08:00)
[2021-12-16] MEDS: BUDESONIDE 1 MG/2 ML NEBU INHALATION SCH ×2 (08:01→19:32)
[2021-12-16] MEDS: FORMOTEROL FUMARATE 20 MCG/2 ML NEBU INHALATION SCH ×2 (08:01→19:32)
[2021-12-16] MEDS: HYDROcodone/APAP 7.5-325MG 1 EACH TAB PO SCH ×3 (08:06→21:16)
[2021-12-16] MEDS: INSULIN DETEMIR (LEVEMIR) 100 UNIT/ML SYR SQ SCH (08:06)
[2021-12-16] MEDS: INSULIN ASPART (NovoLOG) 100 UNIT/ML VIAL SQ SCH ×4 (08:06→21:19)
[2021-12-16] MEDS: glipiZIDE 10 MG TAB PO SCH ×2 (08:07→21:15)
[2021-12-16] MEDS: MULTIVITAMINS, THERA 1 EACH TAB PO SCH (08:07)
[2021-12-16] MEDS: lisinopriL 5 MG TAB PO SCH (08:08)
[2021-12-16] MEDS: LEVOTHYROXINE 75 MCG TAB PO SCH (08:08)
[2021-12-16] MEDS: APIXABAN 5 MG TAB PO SCH ×2 (08:08→21:16)
[2021-12-16] MEDS: DAPAGLIFLOZIN PROPANEDIOL 10 MG TABLET PO SCH (08:08)
[2021-12-16] MEDS: METOPROLOL TARTRATE 25 MG TAB PO SCH ×2 (08:08→21:17)
[2021-12-16] MEDS: metFORMIN 500 MG TAB PO SCH ×2 (08:08→15:57)
[2021-12-16] MEDS: ARIPiprazole 2 MG TAB PO SCH (08:09)
[2021-12-16] MEDS: PANTOPRAZOLE 40 MG TABLET PO SCH (08:09)
[2021-12-16] MEDS: ATORVASTATIN 10 MG TAB PO SCH (08:09)
[2021-12-16] MEDS: ESCITALOPRAM 20 MG TAB PO SCH (08:13)
--- NOTE | 2021-12-16 08:27 | P.CRDCN ---
History of Present Illness Consult date: 12/16/21 Chief complaint: Shortness of breath History of present illness: This is a pleasant 66-year-old female patient with a past medical history signif icant for paroxysmal atrial fibrillation as well as chronic obstructive pulmonary disease on oxygen continuously as well as diabetes and hypertension and dyslipidemia. Requested to see the patient for further evaluation of shortness of breath. The patient presented to the hospital with about a one- week history of progressive exertional dyspnea and for the last few days was associated with orthopnea. No paroxysmal nocturnal dyspnea. Also the patient was experiencing bilateral lower extremity edema. Also she was experiencing cough productive of sputum and also she was having wheezing. No change in the weight. No symptoms of chest pain or chest discomfort. No dizziness or lightheadedness or any feeling of heart racing or fluttering. Because her symptoms of shortness of breath has progressed she decided to come to the emergency department where she underwent a workup including EKG showing sinus rhythm. She underwent a chest x-ray which showed pulmonary vascular congestion. She underwent a computed tomography scan of the chest which showed no PE. Her NT proBNP came in to be not elevated but she is overweight and she could be falsely normal because of the overweight. The patient was admitted to the hospital and currently she is getting treated for COPD. On examination she definitely has bilateral lower extremities edema which appears to be mild and also she has bilateral rhonchi. I'm going to add Lasix 20 mg IV twice a day to the current medical regimen. Also will obtain an echocardiogram was Doppler. Her last echo was from May 2021 revealing normal left ventricle systolic function was no significant valvular abnormalities. Past Medical History Past Medical History: Atrial Fibrillation, Chest Pain / Angina, COPD, CVA/TIA, Diabetes Mellitus, Eye Disorder, GERD/Reflux, Hyperlipidemia, Hypertension, Myocardial Infarction ([place]), Osteoarthritis (OA), Thyroid Disorder Additional Past Medical History / Comment(s): vertigo, CVA-x2- 2010, glaucoma, varicose veins, peptic ulcer, HX POLYP, stress incont of urine, graves Last Myocardial Infarction Date:: 2008 History of Any Multi-Drug Resistant Organisms: None Reported Past Surgical History: Bladder Surgery, Cholecystectomy, Hernia Repair, Hysterectomy, Tonsillectomy Additional Past Surgical History / Comment(s): thyroidectomy, left foot ORIF-h ardware later removed, ragini oopherectomy, bladder suspension, laser eye surgeryx2, Past Anesthesia/Blood Transfusion Reactions: No Reported Reaction Past Psychological History: Anxiety, Depression Smoking Status: Current some day smoker Past Alcohol Use History: None Reported Past Drug Use History: Marijuana - Past Family History Mother Family Medical History: Hypertension Additional Family Medical History / Comment(s): brain aneurysm Father Family Medical History: Cancer Additional Family Medical History / Comment(s): prostate Medications and Allergies Home Medications Medication Instructions Recorded Confirmed Type glipiZIDE [Glucotrol] 10 mg PO BID 09/14/15 12/15/21 History metFORMIN HCL [Glucophage] 1,000 mg PO BID 09/14/15 12/15/21 History ALPRAZolam [Xanax] 0.25 mg PO BID PRN 07/28/17 12/15/21 History Amitriptyline HCl [Elavil] 100 mg PO HS 07/28/17 12/15/21 History HYDROcodone/APAP 7.5-325MG [[place] 1 tab PO TID 07/28/17 12/15/21 History 7.5-325] Escitalopram [Lexapro] 20 mg PO DAILY 10/23/17 12/15/21 History Levothyroxine Sodium [Synthroid] 150 mcg PO AC-BRKFST 08/31/19 12/15/21 History Nitroglycerin Sl Tabs [Nitrostat] 0.4 mg SL Q5M PRN 08/31/19 12/15/21 History Apixaban [Eliquis] 5 mg PO BID tab 09/02/19 12/15/21 Rx Ergocalciferol [Vitamin D2 (1250 1,250 mcg PO TU 09/28/20 12/15/21 History Mcg = 28549 Iu)] Latanoprost Ophth [Xalatan 0.005%] 1 drop BOTH EYES HS 09/28/20 12/15/21 History Multivitamins, Thera [Multivitamin 1 tab PO DAILY 09/28/20 12/15/21 History (formulary)] Rosuvastatin Calcium [Crestor] 5 mg PO DAILY 09/28/20 12/15/21 History Metoprolol Tartrate [Lopressor] 25 mg PO BID tab 10/09/20 12/15/21 Rx Dulaglutide [Trulicity] 1.5 mg SQ TU 06/20/21 12/15/21 History Empagliflozin [Jardiance] 25 mg PO DAILY 06/20/21 12/15/21 History Insulin Glargine [Lantus Vial] 100 unit SQ DAILY 06/20/21 12/15/21 History lisinopriL [Zestril] 5 mg PO DAILY 30 Days #30 tab 06/22/21 12/15/21 Rx ARIPiprazole [Abilify] 2 mg PO DAILY 12/15/21 12/15/21 History Albuterol Inhaler [Ventolin Hfa 1 - 2 puff INHALATION RT-QID PRN 12/15/21 12/15/21 History Inhaler] Allergies Allergy/AdvReac Type Severity Reaction Status Date / Time No Known Allergies Allergy Verified 12/15/21 13:09 Physical Exam Vitals: Vital Signs Temp Pulse Pulse Resp BP BP Pulse Ox 12/16/21 08:11 108 H 12/16/21 08:00 98.6 F 104 H 99 18 136/78 90 L 12/16/21 07:48 104 H 12/16/21 02:49 20 92 L 12/16/21 02:00 97.5 F L 101 H 18 131/82 97 12/15/21 20:00 98.2 F 20 144/78 93 L 12/15/21 19:07 96 12/15/21 18:57 94 12/15/21 17:52 94 20 12/15/21 15:25 100 12/15/21 15:16 94 12/15/21 15:14 98.0 F 94 20 172/91 97 12/15/21 13:14 100 174/100 12/15/21 12:48 102 H 20 176/150 91 L 12/15/21 11:43 22 12/15/21 11:03 108 H 12/15/21 10:51 102 H 12/15/21 10:13 100 22 187/89 90 L Intake and Output 12/15/21 12/16/21 12/16/21 22:59 06:59 14:59 Intake Total 480 780 Balance 480 780 Intake: Oral 480 780 Other: Voiding Method Toilet # Voids 0 1 Weight 105.2 kg - Constitutional General appearance: no acute distress - Respiratory Respiratory: bilateral: rhonchi, wheezing - Cardiovascular Rhythm: regular Heart sounds: normal: S1, S2 Results 12/15/21 06:13 12/15/21 06:13 Current Medications Generic Name Dose Route Start Last Admin Trade Name Freq PRN Reason Stop Dose Admin Acetaminophen 650 mg 12/15/21 09:21 Acetaminophen Tab 325 Mg Tab PO Q6HR PRN Mild Pain or Fever > 100.5 Hydrocodone Bitart/Acetaminophen 1 each 12/15/21 09:21 12/15/21 17:44 Hydrocodone/Apap 5-325mg 1 Each Tab PO 1 each Q4HR PRN Administration Moderate Pain (Scale 4 to 6) Hydrocodone Bitart/Acetaminophen 1 each 12/15/21 22:00 12/16/21 08:06 Hydrocodone/Apap 7.5-325mg 1 Each Tab PO 1 each TID [place] Administration Albuterol Sulfate 2.5 mg 12/15/21 16:39 Albuterol Nebulized 2.5 Mg/3 Ml INHALATION RT-QID PRN Shortness Of Breath Albuterol/Ipratropium 3 ml 12/15/21 12:00 12/16/21 07:48 Ipratropium-Albuterol 3 Ml Neb INHALATION 3 ml RT-QID [place] Administration Albuterol/Ipratropium 3 ml 12/15/21 10:56 Ipratropium-Albuterol 3 Ml Neb INHALATION RT-Q4H PRN Shortness Of Breath Or Wheezing Alprazolam 0.25 mg 12/15/21 16:39 12/15/21 17:44 Alprazolam 0.25 Mg Tab PO 0.25 mg BID PRN Administration Anxiety Amitriptyline HCl 100 mg 12/15/21 21:00 12/15/21 19:36 Amitriptyline Hcl 50 Mg Tab PO 100 mg HS [place] Administration Apixaban 5 mg 12/15/21 21:00 12/16/21 08:08 Apixaban 5 Mg Tab PO 5 mg BID [place] Administration Protocol Aripiprazole 2 mg 12/16/21 09:00 12/16/21 08:09 Aripiprazole 2 Mg Tab PO 2 mg DAILY [place] Administration Atorvastatin Calcium 10 mg 12/16/21 09:00 12/16/21 08:09 Atorvastatin 10 Mg Tab PO 10 mg DAILY [place] Administration Budesonide 1 mg 12/16/21 08:00 12/16/21 08:01 Budesonide 1 Mg/2 Ml Nebu INHALATION 1 mg RT-BID [place] Administration Dapagliflozin 10 mg 12/16/21 09:00 12/16/21 08:08 Dapagliflozin Propanediol 10 Mg Tablet PO 10 mg DAILY [place] Administration Dextrose/Water 25 ml 12/15/21 16:21 Dextrose 50% Syringe 50 Ml IVP PER PROTOCOL PRN Hypoglycemia Protocol Dextrose/Water 50 ml 12/15/21 16:21 Dextrose 50% Syringe 50 Ml IVP PER PROTOCOL PRN Hypoglycemia Protocol Ergocalciferol 1,250 mcg 12/18/21 09:00 Ergocalciferol 1,250 Mcg (50,000 Iu) Capsule PO TU [facility] Escitalopram Oxalate 20 mg 12/16/21 09:00 12/16/21 08:13 Escitalopram 20 Mg Tab PO 20 mg DAILY [place] Administration Formoterol Fumarate 20 mcg 12/16/21 08:00 12/16/21 08:01 Formoterol Fumarate 20 Mcg/2 Ml Nebu INHALATION 20 mcg RT-BID [place] Administration Glipizide 10 mg 12/15/21 21:00 12/16/21 08:07 Glipizide 10 Mg Tab PO 10 mg BID [place] Administration Sodium Chloride 1,000 mls @ 20 mls/hr 12/15/21 16:57 12/15/21 19:20 Saline 0.9% IV 12/16/21 16:56 Not Given .Q24H STA Ceftriaxone Sodium 1 gm/ 50 mls @ 100 mls/hr 12/15/21 17:00 12/16/21 08:06 Sodium Chloride IVPB 100 mls/hr Q24HR [place] Administration Protocol Ibuprofen 400 mg 12/15/21 09:21 Ibuprofen 400 Mg Tab PO Q6HR PRN Mild Pain or Fever > 100.5 Insulin Aspart 0 unit 12/15/21 17:30 12/16/21 08:06 Insulin Aspart (Novolog) 100 Unit/Ml Vial SQ 3 unit ACHS [place] Administration Protocol Insulin Detemir 100 unit 12/15/21 12:01 12/16/21 08:06 Insulin Detemir (Levemir) 100 Unit/Ml Syr SQ 100 unit DAILY@0700 [place] Administration Ketorolac Tromethamine 15 mg 12/15/21 09:21 Ketorolac 15 Mg/Ml 1 Ml Vial IVP 12/18/21 09:23 Q6HR PRN Moderate Pain (Scale 4 to 6) Latanoprost 1 drops 12/15/21 21:00 12/15/21 19:32 Latanoprost 0.005% Ophth Drops 2.5 Ml Btl BOTH EYES Not Given [facility] Levothyroxine Sodium 150 mcg 12/16/21 07:30 12/16/21 08:08 Levothyroxine 75 Mcg Tab PO 150 mcg AC-BRKFST [facility] Administration Lisinopril 5 mg 12/16/21 09:00 12/16/21 08:08 Lisinopril 5 Mg Tab PO 5 mg DAILY [place] Administration Metformin HCl 1,000 mg 12/15/21 17:30 12/16/21 08:08 Metformin 500 Mg Tab PO 1,000 mg BID-W/MEALS [place] Administration Methylprednisolone Sodium Succinate 60 mg 12/16/21 12:00 Methylprednisolone Sod Succi 125 Mg/2 Ml Vial IV Q6HR [facility] Metoprolol Tartrate 25 mg 12/15/21 13:15 12/16/21 08:08 Metoprolol Tartrate 25 Mg Tab PO 25 mg BID [place] Administration Multivitamins 1 each 12/16/21 09:00 12/16/21 08:07 Multivitamins, Thera 1 Each Tab PO 1 each DAILY [facility] Administration Naloxone HCl 0.2 mg 12/15/21 09:21 Naloxone 0.4 Mg/Ml 1 Ml Vial IV Q2M PRN Opioid Reversal Nitroglycerin 0.4 mg 12/15/21 16:39 Nitroglycerin Sl Tabs 0.4 Mg Tab SUBLINGUAL Q5M PRN Chest Pain Non-Formulary Medication 1.5 mg 12/18/21 09:00 Dulaglutide [Trulicity] SQ TU [facility] Pantoprazole Sodium 40 mg 12/16/21 07:30 12/16/21 08:09 Pantoprazole 40 Mg Tablet PO Not Given -BRKFST [facility] Intake and Output 12/15/21 12/16/21 12/16/21 22:59 06:59 14:59 Intake Total 480 780 Balance 480 780 Intake: Oral 480 780 Other: Voiding Method Toilet # Voids 0 1 Weight 105.2 kg 12/15/21 06:13 12/15/21 06:13 Assessment and Plan Assessment: Assessment #1 shortness of breath likely related to a combination of COPD and heart failure #2 heart failure exacerbation likely related to heart failure with preserved ejection fraction #3 chronic obstructive pulmonary disease exacerbation #4 diabetes #5 paroxysmal atrial fibrillation #6 multiple comorbid conditions Plan #1 continue the current medical regimen including oral anticoagulation #2 add Lasix at 20 mg IV twice a day to the current medical regimen #3 monitor the kidney function and electrolytes #4 obtain an echocardiogram was Doppler #5 follow-up with the patient
[2021-12-16] MEDS ORDERED: NON FORMULARY DRUG (Insulin Glargine 100 UNIT/ML Ml) SQ SCH (09:00)
[2021-12-16] MEDS ORDERED: ENOXAPARIN 40 MG/0.4 ML SYRINGE SQ SCH (09:00)
[2021-12-16 09:29] LABS: Basophils # (A) 0.03 X 10*3/uL (0.00-0.10); Basophils % (A) 0.2 %; Eosinophils # (A) 0 X 10*3/uL (0.04-0.35); Eosinophils % (A) 0 %; HGB 12.2 g/dL (12.0-15.0); Immature Grans, Automated 0.9 %; Lymphocytes # (A) 0.95 X 10*3/uL (0.90-5.00); Lymphocytes % (A) 6.9 %; MCH 24.8 pg (27.0-32.0); MCHC 29.8 g/dL (32.0-37.0); MCV 83.5 fL (80.0-97.0); Mean Platelet Volume 10.4 fL (9.5-12.2); Monocytes # (A) 0.42 X 10*3/uL (0.20-1.00); NRBC Per 100 WBC 0 /100 WBCS (0.0-0.0); Neutrophils # (A) 12.28 X 10*3/uL (1.80-7.70); Platelet Count 238 X 10*3/uL (140-440); RBC 4.91 X 10*6/uL (4.10-5.20); RDW 14.1 % (11.5-14.5)
[2021-12-16 10:35] LABS: ALT 16 U/L (8-44); AST 23 U/L (13-35); African American GFR (CKD) 96.3 (60.0-200.0); Albumin 4.2 g/dL (3.8-4.9); Albumin/Globulin Ratio 1.69 (1.60-3.17); Alkaline Phosphatase 148 U/L (41-126); BUN/Creat Ratio 17.73 Ratio (12.00-20.00); Blood Urea Nitrogen 13.3 mg/dL (9.0-27.0); Calcium 10.3 mg/dL (8.7-10.3); Carbon Dioxide 25.4 mmol/L (20.0-27.5); Chloride 102 mmol/L (96-109); Globulin 2.5 g/dL (1.6-3.3); Glucose 201 mg/dL (70-110); Non-African American GFR(CKD) 83.1 (60.0-200.0); Potassium 5.2 mmol/L (3.5-5.5); Sodium 140 mmol/L (135-145); Total Bilirubin <0.15 mg/dL (0.30-1.20); Total Protein 6.7 g/dL (6.2-8.2)
[2021-12-16] MEDS: FUROSEMIDE 10 MG/ML 2 ML VIAL IV SCH ×2 (10:41→21:18)
--- NOTE | 2021-12-16 11:15 | CA ---
Transthoracic Echo Report Name: Jennifer Rodriguez Age: 66 Gender: F : 1955 Exam Date: 12/15/2021 11:14 Exam Location: [facility] Ht (in): 68 Wt (lb): 239 Ordering Physician: Vicky Pinedo MD Attending/Referring Phys: Ui Developer Eneida Bronson RDCS Procedure CPT: Indications: increase swelling to lower extremity Cardiac Hx: Technical Quality: Very technically difficult study Contrast 1: Total Dose (mL): Contrast 2: Total Dose (mL): MEASUREMENTS (Male / Female) Normal Values FINDINGS Left Ventricle Left ventricle not well visualized. Left ventricular ejection fraction is estimated at 50-55 %. Right Ventricle Right ventricle not well visualized. Right Atrium Right atrium not well visualized. Left Atrium Left atrium not well visualized. Mitral Valve Aortic Valve Tricuspid Valve Pulmonic Valve Pericardium No pericardial effusion. Aorta CONCLUSIONS Normal left ventricular dimension and systolic function Imaging of the intracardiac valves were not performed Previewed by: Dr. Carl Shearer MD (Electronically Signed) Final Date: 16 December 2021 11:14
--- NOTE | 2021-12-16 11:31 | P.CNPUL ---
History of Present Illness Consult date: 12/16/21 Requesting physician: Vicky Pinedo Reason for consult: dyspnea, cough, COPD, hypoxemia, abnormal CXR/CT Chief complaint: Shortness of breath, cough, wheezing. History of present illness: Pulmonary consult dated 12/16/2021. 66-year-old female who is brought into the emergency room, on December 15, at 6:00 in the morning, because of shortness of breath. The patient has been having shortness of breath for at least a week. In addition, she admits to chest congestion, coughing, yellow/green phlegm production, and wheezing. The patient has a history of ongoing tobacco use, for many years. She's never seen a lung doctor. The patient uses a rescue inhaler at home, and also has a nebulizer with albuterol. She states that she may have had a fever as well. Currently, she is on saline at 20 mL an hour, and she is also getting O2 at [address] angiogram was negative for PE. White count 13.8, her hemoglobin 12.2, hematocrit 41, platelet count is 238,000. Sodium 140, potassium 5.2, chlorides 102, CO2 25, anion gap 13, BUN 13.3, and creatinine 0.8. Chest x-ray shows cardiomegaly, with some interstitial prominence. Review of Systems REVIEW OF SYSTEMS: CONSTITUTIONAL: [Negative.] NEUROLOGIC: [ Negative.] HEENT: [ Negative.] CARDIAC: [Negative.] PULMONARY: Shortness of breath, chest tightness, wheezing, chest congestion, cough, and yellow/green phlegm production. GI: [Negative.] : [Negative.] RHEUMATOLOGIC: [ Negative.] IMMUNOLOGIC: [ Negative.] ENDOCRINE: [Negative. ] DERMATOLOGIC: [Negative.] Past Medical History Past Medical History: Atrial Fibrillation, Chest Pain / Angina, COPD, CVA/TIA, Diabetes Mellitus, Eye Disorder, GERD/Reflux, Hyperlipidemia, Hypertension, Myocardial Infarction ([place]), Osteoarthritis (OA), Thyroid Disorder Additional Past Medical History / Comment(s): vertigo, CVA-x2- 2010, glaucoma, varicose veins, peptic ulcer, HX POLYP, stress incont of urine, graves Last Myocardial Infarction Date:: 2008 History of Any Multi-Drug Resistant Organisms: None Reported Past Surgical History: Bladder Surgery, Cholecystectomy, Hernia Repair, Hysterectomy, Tonsillectomy Additional Past Surgical History / Comment(s): thyroidectomy, left foot ORIF-hardware later removed, ragini oopherectomy, bladder suspension, laser eye surgeryx2, Past Anesthesia/Blood Transfusion Reactions: No Reported Reaction Past Psychological History: Anxiety, Depression Smoking Status: Current some day smoker Past Alcohol Use History: None Reported Past Drug Use History: Marijuana - Past Family History Mother Family Medical History: Hypertension Additional Family Medical History / Comment(s): brain aneurysm Father Family Medical History: Cancer Additional Family Medical History / Comment(s): prostate Medications and Allergies Home Medications Medication Instructions Recorded Confirmed Type glipiZIDE [Glucotrol] 10 mg PO BID 09/14/15 12/15/21 History metFORMIN HCL [Glucophage] 1,000 mg PO BID 09/14/15 12/15/21 History ALPRAZolam [Xanax] 0.25 mg PO BID PRN 07/28/17 12/15/21 History Amitriptyline HCl [Elavil] 100 mg PO HS 07/28/17 12/15/21 History HYDROcodone/APAP 7.5-325MG [[place] 1 tab PO TID 07/28/17 12/15/21 History 7.5-325] Escitalopram [Lexapro] 20 mg PO DAILY 10/23/17 12/15/21 History Levothyroxine Sodium [Synthroid] 150 mcg PO AC-BRKFST 08/31/19 12/15/21 History Nitroglycerin Sl Tabs [Nitrostat] 0.4 mg SL Q5M PRN 08/31/19 12/15/21 History Apixaban [Eliquis] 5 mg PO BID tab 09/02/19 12/15/21 Rx Ergocalciferol [Vitamin D2 (1250 1,250 mcg PO TU 09/28/20 12/15/21 History Mcg = 36100 Iu)] Latanoprost Ophth [Xalatan 0.005%] 1 drop BOTH EYES HS 09/28/20 12/15/21 History Multivitamins, Thera [Multivitamin 1 tab PO DAILY 09/28/20 12/15/21 History (formulary)] Rosuvastatin Calcium [Crestor] 5 mg PO DAILY 09/28/20 12/15/21 History Metoprolol Tartrate [Lopressor] 25 mg PO BID tab 10/09/20 12/15/21 Rx Dulaglutide [Trulicity] 1.5 mg SQ TU 06/20/21 12/15/21 History Empagliflozin [Jardiance] 25 mg PO DAILY 06/20/21 12/15/21 History Insulin Glargine [Lantus Vial] 100 unit SQ DAILY 06/20/21 12/15/21 History lisinopriL [Zestril] 5 mg PO DAILY 30 Days #30 tab 06/22/21 12/15/21 Rx ARIPiprazole [Abilify] 2 mg PO DAILY 12/15/21 12/15/21 History Albuterol Inhaler [Ventolin Hfa 1 - 2 puff INHALATION RT-QID PRN 12/15/21 12/15/21 History Inhaler] Allergies Allergy/AdvReac Type Severity Reaction Status Date / Time No Known Allergies Allergy Verified 12/15/21 13:09 Physical Exam Osteopathic Statement: *. No significant issues noted on an osteopathic structural exam other than those noted in the History and Physical/Consult. Vitals: Vital Signs Temp Pulse Pulse Resp BP BP Pulse Ox 12/16/21 11:18 88 12/16/21 11:05 84 12/16/21 08:11 108 H 12/16/21 08:00 98.6 F 104 H 99 18 136/78 90 L 12/16/21 07:48 104 H 12/16/21 02:49 20 92 L 12/16/21 02:00 97.5 F L 101 H 18 131/82 97 12/15/21 20:00 98.2 F 20 144/78 93 L 12/15/21 19:07 96 12/15/21 18:57 94 12/15/21 17:52 94 20 12/15/21 15:25 100 12/15/21 15:16 94 12/15/21 15:14 98.0 F 94 20 172/91 97 12/15/21 13:14 100 174/100 12/15/21 12:48 102 H 20 176/150 91 L 12/15/21 11:43 22 Intake and Output 12/15/21 12/16/21 12/16/21 22:59 06:59 14:59 Intake Total 480 780 Balance 480 780 Intake: Oral 480 780 Other: Voiding Method Toilet Toilet # Voids 0 1 Weight 105.2 kg Mild respiratory distress, oriented 3. The patient is currently on 4 L of oxygen. No conversational dyspnea. No audible wheezing. HEENT examination is grossly unremarkable. Neck supple. Full range of motion. No adenopathy thyromegaly or neck vein distention. Cardiovascular examination reveals regular rhythm rate. S1-S2 normal. No S3 or S4. No discernible murmur noted. Heart sounds distant. Heart rate 88 bpm. Lungs reveal diminished breath sounds throughout. Expiratory wheezes and rhonc hi are noted. There is prolongation on forced maneuver. Adventitious lung sounds are more prominent on forced maneuver. No crackles. Abdomen soft bowel sounds are heard. No masses or tenderness. Extremities are intact. No cyanosis clubbing or edema. Skin is without rash or lesion. Neurologic examination is brief but nonfocal. Results - Laboratory Findings CBC and BMP: 12/16/21 03:10 12/16/21 03:10 PT/INR, D-dimer PT 10.2 sec (9.0-12.0) 12/15/21 06:13 INR 0.9 (<1.2) 12/15/21 06:13 D-Dimer 0.77 mg/L FEU (<0.60) H 12/15/21 06:13 Abnormal lab findings: Abnormal Labs 12/15/21 12/15/21 12/15/21 06:13 06:13 06:13 WBC MCH MCHC Immature Gran # Neutrophils # Eosinophils # 1.2 H APTT 21.6 L D-Dimer Carbon Dioxide 31 H BUN 6 L Glucose 135 H POC Glucose (mg/dL) Total Bilirubin Alkaline Phosphatase 170 H 12/15/21 12/15/21 12/15/21 06:13 12:25 16:14 WBC MCH MCHC Immature Gran # Neutrophils # Eosinophils # APTT D-Dimer 0.77 H Carbon Dioxide BUN Glucose POC Glucose (mg/dL) 166 H 267 H Total Bilirubin Alkaline Phosphatase 12/15/21 12/16/21 12/16/21 19:23 03:10 03:10 WBC 13.80 H MCH 24.8 L MCHC 29.8 L Immature Gran # 0.12 H Neutrophils # 12.28 H Eosinophils # 0 L APTT D-Dimer Carbon Dioxide BUN Glucose 201 H POC Glucose (mg/dL) 299 H Total Bilirubin <0.15 L Alkaline Phosphatase 148 H 12/16/21 06:46 WBC MCH MCHC Immature Gran # Neutrophils # Eosinophils # APTT D-Dimer Carbon Dioxide BUN Glucose POC Glucose (mg/dL) 153 H Total Bilirubin Alkaline Phosphatase - Diagnostic Findings Chest x-ray: image reviewed CT scan - chest: image reviewed Assessment and Plan Assessment: Acute hypoxemic respiratory failure, secondary to COPD exacerbation. Long-standing history of tobacco abuse. History of atrial fibrillation. History of CVA. History of diabetes mellitus. History of gastroesophageal reflux disease. Hypertension by history. Hyperlipidemia by history. History of myocardial infarction. History of hypothyroidism. Plan: Plan dated 12/16/2021. The patient is given Pulmicort 1 mg mixed with formoterol, 20 g, twice a day. Also, the primary service started her on Rocephin, and azithromycin. A pro- calcitonin level was ordered. Antibiotics might be able to be de-escalated. In addition, she is on albuterol sulfate and ipratropium bromide. Also, she is receiving IV Solu-Medrol, every 6 hours. We will continue to follow make recommendations along the way. Prognosis is guarded. The patient is counseled about the importance of smoking cessation. Time with Patient: Greater than 30
[2021-12-16 11:33] LABS: Glucose,Whole Blood 121 mg/dL (70-110)
--- NOTE | 2021-12-16 12:10 | P.PN ---
Subjective Progress Note Date: 12/16/21 This is a 66-year-old female patient who presented to the ER with concerns of ongoing shortness of breath. Patient reports this has been ongoing for the last 4-5 days. Patient also reports she has increased swelling to lower extremities. Patient was seen in the office and concerns of possible CHF but patient was unable to get into cardiology services at this time. Patient reports reports that shortness of breath is worse when laying down. Patient is maintained on 2 L nasal cannula at home patient reports increased sputum production. Patient does have past medical history of COPD, diabetes mellitus, atrial fibrillation, CAD VA, hyperlipidemia, hypertension and myocardial infarction. Chest CTA completed showing no large central pulmonary embolism. Chest x-ray completed showing borderline heart size. Some interstitial prominence. Correlate to exclude mild pulmonary vascular congestion no charito pulmonary edema or airspace disease. BNP 51. This time patient is resting comfortably in bed. Temperature of 98.2, heart rate of 100, respiratory rate 20, blood pressure 158/85 with oxygen saturation of 95% on 5 L. At this time patient has been started on IV steroids. Pulmonary cardiology service is consulted. 2-D echo ordered. Repeat labs ordered On 12/16/2021 patient was seen and examined on the telemetry floor she is alert and oriented 3 in no apparent distress, she is still complaining of cough and shortness of breath otherwise she denies any complaints fever or chills no headache or dizziness no chest pain no nausea or vomiting no abdominal pain no diarrhea no blood in the stools no burning with urination no frequency or urgency and no hematuria. Objective - Vital Signs Vital signs: Vital Signs Temp 98.6 F 12/16/21 08:00 Pulse 88 12/16/21 11:18 Resp 18 12/16/21 08:00 BP 136/78 12/16/21 08:00 Pulse Ox 90 L 12/16/21 08:00 FiO2 Intake & Output 12/15/21 12/16/21 12/16/21 18:59 06:59 18:59 Intake Total 480 780 Balance 480 780 Weight 105.2 kg Intake: Oral 480 780 Other: Voiding Method Toilet Toilet # Voids 0 1 - Exam In general patient is alert and oriented x 3 in no distress HEENT head normocephalic and atraumatic Neck is supple no JVD no goiter no lymphadenopathy no carotid bruit Chest examination is clear to auscultation no crackles no wheezing Cardiac exam reveals regular heart sounds S1 and S2 no gallops no murmurs Abdomen is soft nontender no organomegaly with normal bowel sounds Extremity exam reveals no edema no cyanosis or clubbing Neurological examination reveals no gross focal deficits - Labs CBC & Chem 7: 12/16/21 03:10 12/16/21 03:10 Labs: Abnormal Lab Results - Last 24 Hours (Table) 12/15/21 12/15/21 12/15/21 Range/Units 12:25 16:14 19:23 WBC (4.50-10.00) X 10*3/uL MCH (27.0-32.0) pg MCHC (32.0-37.0) g/dL Immature Gran # (0.00-0.04) X 10*3/uL Neutrophils # (1.80-7.70) X 10*3/uL Eosinophils # (0.04-0.35) X 10*3/uL Glucose (70-110) mg/dL POC Glucose (mg/dL) 166 H 267 H 299 H (70-110) mg/dL Total Bilirubin (0.30-1.20) mg/dL Alkaline Phosphatase (41-126) U/L 12/16/21 12/16/21 12/16/21 Range/Units 03:10 03:10 06:46 WBC 13.80 H (4.50-10.00) X 10*3/uL MCH 24.8 L (27.0-32.0) pg MCHC 29.8 L (32.0-37.0) g/dL Immature Gran # 0.12 H (0.00-0.04) X 10*3/uL Neutrophils # 12.28 H (1.80-7.70) X 10*3/uL Eosinophils # 0 L (0.04-0.35) X 10*3/uL Glucose 201 H (70-110) mg/dL POC Glucose (mg/dL) 153 H (70-110) mg/dL Total Bilirubin <0.15 L (0.30-1.20) mg/dL Alkaline Phosphatase 148 H (41-126) U/L 12/16/21 Range/Units 11:29 WBC (4.50-10.00) X 10*3/uL MCH (27.0-32.0) pg MCHC (32.0-37.0) g/dL Immature Gran # (0.00-0.04) X 10*3/uL Neutrophils # (1.80-7.70) X 10*3/uL Eosinophils # (0.04-0.35) X 10*3/uL Glucose (70-110) mg/dL POC Glucose (mg/dL) 121 H (70-110) mg/dL Total Bilirubin (0.30-1.20) mg/dL Alkaline Phosphatase (41-126) U/L Assessment and Plan Assessment: 1. Increased shortness of breath secondary to COPD. 2. History of COPD maintained on home CO2 3. History of diabetes mellitus type 2 4. History of atrial fibrillation 5. History of essential hypertension 6. History of hyperlipidemia 7. History of coronary artery disease 8. Incidental finding of right thyroid lobe nodule on CTA nonemergent follow-up thyroid ultrasound recommended 9. Incidental finding of enlarging posterior right liver lobe mass possibility of hemangioma recommend contrast enhanced liver MRI to better characterize At this time pulmonary and cardiology service is consulted 2-D echo ordered Repeat labs ordered
[2021-12-16] MEDS: methylPREDNISolone SOD SUCCI 125 MG/2 ML VIAL IV SCH ×2 (14:17→18:02)
[2021-12-16 16:45] LABS: Glucose,Whole Blood 119 mg/dL (70-110)
[2021-12-16] MEDS ORDERED: LACTULOSE 20 GM/30 ML CUP PO ONE (17:37)
[2021-12-16 20:42] LABS: Glucose,Whole Blood 241 mg/dL (70-110)
[2021-12-16] MEDS: AMITRIPTYLINE HCL 50 MG TAB PO SCH (21:15)
[2021-12-16] MEDS: LATANOPROST 0.005% OPHTH DROPS 2.5 ML BTL BOTH EYES SCH (21:18)
[2021-12-17] MEDS: ALPRAZolam 0.25 MG TAB PO PRN ×2 (00:41→12:12)
[2021-12-17] MEDS: methylPREDNISolone SOD SUCCI 125 MG/2 ML VIAL IV SCH ×4 (00:43→16:45)
[2021-12-17 06:52] LABS: Glucose,Whole Blood 215 mg/dL (70-110)
[2021-12-17] MEDS: FORMOTEROL FUMARATE 20 MCG/2 ML NEBU INHALATION SCH ×2 (07:42→21:12)
[2021-12-17] MEDS: BUDESONIDE 1 MG/2 ML NEBU INHALATION SCH ×2 (07:42→21:12)
[2021-12-17] MEDS: IPRATROPIUM-ALBUTEROL 3 ML NEB INHALATION SCH ×4 (07:42→21:12)
[2021-12-17] MEDS: FUROSEMIDE 10 MG/ML 2 ML VIAL IV SCH (08:29)
[2021-12-17] MEDS: INSULIN DETEMIR (LEVEMIR) 100 UNIT/ML SYR SQ SCH (08:29)
[2021-12-17] MEDS: INSULIN ASPART (NovoLOG) 100 UNIT/ML VIAL SQ SCH ×4 (08:29→20:46)
[2021-12-17] MEDS: DAPAGLIFLOZIN PROPANEDIOL 10 MG TABLET PO SCH (08:30)
[2021-12-17] MEDS: glipiZIDE 10 MG TAB PO SCH ×2 (08:30→20:41)
[2021-12-17] MEDS: LEVOTHYROXINE 75 MCG TAB PO SCH (08:30)
[2021-12-17] MEDS: metFORMIN 500 MG TAB PO SCH ×2 (08:30→16:44)
[2021-12-17] MEDS: METOPROLOL TARTRATE 25 MG TAB PO SCH ×2 (08:30→20:41)
[2021-12-17] MEDS: APIXABAN 5 MG TAB PO SCH ×2 (08:30→20:41)
[2021-12-17] MEDS: ESCITALOPRAM 20 MG TAB PO SCH (08:30)
[2021-12-17] MEDS: ATORVASTATIN 10 MG TAB PO SCH (08:30)
[2021-12-17] MEDS: lisinopriL 5 MG TAB PO SCH (08:30)
[2021-12-17] MEDS: ARIPiprazole 2 MG TAB PO SCH (08:30)
[2021-12-17] MEDS: MULTIVITAMINS, THERA 1 EACH TAB PO SCH (08:31)
[2021-12-17] MEDS: PANTOPRAZOLE 40 MG TABLET PO SCH (08:31)
[2021-12-17] MEDS: HYDROcodone/APAP 7.5-325MG 1 EACH TAB PO SCH ×3 (08:31→20:41)
[2021-12-17 09:29] LABS: ALT 15 U/L (8-44); AST 27 U/L (13-35); African American GFR (CKD) 78.9 (60.0-200.0); Albumin 4.3 g/dL (3.8-4.9); Albumin/Globulin Ratio 1.65 (1.60-3.17); Alkaline Phosphatase 141 U/L (41-126); BUN/Creat Ratio 21.27 Ratio (12.00-20.00); Blood Urea Nitrogen 18.8 mg/dL (9.0-27.0); Calcium 10.8 mg/dL (8.7-10.3); Carbon Dioxide 27.7 mmol/L (20.0-27.5); Chloride 99 mmol/L (96-109); Globulin 2.6 g/dL (1.6-3.3); Glucose 218 mg/dL (70-110); Non-African American GFR(CKD) 68.1 (60.0-200.0); Potassium 5.7 mmol/L (3.5-5.5); Sodium 139 mmol/L (135-145); Total Bilirubin <0.15 mg/dL (0.30-1.20); Total Protein 6.9 g/dL (6.2-8.2)
[2021-12-17 09:35] LABS: Basophils # (A) 0.02 X 10*3/uL (0.00-0.10); Basophils % (A) 0.1 %; Eosinophils # (A) 0 X 10*3/uL (0.04-0.35); Eosinophils % (A) 0 %; HCT 42.1 % (37.2-46.3); HGB 12.4 g/dL (12.0-15.0); Immature Grans, Automated 0.6 %; Lymphocytes # (A) 0.75 X 10*3/uL (0.90-5.00); Lymphocytes % (A) 5.6 %; MCHC 29.5 g/dL (32.0-37.0); MCV 84.9 fL (80.0-97.0); Mean Platelet Volume 10.5 fL (9.5-12.2); Monocytes # (A) 0.28 X 10*3/uL (0.20-1.00); Monocytes % (A) 2.1 %; NRBC Per 100 WBC 0 /100 WBCS (0.0-0.0); Neutrophils # (A) 12.24 X 10*3/uL (1.80-7.70); Neutrophils % (A) 91.6 %; Platelet Count 259 X 10*3/uL (140-440); RBC 4.96 X 10*6/uL (4.10-5.20); RDW 14.3 % (11.5-14.5); WBC 13.37 X 10*3/uL (4.50-10.00)
[2021-12-17 11:38] LABS: Glucose,Whole Blood 302 mg/dL (70-110)
--- NOTE | 2021-12-17 12:04 | P.PN ---
Subjective This is a 66-year-old female past medical history of paroxysmal atrial fibrillation, COPD, type 2 diabetes, hypertension, dyslipidemia CVA, chronic n icotine dependence. She states that she seen Dr. Medina in the past. We are asked to see in consultation for shortness of breath. Patient presents emergency department with one-week history of progressive exertional dyspnea. She also had bilateral lower extremity edema. She had symptoms of productive cough with green sputum, wheezing. She underwent a workup including EKG showing sinus rhythm. She underwent a chest x-ray which showed pulmonary vascular congestion. She underwent a computed tomography scan of the chest which showed no PE. Her NT proBNP came in to be not elevated but she is overweight and she could be falsely normal because of the overweight. Patient was admitted to the hospital and currently being treated for COPD exacerbation. Echocardiogram revealed EF 5055% 12/17/2021 Patient seen and examined at bedside, no acute distress. Her breathing has improved. She states that her breathing treatments have helped her shortness of breath. Her lower extremity edema has resolved. Overall she states she is feeling better. Blood pressure 137/71, heart rate 92, afebrile, oxygen saturations 96% 5 L nasal cannula. She is currently on IV Lasix 20 mg twice a day. GENERAL: Well-appearing, well-nourished and in no acute distress. NECK: Supple without JVD LUNGS: Breath sounds bilateral wheezing to auscultation bilaterally. Respiration equal and unlabored. HEART: Regular rate and rhythm without murmurs, rubs or gallops. S1 and S2 heard. EXTREMITIES: Normal range of motion, no edema. No clubbing or cyanosis. Peripheral pulses intact. ASSESSMENT Shortness of breath, possible combination of COPD exacerbation and congestive heart failure Tobacco use History of paroxysmal atrial fibrillation, on anticoagulation with eliquis Hypertension Dyslipidemia Type 2 diabetes History of CVA PLAN Pulmonary following, treating COPD exacerbation Transition to PO Lasix 20mg BID Patient's symptoms have improved since admission Continue home cardiac medications Continue anticoagulation with Eliquis Rest of management per primary Further recommendations based on clinical course Nurse Practitioner note has been reviewed, I agree with a documented findings and plan of care. Patient was seen and examined. Objective - Vital Signs Vital signs: Vital Signs Temp 98.4 F 12/17/21 08:00 Pulse 95 12/17/21 08:02 Resp 18 12/17/21 08:00 BP 137/71 09/19/22 08:00 Pulse Ox 96 12/17/21 08:00 FiO2 Intake & Output 12/16/21 12/17/21 12/17/21 18:59 06:59 18:59 Intake Total 1080 Balance 1080 Weight 104 kg Intake: Oral 1080 Other: Voiding Method Toilet Toilet # Voids 3 4 - Labs CBC & Chem 7: 12/17/21 03:23 12/17/21 03:23 Labs: Abnormal Lab Results - Last 24 Hours (Table) 12/16/21 12/16/21 12/16/21 Range/Units 03:10 03:10 11:29 WBC 13.80 H (4.50-10.00) X 10*3/uL MCH 24.8 L (27.0-32.0) pg MCHC 29.8 L (32.0-37.0) g/dL Immature Gran # 0.12 H (0.00-0.04) X 10*3/uL Neutrophils # 12.28 H (1.80-7.70) X 10*3/uL Eosinophils # 0 L (0.04-0.35) X 10*3/uL Glucose 201 H (70-110) mg/dL POC Glucose (mg/dL) 121 H (70-110) mg/dL Total Bilirubin <0.15 L (0.30-1.20) mg/dL Alkaline Phosphatase 148 H (41-126) U/L 12/16/21 12/16/21 12/17/21 Range/Units 16:44 20:39 06:51 WBC (4.50-10.00) X 10*3/uL MCH (27.0-32.0) pg MCHC (32.0-37.0) g/dL Immature Gran # (0.00-0.04) X 10*3/uL Neutrophils # (1.80-7.70) X 10*3/uL Eosinophils # (0.04-0.35) X 10*3/uL Glucose (70-110) mg/dL POC Glucose (mg/dL) 119 H 241 H 215 H (70-110) mg/dL Total Bilirubin (0.30-1.20) mg/dL Alkaline Phosphatase (41-126) U/L
--- NOTE | 2021-12-17 12:37 | P.PN ---
Subjective Progress Note Date: 12/17/21 66-year-old female who is brought into the emergency room, on December 15, at 6:00 in the morning, because of shortness of breath. The patient has been having shortness of breath for at least a week. In addition, she admits to chest congestion, coughing, yellow/green phlegm production, and wheezing. The patient has a history of ongoing tobacco use, for many years. She's never seen a lung doctor. The patient uses a rescue inhaler at home, and also has a nebulizer with albuterol. She states that she may have had a fever as well. Currently, she is on saline at 20 mL an hour, and she is also getting O2 at [address] angiogram was negative for PE. White count 13.8, her hemoglobin 12.2, hematocrit 41, platelet count is 238,000. Sodium 140, potassium 5.2, chlorides 102, CO2 25, anion gap 13, BUN 13.3, and creatinine 0.8. Chest x-ray shows cardiomegaly, with some interstitial prominence. 12/17/2021, Jennifer is feeling slightly better compared to yesterday. She is less short of breath and bronchospastic and wheezy. She remains on DuoNeb nebulized treatments around the clock. She is also on IV Solu Medrol 60 mg every 6 hours. She was given IV Lasix and later on she is switched to by mouth Lasix 20 mg twice a day. She is on Levemir insulin 100 units daily and she is also on NovoL og size. Coverage. She is doing well. She is on long-term and to coagulation with eloquent. Her home medications have been resumed and she is on empiric antibiotic coverage with IV Rocephin. CAT scan of the chest showed COPD. No other acute abnormalities to indicate pneumonias. The blood work shows a white cell count of 13.3 with a hemoglobin of 12.4 and a platelet count of 259. Sodium level is at 139 with a potassium level of 5.7. Serum bicarb is at 27. BUN is at 18 with a creatinine of 0.9. LFTs are all within normal limits. Objective - Vital Signs Vital signs: Vital Signs Temp 98.4 F 12/17/21 08:00 Pulse 90 12/17/21 11:45 Resp 18 12/17/21 08:00 BP 137/71 12/17/21 08:00 Pulse Ox 96 12/17/21 10:00 FiO2 Intake & Output 12/16/21 12/17/21 12/17/21 18:59 06:59 18:59 Intake Total 1080 Balance 1080 Weight 104 kg Intake: Oral 1080 Other: Voiding Method Toilet Toilet Toilet # Voids 3 4 - Exam Mild respiratory distress, oriented 3. The patient is currently on 4 L of oxygen. No conversational dyspnea. No audible wheezing. HEENT examination is grossly unremarkable. Neck supple. Full range of motion. No adenopathy thyromegaly or neck vein distention. Cardiovascular examination reveals regular rhythm rate. S1-S2 normal. No S3 or S4. No discernible murmur noted. Heart sounds distant. Heart rate 88 bpm. Lungs reveal diminished breath sounds throughout. Expiratory wheezes and rhonchi are noted. There is prolongation on forced maneuver. Adventitious lung sounds are more prominent on forced maneuver. No crackles. Abdomen soft bowel sounds are heard. No masses or tenderness. Extremities are intact. No cyanosis clubbing or edema. Skin is without rash or lesion. Neurologic examination is brief but nonfocal. - Labs CBC & Chem 7: 12/17/21 03:23 12/17/21 03:23 Labs: Abnormal Lab Results - Last 24 Hours (Table) 12/16/21 12/16/21 12/17/21 Range/Units 16:44 20:39 03:23 WBC 13.37 H (4.50-10.00) X 10*3/uL MCH 25.0 L (27.0-32.0) pg MCHC 29.5 L (32.0-37.0) g/dL Immature Gran # 0.08 H (0.00-0.04) X 10*3/uL Neutrophils # 12.24 H (1.80-7.70) X 10*3/uL Lymphocytes # 0.75 L (0.90-5.00) X 10*3/uL Eosinophils # 0 L (0.04-0.35) X 10*3/uL Potassium (3.5-5.5) mmol/L Carbon Dioxide (20.0-27.5) mmol/L BUN/Creatinine Ratio (12.00-20.00) Ratio Glucose (70-110) mg/dL POC Glucose (mg/dL) 119 H 241 H (70-110) mg/dL Calcium (8.7-10.3) mg/dL Total Bilirubin (0.30-1.20) mg/dL Alkaline Phosphatase (41-126) U/L 12/17/21 12/17/21 12/17/21 Range/Units 03:23 06:51 11:36 WBC (4.50-10.00) X 10*3/uL MCH (27.0-32.0) pg MCHC (32.0-37.0) g/dL Immature Gran # (0.00-0.04) X 10*3/uL Neutrophils # (1.80-7.70) X 10*3/uL Lymphocytes # (0.90-5.00) X 10*3/uL Eosinophils # (0.04-0.35) X 10*3/uL Potassium 5.7 H (3.5-5.5) mmol/L Carbon Dioxide 27.7 H (20.0-27.5) mmol/L BUN/Creatinine Ratio 21.27 H (12.00-20.00) Ratio Glucose 218 H (70-110) mg/dL POC Glucose (mg/dL) 215 H 302 H (70-110) mg/dL Calcium 10.8 H (8.7-10.3) mg/dL Total Bilirubin <0.15 L (0.30-1.20) mg/dL Alkaline Phosphatase 141 H (41-126) U/L Assessment and Plan Plan: Acute hypoxemic respiratory failure, secondary to COPD exacerbation, clinically improving. No clear evidence of an underlying pneumonia. The patient remains on DuoNeb nebulized treatments around the clock, IV Rocephin and IV Solu-Medrol. Long-standing history of tobacco abuse. History of atrial fibrillation, rate is controlled and the patient is on long- term and to coagulation with eliquis History of CVA. History of diabetes mellitus maintained on long-acting insulin with Levemir History of gastroesophageal reflux disease. Hypertension by history. Hyperlipidemia by history. CAD and a history of myocardial infarction. History of hypothyroidism. Plan Clinically improving continue bronchodilators steroids and antibiotics Wean off oxygen as tolerated to maintain a saturation above 90% Smoking cessation counseling Monitor blood sugars We'll continue to follow
[2021-12-17 16:15] LABS: Glucose,Whole Blood 217 mg/dL (70-110)
[2021-12-17] MEDS: FUROSEMIDE 20 MG TAB PO SCH (16:44)
--- NOTE | 2021-12-17 19:01 | P.PN ---
Subjective Progress Note Date: 12/17/21 This is a 66-year-old female patient who presented to the ER with concerns of ongoing shortness of breath. Patient reports this has been ongoing for the last 4-5 days. Patient also reports she has increased swelling to lower extremities. Patient was seen in the office and concerns of possible CHF but patient was unable to get into cardiology services at this time. Patient reports reports that shortness of breath is worse when laying down. Patient is maintained on 2 L nasal cannula at home patient reports increased sputum production. Patient does have past medical history of COPD, diabetes mellitus, atrial fibrillation, CAD VA, hyperlipidemia, hypertension and myocardial infarction. Chest CTA completed showing no large central pulmonary embolism. Chest x-ray completed showing borderline heart size. Some interstitial prominence. Correlate to exclude mild pulmonary vascular congestion no charito pulmonary edema or airspace disease. BNP 51. This time patient is resting comfortably in bed. Temperature of 98.2, heart rate of 100, respiratory rate 20, blood pressure 158/85 with oxygen saturation of 95% on 5 L. At this time patient has been started on IV steroids. Pulmonary cardiology service is consulted. 2-D echo ordered. Repeat labs ordered On 12/16/2021 patient was seen and examined on the telemetry floor she is alert and oriented 3 in no apparent distress, she is still complaining of cough and shortness of breath otherwise she denies any complaints fever or chills no headache or dizziness no chest pain no nausea or vomiting no abdominal pain no diarrhea no blood in the stools no burning with urination no frequency or urgency and no hematuria. On 12/17/2021 patient was seen and examined on the medical floor she is alert and oriented 3 in no apparent distress she is still complaining of cough, shortness of breath and wheezing otherwise she denies any complaints there is no fever or chills no headache or dizziness no chest pain no nausea or vomiting no abdominal pain no diarrhea and no urinary symptoms her temperature is 98.4 white blood count 13.37 she is maintained on IV Solu-Medrol pulmonary consult following, patient not ready for discharge yet Objective - Vital Signs Vital signs: Vital Signs Temp 98.4 F 12/17/21 08:00 Pulse 90 12/17/21 11:45 Resp 18 12/17/21 08:00 BP 137/71 12/17/21 08:00 Pulse Ox 96 12/17/21 10:00 FiO2 Intake & Output 12/16/21 12/17/21 12/17/21 18:59 06:59 18:59 Intake Total 1080 Balance 1080 Weight 104 kg Intake: Oral 1080 Other: Voiding Method Toilet Toilet Toilet # Voids 3 4 - Exam In general patient is alert and oriented x 3 in no distress HEENT head normocephalic and atraumatic Neck is supple no JVD no goiter no lymphadenopathy no carotid bruit Chest examination is clear to auscultation no crackles no wheezing Cardiac exam reveals regular heart sounds S1 and S2 no gallops no murmurs Abdomen is soft nontender no organomegaly with normal bowel sounds Extremity exam reveals no edema no cyanosis or clubbing Neurological examination reveals no gross focal deficits - Labs CBC & Chem 7: 12/17/21 03:23 12/17/21 03:23 Labs: Abnormal Lab Results - Last 24 Hours (Table) 12/16/21 12/16/21 12/17/21 Range/Units 16:44 20:39 03:23 WBC 13.37 H (4.50-10.00) X 10*3/uL MCH 25.0 L (27.0-32.0) pg MCHC 29.5 L (32.0-37.0) g/dL Immature Gran # 0.08 H (0.00-0.04) X 10*3/uL Neutrophils # 12.24 H (1.80-7.70) X 10*3/uL Lymphocytes # 0.75 L (0.90-5.00) X 10*3/uL Eosinophils # 0 L (0.04-0.35) X 10*3/uL Potassium (3.5-5.5) mmol/L Carbon Dioxide (20.0-27.5) mmol/L BUN/Creatinine Ratio (12.00-20.00) Ratio Glucose (70-110) mg/dL POC Glucose (mg/dL) 119 H 241 H (70-110) mg/dL Calcium (8.7-10.3) mg/dL Total Bilirubin (0.30-1.20) mg/dL Alkaline Phosphatase (41-126) U/L 12/17/21 12/17/21 12/17/21 Range/Units 03:23 06:51 11:36 WBC (4.50-10.00) X 10*3/uL MCH (27.0-32.0) pg MCHC (32.0-37.0) g/dL Immature Gran # (0.00-0.04) X 10*3/uL Neutrophils # (1.80-7.70) X 10*3/uL Lymphocytes # (0.90-5.00) X 10*3/uL Eosinophils # (0.04-0.35) X 10*3/uL Potassium 5.7 H (3.5-5.5) mmol/L Carbon Dioxide 27.7 H (20.0-27.5) mmol/L BUN/Creatinine Ratio 21.27 H (12.00-20.00) Ratio Glucose 218 H (70-110) mg/dL POC Glucose (mg/dL) 215 H 302 H (70-110) mg/dL Calcium 10.8 H (8.7-10.3) mg/dL Total Bilirubin <0.15 L (0.30-1.20) mg/dL Alkaline Phosphatase 141 H (41-126) U/L Assessment and Plan Assessment: 1. Increased shortness of breath secondary to COPD. 2. History of COPD maintained on home CO2 3. History of diabetes mellitus type 2 4. History of atrial fibrillation 5. History of essential hypertension 6. History of hyperlipidemia 7. History of coronary artery disease 8. Incidental finding of right thyroid lobe nodule on CTA nonemergent follow-up thyroid ultrasound recommended 9. Incidental finding of enlarging posterior right liver lobe mass possibility of hemangioma recommend contrast enhanced liver MRI to better characterize At this time pulmonary and cardiology service is consulted 2-D echo ordered Repeat labs ordered
[2021-12-17] MEDS: AMITRIPTYLINE HCL 50 MG TAB PO SCH (20:42)
[2021-12-17] MEDS: LATANOPROST 0.005% OPHTH DROPS 2.5 ML BTL BOTH EYES SCH (20:42)
[2021-12-17 20:45] LABS: Glucose,Whole Blood 236 mg/dL (70-110)
[2021-12-18] MEDS: methylPREDNISolone SOD SUCCI 125 MG/2 ML VIAL IV SCH ×4 (00:36→16:59)
[2021-12-18 07:12] LABS: Glucose,Whole Blood 180 mg/dL (70-110)
[2021-12-18] MEDS: IPRATROPIUM-ALBUTEROL 3 ML NEB INHALATION SCH ×4 (08:04→19:53)
[2021-12-18] MEDS: BUDESONIDE 1 MG/2 ML NEBU INHALATION SCH ×2 (08:05→19:53)
[2021-12-18] MEDS: FORMOTEROL FUMARATE 20 MCG/2 ML NEBU INHALATION SCH ×2 (08:05→19:53)
[2021-12-18] MEDS: INSULIN DETEMIR (LEVEMIR) 100 UNIT/ML SYR SQ SCH (08:17)
[2021-12-18] MEDS: INSULIN ASPART (NovoLOG) 100 UNIT/ML VIAL SQ SCH ×4 (08:17→21:36)
[2021-12-18] MEDS: metFORMIN 500 MG TAB PO SCH ×2 (08:18→16:59)
[2021-12-18] MEDS: ESCITALOPRAM 20 MG TAB PO SCH (08:18)
[2021-12-18] MEDS: APIXABAN 5 MG TAB PO SCH ×2 (08:18→20:31)
[2021-12-18] MEDS: LEVOTHYROXINE 75 MCG TAB PO SCH (08:18)
[2021-12-18] MEDS: ARIPiprazole 2 MG TAB PO SCH (08:18)
[2021-12-18] MEDS: glipiZIDE 10 MG TAB PO SCH ×2 (08:19→20:31)
[2021-12-18] MEDS: METOPROLOL TARTRATE 25 MG TAB PO SCH ×2 (08:19→20:31)
[2021-12-18] MEDS: PANTOPRAZOLE 40 MG TABLET PO SCH (08:19)
[2021-12-18] MEDS: lisinopriL 5 MG TAB PO SCH (08:19)
[2021-12-18] MEDS: ATORVASTATIN 10 MG TAB PO SCH (08:19)
[2021-12-18] MEDS: MULTIVITAMINS, THERA 1 EACH TAB PO SCH (08:19)
[2021-12-18] MEDS: FUROSEMIDE 20 MG TAB PO SCH ×2 (08:19→15:05)
[2021-12-18] MEDS: DAPAGLIFLOZIN PROPANEDIOL 10 MG TABLET PO SCH (08:19)
[2021-12-18] MEDS: HYDROcodone/APAP 7.5-325MG 1 EACH TAB PO SCH ×3 (08:21→21:37)
[2021-12-18] MEDS ORDERED: ERGOCALCIFEROL 1,250 MCG (50,000 IU) CAPSULE PO SCH (09:00)
[2021-12-18] MEDS ORDERED: NON FORMULARY DRUG (Dulaglutide [Trulicity] 1.5 MG/0.5 ML Each) SQ SCH (09:00)
--- NOTE | 2021-12-18 11:05 | P.PN ---
Subjective Progress Note Date: 12/18/21 66-year-old female who is brought into the emergency room, on December 15, at 6:00 in the morning, because of shortness of breath. The patient has been having shortness of breath for at least a week. In addition, she admits to chest congestion, coughing, yellow/green phlegm production, and wheezing. The patient has a history of ongoing tobacco use, for many years. She's never seen a lung doctor. The patient uses a rescue inhaler at home, and also has a nebulizer with albuterol. She states that she may have had a fever as well. Currently, she is on saline at 20 mL an hour, and she is also getting O2 at [address] angiogram was negative for PE. White count 13.8, her hemoglobin 12.2, hematocrit 41, platelet count is 238,000. Sodium 140, potassium 5.2, chlorides 102, CO2 25, anion gap 13, BUN 13.3, and creatinine 0.8. Chest x-ray shows cardiomegaly, with some interstitial prominence. 12/17/2021, Jennifer is feeling slightly better compared to yesterday. She is less short of breath and bronchospastic and wheezy. She remains on DuoNeb nebulized treatments around the clock. She is also on IV Solu Medrol 60 mg every 6 hours. She was given IV Lasix and later on she is switched to by mouth Lasix 20 mg twice a day. She is on Levemir insulin 100 units daily and she is also on NovoL og size. Coverage. She is doing well. She is on long-term and to coagulation with eloquent. Her home medications have been resumed and she is on empiric antibiotic coverage with IV Rocephin. CAT scan of the chest showed COPD. No other acute abnormalities to indicate pneumonias. The blood work shows a white cell count of 13.3 with a hemoglobin of 12.4 and a platelet count of 259. Sodium level is at 139 with a potassium level of 5.7. Serum bicarb is at 27. BUN is at 18 with a creatinine of 0.9. LFTs are all within normal limits. 12/18/2021, patient is slightly less bronchospastic and wheezy. However she remains congested and she is still bringing up thick mucus. While she is having vigorous cough [id number], she feels that she is going to pass out however she has not lost any consciousness and she has not had any episodes of syncope. She remains on bronchodilators. She remains on steroids and she is on IV Solu- Medrol 60 mg every 6 hours. Objective - Vital Signs Vital signs: Vital Signs Temp 97.6 F 12/18/21 08:00 Pulse 86 12/18/21 08:36 Resp 17 12/18/21 08:00 BP 160/84 12/18/21 08:00 Pulse Ox 93 L 12/18/21 10:16 FiO2 Intake & Output 12/17/21 12/18/21 12/18/21 18:59 06:59 18:59 Intake Total 1830 Balance 1830 Weight 103 kg Intake: Oral 1829 Other: Voiding Method Toilet Toilet # Voids 3 1 - Exam Mild respiratory distress, oriented 3. The patient is currently on 4 L of oxygen. No conversational dyspnea. No audible wheezing. HEENT examination is grossly unremarkable. Neck supple. Full range of motion. No adenopathy thyromegaly or neck vein distention. Cardiovascular examination reveals regular rhythm rate. S1-S2 normal. No S3 or S4. No discernible murmur noted. Heart sounds distant. Heart rate 88 bpm. Lungs reveal diminished breath sounds throughout. Expiratory wheezes and rhonchi are noted. There is prolongation on forced maneuver. Adventitious lung sounds are more prominent on forced maneuver. No crackles. Abdomen soft bowel sounds are heard. No masses or tenderness. Extremities are intact. No cyanosis clubbing or edema. Skin is without rash or lesion. Neurologic examination is brief but nonfocal. - Labs CBC & Chem 7: 12/17/21 03:23 12/17/21 03:23 Labs: Abnormal Lab Results - Last 24 Hours (Table) 12/17/21 12/17/21 12/17/21 Range/Units 11:36 16:14 20:44 POC Glucose (mg/dL) 302 H 217 H 236 H (70-110) mg/dL 12/18/21 Range/Units 07:08 POC Glucose (mg/dL) 180 H (70-110) mg/dL Microbiology - Last 24 Hours (Table) 12/17/21 10:17 Gram Stain - Preliminary Sputum Sputum Culture - Preliminary Assessment and Plan Plan: Acute hypoxemic respiratory failure, secondary to COPD exacerbation, clinically improving. No clear evidence of an underlying pneumonia. The patient remains on DuoNeb nebulized treatments around the clock, IV Rocephin and IV Solu-Medrol. Long-standing history of tobacco abuse. History of atrial fibrillation, rate is controlled and the patient is on long- term and to coagulation with eliquis History of CVA. History of diabetes mellitus maintained on long-acting insulin with Levemir History of gastroesophageal reflux disease. Hypertension by history. Hyperlipidemia by history. CAD and a history of myocardial infarction. History of hypothyroidism. Right thyroid lobe nodule measuring 2.7 cm in size, Enlarging posterior right liver lobe mass measuring 5.9 cm in size versus 3.7. History of meningioma. Considered a contrast-enhanced liver MRI at a later stage. Small hiatal hernia Plan continue bronchodilators steroids and antibiotics Wean off oxygen as tolerated to maintain a saturation above 90%, the patient remains on 4 L of oxygen by nasal cannula flutter valve No changes in her medication regimen. We'll continue the same treatment for now. Smoking cessation counseling Monitor blood sugars We'll continue to follow
[2021-12-18 11:24] LABS: Glucose,Whole Blood 223 mg/dL (70-110)
[2021-12-18] MEDS: ALPRAZolam 0.25 MG TAB PO PRN (12:20)
--- NOTE | 2021-12-18 12:29 | P.PN ---
Subjective This is a 66-year-old female past medical history of paroxysmal atrial fibrillation, COPD, type 2 diabetes, hypertension, dyslipidemia CVA, chronic n icotine dependence. She states that she seen Dr. Medina in the past. We are asked to see in consultation for shortness of breath. Patient presents emergency department with one-week history of progressive exertional dyspnea. She also had bilateral lower extremity edema. She had symptoms of productive cough with green sputum, wheezing. She underwent a workup including EKG showing sinus rhythm. She underwent a chest x-ray which showed pulmonary vascular congestion. She underwent a computed tomography scan of the chest which showed no PE. Her NT proBNP came in to be not elevated but she is overweight and she could be falsely normal because of the overweight. Patient was admitted to the hospital and currently being treated for COPD exacerbation. Echocardiogram revealed EF 5055% 12/18/2021 Patient seen and examined at bedside, no acute distress. Her breathing has improved. She states that her breathing treatments have helped her shortness of breath. Her lower extremity edema has resolved. Overall she states she is feeling better. Continues to have a productive cough with green sputum. Transition to PO Lasix, is tolerating well. Blood pressure slightly elevated this morning SBP 160s. Yesterday SBP 120s-130s. GENERAL: Well-appearing, well-nourished and in no acute distress. NECK: Supple without JVD LUNGS: Breath sounds bilateral wheezing to auscultation bilaterally. Respiration equal and unlabored. HEART: Regular rate and rhythm without murmurs, rubs or gallops. S1 and S2 heard. EXTREMITIES: Normal range of motion, no edema. No clubbing or cyanosis. Peripheral pulses intact. ASSESSMENT Shortness of breath, possible combination of COPD exacerbation and congestive heart failure Acute on chronic heart failure with preserved ejection fraction Tobacco use History of paroxysmal atrial fibrillation, on anticoagulation with eliquis Hypertension Dyslipidemia Type 2 diabetes History of CVA PLAN Pulmonary following, treating COPD exacerbation Continue PO Lasix 20mg BID Continue home cardiac medications Continue anticoagulation with Eliquis Rest of management per primary No further changes from a cardiology perspective. . Nurse Practitioner note has been reviewed, I agree with a documented findings and plan of care. Patient was seen and examined. Objective - Vital Signs Vital signs: Vital Signs Temp 97.6 F 12/18/21 08:00 Pulse 86 12/18/21 08:36 Resp 17 12/18/21 08:00 BP 160/84 12/18/21 08:00 Pulse Ox 92 L 12/18/21 08:05 FiO2 Intake & Output 12/17/21 12/18/21 12/18/21 18:59 06:59 18:59 Intake Total 1829 Balance 1829 Weight 103 kg Intake: Oral 1829 Other: Voiding Method Toilet Toilet # Voids 3 1 - Labs CBC & Chem 7: 12/17/21 03:23 12/19/21 07:33 Labs: Abnormal Lab Results - Last 24 Hours (Table) 12/17/21 12/17/21 12/17/21 Range/Units 11:36 16:14 20:44 POC Glucose (mg/dL) 302 H 217 H 236 H (70-110) mg/dL 12/18/21 Range/Units 07:08 POC Glucose (mg/dL) 180 H (70-110) mg/dL Microbiology - Last 24 Hours (Table) 12/17/21 10:17 Gram Stain - Preliminary Sputum Sputum Culture - Preliminary
--- NOTE | 2021-12-18 13:20 | CDI ---
Documentation Clarification Form Date: 12/18/2021 12:58:35 PM From: Lupe Gilliland RN CCDS Admit Date: 12/15/2021 09:25:00 AM Patient Name: Jennifer Rodriguez Visit Number: [id number] Discharge Date: ATTENTION: The Clinical Documentation Specialists (CDI) and [facility] Coding Staff appreciate your assistance in clarifying documentation. Please respond to the clarification below the line at the bottom and electronically sign. The CDI & [facility] Coding staff will review the response and follow-up if needed. Please note: Queries are made part of the Legal Health Record. If you have any questions, please contact the author of this message via ITS. Dr. Luca Simon Your patient has the documented diagnosis of unspecified CHF 12/17, Cardiology. Additional information regarding the acuity of CHF is requested. History/Risk Factors: 66-year-old female presents to the ED for concerns of ongoing shortness of breath. Medical History: Atrial Fib; COPD; CVA/TIA; DM; GERD/Reflux; HTN; and HLD. Clinical Indicators: VS/Pulse OX: B/P 158/85 HR 104 Temp 98.2 F Oral RR 20 SpO2 95% 5L nc BNP: 51 Echocardiogram Results: EF 50-55% Normal left ventricular dimension and systolic function imaging of the intracardiac valves were not performed. Chest X Ray: 12/15 Some interstitial prominence. Correlate to exclude mild pulmonary vascular congestion. Treatment: 12/16 12/17 Lasix 20mg IV Q12HR; 12/15 Lopressor 25mg PO BID [place] In your professional opinion, can you please clarify the acuity and of CHF if known? [ ] Chronic Diastolic Heart Failure (preserved EF) [ ] Acute on Chronic Diastolic Heart Failure (preserved EF) [ ] Other, please specify [ ] Unable to determine send the query to RIPENING ROOM OPERATOR (Template Last Revised: May 2020) MAGALYS
[2021-12-18 16:33] LABS: Glucose,Whole Blood 300 mg/dL (70-110)
[2021-12-18] MEDS: AMITRIPTYLINE HCL 50 MG TAB PO SCH (20:31)
[2021-12-18] MEDS: LATANOPROST 0.005% OPHTH DROPS 2.5 ML BTL BOTH EYES SCH (20:31)
[2021-12-18 21:32] LABS: Glucose,Whole Blood 261 mg/dL (70-110)
[2021-12-19] MEDS: methylPREDNISolone SOD SUCCI 125 MG/2 ML VIAL IV SCH ×3 (00:08→12:00)
[2021-12-19 06:47] LABS: Glucose,Whole Blood 239 mg/dL (70-110)
[2021-12-19] MEDS: IPRATROPIUM-ALBUTEROL 3 ML NEB INHALATION SCH ×3 (07:10→15:36)
[2021-12-19] MEDS: BUDESONIDE 1 MG/2 ML NEBU INHALATION SCH (07:10)
[2021-12-19] MEDS: FORMOTEROL FUMARATE 20 MCG/2 ML NEBU INHALATION SCH (07:10)
[2021-12-19 07:25] VITALS: BP 155/73; RESP 16; TEMP 97.6
[2021-12-19 08:03] LABS: African American GFR (CKD) >90 (>60 ml/min/1.73 sqM); Anion Gap 10 mmol/L; Blood Urea Nitrogen 28 mg/dL (7-17); Calcium 10.3 mg/dL (8.4-10.2); Carbon Dioxide 32 mmol/L (22-30); Chloride 95 mmol/L (98-107); Glucose 260 mg/dL (74-99); Non-African American GFR(CKD) >90 (>60 ml/min/1.73 sqM); Potassium 4.8 mmol/L (3.5-5.1); Sodium 137 mmol/L (137-145)
[2021-12-19] MEDS: LEVOTHYROXINE 75 MCG TAB PO SCH (08:54)
[2021-12-19] MEDS: METOPROLOL TARTRATE 25 MG TAB PO SCH (08:54)
[2021-12-19] MEDS: glipiZIDE 10 MG TAB PO SCH (08:55)
[2021-12-19] MEDS: lisinopriL 5 MG TAB PO SCH (08:55)
[2021-12-19] MEDS: ATORVASTATIN 10 MG TAB PO SCH (08:55)
[2021-12-19] MEDS: FUROSEMIDE 20 MG TAB PO SCH (08:55)
[2021-12-19] MEDS: ESCITALOPRAM 20 MG TAB PO SCH (08:55)
[2021-12-19] MEDS: metFORMIN 500 MG TAB PO SCH (08:55)
[2021-12-19] MEDS: MULTIVITAMINS, THERA 1 EACH TAB PO SCH (08:55)
[2021-12-19] MEDS: HYDROcodone/APAP 7.5-325MG 1 EACH TAB PO SCH (08:55)
[2021-12-19] MEDS: PANTOPRAZOLE 40 MG TABLET PO SCH (08:55)
[2021-12-19] MEDS: APIXABAN 5 MG TAB PO SCH (08:55)
[2021-12-19] MEDS: INSULIN ASPART (NovoLOG) 100 UNIT/ML VIAL SQ SCH ×2 (08:58→12:02)
[2021-12-19] MEDS: INSULIN DETEMIR (LEVEMIR) 100 UNIT/ML SYR SQ SCH (08:58)
[2021-12-19] MEDS: ARIPiprazole 2 MG TAB PO SCH (09:03)
[2021-12-19] MEDS: ALPRAZolam 0.25 MG TAB PO PRN (09:16)
[2021-12-19] MEDS: DAPAGLIFLOZIN PROPANEDIOL 10 MG TABLET PO SCH (10:50)
[2021-12-19 10:57] VITALS: PULSE 76
--- NOTE | 2021-12-19 11:19 | P.PN ---
Subjective This is a 66-year-old female past medical history of paroxysmal atrial fibrillation, COPD, type 2 diabetes, hypertension, dyslipidemia CVA, chronic n icotine dependence. She states that she seen Dr. Medina in the past. We are asked to see in consultation for shortness of breath. Patient presents emergency department with one-week history of progressive exertional dyspnea. She also had bilateral lower extremity edema. She had symptoms of productive cough with green sputum, wheezing. She underwent a workup including EKG showing sinus rhythm. She underwent a chest x-ray which showed pulmonary vascular congestion. She underwent a computed tomography scan of the chest which showed no PE. Her NT proBNP came in to be not elevated but she is overweight and she could be falsely normal because of the overweight. Patient was admitted to the hospital and currently being treated for COPD exacerbation. Echocardiogram revealed EF 5055% 12/19/2021 Patient seen and examined at bedside, no acute distress. Her breathing has improved. She states that her breathing treatments have helped her shortness of breath. Overall she states she is feeling better. Continues to have a productive cough, which has improved. Transition to PO Lasix, is tolerating well. GENERAL: Well-appearing, well-nourished and in no acute distress. NECK: Supple without JVD LUNGS: Breath sounds bilateral wheezing to auscultation bilaterally. Respiration equal and unlabored. HEART: Regular rate and rhythm without murmurs, rubs or gallops. S1 and S2 heard. EXTREMITIES: Normal range of motion, no edema. No clubbing or cyanosis. Peripheral pulses intact. ASSESSMENT Shortness of breath, possible combination of COPD exacerbation and congestive heart failure Acute on chronic heart failure with preserved ejection fraction Tobacco use History of paroxysmal atrial fibrillation, on anticoagulation with eliquis Hypertension Dyslipidemia Type 2 diabetes History of CVA PLAN Pulmonary following, treating COPD exacerbation Continue PO Lasix 20mg BID Continue home cardiac medications Continue anticoagulation with Eliquis Rest of management per primary No further changes from a cardiology perspective. Nurse Practitioner note has been reviewed, I agree with a documented findings and plan of care. Patient was seen and examined. Objective - Vital Signs Vital signs: Vital Signs Temp 97.6 F 12/19/21 07:24 Pulse 92 12/19/21 07:38 Resp 16 12/19/21 09:08 BP 155/73 12/19/21 07:24 Pulse Ox 96 12/19/21 07:24 FiO2 Intake & Output 12/18/21 12/19/21 12/19/21 18:59 06:59 18:59 Intake Total 300 Balance 300 Weight 104.2 kg Intake: Oral 300 Other: Voiding Method Toilet Toilet # Voids 1 3 - Labs CBC & Chem 7: 12/17/21 03:23 12/19/21 07:33 Labs: Abnormal Lab Results - Last 24 Hours (Table) 12/18/21 12/18/21 12/18/21 Range/Units 11:23 16:32 21:31 Chloride (98-107) mmol/L Carbon Dioxide (22-30) mmol/L BUN (7-17) mg/dL Glucose (74-99) mg/dL POC Glucose (mg/dL) 223 H 300 H 261 H (70-110) mg/dL Calcium (8.4-10.2) mg/dL 12/19/21 12/19/21 Range/Units 06:47 07:33 Chloride 95 L (98-107) mmol/L Carbon Dioxide 32 H (22-30) mmol/L BUN 28 H (7-17) mg/dL Glucose 260 H (74-99) mg/dL POC Glucose (mg/dL) 239 H (70-110) mg/dL Calcium 10.3 H (8.4-10.2) mg/dL Microbiology - Last 24 Hours (Table) 12/17/21 10:17 Gram Stain - Preliminary Sputum Sputum Culture - Preliminary Gram Neg Bacilli
[2021-12-19 11:48] LABS: Glucose,Whole Blood 323 mg/dL (70-110)
--- NOTE | 2021-12-19 13:04 | P.DS ---
Providers Date of admission: 12/15/21 09:25 Expected date of discharge: 12/19/21 Attending physician: Vicky Pinedo Consults: 12/15/21 10:08 Consult Physician Routine Consulting Provider: Alberto Kee Consult Reason/Comments: COPD exacerbation Do you want consulting provider notified?: Yes 12/15/21 10:09 Consult Physician Routine Consulting Provider: Carl Shearer Consult Reason/Comments: chf Do you want consulting provider notified?: Yes Primary care physician: Vicky Pinedo [facility] Course: Discharge diagnosis 1. Increased shortness of breath secondary to COPD. 2. History of COPD maintained on home CO2 3. History of diabetes mellitus type 2 4. History of atrial fibrillation 5. History of essential hypertension 6. History of hyperlipidemia 7. History of coronary artery disease 8. Incidental finding of right thyroid lobe nodule on CTA nonemergent follow-up thyroid ultrasound recommended 9. Incidental finding of enlarging posterior right liver lobe mass possibility of hemangioma recommend contrast enhanced liver MRI to better characterize Hospital course This is a 66-year-old female patient who presented to the ER with concerns of ongoing shortness of breath. Patient reports this has been ongoing for the last 4-5 days. Patient also reports she has increased swelling to lower extremities. Patient was seen in the office and concerns of possible CHF but patient was unable to get into cardiology services at this time. Patient reports reports that shortness of breath is worse when laying down. Patient is maintained on 2 L nasal cannula at home patient reports increased sputum production. Patient does have past medical history of COPD, diabetes mellitus, atrial fibrillation, CAD VA, hyperlipidemia, hypertension and myocardial infarction. Chest CTA completed showing no large central pulmonary embolism. Chest x-ray completed showing borderline heart size. Some interstitial prominence. Correlate to exclude mild pulmonary vascular congestion no charito pulmonary edema or airspace disease. BNP 51. This time patient is resting comfortably in bed. Temperature of 98.2, heart rate of 100, respiratory rate 20, blood pressure 158/85 with oxygen saturation of 95% on 5 L. At this time patient has been started on IV steroids. Pulmonary cardiology service is consulted. 2-D echo ordered. Repeat labs ordered On 12/16/2021 patient was seen and examined on the telemetry floor she is alert and oriented 3 in no apparent distress, she is still complaining of cough and shortness of breath otherwise she denies any complaints fever or chills no headache or dizziness no chest pain no nausea or vomiting no abdominal pain no diarrhea no blood in the stools no burning with urination no frequency or urgency and no hematuria. On 12/17/2021 patient was seen and examined on the medical floor she is alert and oriented 3 in no apparent distress she is still complaining of cough, shortness of breath and wheezing otherwise she denies any complaints there is no fever or chills no headache or dizziness no chest pain no nausea or vomiting no abdominal pain no diarrhea and no urinary symptoms her temperature is 98.4 white blood count 13.37 she is maintained on IV Solu-Medrol pulmonary consult following, patient not ready for discharge yet On 12/19/2021 patient is alert and oriented 3. Patient is eager for discharge home. Patient has been cleared by pulmonary services will be discharged on prednisone taper and antibiotic. Patient also be discharged on Lasix. Patient follow-up PCP consulted providers for further management Patient Condition at Discharge: Stable Plan - Discharge Summary Discharge Rx Participant: Yes New Discharge Prescriptions: New Furosemide [Lasix] 20 mg PO BID@0900,1600 30 Days #60 tab Cefuroxime [Ceftin] 250 mg PO BID 7 Days #14 tab predniSONE 10 mg PO DIRECTED 12 Days #30 tab Continue metFORMIN HCL [Glucophage] 1,000 mg PO BID glipiZIDE [Glucotrol] 10 mg PO BID HYDROcodone/APAP 7.5-325MG [Rudd 7.5-325] 1 tab PO TID Amitriptyline HCl [Elavil] 100 mg PO HS ALPRAZolam [Xanax] 0.25 mg PO BID PRN PRN Reason: Anxiety Escitalopram [Lexapro] 20 mg PO DAILY Nitroglycerin Sl Tabs [Nitrostat] 0.4 mg SL Q5M PRN PRN Reason: Chest Pain Levothyroxine Sodium [Synthroid] 150 mcg PO AC-BRKFST Apixaban [Eliquis] 5 mg PO BID tab Rosuvastatin Calcium [Crestor] 5 mg PO DAILY Multivitamins, Thera [Multivitamin (formulary)] 1 tab PO DAILY Metoprolol Tartrate [Lopressor] 25 mg PO BID tab Insulin Glargine [Lantus Vial] 100 unit SQ DAILY Latanoprost Ophth [Xalatan 0.005%] 1 drop BOTH EYES HS Ergocalciferol [Vitamin D2 (1250 Mcg = 33310 Iu)] 1,250 mcg PO TU Dulaglutide [Trulicity] 1.5 mg SQ TU Empagliflozin [Jardiance] 25 mg PO DAILY lisinopriL [Zestril] 5 mg PO DAILY 30 Days #30 tab Albuterol Inhaler [Ventolin Hfa Inhaler] 1 - 2 puff INHALATION RT-QID PRN PRN Reason: Shortness Of Breath ARIPiprazole [Abilify] 2 mg PO DAILY Discharge Medication List glipiZIDE [Glucotrol] 10 mg PO BID 09/14/15 [History] metFORMIN HCL [Glucophage] 1,000 mg PO BID 09/14/15 [History] ALPRAZolam [Xanax] 0.25 mg PO BID PRN 07/28/17 [History] Amitriptyline HCl [Elavil] 100 mg PO HS 07/28/17 [History] HYDROcodone/APAP 7.5-325MG [Rudd 7.5-325] 1 tab PO TID 07/28/17 [History] Escitalopram [Lexapro] 20 mg PO DAILY 10/23/17 [History] Levothyroxine Sodium [Synthroid] 150 mcg PO AC-BRKFST 08/31/19 [History] Nitroglycerin Sl Tabs [Nitrostat] 0.4 mg SL Q5M PRN 08/31/19 [History] Apixaban [Eliquis] 5 mg PO BID tab 09/02/19 [Rx] Ergocalciferol [Vitamin D2 (1250 Mcg = 12170 Iu)] 1,250 mcg PO TU 09/28/20 [History] Latanoprost Ophth [Xalatan 0.005%] 1 drop BOTH EYES HS 09/28/20 [History] Multivitamins, Thera [Multivitamin (formulary)] 1 tab PO DAILY 09/28/20 [History] Rosuvastatin Calcium [Crestor] 5 mg PO DAILY 09/28/20 [History] Metoprolol Tartrate [Lopressor] 25 mg PO BID tab 10/09/20 [Rx] Dulaglutide [Trulicity] 1.5 mg SQ TU 06/20/21 [History] Empagliflozin [Jardiance] 25 mg PO DAILY 06/20/21 [History] Insulin Glargine [Lantus Vial] 100 unit SQ DAILY 06/20/21 [History] lisinopriL [Zestril] 5 mg PO DAILY 30 Days #30 tab 06/22/21 [Rx] ARIPiprazole [Abilify] 2 mg PO DAILY 12/15/21 [History] Albuterol Inhaler [Ventolin Hfa Inhaler] 1 - 2 puff INHALATION RT-QID PRN 12/15/21 [History] Cefuroxime [Ceftin] 250 mg PO BID 7 Days #14 tab 12/19/21 [Rx] Furosemide [Lasix] 20 mg PO BID@0900,1600 30 Days #60 tab 12/19/21 [Rx] predniSONE 10 mg PO DIRECTED 12 Days #30 tab 12/19/21 [Rx] Follow up Appointment(s)/Referral(s): Shi Neal MD [STAFF PHYSICIAN] - 01/01/22 9:45 am Vicky Pinedo MD [Primary Care Provider] - 1-2 days Discharge Disposition: HOME WITH HOME HEALTH SERVICES
--- NOTE | 2021-12-19 13:09 | P.PN ---
Subjective Progress Note Date: 12/19/21 66-year-old female who is brought into the emergency room, on December 15, at 6:00 in the morning, because of shortness of breath. The patient has been having shortness of breath for at least a week. In addition, she admits to chest congestion, coughing, yellow/green phlegm production, and wheezing. The patient has a history of ongoing tobacco use, for many years. She's never seen a lung doctor. The patient uses a rescue inhaler at home, and also has a nebulizer with albuterol. She states that she may have had a fever as well. Currently, she is on saline at 20 mL an hour, and she is also getting O2 at [address] angiogram was negative for PE. White count 13.8, her hemoglobin 12.2, hematocrit 41, platelet count is 238,000. Sodium 140, potassium 5.2, chlorides 102, CO2 25, anion gap 13, BUN 13.3, and creatinine 0.8. Chest x-ray shows cardiomegaly, with some interstitial prominence. 12/17/2021, Jennifer is feeling slightly better compared to yesterday. She is less short of breath and bronchospastic and wheezy. She remains on DuoNeb nebulized treatments around the clock. She is also on IV Solu Medrol 60 mg every 6 hours. She was given IV Lasix and later on she is switched to by mouth Lasix 20 mg twice a day. She is on Levemir insulin 100 units daily and she is also on NovoL og size. Coverage. She is doing well. She is on long-term and to coagulation with eloquent. Her home medications have been resumed and she is on empiric antibiotic coverage with IV Rocephin. CAT scan of the chest showed COPD. No other acute abnormalities to indicate pneumonias. The blood work shows a white cell count of 13.3 with a hemoglobin of 12.4 and a platelet count of 259. Sodium level is at 139 with a potassium level of 5.7. Serum bicarb is at 27. BUN is at 18 with a creatinine of 0.9. LFTs are all within normal limits. 12/18/2021, patient is slightly less bronchospastic and wheezy. However she remains congested and she is still bringing up thick mucus. While she is having vigorous cough [id number], she feels that she is going to pass out however she has not lost any consciousness and she has not had any episodes of syncope. She remains on bronchodilators. She remains on steroids and she is on IV Solu- Medrol 60 mg every 6 hours. 12/19/2021, the patient is doing much better. The patient to wean down to 2 L O2 nasal cannula. No nausea. No vomiting. She still using the flutter and the patient was able to produce significant amount of mucus. She remains on IV Solu Medrol. She remains on DuoNeb neb last treatment [id number]. She is on long-term antibiotic ventilation with adequate 5 mg by mouth twice a day. She is on [place] for pain control and Levemir insulin 100 units daily and a NovoLog sliding scale coverage. She is also on Lasix 20 mg by mouth twice a day. Blood work from today shows a 28 and a creatinine of 0.7 and his sodium level is at 137 with potassium level of 4.8. Most recent blood sugar is elevated at 323 and this is related to steroid. Objective - Vital Signs Vital signs: Vital Signs Temp 97.6 F 12/19/21 07:24 Pulse 76 12/19/21 10:56 Resp 16 12/19/21 09:08 BP 155/73 12/19/21 07:24 Pulse Ox 96 12/19/21 07:24 FiO2 Intake & Output 12/18/21 12/19/21 12/19/21 18:59 06:59 18:59 Intake Total 300 Balance 300 Weight 104.2 kg Intake: Oral 300 Other: Voiding Method Toilet Toilet # Voids 1 3 - Exam Mild respiratory distress, oriented 3. The patient is currently on 2 L of oxygen. No conversational dyspnea. No audible wheezing. HEENT examination is grossly unremarkable. Neck supple. Full range of motion. No adenopathy thyromegaly or neck vein distention. Cardiovascular examination reveals regular rhythm rate. S1-S2 normal. No S3 or S4. No discernible murmur noted. Heart sounds distant. Heart rate 88 bpm. Lungs reveal diminished breath sounds throughout. Expiratory wheezes have improved significantly on today's evaluation patient is less short of breath. Breathing is nonlabored Abdomen soft bowel sounds are heard. No masses or tenderness. Extremities are intact. No cyanosis clubbing or edema. Skin is without rash or lesion. Neurologic examination is brief but nonfocal. - Labs CBC & Chem 7: 12/17/21 03:23 12/19/21 07:33 Labs: Abnormal Lab Results - Last 24 Hours (Table) 12/18/21 12/18/21 12/19/21 Range/Units 16:32 21:31 06:47 Chloride (98-107) mmol/L Carbon Dioxide (22-30) mmol/L BUN (7-17) mg/dL Glucose (74-99) mg/dL POC Glucose (mg/dL) 300 H 261 H 239 H (70-110) mg/dL Calcium (8.4-10.2) mg/dL 12/19/21 12/19/21 Range/Units 07:33 11:47 Chloride 95 L (98-107) mmol/L Carbon Dioxide 32 H (22-30) mmol/L BUN 28 H (7-17) mg/dL Glucose 260 H (74-99) mg/dL POC Glucose (mg/dL) 323 H (70-110) mg/dL Calcium 10.3 H (8.4-10.2) mg/dL Microbiology - Last 24 Hours (Table) 12/17/21 10:17 Gram Stain - Final Sputum Sputum Culture - Final Stenotrophomonas maltophilia Assessment and Plan Plan: Acute hypoxemic respiratory failure, secondary to COPD exacerbation, clinically improving. No clear evidence of an underlying pneumonia. The patient remains on DuoNeb nebulized treatments around the clock, IV Rocephin and IV Solu-Medrol. Clinically improving and the patient is less hypoxic only on 2 L of O2 nasal cannula and she has home O2. She is recovering from her COPD exacerbation. Long-standing history of tobacco abuse. History of atrial fibrillation, rate is controlled and the patient is on long- term and to coagulation with eliquis History of CVA. History of diabetes mellitus maintained on long-acting insulin with Levemir History of gastroesophageal reflux disease. Hypertension by history. Hyperlipidemia by history. CAD and a history of myocardial infarction. History of hypothyroidism. Right thyroid lobe nodule measuring 2.7 cm in size, Enlarging posterior right liver lobe mass measuring 5.9 cm in size versus 3.7. History of meningioma. Considered a contrast-enhanced liver MRI at a later stage. Small hiatal hernia Plan Patient currently weaned down to 2 L Patient has home O2 Patient has home nebulizer Complete a prednisone burst taper no patient basis Albuterol HFA in about treatments around the clock Smoking cessation counseling We'll need outpatient PFT We'll likely benefit from a maintenance medication for COPD, this decision will be made on outpatient basis following her for recovery agree on discharging the patient home if this is felt to be appropriate by primary care team.
--- NOTE | 2021-12-24 09:10 | CDI ---
Documentation Clarification Form Date: 12/24/2021 08:06:42 AM From: Lupe Gilliland RN CCDS Admit Date: 12/15/2021 09:25:00 AM Patient Name: Jennifer Rodriguez Visit Number: [id number] Discharge Date: 12/19/2021 03:41:00 PM ATTENTION: The Clinical Documentation Specialists (CDI) and [facility] Coding Staff appreciate your assistance in clarifying documentation. Please respond to the clarification below the line at the bottom and electronically sign. The CDI & [facility] Coding staff will review the response and follow-up if needed. Please note: Queries are made part of the Legal Health Record. If you have any questions, please contact the author of this message via ITS. Dr. Vicky Pinedo Your patient has an abnormal sputum culture: Stenotrophomonas maltophilia, 12/17. Please clarify if there is an additional diagnosis and/or clinical significance related to this value. History/Risk Factors: 66-year-old female presented to the ED with ongoing shortness of breath for the last 4-5 days congestion, coughing, yellow/green phlegm production and wheezing. Medical history: COPD, Tobacco use for many years and 2L home oxygen Clinical indicators: 12/17 Sputum Culture: Stenotrophomonas maltophilia 12/15 CHESTAG: COPD with mild emphysema. Scattered bronchial wall thickening suggests a prominent component of chronic bronchitis versus superimposed acute bronchitis. 12/27 Pulmonary note: She is less short of breath and bronchospastic and wheezy. Treatment: 12/15 Azithromycin IVPB x 1; 12/15 Ceftriaxone IVPB Q24HR IVPBJ; 12/15 Albuterol/Ipratropium 3ml Inhalation x 1; 12/15 Albuterol / Ipratropium 3ml Inhalation QID [place]; 12/16 Pulmicort 1mg Inhalation BID [place]; 12/15 Decadron 10mg IVP x 1; 12/16 Perforomist 20mcg Inhalation BID [place]; 12/15 Solumedrol 40mg IV x 1; 12/16 Solumedrol 60mg IV Q6HR. Is there an additional diagnosis and/or clinical significance related to the above sputum culture? [x ] COPD exacerbation with upper respiratory infection [ ] COPD exacerbation with Pneumonia [ ] No additional diagnosis/Not clinically significant [ ] Other, please specify [ ] Unable to determine (Template Last Revised: May 2020) MTDD
== END 2021-12-19 15:41 | disposition home health service (06) | DRG 190 ==
LOC: EC 06:13 → 4SSUR 09:25
PROVIDERS: ADMIT Internal Medicine; ATTEND Internal Medicine
DX: J44.1 Chronic obstructive pulmonary disease with (acute) exacerbation (principal); I50.33 Acute on chronic diastolic (congestive) heart failure; J96.01 Acute respiratory failure with hypoxia; J44.0 Chronic obstructive pulmonary disease with (acute) lower respiratory infection; J20.8 Acute bronchitis due to other specified organisms; I11.0 Hypertensive heart disease with heart failure; I25.10 Atherosclerotic heart disease of native coronary artery without angina pectoris; I48.0 Paroxysmal atrial fibrillation; E11.9 Type 2 diabetes mellitus without complications; E66.3 Overweight; R00.0 Tachycardia, unspecified; I83.90 Asymptomatic varicose veins of unspecified lower extremity; R91.1 Solitary pulmonary nodule; B96.89 Other specified bacterial agents as the cause of diseases classified elsewhere; E78.5 Hyperlipidemia, unspecified; E89.0 Postprocedural hypothyroidism; F32.A Depression, unspecified; F41.9 Anxiety disorder, unspecified; I25.2 Old myocardial infarction; Z79.01 Long term (current) use of anticoagulants; Z79.2 Long term (current) use of antibiotics; Z79.4 Long term (current) use of insulin; Z79.84 Long term (current) use of oral hypoglycemic drugs; Z79.890 Hormone replacement therapy; Z79.899 Other long term (current) drug therapy; Z86.73 Personal history of transient ischemic attack (TIA), and cerebral infarction without residual deficits; Z87.11 Personal history of peptic ulcer disease; Z90.710 Acquired absence of both cervix and uterus; Z99.81 Dependence on supplemental oxygen; Z82.49 Family history of ischemic heart disease and other diseases of the circulatory system; Z71.6 Tobacco abuse counseling; Z90.49 Acquired absence of other specified parts of digestive tract
CPT/HCPCS: 36415; 71046; 71275; 80048; 80053; 83605; 83880; 84145; 84484; 85025; 85379; 85610; 85730; 87070; 87077; 87186; 87205; 87635; 93005; 93306; 94640; 94667; 94760; 96374; 96375; 99285

== ENCOUNTER → 2022-08-23 | Outpatient (CLI) | payer MEDICARE ==
--- NOTE | 2022-08-27 07:28 | MM ---
Reason for Exam: Screening (asymptomatic). Last mammogram was performed 5 year(s) and 0 month(s) ago. Patient History: Menarche at age 11. First Full-Term at age 17. Left ovary removed at age 42. Right ovary removed at age 42. Hysterectomy at age 42. Postmenopausal. Estrogen for 1 year from age 42 until age 43. Patient used Hormonal Contraceptives for 5 years. Risk Values: Jyoti 5 year model risk: 1.3%. NCI Lifetime model risk: 4.8%. Prior Study Comparison: 05/20/2011 Screening Mammogram, [facility]. 05/28/2016 Bilateral Screening Mammogram, [facility]. 08/28/2017 Bilateral Screening Mammogram, [facility]. Tissue Density: The breast tissue is heterogeneously dense. This may lower the sensitivity of mammography. Findings: Analyzed By CAD. There is no suspicious group of microcalcifications or new suspicious mass in either breast. Overall Assessment: Negative, BI-RAD 1 Management: Screening Mammogram of both breasts in [address] [facility] will attempt to contact patient to return for supplemental views and ultrasound if indicated. Patient should continue monthly self-breast exams. A clinical breast exam by your physician is recommended on an annual basis. This exam should not preclude additional follow-up of suspicious palpable abnormalities. Note on Jyoti scores and lifetime risk: 1. A Jyoti score greater than 3% is considered moderate risk. If this is the case, consider specialist referral to assess eligibility for a risk reducing agent. 2. If overall lifetime risk for the development of breast cancer is 20% or higher, the patient may qualify for future screening with alternating mammogram and breast MRI. Electronically signed and approved by: Alberto Rockwell DO
== END | disposition home or self-care (01) ==
LOC: RADMAMWWP 08:01
PROVIDERS: ATTEND Internal Medicine
DX: Z12.31 Encounter for screening mammogram for malignant neoplasm of breast (principal); Z78.0 Asymptomatic menopausal state
CPT/HCPCS: 77063; 77067

== ENCOUNTER 2023-05-08 13:34 | Observation (INO) | payer MEDICARE ==
--- NOTE | 2023-05-08 14:07 | ED ---
SOB HPI - General Chief Complaint: Shortness of Breath Stated Complaint: SOB Time Seen by Provider: 05/08/23 13:45 Source: patient, RN notes reviewed, old records reviewed Mode of arrival: EMS Limitations: no limitations - History of Present Illness Initial Comments: This is a 67-year-old female to the ER for evaluation today. Patient presents today for evaluation regards to severe COPD and chest pain. Patient has persistent shortness of breath here in the ER with left-sided chest pain. History of COPD and difficulty catching patient's breath. Patient states this is like her normal COPD exacerbation which leaves usually in the winter sometime, difficulty catching her breath currently she is out of medications at home MD Complaint: shortness of breath, cough -: days(s) Severity: moderate Severity scale (1-10): 7 Quality: aching Improves With: nothing Worsens With: nothing Known History Of: COPD, asthma Context: recent URI, recent illness Associated Symptoms: chest pain, pain with inspiration, cough, sputum production - Related Data Home Medications Medication Instructions Recorded Confirmed metFORMIN HCL [Glucophage] 1,000 mg PO BID 09/14/15 05/08/23 ALPRAZolam [Xanax] 0.25 mg PO BID PRN 07/28/17 05/08/23 Amitriptyline HCl [Elavil] 100 mg PO HS 07/28/17 05/08/23 Escitalopram [Lexapro] 20 mg PO DAILY 10/23/17 05/08/23 Levothyroxine Sodium [Synthroid] 150 mcg PO AC-BRKFST 08/31/19 05/08/23 Nitroglycerin Sl Tabs [Nitrostat] 0.4 mg SL Q5M PRN 08/31/19 05/08/23 Latanoprost Ophth [Xalatan 0.005%] 1 drop BOTH EYES HS 09/28/20 05/08/23 Multivitamins, Thera [Multivitamin 1 tab PO BID 09/28/20 05/08/23 (formulary)] Rosuvastatin Calcium [Crestor] 5 mg PO DAILY 09/28/20 05/08/23 Dulaglutide [Trulicity] 1.5 mg SQ TU 06/20/21 05/08/23 Empagliflozin [Jardiance] 25 mg PO DAILY 06/20/21 05/08/23 Insulin Glargine [Lantus Vial] 100 unit SQ DAILY 06/20/21 05/08/23 ARIPiprazole [Abilify] 2 mg PO DAILY 12/15/21 05/08/23 Albuterol Inhaler [Ventolin Hfa 1 - 2 puff INHALATION RT-QID PRN 12/15/21 05/08/23 Inhaler] Brimonidine Tartrate [Alphagan P 1 drop BOTH EYES BID 05/08/23 05/08/23 0.1% Ophth Soln] HYDROcodone/APAP 5-325MG [[place] 1 tab PO QID 05/08/23 05/08/23 5-325] Metoprolol Tartrate [Lopressor] 50 mg PO BID 05/08/23 05/08/23 Nystatin 100,000Unit/gm Cream 1 applic TOPICAL BID 05/08/23 05/08/23 [Mycostatin Cream] Pantoprazole [Protonix] 40 mg PO DAILY 05/08/23 05/08/23 Previous Rx's Medication Instructions Recorded Apixaban [Eliquis] 5 mg PO BID tab 09/02/19 lisinopriL [Zestril] 5 mg PO DAILY 30 Days #30 tab 06/22/21 Furosemide [Lasix] 20 mg PO BID@0900,1600 30 Days #60 12/19/21 tab Albuterol Nebulized [Ventolin 2.5 mg INHALATION Q4H PRN #25 each 05/08/23 Nebulized] predniSONE 50 mg PO DAILY #5 tab 05/08/23 Allergies Allergy/AdvReac Type Severity Reaction Status Date / Time No Known Allergies Allergy Verified 05/08/23 18:22 Review of Systems ROS Statement: Those systems with pertinent positive or pertinent negative responses have been documented in the HPI. ROS Other: All systems not noted in ROS Statement are negative. Past Medical History Past Medical History: Atrial Fibrillation, Chest Pain / Angina, COPD, CVA/TIA, Diabetes Mellitus, Eye Disorder, GERD/Reflux, Hyperlipidemia, Hypertension, Myocardial Infarction ([place]), Osteoarthritis (OA), Thyroid Disorder Additional Past Medical History / Comment(s): vertigo, CVA-x2- 2010, glaucoma, varicose veins, peptic ulcer, HX POLYP, stress incont of urine, graves Last Myocardial Infarction Date:: 2008 History of Any Multi-Drug Resistant Organisms: None Reported Past Surgical History: Bladder Surgery, Cholecystectomy, Hernia Repair, Hysterectomy, Tonsillectomy Additional Past Surgical History / Comment(s): thyroidectomy, left foot ORIF- hardware later removed, ragini oopherectomy, bladder suspension, laser eye surgeryx2, Past Anesthesia/Blood Transfusion Reactions: No Reported Reaction Past Psychological History: Anxiety, Depression Smoking Status: Current some day smoker Past Alcohol Use History: None Reported Past Drug Use History: None Reported - Past Family History Mother Family Medical History: Hypertension Additional Family Medical History / Comment(s): brain aneurysm Father Family Medical History: Cancer Additional Family Medical History / Comment(s): prostate General Exam Limitations: no limitations General appearance: alert, in no apparent distress, anxious Head exam: Present: atraumatic, normocephalic, normal inspection Eye exam: Present: normal appearance, PERRL, EOMI. Absent: scleral icterus, conjunctival injection, periorbital swelling ENT exam: Present: normal exam, mucous membranes moist Neck exam: Present: normal inspection. Absent: tenderness, meningismus, lymphadenopathy Respiratory exam: Present: normal lung sounds bilaterally, respiratory distress, wheezes, accessory muscle use, decreased breath sounds, prolonged expiratory. Absent: rales, rhonchi, stridor Cardiovascular Exam: Present: regular rate, normal rhythm, normal heart sounds. Absent: systolic murmur, diastolic murmur, rubs, gallop, clicks GI/Abdominal exam: Present: soft, normal bowel sounds. Absent: distended, tenderness, guarding, rebound, rigid Extremities exam: Present: normal inspection, full ROM, normal capillary refill. Absent: tenderness, pedal edema, joint swelling, calf tenderness Back exam: Present: normal inspection Neurological exam: Present: alert, oriented X3, CN II-XII intact Psychiatric exam: Present: normal affect, normal mood Skin exam: Present: warm, dry, intact, normal color. Absent: rash Course Vital Signs 05/08/23 05/08/23 05/08/23 13:47 14:48 15:02 Temperature 98.2 F Pulse Rate 92 90 92 Respiratory 22 Rate Blood Pressure 127/97 O2 Sat by Pulse 95 Oximetry 05/08/23 05/08/23 05/08/23 15:24 16:50 17:01 Temperature Pulse Rate 89 78 87 Respiratory 18 Rate Blood Pressure 138/70 O2 Sat by Pulse 96 Oximetry 05/08/23 05/08/23 17:25 18:14 Temperature 98.8 F 98.8 F Pulse Rate 82 Respiratory 23 Rate Blood Pressure 111/93 O2 Sat by Pulse 98 Oximetry - Reevaluation(s) Reevaluation #1: 05/08/23 20:26 Medical record is reviewed Reevaluation #2: 05/08/23 20:26 Patient symptoms are unchanged Reevaluation #3: 05/08/23 20:26 Patient informed of results and questions answered Reevaluation #4: Was pt. sent in by a medical professional or institution (, REA, INSPECTION SUPERVISOR, urgent care, hospital, or long-term...) When possible be specific @ -no Did you speak to anyone other than the patient for history (EMS, parent, family, police, friend...)? What history was obtained from this source @ -no Did you review nursing and triage notes (agree or disagree)? Why? @ -agree Are old charts reviewed (outside hosp., previous admission, EMS record, old EKG, old radiological studies, urgent care reports/EKG's, long-term records)? Report findings @ -yes Differential Diagnosis (chest pain, altered mental status, abdominal pain women, abdominal pain men, vaginal bleeding, weakness, fever, dyspnea, syncope, headache, dizziness, GI bleed, back pain, seizure, CVA, palpatations, mental health, musculoskeletal)? @ -prior EKG interpreted by me (3pts min.). @ -yes X-rays interpreted by me (1pt min.). @ -yes negative for acute disease CT interpreted by me (1pt min.). @ -no U/S interpreted by me (1pt. min.). @ -no What testing was considered but not performed or refused? (CT, X-rays, U/S, labs)? Why? @ -none What meds were considered but not given or refused? Why? @ -none Did you discuss the management of the patient with other professionals (professionals i.e. REA Dyer, INSPECTION SUPERVISOR, lab, RT, psych nurse, criminal justice social worker, court commissioner, teacher, command center officer, rn field case manager)? Give summary @ -no Was smoking cessation discussed for >3mins.? @ -no Was critical care preformed (if so, how long)? @ -no Were there social determinants of health that impacted care today? How? (Homeles sness, low income, unemployed, alcoholism, drug addiction, transportation, low edu. Level, literacy, decrease access to med. care, retirement, rehab)? @ -none Was there de-escalation of care discussed even if they declined (Discuss DNR or withdrawal of care, Hospice)? DNR status @ -no What co-morbidities impacted this encounter? (DM, HTN, Smoking, COPD, CAD, Cancer, CVA, ARF, Chemo, Hep., AIDS, mental health diagnosis, sleep apnea, morbid obesity)? @ -none Was patient admitted / discharged? Hospital course, mention meds given and route, prescriptions, significant lab abnormalities, going to OR and other pertinent info. @ - Undiagnosed new problem with uncertain prognosis? @ -no Drug Therapy requiring intensive monitoring for toxicity (Heparin, Nitro, Insulin, Cardizem)? @ -no Were any procedures done? @ -no Diagnosis/symptom? @ - Acute, or Chronic, or Acute on Chronic? @ -Acute Uncomplicated (without systemic symptoms) or Complicated (systemic symptoms)? @ -Complicated Side effects of treatment? @ -no Exacerbation, Progression, or Severe Exacerbation? @ -exacerbation Poses a threat to life or bodily function? How? (Chest pain, [place], [place], pneumonia, PE, COPD, DKA, ARF, appy, cholecystitis, CVA, Diverticulitis, Homicidal, Suicidal, threat to staff... and all critical care pts) @ -yes Reevaluation #5: 05/08/23 20:26 Differential Dyspnea: Coronary syndrome, arrhythmia, tamponade, asthma, COPD, pulmonary embolism, pneumonia, pneumothorax, pulmonary effusion, anaphylaxis, diabetic ketoacidosis, flailed chest, pulmonary contusion, diaphragmatic rupture, anemia, neuromuscular, this is not meant to be an all-inclusive list. Medical Decision Making - Medical Decision Making 67 female to the ER for evaluation. Patient with severe shortness of cough congestion. Patient was initially feeling good for discharge when she got up to leave became significantly short of breath requiring another breathing treatment and necessitating hospital admission as patient does not have medications at [facility]. Patient be admitted for respiratory care - Lab Data Result diagrams: 05/08/23 14:27 05/08/23 14:27 Lab Results 05/08/23 05/08/23 05/08/23 Range/Units 14:27 14:27 14:27 WBC 10.0 (3.8-10.6) k/uL RBC 5.28 (3.80-5.40) m/uL Hgb 13.8 (11.4-16.0) gm/dL Hct 43.0 (34.0-46.0) % MCV 81.5 (80.0-100.0) fL MCH 26.2 (25.0-35.0) pg MCHC 32.1 (31.0-37.0) g/dL RDW 14.7 (11.5-15.5) % Plt Count 225 (150-450) k/uL MPV 8.2 Neutrophils % 70 % Lymphocytes % 18 % Monocytes % 5 % Eosinophils % 5 % Basophils % 1 % Neutrophils # 7.0 (1.3-7.7) k/uL Lymphocytes # 1.8 (1.0-4.8) k/uL Monocytes # 0.5 (0-1.0) k/uL Eosinophils # 0.5 (0-0.7) k/uL Basophils # 0.1 (0-0.2) k/uL Hypochromasia Slight PT 10.6 (10.0-12.5) sec INR 1.0 (<1.2) APTT 22.6 (22.0-30.0) sec Sodium 138 (137-145) mmol/L Potassium 3.6 (3.5-5.1) mmol/L Chloride 105 (98-107) mmol/L Carbon Dioxide 28 (22-30) mmol/L Anion Gap 5 mmol/L BUN 10 (7-17) mg/dL Creatinine 0.58 (0.52-1.04) mg/dL Est GFR (CKD-EPI)AfAm >90 (>60 ml/min/1.73 sqM) Est GFR (CKD-EPI)NonAf >90 (>60 ml/min/1.73 sqM) Glucose 93 (74-99) mg/dL Plasma Lactic Acid Serjio (0.7-2.0) mmol/L Calcium 9.4 (8.4-10.2) mg/dL Magnesium 1.8 (1.6-2.3) mg/dL Total Bilirubin 0.5 (0.2-1.3) mg/dL AST 20 (14-36) U/L ALT 15 (4-34) U/L Alkaline Phosphatase 159 H (38-126) U/L Troponin I (0.000-0.034) ng/mL NT-Pro-B Natriuret Pep 44 pg/mL Total Protein 6.5 (6.3-8.2) g/dL Albumin 3.9 (3.5-5.0) g/dL 05/08/23 05/08/23 Range/Units 14:27 14:27 WBC (3.8-10.6) k/uL RBC (3.80-5.40) m/uL Hgb (11.4-16.0) gm/dL Hct (34.0-46.0) % MCV (80.0-100.0) fL MCH (25.0-35.0) pg MCHC (31.0-37.0) g/dL RDW (11.5-15.5) % Plt Count (150-450) k/uL MPV Neutrophils % % Lymphocytes % % Monocytes % % Eosinophils % % Basophils % % Neutrophils # (1.3-7.7) k/uL Lymphocytes # (1.0-4.8) k/uL Monocytes # (0-1.0) k/uL Eosinophils # (0-0.7) k/uL Basophils # (0-0.2) k/uL Hypochromasia PT (10.0-12.5) sec INR (<1.2) APTT (22.0-30.0) sec Sodium (137-145) mmol/L Potassium (3.5-5.1) mmol/L Chloride (98-107) mmol/L Carbon Dioxide (22-30) mmol/L Anion Gap mmol/L BUN (7-17) mg/dL Creatinine (0.52-1.04) mg/dL Est GFR (CKD-EPI)AfAm (>60 ml/min/1.73 sqM) Est GFR (CKD-EPI)NonAf (>60 ml/min/1.73 sqM) Glucose (74-99) mg/dL Plasma Lactic Acid Serjio 1.2 (0.7-2.0) mmol/L Calcium (8.4-10.2) mg/dL Magnesium (1.6-2.3) mg/dL Total Bilirubin (0.2-1.3) mg/dL AST (14-36) U/L ALT (4-34) U/L Alkaline Phosphatase (38-126) U/L Troponin I <0.012 (0.000-0.034) ng/mL NT-Pro-B Natriuret Pep pg/mL Total Protein (6.3-8.2) g/dL Albumin (3.5-5.0) g/dL - EKG Data -: EKG Interpreted by Me (EKG is sinus 78 [place] 136 QRS 93 QTc 414) - Radiology Data Radiology results: report reviewed (Chest x-ray is negative for acute disease), image reviewed Disposition Clinical Impression: COPD exacerbation, COPD (chronic obstructive pulmonary disease), Dyspnea, Chest pain Disposition: ADMITTED IP TO THIS HOSP Condition: Fair Is patient prescribed a controlled substance at d/c from ED?: No Time of Disposition: 16:35
[2023-05-08] MEDS: IPRATROPIUM-ALBUTEROL 3 ML NEB INHALATION STA ×2 (14:48→16:50)
[2023-05-08 14:54] LABS: Basophils # (A) 0.1 k/uL (0-0.2); Basophils % (A) 1 %; Eosinophils # (A) 0.5 k/uL (0-0.7); Eosinophils % (A) 5 %; HGB 13.8 gm/dL (11.4-16.0); Hypochromasia Slight; Lymphocytes # (A) 1.8 k/uL (1.0-4.8); Lymphocytes % (A) 18 %; MCH 26.2 pg (25.0-35.0); MCHC 32.1 g/dL (31.0-37.0); MCV 81.5 fL (80.0-100.0); Mean Platelet Volume 8.2; Monocytes # (A) 0.5 k/uL (0-1.0); Monocytes % (A) 5 %; Neutrophils % (A) 70 %; Platelet Count 225 k/uL (150-450); RBC 5.28 m/uL (3.80-5.40); RDW 14.7 % (11.5-15.5)
[2023-05-08 15:01] LABS: Partial Thromboplastin Time 22.6 sec (22.0-30.0); Prothrombin Time 10.6 sec (10.0-12.5)
[2023-05-08 15:04] LABS: ALT 15 U/L (4-34); AST 20 U/L (14-36); African American GFR (CKD) >90 (>60 ml/min/1.73 sqM); Albumin 3.9 g/dL (3.5-5.0); Alkaline Phosphatase 159 U/L (38-126); Anion Gap 5 mmol/L; Blood Urea Nitrogen 10 mg/dL (7-17); Calcium 9.4 mg/dL (8.4-10.2); Carbon Dioxide 28 mmol/L (22-30); Chloride 105 mmol/L (98-107); Glucose 93 mg/dL (74-99); Magnesium 1.8 mg/dL (1.6-2.3); Non-African American GFR(CKD) >90 (>60 ml/min/1.73 sqM); Potassium 3.6 mmol/L (3.5-5.1); Sodium 138 mmol/L (137-145); Total Bilirubin 0.5 mg/dL (0.2-1.3); Total Protein 6.5 g/dL (6.3-8.2)
[2023-05-08 15:13] LABS: NT-Pro-B-Type Natriuretic Pept 44 pg/mL
--- NOTE | 2023-05-08 15:34 | XR ---
EXAMINATION TYPE: XR chest 1V portable DATE OF EXAM: 05/08/2023 3:24 PM COMPARISON: Chest radiographs from 12/15/2021 TECHNIQUE: XR chest 1V portable Portable AP radiograph of the chest. CLINICAL INDICATION:Female, 67 years old with history of sob; FINDINGS: Lungs/Pleura: There is no evidence of pleural effusion, focal consolidation, or pneumothorax. Simila r mild interstitial prominence. Pulmonary vascularity: Unremarkable. Heart/mediastinum: Cardiomediastinal silhouette is unremarkable. Musculoskeletal: No acute osseous pathology. IMPRESSION: No acute cardiopulmonary disease/process.
[2023-05-08] MEDS: methylPREDNISolone SOD SUCCI 125 MG/2 ML VIAL IV STA (16:45)
[2023-05-08] MEDS ORDERED: ALBUTEROL NEBULIZED 2.5 MG/3 ML INHALATION PRN ×2 (16:52→20:17)
[2023-05-08] MEDS ORDERED: NALOXONE 0.4 MG/ML 1 ML VIAL IVP PRN (16:52)
[2023-05-08] MEDS: methylPREDNISolone SOD SUCCI 125 MG/2 ML VIAL IV SCH (17:02)
[2023-05-08] MEDS: SODIUM CHLORIDE 0.9% 1,000 ML IV STA ×2 (17:24→17:25)
[2023-05-08] MEDS: KETOROLAC 15 MG/ML 1 ML VIAL IVP STA (17:24)
[2023-05-08] MEDS: SODIUM CHLORIDE 0.9% 500 ML 500 ML IV STA (17:25)
[2023-05-08 19:30] LABS: Glucose,Whole Blood 211 mg/dL (70-110)
[2023-05-08] MEDS ORDERED: NITROGLYCERIN SL TABS 0.4 MG TAB SUBLINGUAL PRN (20:17)
[2023-05-08] MEDS: IPRATROPIUM-ALBUTEROL 3 ML NEB INHALATION SCH (20:27)
[2023-05-08] MEDS: MULTIVITAMINS, THERA 1 EACH TAB PO SCH (21:00)
[2023-05-08] MEDS: METOPROLOL TARTRATE 50 MG TAB PO SCH (21:00)
[2023-05-08] MEDS: metFORMIN 500 MG TAB PO SCH (21:01)
[2023-05-08] MEDS: APIXABAN 5 MG TAB PO SCH (21:01)
[2023-05-08] MEDS: NICOTINE 21MG/24HR PATCH TRANSDERM SCH (21:01)
[2023-05-08] MEDS: AMITRIPTYLINE HCL 50 MG TAB PO SCH (21:01)
[2023-05-08] MEDS: BRIMONIDINE TARTRATE 0.2% DROPS 5 ML BTL BOTH EYES SCH (21:01)
[2023-05-08] MEDS: NYSTATIN 100,000UNIT/GM CREAM 30 GM TUBE TOPICAL SCH (21:02)
[2023-05-08] MEDS: NYSTATIN 100,000 UNIT/GM POWD 15 GM TOPICAL SCH (21:02)
[2023-05-08] MEDS: LATANOPROST 0.005% OPHTH DROPS 2.5 ML BTL BOTH EYES SCH (21:02)
[2023-05-08] MEDS: HYDROcodone/APAP 5-325MG 1 EACH TAB PO SCH (21:03)
[2023-05-09] MEDS: LEVOTHYROXINE 75 MCG TAB PO SCH (04:23)
[2023-05-09] MEDS: HYDROcodone/APAP 5-325MG 1 EACH TAB PO SCH (04:23)
[2023-05-09] MEDS: ALPRAZolam 0.25 MG TAB PO PRN ×2 (06:17→15:14)
[2023-05-09 06:53] LABS: Glucose,Whole Blood 222 mg/dL (70-110)
[2023-05-09 07:43] LABS: Basophils % (A) 0 %; Eosinophils % (A) 0 %; HCT 41.6 % (34.0-46.0); Hypochromasia Moderate; Lymphocytes # (A) 0.8 k/uL (1.0-4.8); Lymphocytes % (A) 7 %; MCH 26.1 pg (25.0-35.0); MCHC 31.2 g/dL (31.0-37.0); MCV 83.5 fL (80.0-100.0); Mean Platelet Volume 7.5; Monocytes # (A) 0.2 k/uL (0-1.0); Monocytes % (A) 1 %; Neutrophils # (A) 9.3 k/uL (1.3-7.7); Neutrophils % (A) 90 %; Platelet Count 230 k/uL (150-450); RBC 4.98 m/uL (3.80-5.40); RDW 14.6 % (11.5-15.5); WBC 10.2 k/uL (3.8-10.6)
[2023-05-09 08:07] LABS: African American GFR (CKD) >90 (>60 ml/min/1.73 sqM); Anion Gap 5 mmol/L; Blood Urea Nitrogen 16 mg/dL (7-17); Calcium 10.6 mg/dL (8.4-10.2); Carbon Dioxide 26 mmol/L (22-30); Chloride 104 mmol/L (98-107); Glucose 217 mg/dL (74-99); Magnesium 1.9 mg/dL (1.6-2.3); Non-African American GFR(CKD) >90 (>60 ml/min/1.73 sqM); Phosphorus 3.2 mg/dL (2.5-4.5); Potassium 4.8 mmol/L (3.5-5.1); Sodium 135 mmol/L (137-145)
[2023-05-09] MEDS: INSULIN DETEMIR (LEVEMIR) 100 UNIT/ML SYR SQ SCH (08:27)
[2023-05-09] MEDS: DAPAGLIFLOZIN PROPANEDIOL 10 MG TABLET PO SCH (08:27)
[2023-05-09] MEDS: ESCITALOPRAM 20 MG TAB PO SCH (08:28)
[2023-05-09] MEDS: ARIPiprazole 2 MG TAB PO SCH (08:28)
[2023-05-09] MEDS: ATORVASTATIN 10 MG TAB PO SCH (08:28)
[2023-05-09] MEDS: FUROSEMIDE 20 MG TAB PO SCH (08:28)
[2023-05-09] MEDS: lisinopriL 5 MG TAB PO SCH (08:28)
[2023-05-09] MEDS: PANTOPRAZOLE 40 MG TABLET PO SCH (08:28)
--- NOTE | 2023-05-09 09:56 | P.HPIM ---
History of Present Illness H&P Date: 05/08/23 Jennifer Rodriguez, is a 67-year-old female patient who presented with concerns of increased shortness of breath and cough. Patient has a past medical history of severe COPD maintained on home O2 and follows with pulmonology. Additional medical history includes atrial fibrillation, chest pain, CVA, diabetes mellitus, GERD, hyperlipidemia, hypertension, osteoarthritis and thyroid disorder. EKG completed showing sinus rhythm. Chest x-ray completed showing no acute cardiopulmonary disease process. Troponin negative. Patient started on DuoNeb breathing treatments and IV Solu-Medrol. Will consult pulmonary services at this time. We'll also order Covid 19, flu and RSV to rule out. At this time patient is sitting comfortably in bed patient still appears tachypenic. Reports improvement with shortness of breath. Patient denies chest pain. Patient denies nausea vomiting or diarrhea. Patient denies any urinary burning or frequency. Current vital signs temp 98.2, blood pressure 152/85, heart rate 97 with a pulse ox 97% on 3 L. Review of Systems Please refer to HPI otherwise unremarkable Past Medical History Past Medical History: Atrial Fibrillation, Chest Pain / Angina, COPD, CVA/TIA, Diabetes Mellitus, Eye Disorder, GERD/Reflux, Hyperlipidemia, Hypertension, Myocardial Infarction ([place]), Osteoarthritis ([place]), Thyroid Disorder Additional Past Medical History / Comment(s): vertigo, CVA-x2- 2010, glaucoma, varicose veins, peptic ulcer, HX POLYP, stress incont of urine, graves, oxygen 2l at home Last Myocardial Infarction Date:: 2008 History of Any Multi-Drug Resistant Organisms: None Reported Past Surgical History: Bladder Surgery, Cholecystectomy, Hernia Repair, Hysterectomy, Tonsillectomy Additional Past Surgical History / Comment(s): thyroidectomy, left foot ORIF- hardware later removed, ragini oopherectomy, bladder suspension, laser eye surgeryx2, Past Anesthesia/Blood Transfusion Reactions: No Reported Reaction Past Psychological History: Anxiety, Depression Additional Psychological History / Comment(s): lives with her grandson Smoking Status: Current some day smoker Past Alcohol Use History: None Reported Additional Past Alcohol Use History / Comment(s): started smoking at ge 17- has cut down from 3ppd to 2PPD Past Drug Use History: None Reported - Past Family History Mother Family Medical History: Hypertension Additional Family Medical History / Comment(s): brain aneurysm Father Family Medical History: Cancer Additional Family Medical History / Comment(s): prostate Medications and Allergies Home Medications Medication Instructions Recorded Confirmed Type metFORMIN HCL [Glucophage] 1,000 mg PO BID 09/14/15 05/08/23 History ALPRAZolam [Xanax] 0.25 mg PO BID PRN 07/28/17 05/08/23 History Amitriptyline HCl [Elavil] 100 mg PO HS 07/28/17 05/08/23 History Escitalopram [Lexapro] 20 mg PO DAILY 10/23/17 05/08/23 History Levothyroxine Sodium [Synthroid] 150 mcg PO AC-BRKFST 08/31/19 05/08/23 History Nitroglycerin Sl Tabs [Nitrostat] 0.4 mg SL Q5M PRN 08/31/19 05/08/23 History Apixaban [Eliquis] 5 mg PO BID tab 09/02/19 05/08/23 Rx Latanoprost Ophth [Xalatan 0.005%] 1 drop BOTH EYES HS 09/28/20 05/08/23 History Multivitamins, Thera [Multivitamin 1 tab PO BID 09/28/20 05/08/23 History (formulary)] Rosuvastatin Calcium [Crestor] 5 mg PO DAILY 09/28/20 05/08/23 History Dulaglutide [Trulicity] 1.5 mg SQ TU 06/20/21 05/08/23 History Empagliflozin [Jardiance] 25 mg PO DAILY 06/20/21 05/08/23 History Insulin Glargine [Lantus Vial] 100 unit SQ DAILY 06/20/21 05/08/23 History lisinopriL [Zestril] 5 mg PO DAILY 30 Days #30 tab 06/22/21 05/08/23 Rx ARIPiprazole [Abilify] 2 mg PO DAILY 12/15/21 05/08/23 History Albuterol Inhaler [Ventolin Hfa 1 - 2 puff INHALATION RT-QID PRN 12/15/21 05/08/23 History Inhaler] Furosemide [Lasix] 20 mg PO BID@0900,1600 30 Days #60 12/19/21 05/08/23 Rx tab Albuterol Nebulized [Ventolin 2.5 mg INHALATION Q4H PRN #25 each 05/08/23 Rx Nebulized] Brimonidine Tartrate [Alphagan P 1 drop BOTH EYES BID 05/08/23 05/08/23 History 0.1% Ophth Soln] HYDROcodone/APAP 5-325MG [[place] 1 tab PO QID 05/08/23 05/08/23 History 5-325] Metoprolol Tartrate [Lopressor] 50 mg PO BID 05/08/23 05/08/23 History Nystatin 100,000Unit/gm Cream 1 applic TOPICAL BID 05/08/23 05/08/23 History [Mycostatin Cream] Pantoprazole [Protonix] 40 mg PO DAILY 05/08/23 05/08/23 History predniSONE 50 mg PO DAILY #5 tab 05/08/23 Rx Allergies Allergy/AdvReac Type Severity Reaction Status Date / Time No Known Allergies Allergy Verified 05/08/23 18:22 Physical Exam Vitals: Vital Signs Temp Pulse Pulse Resp BP BP Pulse Ox 05/08/23 18:40 98.5 F 105 H 16 176/159 98 05/08/23 18:14 98.8 F 05/08/23 17:25 98.8 F 82 23 111/93 98 05/08/23 17:01 87 05/08/23 16:50 78 05/08/23 15:24 89 18 138/70 96 05/08/23 15:02 92 05/08/23 14:48 90 05/08/23 13:47 98.2 F 92 22 127/97 95 Intake and Output 05/08/23 05/08/23 05/08/23 06:59 14:59 22:59 Other: Weight 111.13 kg 111.13 kg Head normocephalic Neck supple Lungs diminished bilaterally with some expiratory wheezing, tachpenic Heart regular rate and rhythm S1-S2, no rub or gallop Abdomen is soft nontender nondistended positive bowel sounds no hepatosplenomeg jimmy Extremities no edema Neuro alert and orientated to 3 Results CBC & Chem 7: 05/09/23 07:23 05/09/23 07:23 Labs: Abnormal Lab Results - Last 24 Hours (Table) 05/08/23 05/08/23 Range/Units 14:27 19:28 POC Glucose (mg/dL) 211 H (70-110) mg/dL Alkaline Phosphatase 159 H (38-126) U/L Thrombosis Risk Factor Assmnt - Choose All That Apply Any of the Below Risk Factors Present?: Yes Each Factor Represents 1 point: Abnormal pulmonary function (COPD), Obesity (BMI >25) Other Risk Factors: Yes Each Risk Factor Represents 2 Points: Age 61-74 years Other congenital or acquired thrombophilia - If yes, enter type in comment: No Thrombosis Risk Factor Assessment Total Risk Factor Score: 4 Thrombosis Risk Factor Assessment Level: Moderate Risk Assessment and Plan Assessment: 1. Increased shortness breath secondary to acute COPD exacerbation 2. History of COPD maintained on home oxygen 3. History of diabetes mellitus type 2 4. History of paroxysmal atrial fibrillation. Maintained on eliquis 5. History of essential hypertension 6. History of hyperlipidemia 7. History of coronary artery disease DVT prophylaxis eliquis. GI prophylaxis Protonix Patient started on DuoNeb breathing treatments and IV steroids Pulmonary service is consulted COVID-19 influenza and RSV ordered Repeat labs ordered Time with Patient: Greater than 30 (Greater than 60% of the total time spent in counseling and coordination of care)
[2023-05-09 12:15] LABS: Glucose,Whole Blood 209 mg/dL (70-110)
--- NOTE | 2023-05-09 15:11 | P.CNPUL ---
History of Present Illness Consult date: 05/09/23 Reason for consult: dyspnea, cough, COPD History of present illness: 05/09/2023, the patient is being seen in consultation for an acute COPD exacer joslynion. The patient is a chronic smoker. She has not seen us on a regular basis. She has an albuterol nebulizer at home. She does not have the medication and she has not been using any other and maintenance respiratory medications on outpatient basis. The patient comes into the hospital because of worsening dyspnea cough chest tightness and wheezing and shortness of breath. The patient was also found to be hypoxic and she was placed on oxygen 3 L/min nasal cannula. She is a bit anxious in addition. The viral screen/panel came back negative. The blood work shows a WBC of 10.2 with hemoglobin 13.0 and a platelet count of 230. BUN is at 16 with a creatinine of 0.66 and his sodium level is at 135. The chest x-ray was also reviewed and there is no evidence of any acute cardiopulmonary abnormalities. No evidence of any pleural effusion or focal consolidation. The patient is currently on bronchodilators with DuoNeb updrafts and the patient is also on IV Solu-Medrol at a dose of 60 mg every 6 hours. Rest of the home medications have been resumed. In terms of her past medical history, the patient has history of COPD, diabetes mellitus type 2, hypertension hyperlipidemia, coronary artery disease and previous history of CVA x 2 and history of glucoma. She typically utilizes oxygen 2 L/min nasal cannula. Her COPD is severe and the patient has an FEV1 of 33% of predicted and this is based on the pulmonary function test that was done on 08/01/2021 in our office. Her diffusion capacity was down to 62% of predicted and the total lung capacity was 122% of predicted and the patient had hyperinflation and air trapping. Review of Systems Constitutional: Reports as per HPI Eyes: denies as per HPI, denies blurred vision, denies bulging eye, denies decreased vision, denies diplopia, denies discharge, denies dry eye, denies irritation, denies itching, denies pain, denies photophobia, denies loss of peripheral vision, denies loss of vision, denies tunnel vision/blind spots Ears: deny: decreased hearing, ear discharge, earache, tinnitus Ears, nose, mouth and throat: Reports as per HPI Breasts: absent: as per HPI, change in shape, gynecomastia, masses, nipple discharge, pain, skin changes, swelling Cardiovascular: Reports as per HPI, Reports decreased exercise tolerance, Reports dyspnea on exertion Respiratory: Reports as per HPI, Reports cough with sputum, Reports dyspnea Gastrointestinal: Reports as per HPI Genitourinary: Reports as per HPI Menstruation: Reports as per HPI Musculoskeletal: Reports as per HPI Musculoskeletal: absent: ankle pain, ankle stiffness, ankle swelling Integumentary: Reports as per HPI Neurological: Reports as per HPI Psychiatric: Reports as per HPI Endocrine: Reports as per HPI Hematologic/Lymphatic: Reports as per HPI Allergic/Immunologic: Reports as per HPI Past Medical History Past Medical History: Atrial Fibrillation, Chest Pain / Angina, COPD, CVA/TIA, Diabetes Mellitus, Eye Disorder, GERD/Reflux, Hyperlipidemia, Hypertension, Myocardial Infarction (LA), Osteoarthritis (OA), Thyroid Disorder Additional Past Medical History / Comment(s): vertigo, CVA-x2- 2010, glaucoma, varicose veins, peptic ulcer, HX POLYP, stress incont of urine, graves, oxygen 2l at home Last Myocardial Infarction Date:: 2008 History of Any Multi-Drug Resistant Organisms: None Reported Past Surgical History: Bladder Surgery, Cholecystectomy, Hernia Repair, Hysterectomy, Tonsillectomy Additional Past Surgical History / Comment(s): thyroidectomy, left foot ORIF- hardware later removed, ragini oopherectomy, bladder suspension, laser eye surgeryx2, Past Anesthesia/Blood Transfusion Reactions: No Reported Reaction Past Psychological History: Anxiety, Depression Additional Psychological History / Comment(s): lives with her grandson Smoking Status: Current some day smoker Past Alcohol Use History: None Reported Additional Past Alcohol Use History / Comment(s): started smoking at ge 17- has cut down from 3ppd to 2PPD Past Drug Use History: None Reported - Past Family History Mother Family Medical History: Hypertension Additional Family Medical History / Comment(s): brain aneurysm Father Family Medical History: Cancer Additional Family Medical History / Comment(s): prostate Medications and Allergies Home Medications Medication Instructions Recorded Confirmed Type metFORMIN HCL [Glucophage] 1,000 mg PO BID 09/14/15 05/08/23 History ALPRAZolam [Xanax] 0.25 mg PO BID PRN 07/28/17 05/08/23 History Amitriptyline HCl [Elavil] 100 mg PO HS 07/28/17 05/08/23 History Escitalopram [Lexapro] 20 mg PO DAILY 10/23/17 05/08/23 History Levothyroxine Sodium [Synthroid] 150 mcg PO AC-BRKFST 08/31/19 05/08/23 History Nitroglycerin Sl Tabs [Nitrostat] 0.4 mg SL Q5M PRN 08/31/19 05/08/23 History Apixaban [Eliquis] 5 mg PO BID tab 09/02/19 05/08/23 Rx Latanoprost Ophth [Xalatan 0.005%] 1 drop BOTH EYES HS 09/28/20 05/08/23 History Multivitamins, Thera [Multivitamin 1 tab PO BID 09/28/20 05/08/23 History (formulary)] Rosuvastatin Calcium [Crestor] 5 mg PO DAILY 09/28/20 05/08/23 History Dulaglutide [Trulicity] 1.5 mg SQ TU 06/20/21 05/08/23 History Empagliflozin [Jardiance] 25 mg PO DAILY 06/20/21 05/08/23 History Insulin Glargine [Lantus Vial] 100 unit SQ DAILY 06/20/21 05/08/23 History lisinopriL [Zestril] 5 mg PO DAILY 30 Days #30 tab 06/22/21 05/08/23 Rx ARIPiprazole [Abilify] 2 mg PO DAILY 12/15/21 05/08/23 History Albuterol Inhaler [Ventolin Hfa 1 - 2 puff INHALATION RT-QID PRN 12/15/21 05/08/23 History Inhaler] Furosemide [Lasix] 20 mg PO BID@0900,1600 30 Days #60 12/19/21 05/08/23 Rx tab Albuterol Nebulized [Ventolin 2.5 mg INHALATION Q4H PRN #25 each 05/08/23 Rx Nebulized] Brimonidine Tartrate [Alphagan P 1 drop BOTH EYES BID 05/08/23 05/08/23 History 0.1% Ophth Soln] HYDROcodone/APAP 5-325MG [Rudyard 1 tab PO QID 05/08/23 05/08/23 History 5-325] Metoprolol Tartrate [Lopressor] 50 mg PO BID 05/08/23 05/08/23 History Nystatin 100,000Unit/gm Cream 1 applic TOPICAL BID 05/08/23 05/08/23 History [Mycostatin Cream] Pantoprazole [Protonix] 40 mg PO DAILY 05/08/23 05/08/23 History predniSONE 50 mg PO DAILY #5 tab 05/08/23 Rx Allergies Allergy/AdvReac Type Severity Reaction Status Date / Time No Known Allergies Allergy Verified 05/08/23 18:22 Physical Exam Vitals: Vital Signs Temp Pulse Pulse Resp BP BP Pulse Ox 05/09/23 08:53 92 05/09/23 08:36 94 96 05/09/23 08:00 97 20 05/09/23 07:00 98.1 F 97 20 182/93 96 05/09/23 02:00 97.6 F 87 152/85 93 L 05/08/23 20:43 95 05/08/23 20:28 90 05/08/23 20:00 105 H 16 05/08/23 18:40 98.5 F 105 H 16 176/159 98 05/08/23 18:14 98.8 F 05/08/23 17:25 98.8 F 82 23 111/93 98 05/08/23 17:01 87 05/08/23 16:50 78 05/08/23 15:24 89 18 138/70 96 05/08/23 15:02 92 05/08/23 14:48 90 05/08/23 13:47 98.2 F 92 22 127/97 95 Intake and Output 05/08/23 05/09/23 05/09/23 22:59 06:59 14:59 Intake Total 618 Balance 618 Intake: Oral 618 Other: Voiding Method Toilet # Voids 2 2 Weight 111.13 kg Mild respiratory distress, oriented 3. The patient is currently on 3 L of oxygen. Current body mass index is 37.3 Head exam was generally normal. There was no scleral icterus or corneal arcus. Mucous membranes were moist. HEENT examination is grossly unremarkable. Neck supple. Full range of motion. No adenopathy thyromegaly or neck vein distention. Cardiovascular examination reveals regular rhythm rate. S1-S2 normal. No S3 or S4. No discernible murmur noted. Heart sounds distant. Lungs reveal diminished breath sounds throughout. Expiratory wheezes have improved significantly on today's evaluation patient is less short of breath. Breathing is nonlabored Abdomen soft bowel sounds are heard. No masses or tenderness. Extremities are intact. No cyanosis clubbing or edema. Skin is without rash or lesion. Neurologic examination is brief but nonfocal. Results - Laboratory Findings CBC and BMP: 05/09/23 07:23 05/09/23 07:23 PT/INR, D-dimer PT 10.6 sec (10.0-12.5) 05/08/23 14:27 INR 1.0 (<1.2) 05/08/23 14:27 Abnormal lab findings: Abnormal Labs 05/08/23 05/08/23 05/09/23 14:27 19:28 06:51 Neutrophils # Lymphocytes # Sodium Glucose POC Glucose (mg/dL) 211 H 222 H Calcium Alkaline Phosphatase 159 H 05/09/23 05/09/23 07:23 07:23 Neutrophils # 9.3 H Lymphocytes # 0.8 L Sodium 135 L Glucose 217 H POC Glucose (mg/dL) Calcium 10.6 H Alkaline Phosphatase - Diagnostic Findings Chest x-ray: image reviewed Assessment and Plan Plan: Acute hypoxemic respiratory failure, secondary to COPD exacerbation Advance send severe COPD with a FEV1 of 33% of predicted and a diffusion capacity of 62% of predicted based on a PFT that was done 01/01/2022. The patie nt is not sure if she is taking any form of maintenance respiratory medication. Based on our office records, the patient has been taking regularly Trelegy Ellipta refills from our office. She has a nebulizer and she has not been able to get the medication on a regular basis. His last evaluation in our office was back in 2021. Long-standing history of tobacco abuse. The patient continues to smoke around half to 1 pack of cigarettes a day. Paroxysmal paroxysmal atrial fibrillation the patient's current cardiac rhythm is sinus, and the patient is also on long-term anticoagulation with Eliquis CVA. diabetes mellitus maintained on long-acting insulin with Lantus insulin 100 units daily plus a sliding scale coverage and the patient is also on Trulicity and Glucophage gastroesophageal reflux disease. Hypertension by history. Hyperlipidemia by history. Maintained on Crestor CAD and a history of myocardial infarction. History of hypothyroidism. Right thyroid lobe nodule measuring 2.7 cm in size, Enlarging posterior right liver lobe mass measuring consistent with hemangioma Small hiatal hernia Plan Titrate oxygen flow to maintain saturation above 90% DuoNeb nebulizer treatments [id number] Arrange a home nebulizer for this patient and will try to set her up back on Trelegy Ellipta as maintenance once she is discharged home. Meanwhile, the patient will be treated with IV Solu-Medrol 60 mg every 6 hours. Monitor the blood sugars and cover the patient with sliding scale insulin coverage and the patient is also on a combination of Glucophage and Levemir insulin 100 units a day Resume home medications Smoking cessation counseling was done Will continue to follow
[2023-05-09 17:22] LABS: Glucose,Whole Blood 258 mg/dL (70-110)
[2023-05-09 20:11] LABS: Glucose,Whole Blood 262 mg/dL (70-110)
[2023-05-09] MEDS: ONDANSETRON 4 MG/2 ML VIAL IVP PRN (21:26)
[2023-05-10 05:33] LABS: Glucose,Whole Blood 214 mg/dL (70-110)
--- NOTE | 2023-05-10 10:49 | P.PN ---
Subjective Progress Note Date: 05/10/23 Jennifer Rodriguez, is a 67-year-old female patient who presented with concerns of increased shortness of breath and cough. Patient has a past medical history of severe COPD maintained on home O2 and follows with pulmonology. Additional medical history includes atrial fibrillation, chest pain, CVA, diabetes mellitus, GERD, hyperlipidemia, hypertension, osteoarthritis and thyroid disorder. EKG completed showing sinus rhythm. Chest x-ray completed showing no acute cardiopulmonary disease process. Troponin negative. Patient started on DuoNeb breathing treatments and IV Solu-Medrol. Will consult pulmonary services at this time. We'll also order Covid 19, flu and RSV to rule out. At this time patient is sitting comfortably in bed patient still appears tachypenic. Reports improvement with shortness of breath. Patient denies chest pain. Patient denies nausea vomiting or diarrhea. Patient denies any urinary burning or frequency. Current vital signs temp 98.2, blood pressure 152/85, heart rate 97 with a pulse ox 97% on 3 L. On 05/10/2023 patient was seen and examined on the medical floor she is alert and oriented 3 in no apparent distress she reports improvement in her cough and shortness of breath otherwise she denies any complaints there is no fever or chills no headache or dizziness no chest pain no nausea or vomiting no abdominal pain no diarrhea no blood in the stools no burning with urination no frequency or urgency and no hematuria. Vital exam reveals a temperature of 97.8 pulse 83 respirations 16 blood pressure 136/79 pulse ox 98% on 3 L nasal cannula Objective - Vital Signs Vital signs: Vital Signs Temp 97.8 F 05/10/23 07:00 Pulse 84 05/10/23 07:35 Resp 16 05/10/23 07:00 BP 136/79 05/10/23 07:00 Pulse Ox 98 05/10/23 07:35 FiO2 Intake & Output 05/09/23 05/10/23 05/10/23 18:59 06:59 18:59 Intake Total 1236 Balance 1236 Intake: Oral 1236 Other: Voiding Method Toilet Toilet # Voids 3 2 - Exam Head normocephalic Neck supple Lungs diminished bilaterally with some expiratory wheezing, tachpenic Heart regular rate and rhythm S1-S2, no rub or gallop Abdomen is soft nontender nondistended positive bowel sounds no hepatosplenomegaly Extremities no edema Neuro alert and orientated to 3 - Labs CBC & Chem 7: 05/09/23 07:23 05/09/23 07:23 Labs: Abnormal Lab Results - Last 24 Hours (Table) 05/09/23 05/09/23 05/09/23 Range/Units 12:14 17:20 20:09 POC Glucose (mg/dL) 209 H 258 H 262 H (70-110) mg/dL 05/10/23 Range/Units 05:32 POC Glucose (mg/dL) 214 H (70-110) mg/dL Assessment and Plan Assessment: 1. Increased shortness breath secondary to acute COPD exacerbation 2. History of COPD maintained on home oxygen 3. History of diabetes mellitus type 2 4. History of paroxysmal atrial fibrillation. Maintained on eliquis 5. History of essential hypertension 6. History of hyperlipidemia 7. History of coronary artery disease DVT prophylaxis eliquis. GI prophylaxis Protonix Patient started on DuoNeb breathing treatments and IV steroids Pulmonary service is consulted COVID-19 influenza and RSV ordered Repeat labs ordered
[2023-05-10 11:47] LABS: Basophils # (A) 0.03 X 10*3/uL (0.00-0.10); Basophils % (A) 0.2 %; Eosinophils # (A) 0 X 10*3/uL (0.04-0.35); Eosinophils % (A) 0 %; HCT 40.7 % (37.2-46.3); Lymphocytes # (A) 0.86 X 10*3/uL (0.90-5.00); Lymphocytes % (A) 4.7 %; MCH 25.1 pg (27.0-32.0); MCHC 29.5 g/dL (32.0-37.0); MCV 85.1 FL (80.0-97.0); Mean Platelet Volume 10.4 FL (9.5-12.2); NRBC Per 100 WBC 0 X 10*3/uL (0.00-0.01); Neutrophils # (A) 16.21 X 10*3/uL (1.80-7.70); Neutrophils % (A) 89.1 %; Platelet Count 255 X 10*3/uL (140-440); RBC 4.78 X 10*6/uL (4.10-5.20); RDW 14.7 % (11.5-14.5); WBC 18.18 X 10*3/uL (4.50-10.00)
[2023-05-10 11:52] LABS: ALT 16 U/L (8-44); AST 25 U/L (13-35); Albumin 4.3 g/dL (3.8-4.9); Albumin/Globulin Ratio 1.65 Ratio (1.60-3.17); Alkaline Phosphatase 148 U/L (41-126); Blood Urea Nitrogen 23.2 mg/dL (9.0-27.0); Calcium 10.8 mg/dL (8.7-10.3); Carbon Dioxide 26.4 mmol/L (21.6-31.8); Chloride 99 mmol/L (96-109); Globulin 2.6 g/dL (1.6-3.3); Glucose 210 mg/dL (70-110); Potassium 4.8 mmol/L (3.5-5.5); Sodium 139 mmol/L (135-145); Total Bilirubin 0.2 mg/dL (0.3-1.2); Total Protein 6.9 g/dL (6.2-8.2)
[2023-05-10 12:11] LABS: Glucose,Whole Blood 304 mg/dL (70-110)
--- NOTE | 2023-05-10 12:13 | P.PN ---
Subjective Progress Note Date: 05/10/23 05/09/2023, the patient is being seen in consultation for an acute COPD exacerbation. The patient is a chronic smoker. She has not seen us on a regular basis. She has an albuterol nebulizer at home. She does not have the medication and she has not been using any other and maintenance respiratory medications on outpatient basis. The patient comes into the hospital because of worsening dyspnea cough chest tightness and wheezing and shortness of breath. The patient was also found to be hypoxic and she was placed on oxygen 3 L/min nasal cannula. She is a bit anxious in addition. The viral screen/panel came back negative. The blood work shows a WBC of 10.2 with hemoglobin 13.0 and a platelet count of 230. BUN is at 16 with a creatinine of 0.66 and his sodium level is at 135. The chest x-ray was also reviewed and there is no evidence of any acute cardiopulmonary abnormalities. No evidence of any pleural effusion or focal consolidation. The patient is currently on bronchodilators with DuoNeb updrafts and the patient is also on IV Solu-Medrol at a dose of 60 mg every 6 hours. Rest of the home medications have been resumed. In terms of her past medical history, the patient has history of COPD, diabetes mellitus type 2, hypertension hyperlipidemia, coronary artery disease and previ ous history of CVA x 2 and history of glucoma. She typically utilizes oxygen 2 L/min nasal cannula. Her COPD is severe and the patient has an FEV1 of 33% of predicted and this is based on the pulmonary function test that was done on 08/01/2021 in our office. Her diffusion capacity was down to 62% of predicted and the total lung capacity was 122% of predicted and the patient had hyperinflation and air trapping. On today's evaluation of 05/10/2023, the patient is feeling better. Less bronchospastic and wheezy compared to yesterday. No new complaints. She remains on DuoNeb updrafts, she is also on IV Solu-Medrol 60 mg every 6 hours.Labs from today shows a white cell count of 18, hemoglobin 12 and platelet count of 255, BUN is 23 with a creatinine of 0.8 and sodium levels at 139. The patient is currently on 3 L O2 with a pulse ox of 98%. Clinically and hemodynamically stable. No angina. No palpitation. Some mild diffuse hypoglycemia has been noted. Objective - Vital Signs Vital signs: Vital Signs Temp 97.8 F 05/10/23 07:00 Pulse 84 05/10/23 07:35 Resp 16 05/10/23 07:00 BP 136/79 05/10/23 07:00 Pulse Ox 98 05/10/23 07:35 FiO2 Intake & Output 05/09/23 05/10/23 05/10/23 18:59 06:59 18:59 Intake Total 1236 118 Balance 1236 118 Intake: Oral 1236 118 Other: Voiding Method Toilet Toilet # Voids 3 2 - Exam Mild respiratory distress, oriented 3. The patient is currently on 3 L of oxygen. Current body mass index is 37.3 Head exam was generally normal. There was no scleral icterus or corneal arcus. Mucous membranes were moist. HEENT examination is grossly unremarkable. Neck supple. Full range of motion. No adenopathy thyromegaly or neck vein distention. Cardiovascular examination reveals regular rhythm rate. S1-S2 normal. No S3 or S4. No discernible murmur noted. Heart sounds distant. Lungs reveal diminished breath sounds throughout. Expiratory wheezes have improved significantly on today's evaluation patient is less short of breath. Breathing is nonlabored Abdomen soft bowel sounds are heard. No masses or tenderness. Extremities are intact. No cyanosis clubbing or edema. Skin is without rash or lesion. Neurologic examination is brief but nonfocal. - Labs CBC & Chem 7: 05/10/23 05:15 05/10/23 05:15 Labs: Abnormal Lab Results - Last 24 Hours (Table) 05/09/23 05/09/23 05/09/23 Range/Units 12:14 17:20 20:09 POC Glucose (mg/dL) 209 H 258 H 262 H (70-110) mg/dL 05/10/23 Range/Units 05:32 POC Glucose (mg/dL) 214 H (70-110) mg/dL Assessment and Plan Plan: Acute hypoxemic respiratory failure, secondary to COPD exacerbation, clinically improving on today's evaluation Advance send severe COPD with a FEV1 of 33% of predicted and a diffusion capacity of 62% of predicted based on a PFT that was done 01/01/2022. The patie nt is not sure if she is taking any form of maintenance respiratory medication. Based on our office records, the patient has been taking regularly Trelegy Ellipta refills from our office. She has a nebulizer and she has not been able to get the medication on a regular basis. His last evaluation in our office was back in 2021. Long-standing history of tobacco abuse. The patient continues to smoke around half to 1 pack of cigarettes a day. Paroxysmal paroxysmal atrial fibrillation the patient's current cardiac rhythm is sinus, and the patient is also on long-term anticoagulation with Eliquis CVA. diabetes mellitus maintained on long-acting insulin with Lantus insulin 100 units daily plus a sliding scale coverage and the patient is also on Trulicity and Glucophage gastroesophageal reflux disease. Hypertension by history. Hyperlipidemia by history. Maintained on Crestor CAD and a history of myocardial infarction. History of hypothyroidism. Right thyroid lobe nodule measuring 2.7 cm in size, Enlarging posterior right liver lobe mass measuring consistent with hemangioma Small hiatal hernia Plan Will continue same treatment as the patient is clinically improving Titrate oxygen flow to maintain saturation above 90% DuoNeb nebulizer treatments [id number] Arrange a home nebulizer for this patient and will try to set her up back on Trelegy Ellipta as maintenance once she is discharged home. Meanwhile, the patient will be treated with IV Solu-Medrol 60 mg every 6 hours. Monitor the blood sugars and cover the patient with sliding scale insulin coverage and the patient is also on a combination of Glucophage and Levemir insulin 100 units a day Resume home medications Smoking cessation counseling was done Will continue to follow
[2023-05-10] MEDS ORDERED: DEXTROSE 50% SYRINGE 50 ML IVP PRN ×4 (12:32→12:35)
[2023-05-10] MEDS: INSULIN ASPART (NovoLOG) 100 UNIT/ML VIAL SQ SCH (12:55)
[2023-05-10 17:06] LABS: Glucose,Whole Blood 363 mg/dL (70-110)
[2023-05-10 20:28] LABS: Glucose,Whole Blood 286 mg/dL (70-110)
[2023-05-11 06:24] LABS: Glucose,Whole Blood 224 mg/dL (70-110)
[2023-05-11 07:29] VITALS: BP 157/77; RESP 16; TEMP 98
[2023-05-11 08:55] VITALS: PULSE 92
[2023-05-11 09:34] LABS: Basophils # (A) 0.05 X 10*3/uL (0.00-0.10); Basophils % (A) 0.4 %; Eosinophils # (A) 0 X 10*3/uL (0.04-0.35); Eosinophils % (A) 0 %; HGB 13.1 g/dL (12.0-15.0); Lymphocytes # (A) 0.73 X 10*3/uL (0.90-5.00); Lymphocytes % (A) 5.2 %; MCH 25.4 pg (27.0-32.0); MCHC 30.5 g/dL (32.0-37.0); MCV 83.5 FL (80.0-97.0); Mean Platelet Volume 10.3 FL (9.5-12.2); Monocytes # (A) 0.31 X 10*3/uL (0.20-1.00); Monocytes % (A) 2.2 %; NRBC Per 100 WBC 0 X 10*3/uL (0.00-0.01); Neutrophils # (A) 12.82 X 10*3/uL (1.80-7.70); Neutrophils % (A) 90.7 %; Platelet Count 220 X 10*3/uL (140-440); RBC 5.15 X 10*6/uL (4.10-5.20); RDW 14.5 % (11.5-14.5); WBC 14.12 X 10*3/uL (4.50-10.00)
[2023-05-11 09:55] LABS: ALT 15 U/L (8-44); AST 20 U/L (13-35); Albumin 4.3 g/dL (3.8-4.9); Albumin/Globulin Ratio 1.59 Ratio (1.60-3.17); Alkaline Phosphatase 143 U/L (41-126); BUN/Creat Ratio 35.71 Ratio (12.00-20.00); Calcium 11.2 mg/dL (8.7-10.3); Carbon Dioxide 30.8 mmol/L (21.6-31.8); Chloride 97 mmol/L (96-109); Globulin 2.7 g/dL (1.6-3.3); Glucose 223 mg/dL (70-110); Potassium 4.7 mmol/L (3.5-5.5); Sodium 140 mmol/L (135-145); Total Bilirubin 0.3 mg/dL (0.3-1.2)
--- NOTE | 2023-05-11 10:14 | P.DS ---
Providers Date of admission: 05/08/23 16:53 Expected date of discharge: 05/11/23 Attending physician: Vicky Pinedo Consults: 05/09/23 09:49 Consult Physician Routine Consulting Provider: Shi Neal Consult Reason/Comments: established patient, COPD exacerbation Do you want consulting provider notified?: Yes Primary care physician: Vicky Pinedo [facility] Course: Discharge diagnosis 1. Increased shortness breath secondary to acute COPD exacerbation 2. History of COPD maintained on home oxygen 3. History of diabetes mellitus type 2 4. History of paroxysmal atrial fibrillation. Maintained on eliquis 5. History of essential hypertension 6. History of hyperlipidemia 7. History of coronary artery disease Hospital course Jennifer Rodriguez, is a 67-year-old female patient who presented with concerns of increased shortness of breath and cough. Patient has a past medical history of severe COPD maintained on home O2 and follows with pulmonology. Additional medical history includes atrial fibrillation, chest pain, CVA, diabetes mellitus, GERD, hyperlipidemia, hypertension, osteoarthritis and thyroid disord er. EKG completed showing sinus rhythm. Chest x-ray completed showing no acute cardiopulmonary disease process. Troponin negative. Patient started on DuoNeb breathing treatments and IV Solu-Medrol. Will consult pulmonary services at this time. We'll also order Covid 19, flu and RSV to rule out. At this time patient is sitting comfortably in bed patient still appears tachypenic. Reports improvement with shortness of breath. Patient denies chest pain. Patient denies nausea vomiting or diarrhea. Patient denies any urinary burning or frequency. Current vital signs temp 98.2, blood pressure 152/85, heart rate 97 with a pulse ox 97% on 3 L. On 05/10/2023 patient was seen and examined on the medical floor she is alert and oriented 3 in no apparent distress she reports improvement in her cough and shortness of breath otherwise she denies any complaints there is no fever or chills no headache or dizziness no chest pain no nausea or vomiting no abdominal pain no diarrhea no blood in the stools no burning with urination no frequency or urgency and no hematuria. Vital exam reveals a temperature of 97.8 pulse 83 respirations 16 blood pressure 136/79 pulse ox 98% on 3 L nasal cannula On 05/11/2023 patient is alert and oriented 3. Patient is eager to be DC'd home. Patient reports she feels back to baseline. Patient be DC'd on prednisone taper and albuterol. Patient again educated on the importance of complete smoking cessation. Patient denies chest pain or shortness of breath. Patient denies nausea vomiting or diarrhea. Patient denies urinary burning or frequency Patient Condition at Discharge: Stable Plan - Discharge Summary Discharge Rx Participant: No New Discharge Prescriptions: New predniSONE 50 mg PO DAILY #5 tab Albuterol Nebulized [Ventolin Nebulized] 2.5 mg INHALATION Q4H PRN #25 each PRN Reason: Shortness Of Breath Nicotine 21Mg/24Hr Patch [Habitrol] 1 patch TRANSDERM DAILY 30 Days #30 patch Nystatin 100,000 Unit/gm Powd [Mycostatin Powder] 1 applic TOPICAL BID 30 Days #1 dispenser Continue metFORMIN HCL [Glucophage] 1,000 mg PO BID Amitriptyline HCl [Elavil] 100 mg PO HS ALPRAZolam [Xanax] 0.25 mg PO BID PRN PRN Reason: Anxiety Escitalopram [Lexapro] 20 mg PO DAILY Nitroglycerin Sl Tabs [Nitrostat] 0.4 mg SL Q5M PRN PRN Reason: Chest Pain Levothyroxine Sodium [Synthroid] 150 mcg PO AC-BRKFST Apixaban [Eliquis] 5 mg PO BID tab Rosuvastatin Calcium [Crestor] 5 mg PO DAILY Multivitamins, Thera [Multivitamin (formulary)] 1 tab PO BID Insulin Glargine [Lantus Vial] 100 unit SQ DAILY Furosemide [Lasix] 20 mg PO BID@0900,1600 30 Days #60 tab Pantoprazole [Protonix] 40 mg PO DAILY Nystatin 100,000Unit/gm Cream [Mycostatin Cream] 1 applic TOPICAL BID Metoprolol Tartrate [Lopressor] 50 mg PO BID HYDROcodone/APAP 5-325MG [Frankford 5-325] 1 tab PO QID Latanoprost Ophth [Xalatan 0.005%] 1 drop BOTH EYES HS Dulaglutide [Trulicity] 1.5 mg SQ TU Empagliflozin [Jardiance] 25 mg PO DAILY lisinopriL [Zestril] 5 mg PO DAILY 30 Days #30 tab Albuterol Inhaler [Ventolin Hfa Inhaler] 1 - 2 puff INHALATION RT-QID PRN PRN Reason: Shortness Of Breath ARIPiprazole [Abilify] 2 mg PO DAILY Brimonidine Tartrate [Alphagan P 0.1% Ophth Soln] 1 drop BOTH EYES BID Discharge Medication List metFORMIN HCL [Glucophage] 1,000 mg PO BID 09/14/15 [History] ALPRAZolam [Xanax] 0.25 mg PO BID PRN 07/28/17 [History] Amitriptyline HCl [Elavil] 100 mg PO HS 07/28/17 [History] Escitalopram [Lexapro] 20 mg PO DAILY 10/23/17 [History] Levothyroxine Sodium [Synthroid] 150 mcg PO AC-BRKFST 08/31/19 [History] Nitroglycerin Sl Tabs [Nitrostat] 0.4 mg SL Q5M PRN 08/31/19 [History] Apixaban [Eliquis] 5 mg PO BID tab 09/02/19 [Rx] Latanoprost Ophth [Xalatan 0.005%] 1 drop BOTH EYES HS 09/28/20 [History] Multivitamins, Thera [Multivitamin (formulary)] 1 tab PO BID 09/28/20 [History] Rosuvastatin Calcium [Crestor] 5 mg PO DAILY 09/28/20 [History] Dulaglutide [Trulicity] 1.5 mg SQ TU 06/20/21 [History] Empagliflozin [Jardiance] 25 mg PO DAILY 06/20/21 [History] Insulin Glargine [Lantus Vial] 100 unit SQ DAILY 06/20/21 [History] lisinopriL [Zestril] 5 mg PO DAILY 30 Days #30 tab 06/22/21 [Rx] ARIPiprazole [Abilify] 2 mg PO DAILY 12/15/21 [History] Albuterol Inhaler [Ventolin Hfa Inhaler] 1 - 2 puff INHALATION RT-QID PRN 12/15/21 [History] Furosemide [Lasix] 20 mg PO BID@0900,1600 30 Days #60 tab 12/19/21 [Rx] Albuterol Nebulized [Ventolin Nebulized] 2.5 mg INHALATION Q4H PRN #25 each 05/08/23 [Rx] Brimonidine Tartrate [Alphagan P 0.1% Ophth Soln] 1 drop BOTH EYES BID 05/08/23 [History] HYDROcodone/APAP 5-325MG [Frankford 5-325] 1 tab PO QID 05/08/23 [History] Metoprolol Tartrate [Lopressor] 50 mg PO BID 05/08/23 [History] Nystatin 100,000Unit/gm Cream [Mycostatin Cream] 1 applic TOPICAL BID 05/08/23 [History] Pantoprazole [Protonix] 40 mg PO DAILY 05/08/23 [History] predniSONE 50 mg PO DAILY #5 tab 05/08/23 [Rx] Nicotine 21Mg/24Hr Patch [Habitrol] 1 patch TRANSDERM DAILY 30 Days #30 patch 05/11/23 [Rx] Nystatin 100,000 Unit/gm Powd [Mycostatin Powder] 1 applic TOPICAL BID 30 Days #1 dispenser 05/11/23 [Rx] Follow up Appointment(s)/Referral(s): Vicky Pinedo MD [Primary Care Provider] - 1-2 days Shi Neal MD [STAFF PHYSICIAN] - 1 Week Patient Instructions/Handouts: Acute Bronchitis (ED), Chronic Bronchitis (ED) Discharge Disposition: HOME SELF-CARE
[2023-05-11 11:43] LABS: Glucose,Whole Blood 272 mg/dL (70-110)
--- NOTE | 2023-05-11 13:53 | P.PN ---
Subjective Progress Note Date: 05/11/23 05/09/2023, the patient is being seen in consultation for an acute COPD exacerbation. The patient is a chronic smoker. She has not seen us on a regular basis. She has an albuterol nebulizer at home. She does not have the medication and she has not been using any other and maintenance respiratory medications on outpatient basis. The patient comes into the hospital because of worsening dyspnea cough chest tightness and wheezing and shortness of breath. The patient was also found to be hypoxic and she was placed on oxygen 3 L/min nasal cannula. She is a bit anxious in addition. The viral screen/panel came back negative. The blood work shows a WBC of 10.2 with hemoglobin 13.0 and a platelet count of 230. BUN is at 16 with a creatinine of 0.66 and his sodium level is at 135. The chest x-ray was also reviewed and there is no evidence of any acute cardiopulmonary abnormalities. No evidence of any pleural effusion or focal consolidation. The patient is currently on bronchodilators with DuoNeb updrafts and the patient is also on IV Solu-Medrol at a dose of 60 mg every 6 hours. Rest of the home medications have been resumed. In terms of her past medical history, the patient has history of COPD, diabetes mellitus type 2, hypertension hyperlipidemia, coronary artery disease and previ ous history of CVA x 2 and history of glucoma. She typically utilizes oxygen 2 L/min nasal cannula. Her COPD is severe and the patient has an FEV1 of 33% of predicted and this is based on the pulmonary function test that was done on 08/01/2021 in our office. Her diffusion capacity was down to 62% of predicted and the total lung capacity was 122% of predicted and the patient had hyperinflation and air trapping. On today's evaluation of 05/10/2023, the patient is feeling better. Less bronchospastic and wheezy compared to yesterday. No new complaints. She remains on DuoNeb updrafts, she is also on IV Solu-Medrol 60 mg every 6 hours.Labs from today shows a white cell count of 18, hemoglobin 12 and platelet count of 255, BUN is 23 with a creatinine of 0.8 and sodium levels at 139. The patient is currently on 3 L O2 with a pulse ox of 98%. Clinically and hemodynamically stable. No angina. No palpitation. Some mild diffuse hypoglycemia has been noted. On 01/09/2024, the patient is doing well. No significant respite distress. Calm and comfortable. She feels that her overall respiratory status is back to her baseline. She has home O2. She has also a nebulizer at home. On 3 L of oxygen by nasal cannula, the pulse ox is 94 to 95%. Blood work from today shows a white cell count of 14, hemoglobin of 13, platelet count of 220, sodium is 140 with a BUN of 25 with a creatinine of 0.7. No other significant events overnight. Remains on anticoagulation with Eliquis. Remains on long-acting insulin and the patient will be going home on Lantus insulin and Trulicity and metformin for blood sugar control. She will also need a prednisone burst taper and nicotine patch. Objective - Vital Signs Vital signs: Vital Signs Temp 98.0 F 05/11/23 07:00 Pulse 92 05/11/23 08:10 Resp 16 05/11/23 08:44 BP 157/77 05/11/23 07:00 Pulse Ox 93 L 05/11/23 07:00 FiO2 Intake & Output 05/10/23 05/11/23 05/11/23 18:59 06:59 18:59 Intake Total 118 118 Balance 118 118 Intake: Oral 118 118 Other: Voiding Method Toilet Toilet # Voids 2 2 - Exam Mild respiratory distress, oriented 3. The patient is currently on 3 L of oxy gen. Current body mass index is 37.3 Head exam was generally normal. There was no scleral icterus or corneal arcus. Mucous membranes were moist. HEENT examination is grossly unremarkable. Neck supple. Full range of motion. No adenopathy thyromegaly or neck vein distention. Cardiovascular examination reveals regular rhythm rate. S1-S2 normal. No S3 or S4. No discernible murmur noted. Heart sounds distant. Lungs reveal diminished breath sounds throughout. Expiratory wheezes have improved significantly on today's evaluation patient is less short of breath. Breathing is nonlabored Abdomen soft bowel sounds are heard. No masses or tenderness. Extremities are intact. No cyanosis clubbing or edema. Skin is without rash or lesion. Neurologic examination is brief but nonfocal. - Labs CBC & Chem 7: 05/11/23 06:03 05/11/23 06:03 Labs: Abnormal Lab Results - Last 24 Hours (Table) 02/10/24 02/10/24 02/10/24 Range/Units 05:15 05:15 12:10 WBC 18.18 H (4.50-10.00) X 10*3/uL MCH 25.1 L (27.0-32.0) pg MCHC 29.5 L (32.0-37.0) g/dL RDW 14.7 H (11.5-14.5) % Immature Gran # 0.18 H (0.00-0.04) X 10*3/uL Neutrophils # 16.21 H (1.80-7.70) X 10*3/uL Lymphocytes # 0.86 L (0.90-5.00) X 10*3/uL Eosinophils # 0 L (0.04-0.35) X 10*3/uL Anion Gap 13.60 H (4.00-12.00) mmol/L BUN/Creatinine Ratio 29.00 H (12.00-20.00) Ratio Glucose 210 H (70-110) mg/dL POC Glucose (mg/dL) 304 H (70-110) mg/dL Hemoglobin A1c (<=6.0) % Calcium 10.8 H (8.7-10.3) mg/dL Total Bilirubin 0.2 L (0.3-1.2) mg/dL Alkaline Phosphatase 148 H (41-126) U/L Albumin/Globulin Ratio (1.60-3.17) Ratio 05/10/23 05/10/23 05/11/23 Range/Units 17:04 20:27 06:03 WBC (4.50-10.00) X 10*3/uL MCH (27.0-32.0) pg MCHC (32.0-37.0) g/dL RDW (11.5-14.5) % Immature Gran # (0.00-0.04) X 10*3/uL Neutrophils # (1.80-7.70) X 10*3/uL Lymphocytes # (0.90-5.00) X 10*3/uL Eosinophils # (0.04-0.35) X 10*3/uL Anion Gap (4.00-12.00) mmol/L BUN/Creatinine Ratio (12.00-20.00) Ratio Glucose (70-110) mg/dL POC Glucose (mg/dL) 363 H 286 H (70-110) mg/dL Hemoglobin A1c 7.6 H (<=6.0) % Calcium (8.7-10.3) mg/dL Total Bilirubin (0.3-1.2) mg/dL Alkaline Phosphatase (41-126) U/L Albumin/Globulin Ratio (1.60-3.17) Ratio 05/11/23 05/11/23 05/11/23 Range/Units 06:03 06:03 06:22 WBC 14.12 H (4.50-10.00) X 10*3/uL MCH 25.4 L (27.0-32.0) pg MCHC 30.5 L (32.0-37.0) g/dL RDW (11.5-14.5) % Immature Gran # 0.21 H (0.00-0.04) X 10*3/uL Neutrophils # 12.82 H (1.80-7.70) X 10*3/uL Lymphocytes # 0.73 L (0.90-5.00) X 10*3/uL Eosinophils # 0 L (0.04-0.35) X 10*3/uL Anion Gap 12.20 H (4.00-12.00) mmol/L BUN/Creatinine Ratio 35.71 H (12.00-20.00) Ratio Glucose 223 H (70-110) mg/dL POC Glucose (mg/dL) 224 H (70-110) mg/dL Hemoglobin A1c (<=6.0) % Calcium 11.2 H (8.7-10.3) mg/dL Total Bilirubin (0.3-1.2) mg/dL Alkaline Phosphatase 143 H (41-126) U/L Albumin/Globulin Ratio 1.59 L (1.60-3.17) Ratio Assessment and Plan Plan: Acute hypoxemic respiratory failure, secondary to COPD exacerbation, clinically improving on today's evaluation Advance send severe COPD with a FEV1 of 33% of predicted and a diffusion capacity of 62% of predicted based on a PFT that was done 01/01/2022. The patient is not sure if she is taking any form of maintenance respiratory medication. Based on our office records, the patient has been taking regularly Trelegy Ellipta refills from our office. She has a nebulizer and she has not been able to get the medication on a regular basis. His last evaluation in our office was back in 2021. Long-standing history of tobacco abuse. The patient continues to smoke around half to 1 pack of cigarettes a day. Paroxysmal paroxysmal atrial fibrillation the patient's current cardiac rhythm is sinus, and the patient is also on long-term anticoagulation with Eliquis CVA. diabetes mellitus maintained on long-acting insulin with Lantus insulin 100 units daily plus a sliding scale coverage and the patient is also on Trulicity and Glucophage gastroesophageal reflux disease. Hypertension by history. Hyperlipidemia by history. Maintained on Crestor CAD and a history of myocardial infarction. History of hypothyroidism. Right thyroid lobe nodule measuring 2.7 cm in size, Enlarging posterior right liver lobe mass measuring consistent with hemangioma Small hiatal hernia Plan Clinically improved and the patient is back to her baseline Titrate oxygen flow to maintain saturation above 90%, currently on 3 L of oxygen by nasal cannula DuoNeb nebulizer treatments [id number] Arrange a home nebulizer for this patient and will try to set her up back on Trelegy Ellipta as maintenance once she is discharged home. She will need a prednisone burst taper Nicotine patch. Blood sugar management Smoking cessation counseling was done Will continue to follow
[2023-05-13] MEDS ORDERED: PATIENT'S OWN (Dulaglutide [Trulicity] 1.5 MG/0.5 ML Each) SQ SCH (09:00)
== END 2023-05-11 12:47 | disposition home or self-care (01) ==
LOC: EC 13:34 → 6NMEDSUR 16:53
PROVIDERS: ADMIT Internal Medicine; ATTEND Internal Medicine
DX: J44.1 Chronic obstructive pulmonary disease with (acute) exacerbation (principal); J96.01 Acute respiratory failure with hypoxia; I48.0 Paroxysmal atrial fibrillation; E11.9 Type 2 diabetes mellitus without complications; K21.9 Gastro-esophageal reflux disease without esophagitis; E78.5 Hyperlipidemia, unspecified; I10 Essential (primary) hypertension; E89.0 Postprocedural hypothyroidism; F32.A Depression, unspecified; F41.9 Anxiety disorder, unspecified; I25.10 Atherosclerotic heart disease of native coronary artery without angina pectoris; E04.1 Nontoxic single thyroid nodule; R91.8 Other nonspecific abnormal finding of lung field; K44.9 Diaphragmatic hernia without obstruction or gangrene; I25.2 Old myocardial infarction; F17.210 Nicotine dependence, cigarettes, uncomplicated; Z20.822 Contact with and (suspected) exposure to COVID-19; Z86.73 Personal history of transient ischemic attack (TIA), and cerebral infarction without residual deficits; Z99.81 Dependence on supplemental oxygen; Z79.899 Other long term (current) drug therapy; Z79.4 Long term (current) use of insulin; Z79.84 Long term (current) use of oral hypoglycemic drugs; Z79.890 Hormone replacement therapy; Z79.01 Long term (current) use of anticoagulants; Z79.52 Long term (current) use of systemic steroids
CPT/HCPCS: 96376 ×4; 96375 ×2; 96374; 99285; 36415; 94640 ×8; 94760 ×2; 93005; 83880; 80053 ×3; 80048; 83605; 83735 ×2; 84100; 84484; 85025 ×4; 85610; 85730; 83036; 84145; 87636; 71045; G0378 ×4; S4990 ×4; J2930 ×4; J2405; J1885